=== PATIENT | female | born 1940 | race Caucasian/White ===

== ENCOUNTER 2017-02-28 18:55 | Emergency (ER) | payer MEDICARE, MEDICAID ==
[~2017-02-28] VITALS: Ht 167.6 cm; Wt 71.2 kg
--- NOTE | 2017-02-28 19:23 | NUR ---
PT JAMES LOPEZ FROM [facility], PT PLACED IN ER BED 5. PARAMEDICS STATE PT GTUBE WAS PULLED OUT UNWITNESSED YESTERDAY. 20F GTUBE REPLACED YESTERDAY BY SNF. PT HAS 22G IV TO LFA PLACED BY SNF, NO S/S INFILTRATION/INFECTION. PT ARRIVED ON A VENT WITH PRESCRIBED SETTINGS, RT AT BEDSIDE. VENT SETTINGS ARE AC 14 VT 500 FIO2 40% PEEPE 5. PT NONVERBAL, RESPONDS TO PAINFUL STIMULI. PT PLACED ON VS/SURGICAL TERRITORY MANAGER. VSS/NAD NOTED/RESP EVEN UNLABORED/NO S/S INFECTION NOTED/SKIN WARM AND DRY. DR ALONSO AT BEDSIDE FOR EVAL.
--- NOTE | 2017-02-28 19:45 | NUR ---
XRAY AT BEDSIDE
[2017-02-28] MEDS ORDERED: DIATR MEGLU/DIATRIZOATE SODIUM 30 ML BOTTLE (GASTROGRAPHIN) ONE (19:52)
--- NOTE | 2017-02-28 20:20 | NUR ---
KUB AT BEDSIDE PER MD ORDERS.
--- NOTE | 2017-02-28 20:44 | NUR ---
CALLED [facility] FOR TRANSPORT BACK TO [facility], ETA 30 MIN
--- NOTE | 2017-02-28 21:11 | NUR ---
REPORT GIVEN TO NOÉ AT [facility]. ETA OF EMS APPROX 10 FOR PICKUP.
--- NOTE | 2017-02-28 21:27 | NUR ---
IV not flushing. IV removed. Catheter intact and site benign. Pressure and 4x4 applied to site. No bleeding noted. justino from [facility] made aware.
--- NOTE | 2017-02-28 21:49 | NUR ---
Patient discharged to SNF in stable condition. Written and verbal after care instructions given. DC TO SNF VIA ACLS AMBULACE - DRIED YEAST SUPERVISOR AND RT. VSS, AFEBRILE
[2017-02-28 21:51] VITALS: BP 143/76
== END 2017-02-28 21:52 ==
LOC: ER 18:57
DX: Z43.1 Encounter for attention to gastrostomy (principal); E11.9 Type 2 diabetes mellitus without complications; G40.909 Epilepsy, unspecified, not intractable, without status epilepticus; I50.9 Heart failure, unspecified; Z93.1 Gastrostomy status; J44.9 Chronic obstructive pulmonary disease, unspecified; K21.9 Gastro-esophageal reflux disease without esophagitis; Z86.73 Personal history of transient ischemic attack (TIA), and cerebral infarction without residual deficits
CPT/HCPCS: 74000; 99283; A4606 ×2; Q9963; Z7610

== ENCOUNTER 2017-08-15 00:19 | Inpatient (IN) | payer MEDICARE, MEDICAID ==
[~2017-08-15] VITALS: Ht 152.4 cm; Wt 68.0 kg
[2017-08-15] MEDS ORDERED: DIATR MEGLU/DIATRIZOATE SODIUM 30 ML BOTTLE (GASTROGRAPHIN) ONE (00:25)
--- NOTE | 2017-08-15 00:39 | NUR ---
PT TO ER BED 14. PT HELEN FROM [facility] FOR A G-TUBE REPLACEMENT. PT IS TRACH ON VENT. RT AT BEDSIDE. PT PLACED IN GOWN AND ON MEDICAL SAFETY DIRECTOR. VSS/RESP EVEN UNLABORED/NAD NOTED/SKIN WARM AND DRY/DENIES N-V-D/AFEBRILE/AOX4. AWAITING MD SCALES.
--- NOTE | 2017-08-15 01:01 | NUR ---
PT REC'D TRACHED PORTEX 9 VIA MECH VENT. NO RESP DISTRESS NOTED. [facility] SETT[facility] GIVEN FROM TRANSPORT RT. VENT PLUGGED INTO RED OUTLET. ALARMS ARE SET AND AUDIBLE. AMBU BAG BEDSIDE. Addendum: 08/15/17 at 0102 by JENNI MONTIEL RT Amended: Links added.
[2017-08-15] MEDS ORDERED: ACETAMINOPHEN 650 MG/SUPP.RECT RC ONE ×2 (01:30→02:13)
[2017-08-15] MEDS ORDERED: IV NS 0.9% 1,000 ML BAG IV ONE ×2 (01:30→04:30)
--- NOTE | 2017-08-15 01:30 | NUR ---
20G IV TO R SHOULDER X 2 ATTEMPTS USING ASEPTIC TECH, UNABLE TO GET BLOOD FOR LAB. IV FLUSHES EASILY WITH NS, NO S/S INFILTRATION NOTED.
--- NOTE | 2017-08-15 01:35 | NUR ---
LAB AT BEDSIDE TO DRAW.
--- NOTE | 2017-08-15 01:45 | NUR ---
SHERINEUBE PATENT AND FLUSHES NORMALLY, PER .
--- NOTE | 2017-08-15 02:10 | NUR ---
16 FR F/C INSERTED USING SITE INTERPRETER, URINE SPECIMEN OBTAINED AND SENT TO THE LAB.
[2017-08-15] MEDS ORDERED: ACETAMINOPHEN 120 MG/SUPP.RECT RC ONE (02:14)
[2017-08-15 02:26] LABS: BASOPHILS % (AUTO) 0.1 % (0.0-2.0); HEMATOCRIT 45 % (33-45); HEMOGLOBIN 15.1 g/dL (11.5-14.8); LYMPHOCYTES # (AUTO) 1.2 /CMM (0.8-4.8); MEAN CORPUSCULAR HGB CONC 34 g/dl (31.0-36.0); MEAN CORPUSCULAR VOLUME 93 fL (82-100); MONOCYTES # (AUTO) 1.5 /CMM (0.1-1.30); NEUTROPHILS # (AUTO) 18.2 /CMM (1.8-8.9); NEUTROPHILS % (AUTO) 86.9 % (43.0-81.0); PLATELET COUNT (AUTO) 329 /CMM (150-450); RDW COEFFICIENT OF VARIATION 13.1 (11.5-15.0); RED BLOOD CELL COUNT(AUTO) 4.84 MIL/uL (4.0-5.2); WHITE BLOOD COUNT (AUTO) 20.9 K/uL (4.3-11.0)
[2017-08-15 02:30] LABS: APPEARANCE,URINE CLOUDY (CLEAR); BILIRUBIN,URINE NEGATIVE (NEGATIVE); BLOOD, URINE 1+ Ery/uL (NEGATIVE); KETONES,URINE NEGATIVE (NEGATIVE); LEUKOCYTE ESTERASE ,URINE 1+ (NEGATIVE); NITRITE, URINE NEGATIVE (NEGATIVE); PH,URINE 7.5 (5.0-8.0); PROTEIN,URINE 2+ mg/dl (NEGATIVE); UGLUCOSE NEGATIVE (NEGATIVE); UROBILINOGEN,URINE 0.2 EU/dL (0.2)
[2017-08-15 02:37] LABS: COLOR,URINE DARK YELLOW (YELLOW)
[2017-08-15 02:38] LABS: BACTERIA,URINE Many /HPF (None Seen); SQUAMOUS EPITHELIAL CELL,UR Moderate /HPF (None Seen); WBC,URINE 51-80 /HPF (0-3)
[2017-08-15 02:39] LABS: URINE AMORPHOUS PHOSPHATES Few /HPF (None Seen)
[2017-08-15 02:44] LABS: INR 0.98 (0.87-1.13)
[2017-08-15 02:45] LABS: TROPONIN I < 0.017 ng/mL (0.00-0.056)
--- NOTE | 2017-08-15 02:45 | NUR ---
PT TO CT VIA STRETCHER WITH RN AND RT.
[2017-08-15 02:48] LABS: CALCIUM, SERUM 9.5 mg/dL (8.5-10.1); CARBON DIOXIDE 24 mmol/L (21-32); CHLORIDE 102 mmol/L (98-107); CREATININE 0.7 mg/dL (0.6-1.3); GLUCOSE 149 mg/dL (74-106); POTASSIUM 4.7 mmol/L (3.5-5.1); SODIUM SERUM 136 mmol/L (136-145); UREA NITROGEN, BLOOD 19 mg/dL (7-18)
[2017-08-15 02:54] LABS: ALANINE AMINOTRANSFERASE 52 U/L (12-78); ALBUMIN 3.6 g/dL (3.4-5.0); ALKALINE PHOSPHATASE 241 U/L (46-116); ASPARTATE AMINOTRANSFERASE 34 U/L (15-37); B-TYPE NATRIURETIC PEPTIDE 785 PG/ML (0-125); BILIRUBIN,DIRECT 0.2 mg/dL (0.0-0.2); BILIRUBIN,TOTAL 0.9 mg/dL (0.2-1.0)
--- NOTE | 2017-08-15 03:04 | NUR ---
PT BACK FROM CT.
[2017-08-15 03:09] VITALS: BP 118/68
[2017-08-15] MEDS ORDERED: CEFTRIAXONE 1GM BAG (ER ONLY) 50 ML IV ONE (04:02)
--- NOTE | 2017-08-15 04:10 | NUR ---
REPORT GIVEN TO DARIN BYERS FOR KWESI.
[2017-08-15] MEDS ORDERED: ONDANSETRON HCL/PF 4 MG/2 ML VIAL IVP PRN (04:30)
[2017-08-15] MEDS ORDERED: CEFTRIAXONE 1GM BAG (ER ONLY) 1 GM/50 ML PIGGYBACK IV ONE (04:30)
[2017-08-15 04:35] VITALS: BP 115/65
--- NOTE | 2017-08-15 04:35 | NUR ---
PT TRANSPORTED VIA STRETCHER ON COLD STRIP ROLLER WITH RN AND RT PER ACLS PROTOCOL. PT GOING TO [facility].
--- NOTE | 2017-08-15 04:45 | NUR ---
TELE/RN OPENING NOTES PT RECEVIED FROM ER VIA GURNEY. NONVERBAL. OPENS EYES. ON VENT. IV TO RIGHT SHOULDER PATENT AND INTACT. PLACED ON TELE MONITOR SHOWING SR WITH PAC'S HR 80'S. NO S/S OF SOB OR PAIN AT THIS TIME. CALLAHAN IN PLACE AND DRAINING TO GRAVITY. GT NOTED, PT CURRENTLY NPO, FOR CONSULT WITH DR. CLEMENTE. BED IN LOW/LOCKED POSITION WITH CALL LIGHT IN REACH. SIDE RAILS UXP2. WILL CONTINUE TO MONITOR
[2017-08-15] MEDS ORDERED: PIPERACILLIN /TAZOBACTAM 2.25 G VIAL IV ONE (05:02)
[2017-08-15] MEDS ORDERED: PIPERACILLIN /TAZOBACTAM 4.5 G in IV D5W 100 ML IV SCH (06:00)
[2017-08-15 06:52] LABS: ALANINE AMINOTRANSFERASE 40 U/L (12-78); ALBUMIN 2.6 g/dL (3.4-5.0); ALKALINE PHOSPHATASE 179 U/L (46-116); ASPARTATE AMINOTRANSFERASE 32 U/L (15-37); BILIRUBIN,DIRECT 0.2 mg/dL (0.0-0.2); BILIRUBIN,TOTAL 0.7 mg/dL (0.2-1.0); CALCIUM, SERUM 7.9 mg/dL (8.5-10.1); CARBON DIOXIDE 22 mmol/L (21-32); CHLORIDE 109 mmol/L (98-107); GLUCOSE 158 mg/dL (74-106); POTASSIUM 4.2 mmol/L (3.5-5.1); SODIUM SERUM 138 mmol/L (136-145); TOTAL PROTEIN, SERUM 6.9 g/dL (6.4-8.2); UREA NITROGEN, BLOOD 17 mg/dL (7-18)
[2017-08-15] MEDS ORDERED: NA P133E RC (06:53)
[2017-08-15] MEDS ORDERED: ACET325T53 GT (06:53)
[2017-08-15] MEDS ORDERED: MULT1TAB73 GT (06:53)
[2017-08-15] MEDS ORDERED: PANT40TA4 GT (06:53)
[2017-08-15] MEDS ORDERED: BISA-79 PR (06:53)
[2017-08-15] MEDS ORDERED: CLOP75TA15 GT (06:53)
[2017-08-15] MEDS ORDERED: LACT-96 GT (06:53)
[2017-08-15] MEDS ORDERED: LEVE500V2 GT (06:53)
[2017-08-15] MEDS ORDERED: DEXT15DR6 EACHEYE (06:53)
[2017-08-15] MEDS ORDERED: DOCU-141 GT (06:53)
[2017-08-15] MEDS ORDERED: MAGN400O6 GT (06:53)
[2017-08-15] MEDS ORDERED: ALBU2.5V11 NEB (06:53)
--- NOTE | 2017-08-15 07:29 | NUR ---
TELE/RN OPENING NOTES RECEIVED SBAR REPORT AT THE BEDSIDE. NONVERBAL. OPENS EYES. MECHANICAL VENTILATOR DEPENDANT. SETTINGS ORDERED. VENTILATOR PLUGGED IN THE RED OUTLET. RIGHT SHOULDER IV PATENT AND INTACT. PLACED ON TELE MONITOR SHOWING SR WITH PAC'S HR 90S. NO S/S OF SOB OR PAIN AT THIS TIME. CALLAHAN IN PLACE AND DRAINING TO GRAVITY. GT IN PLACE. NPO, FOR CONSULT WITH DR. CLEMENTE. BED IN LOW/LOCKED POSITION WITH CALL LIGHT IN REACH. SIDE RAILS UXP3. WILL CONTINUE TO ASSESS/MONITOR THROUGHOUT THE SHIFT.
--- NOTE | 2017-08-15 07:44 | NUR ---
TELE/RN CLOSING NOTES PT RESTING IN BED. NONVERBAL. OPENS EYES. ON VENT. IV TO RIGHT SHOULDER RUNNING IVF ORDERED. ON TELE MONITOR SHOWING SR WITH PAC'S HR 75. NO S/S OF SOB OR PAIN AT THIS TIME. CALLAHAN IN PLACE AND DRAINING TO GRAVITY. NO SIGNIFICANT CHANGES OVERNIGHT, WOUND CONSULT ORDERED. BED IN LOW/LOCKED POSITION WITH CALL LIGHT IN REACH. SIDE RAILS UXP2. ENDORSED TO DAY SHIFT RN KWESI.
[2017-08-15 08:00] VITALS: BP 123/62
--- NOTE | 2017-08-15 08:53 | NUR ---
SPUTUM CULTURE COLLECTED BY THE RT. RN CALLED THE LAB TO FILLER SHREDDER THE SPECIMEN.
[2017-08-15] MEDS: PANTOPRAZOLE 40 MG VIAL IV SCH (09:29)
[2017-08-15 12:00] VITALS: BP 94/41
[2017-08-15] MEDS: IV NS 0.9% 1,000 ML IV PRN (12:25)
[2017-08-15] MEDS: PIPERACILLIN /TAZOBACTAM 3.375 G in IV D5W 50 ML IV SCH ×2 (12:25→18:44)
[2017-08-15 16:00] VITALS: BP_SYST 100; BP_DIAS 38; BP_DIAS 58
--- NOTE | 2017-08-15 16:59 | NUR ---
Patient is trach/vent dependent, resides at [facility] [phone]. She is bedfast most of the time,totally dependent with adl's.Current plan is to return to SNF once d/c. Addendum: 08/15/17 at 1659 by BHASKAR REYNOSO RN Amended: Links added.
--- NOTE | 2017-08-15 17:33 | NUR ---
RT NOTE PATIENT RECEIVED TRACHED ON MECHANICAL VENTILATION. VENT PLUGGED INTO RED OUTLET. KENISHAU BAG @ HOB. ALARMS ON AND AUDIBLE. SX DONE, TRACH SECURED AND PATENT AT ALL TIMES. NO SOB NOTED T/O SHIFT. Addendum: 08/15/17 at 1733 by TINO BUTCHER RT Amended: Links added.
[2017-08-15] MEDS: MORPHINE SULFATE INJ 4 MG/ML DISP.SYRIN IV PRN (18:29)
--- NOTE | 2017-08-15 18:29 | NUR ---
PATIENT PRESENTED WITH NON-VERBAL S/S OF PAIN SUCH DIAPHORESIS, PACIAL GRYMACING ANF TACHYCARDIA. HR 145BPM.
--- NOTE | 2017-08-15 18:52 | NUR ---
PATIENT'S HR HAS DECREASED TO 122. PATIENT IS SLEEPING COMFORTABLY. SON SRINATH AT THE BEDSIDE.
[2017-08-15 20:00] VITALS: BP_SYST 131; BP_SYST 96; BP_DIAS 56; BP_DIAS 57
[2017-08-16] VITALS (7 sets, daily range): BP systolic 93–129; BP diastolic 41–69
[2017-08-16] MEDS: PIPERACILLIN /TAZOBACTAM 3.375 G in IV D5W 50 ML IV SCH ×5 (00:55→23:52)
[2017-08-16] MEDS: IV NS 0.9% 1,000 ML IV PRN ×2 (00:56→12:49)
[2017-08-16 07:21] LABS: BASOPHILS % (AUTO) 0.4 % (0.0-2.0); EOSINOPHILS % (AUTO) 2.5 % (0.0-6.0); HEMATOCRIT 33 % (33-45); HEMOGLOBIN 11.4 g/dL (11.5-14.8); LYMPHOCYTES # (AUTO) 1.7 /CMM (0.8-4.8); LYMPHOCYTES % (AUTO) 15.8 % (20.0-44.0); MEAN CORPUSCULAR HGB CONC 35 g/dl (31.0-36.0); MEAN CORPUSCULAR VOLUME 93 fL (82-100); MONOCYTES # (AUTO) 0.9 /CMM (0.1-1.30); MONOCYTES % (AUTO) 8.2 % (2.0-12.0); NEUTROPHILS # (AUTO) 8.1 /CMM (1.8-8.9); NEUTROPHILS % (AUTO) 73.1 % (43.0-81.0); PLATELET COUNT (AUTO) 268 /CMM (150-450); RDW COEFFICIENT OF VARIATION 12.4 (11.5-15.0); RED BLOOD CELL COUNT(AUTO) 3.49 MIL/uL (4.0-5.2)
[2017-08-16 07:44] LABS: ALANINE AMINOTRANSFERASE 36 U/L (12-78); ALBUMIN 2.5 g/dL (3.4-5.0); ALKALINE PHOSPHATASE 149 U/L (46-116); ASPARTATE AMINOTRANSFERASE 21 U/L (15-37); CALCIUM, SERUM 8.8 mg/dL (8.5-10.1); CARBON DIOXIDE 20 mmol/L (21-32); CHLORIDE 110 mmol/L (98-107); GLUCOSE 108 mg/dL (74-106); POTASSIUM 3.6 mmol/L (3.5-5.1); SODIUM SERUM 141 mmol/L (136-145); TOTAL PROTEIN, SERUM 6.8 g/dL (6.4-8.2); UREA NITROGEN, BLOOD 17 mg/dL (7-18)
--- NOTE | 2017-08-16 08:00 | NUR ---
TELE1/RN AM SHIFT INITIAL NOTES RECEIVED PT ASLEEP IN BED, PT IS OBTUNDED, NO GRIMACING, RESTLESSNESS OR ACUTE CHANGE OF CONDITION NOTED. VENTILATOR DEPENDENT, RATES SET PRESCRIBED, SATURATING @ 100%, LUNG SOUNDS CLEAR, RESPIRATIONS EVEN & UNLABORED. SUCTIONED FOR AIRWAY CLEARANCE. NOTED GENERALIZED SKIN RASH. IV SITE WITH ON GOING INFUSION OF NS @ 100CC/HR, PATENT WITH NO S/S OF INFECTION. PT ON NPO STATUS, SCHEDULED TO HAVE EGD AND PEG PLACEMENT TODAY. CALLAHAN CATHETER INTACT WITH YELLOW URINE OUTPUT. PT IS COMFORTABLE, SCHEDULED AM MEDS TO BE GIVEN. CL WITHIN REACHED, SAFETY MAINTAINED AND ISOLATION OBSERVED FOR POSSIBLE SCABIES.
[2017-08-16 08:03] LABS: TROPONIN I < 0.017 ng/mL (0.00-0.056)
[2017-08-16] MEDS: PANTOPRAZOLE 40 MG VIAL IV SCH (08:45)
[2017-08-16] MEDS ORDERED: SUCCINYLCHOLINE CHLORIDE 20 MG/ML VIAL ONE (13:27)
--- NOTE | 2017-08-16 13:30 | NUR ---
TELE1/RN NO SCABIES FOLLOWED -UP WITH DR. MCCORD REGARDING SKIN SCRAPPING TO VERIFY FOR SCABIES. PER MD HE EXAMINED THE PT'S SKIN YESTERDAY AND DETERMINED NOT TO BE SCABIES. CHARGE NURSE AND PRIMARY MADE AWARE.
--- NOTE | 2017-08-16 15:15 | NUR ---
TELE1/RN NEW PEG TUBE EGD AND NEW PLACEMENT OF PEG TUBE PERFORMED AT BEDSIDE BY DR. CLEMENTE. PT TOLERATED PROCEDURE. WITH VERBAL ORDERS FROM MD TO START FEEDING TOMORROW. NOTED.
--- NOTE | 2017-08-16 16:18 | NUR ---
RT NOTE PATIENT RECEIVED TRACHED ON MECHANICAL VENTILATION. AMBU BAG @ HOB. VENT PLUGGED INTO RED OUTLET. SX DONE, SMALL THICK WHITE YELLOW SECRETIONS NOTED. ALARMS ON AND AUDIBLE. PATIENT STABLE ON CURRENT SETTINGS. Addendum: 08/16/17 at 1618 by TINO BUTCHER RT Amended: Links added.
--- NOTE | 2017-08-16 17:30 | NUR ---
TELE1/RN AFTERNOON ROUNDS PM CARE PROVIDED. NO ACUTE CHANGE OF CONDITION. NOTED NEW PEG TUBE IS SMALLER THAN THE GT STOMA. ADHESIVE APPLIED ORDERED. MONITORING CONTINUED.
--- NOTE | 2017-08-16 19:30 | NUR ---
GLOBAL TRANSPORTATION MANAGER INITIAL NOTE PT RECEIVED IN BED OBTUNDED. ON MECH VENT WITH SETTINGS WELL TOLERATED AND SATURATING WELL. TELE- SR 60. HOB ELEVATED AND ON ASPIRATION PRECAUTIONS. PT REMAINS NPO. GTUBE CLAMPED AND NOTED WITH LEAKING AROUND GT SITE. STOMADHESIVE PLACED ON GT SITE. IV L MIDDLE FINGER CLEAN AND DRY WITH FLUIDS INFUSING. CALLAHAN CATHETER IN PLACE AND DRAINING BY GRAVITY. WILL CONTINUE TO MONITOR.
--- NOTE | 2017-08-16 19:39 | NUR ---
TELE1/RN AM SHIFT END NOTES ALL NEEDS MET. NO ACUTE CHANGE OF CONDITION NOTED DURING THE SHIFT. IV SITE INTACT WITH ON GOING INFUSION OF NS @ 100CC/HR, CALLAHAN CATHETER INTACT. PT ENDORSED TO PM NURSE TO CONTINUE CARE, ALSO ENDORSED TO FOLLOW-UP WITH DR. CLEMENTE TO CHANGE BIGGER SIZE PEG TUBE AND TO START FEEDING TOMORROW. CL WITHIN REACHED AND SAFETY MAINTAINED.
[2017-08-17] VITALS: BP 135/69
--- NOTE | 2017-08-17 03:51 | NUR ---
PT MARYANNE'D ON MECHANICAL VENT. SX DONE T/O SHIFT. PT MARYANNE PATENT AND SECURE. AMBUBAG AT BEDSIDE. VENT PLUGGED INTO RED OUTLET. ALARMS ARE ON AND AUDIBLE. Addendum: 08/17/17 at 0353 by KELLY HOOK RT Amended: Links added.
[2017-08-17 04:00] VITALS: BP 155/77
[2017-08-17] MEDS: PIPERACILLIN /TAZOBACTAM 3.375 G in IV D5W 50 ML IV SCH ×3 (05:36→17:12)
[2017-08-17] MEDS: IV NS 0.9% 1,000 ML IV PRN ×2 (05:55→19:00)
--- NOTE | 2017-08-17 07:00 | NUR ---
TD/RN SHIFT OPENING NOTE PATIENT RECEIVED IN BED ,OBTUNDED,ON VENT AND TRACH DEPENDANT ON AC 14,TV 500,FIO2 40%,PEEP 5.ON TELEMONITOR WITH SINUS RHYTHM OF 64.HAS CALLAHAN DRAINING CLEAR URINE .IV SITE IS ON CABRERA #22,PATENT WITH NO SIGNS OF INFILTRATION.CALL LIGHT IN REACH ,SAFETY MAINTAINED,BED LOCKED & BED IS IN LOWEST POSITION.SR UP X3.CONTINUE TO MONITOR.
--- NOTE | 2017-08-17 07:16 | NUR ---
RT PATIENT REC'D TRACHED ON [facility] VENT WITH NOTED SETTINGS MARÍA ELENA WELL. VENT ALARMS CHECKED + AUDIBLE. CUFF PRESSURE CHECKED MACHINED PARTS METAL SPRAYER. SX'D WITH MOD AMT OF PALE SEMITHICK SECRETIONS. AMBU BAG AT [facility]. Addendum: 08/17/17 at 0840 by MAURA ESQUEDA RT Amended: Links added.
--- NOTE | 2017-08-17 07:23 | NUR ---
MBA INTERNSHIP CLOSING NOTE PT REMAINED STABLE DURING SHIFT. NO ACUTE DISTRESS NOTED. VENT SETTINGS WELL TOLERATED. ALL NEEDS ATTENDED TO PROMPTLY. KEPT CLEAN AND DRY. SUCTIONED NEEDED. REPOSITIONED Q2H. WILL ENDORSE TO NEXT SHIFT FOR CONTINUITY OF CARE. Addendum: 08/17/17 at 0730 by HORACE GONZALEZ RN INFORMED GIOVANNA TRAFFIC MONITOR SPECIALIST THAT PT GT SITE STILL LEAKING WITH ORDERS TO START GT FEEDING IN THE MORNING AND TO MONITOR LEAKING. TRAFFIC MONITOR SPECIALIST WILL SEE PT TODAY.
[2017-08-17 08:00] VITALS: BP 143/70
[2017-08-17 08:15] LABS: CALCIUM, SERUM 9.2 mg/dL (8.5-10.1); CARBON DIOXIDE 19 mmol/L (21-32); CHLORIDE 112 mmol/L (98-107); CREATININE 0.9 mg/dL (0.6-1.3); GLUCOSE 98 mg/dL (74-106); POTASSIUM 3.8 mmol/L (3.5-5.1); SODIUM SERUM 144 mmol/L (136-145); UREA NITROGEN, BLOOD 14 mg/dL (7-18)
[2017-08-17 08:25] LABS: BASOPHILS # (AUTO) 0.1 /CMM (0.0-0.2); BASOPHILS % (AUTO) 0.8 % (0.0-2.0); EOSINOPHILS % (AUTO) 5.4 % (0.0-6.0); HEMATOCRIT 33 % (33-45); HEMOGLOBIN 11.4 g/dL (11.5-14.8); LYMPHOCYTES # (AUTO) 1.5 /CMM (0.8-4.8); LYMPHOCYTES % (AUTO) 21.3 % (20.0-44.0); MEAN CORPUSCULAR HGB CONC 35 g/dl (31.0-36.0); MEAN CORPUSCULAR VOLUME 94 fL (82-100); MONOCYTES # (AUTO) 0.5 /CMM (0.1-1.30); MONOCYTES % (AUTO) 7.3 % (2.0-12.0); NEUTROPHILS # (AUTO) 4.5 /CMM (1.8-8.9); NEUTROPHILS % (AUTO) 65.2 % (43.0-81.0); PLATELET COUNT (AUTO) 240 /CMM (150-450); RDW COEFFICIENT OF VARIATION 12.4 (11.5-15.0); RED BLOOD CELL COUNT(AUTO) 3.49 MIL/uL (4.0-5.2)
[2017-08-17] MEDS: PANTOPRAZOLE 40 MG VIAL IV SCH (08:42)
--- NOTE | 2017-08-17 09:49 | NUR ---
WOUND CARE CONSULT: PT PRESENTS WITH SKIN CONDITION/ DRY LESIONS TO CHEST AREA AND BACK, PRESENT ON ADMISSION. SACRAL SCARRING NOTED. PT HAS CONTRACTED LOWER EXTREMITIES. ALL SKIN PROTECTION MEASURES IN PLACE AND DISCUSSED WITH NURSING STAFF. FIRST STEP MATTRESS ON ORDER. CURRENT FIGUEROA SCORE IS 8. WILL SEE PRN. Shonda Lovett IN AGREEMENT WITH PLAN OF CARE. Addendum: 08/17/17 at 0955 by MONA CISNEROS WNDNU Amended: Links added.
[2017-08-17] MEDS: Z GUARD REMEDY 2 OZ OINT TP SCH (10:00)
[2017-08-17] MEDS: Z GUARD REMEDY 2 OZ OINT TP PRN (11:47)
[2017-08-17 12:00] VITALS: BP 141/62
[2017-08-17] MEDS ORDERED: FIBERSOURCE HN 1,000 ML BOTTLE GT SCH (12:30)
[2017-08-17 16:00] VITALS: BP 156/76
--- NOTE | 2017-08-17 18:45 | NUR ---
RN SHIFT END REPORT PATIENT IS OBTUNDED,IN BED ,ON TRACH AND VENT AC 14,TV500,FIO2 40%PEEP 5,SATURATING WITH 100%.IV ON CABRERA #22 ,PATENT AND NO SIGNS OF INFLAMMATION OR INFILTRATION NOTICED.ONGOING IVF OF NS 100CC/HR.CALLAHAN CATHETER IS PATENT, DRAINING CLEAR YELLOW URINE .VITAL SIGNS STABLE.CALL LIGHT IN REACH,SAFETY MAINTAINED,BED IS LOCKED AND IN LOW POSITION,WILL ENDORSE TO PM NURSE FOR KWESI .
[2017-08-17 20:00] VITALS: BP 127/67
[2017-08-18] VITALS: BP 124/60
[2017-08-18] MEDS: PIPERACILLIN /TAZOBACTAM 3.375 G in IV D5W 50 ML IV SCH ×4 (00:04→17:03)
[2017-08-18 04:00] VITALS: BP 121/45
--- NOTE | 2017-08-18 04:30 | NUR ---
RN NOTE WAS NOTIFIED BY INSEAM TRIMMING MACHINE OPERATOR THAT WHEN PATIENT STARTED COUGHING, G-TUBE WAS SLIGHTLY OUT, IMIDIATELLY ASSESSED PATIENT, G-TUBE IS SLIGHTLY DISLODGED TO THE SIDE, PATIENT HAS NO DISTRESS, NOTIFIED DR PAYTON, PER DR PAYTON, KEEP PATIENT NPO, AND LET THE GI DOCTOR KNOW ONCE HE COMES IN THE MORNING, WILL ENDORSE TO AM SHIFT, NOTIFIED CHARGE NURSE WELL, WILL CONTINUE TO MONITOR PT
--- NOTE | 2017-08-18 07:00 | NUR ---
RN OPENING NOTES PATIENT RECEIVED IN BED,OBTUNDED. TRACH , VENT DEPENDENT AC 14,TV 500 FIO2 40%,PEEP 5 SATURATING 100%.NO SOB NO DISTRESS NOTICED; ON TELEMONITOR WITH SINUS RHYTHM OF 65. ON NPO .IV IS ON CABRERA #22 WITH NS 100CC/HR.CALLAHAN CATHETER IS DRAINING CLEAR YELLOW URINE.BED IS LOCKED AND IN LOW POSITION.SAFETY MAINTAINED.CALL LIGHT IN REACH.SR UPX3 .CONTINUE TO MONITOR.
[2017-08-18] MEDS: IV NS 0.9% 1,000 ML IV PRN ×2 (07:30→21:31)
[2017-08-18 07:33] LABS: BASOPHILS % (AUTO) 0.4 % (0.0-2.0); EOSINOPHILS % (AUTO) 5.9 % (0.0-6.0); HEMATOCRIT 33 % (33-45); HEMOGLOBIN 11.1 g/dL (11.5-14.8); LYMPHOCYTES # (AUTO) 1.2 /CMM (0.8-4.8); LYMPHOCYTES % (AUTO) 20.4 % (20.0-44.0); MEAN CORPUSCULAR HGB CONC 34 g/dl (31.0-36.0); MEAN CORPUSCULAR VOLUME 93 fL (82-100); MONOCYTES # (AUTO) 0.4 /CMM (0.1-1.30); MONOCYTES % (AUTO) 6.8 % (2.0-12.0); NEUTROPHILS # (AUTO) 3.8 /CMM (1.8-8.9); NEUTROPHILS % (AUTO) 66.5 % (43.0-81.0); PLATELET COUNT (AUTO) 242 /CMM (150-450); RDW COEFFICIENT OF VARIATION 12.8 (11.5-15.0); RED BLOOD CELL COUNT(AUTO) 3.53 MIL/uL (4.0-5.2); WHITE BLOOD COUNT (AUTO) 5.7 K/uL (4.3-11.0)
[2017-08-18 07:44] LABS: CALCIUM, SERUM 8.9 mg/dL (8.5-10.1); CARBON DIOXIDE 18 mmol/L (21-32); CHLORIDE 112 mmol/L (98-107); CREATININE 0.8 mg/dL (0.6-1.3); GLUCOSE 91 mg/dL (74-106); POTASSIUM 3.5 mmol/L (3.5-5.1); SODIUM SERUM 143 mmol/L (136-145); UREA NITROGEN, BLOOD 10 mg/dL (7-18)
[2017-08-18 08:00] VITALS: BP 131/84
[2017-08-18] MEDS: PANTOPRAZOLE 40 MG VIAL IV SCH (08:30)
[2017-08-18] MEDS: Z GUARD REMEDY 2 OZ OINT TP SCH (08:30)
[2017-08-18 12:00] VITALS: BP 131/75
[2017-08-18 16:00] VITALS: BP 95/44
[2017-08-18] MEDS ORDERED: ENOXAPARIN SODIUM 40 MG/0.4 ML DISP.SYRIN SQ SCH (16:00)
[2017-08-18] MEDS ORDERED: DIATR MEGLU/DIATRIZOATE SODIUM 30 ML BOTTLE (GASTROGRAPHIN) ONE (16:13)
--- NOTE | 2017-08-18 16:25 | NUR ---
PT MARYANNE'D ON MECHANICAL VENT. SX DONE T/O SHIFT. PT MARYANNE PATENT AND SECURE. AMBUBAG AT BEDSIDE. VENT PLUGGED INTO RED OUTLET. ALARMS ARE ON AND AUDIBLE. Addendum: 08/18/17 at 1627 by KELLY HOOK RT Amended: Links added.
--- NOTE | 2017-08-18 17:00 | NUR ---
RN NOTES PT STILL NPO , AWAITING FOR KUB RESULTS FOR PEG PLACEMENT.
[2017-08-18] MEDS: ENOXAPARIN SODIUM 40 MG/0.4 ML DISP.SYRIN SQ SCH (17:03)
[2017-08-18 17:39] LABS: ABG BASE EXCESS -5.9 mmol/L; ABG OXYGEN SATURATION 98.6 % (92.0-98.5); ABG PCO2 30.9 mmHg (35.0-45.0); ABG PH 7.384 (7.350-7.450); ABG PO2 155.8 mmHg (75.0-100.0); AaDO2 93.9 mmHg; COHb 0.7 % (0.5-1.5); MetHb 0.7 % (0.0-1.5); O2Hb 97.2 % (94.0-97.0); PEEP,BG 5 cm H2O; SITE, ABG Left Radial; VT, ABG 500 mL
--- NOTE | 2017-08-18 18:00 | NUR ---
RN NOTES PT STABLE , NO DISTRESS NOTED, SR UP x3, CALL LIGHT WITHIN EASY REACH, WILL ENDORSE TO AD OPERATIONS ASSOCIATE NURSE FOR KWESI
--- NOTE | 2017-08-18 19:40 | NUR ---
RN NOTE NOTIFIED GIOVANNA OLIVIA NP REGARDING ABD X-RAY RESULT, IMPRESSION G-TUBE IN PLACE, GIOVANNA BAKER ORDERED TO RESTART TUBE FEEDING, ALSO NOTIFIED GIOVANNA BAKER THAT G-TUBE SITE HAS SMALL AMOUNT OF DRAINAGE, GIOVANNA BAKER SAID TO CONTINUE TO MONITOR NO NEW ORDERS GIVEN
--- NOTE | 2017-08-18 19:54 | NUR ---
PT ON VENT A/C MODE PT MARÍA ELENA VENT SETTINGS WELL WITH NO RESPIRATORY DISTRESS NOTED ATT. PT HAS A TRACH PORTEX 9 TRACH WHICH IS IN PLACE AND SECURE. HHN TX MD ORDERED. BREATH SOUNDS COURSE SX PT PRN RETURNING SMALL TO MOD PALE YELLOW SECRETIONS. VENT ALARMS CHECKED FOUND TO BE FUNCTIONAL, AUDIBLE AND WITHIN RANGE. VENT PLUGGED INOT RED OUTLET. BVM AT BEDSIDE.
[2017-08-18 20:00] VITALS: BP 124/85
[2017-08-18] MEDS: JEVITY 1.2 CAL 1,000 ML BOTTLE GT PRN (21:31)
[2017-08-19] VITALS: BP 152/93
[2017-08-19] MEDS: PIPERACILLIN /TAZOBACTAM 3.375 G in IV D5W 50 ML IV SCH ×4 (00:05→17:39)
[2017-08-19] MEDS: MORPHINE SULFATE INJ 4 MG/ML DISP.SYRIN IV PRN (00:27)
[2017-08-19 04:00] VITALS: BP 105/77
[2017-08-19 06:55] LABS: BASOPHILS % (AUTO) 0.4 % (0.0-2.0); HEMATOCRIT 37 % (33-45); HEMOGLOBIN 12.7 g/dL (11.5-14.8); LYMPHOCYTES # (AUTO) 1.7 /CMM (0.8-4.8); LYMPHOCYTES % (AUTO) 33.9 % (20.0-44.0); MEAN CORPUSCULAR HGB CONC 34 g/dl (31.0-36.0); MEAN CORPUSCULAR VOLUME 93 fL (82-100); MONOCYTES # (AUTO) 0.4 /CMM (0.1-1.30); MONOCYTES % (AUTO) 8.5 % (2.0-12.0); NEUTROPHILS # (AUTO) 2.6 /CMM (1.8-8.9); NEUTROPHILS % (AUTO) 50.2 % (43.0-81.0); PLATELET COUNT (AUTO) 260 /CMM (150-450); RDW COEFFICIENT OF VARIATION 12.8 (11.5-15.0); RED BLOOD CELL COUNT(AUTO) 4.02 MIL/uL (4.0-5.2); WHITE BLOOD COUNT (AUTO) 5.1 K/uL (4.3-11.0)
--- NOTE | 2017-08-19 07:10 | NUR ---
RN NOTE NO ACUTE CHANGES DURING MY SHIFT, PATIENT RESTED WELL AT NIGHT, NO RESPIRATORY DISTRESS NOTED, ALL SAFETY MEASURES TAKEN, WILL ENDORSE TO AM SHIFT FOR KWESI
[2017-08-19 07:14] LABS: CALCIUM, SERUM 8.2 mg/dL (8.5-10.1); CARBON DIOXIDE 19 mmol/L (21-32); CHLORIDE 111 mmol/L (98-107); CREATININE 0.9 mg/dL (0.6-1.3); GLUCOSE 107 mg/dL (74-106); MAGNESIUM 1.8 mg/dL (1.8-2.4); PHOSPHORUS 2.8 mg/dL (2.5-4.9); POTASSIUM 3.7 mmol/L (3.5-5.1); SODIUM SERUM 143 mmol/L (136-145); UREA NITROGEN, BLOOD 6 mg/dL (7-18)
--- NOTE | 2017-08-19 07:15 | NUR ---
RN NOTES RECEIVED PATIENT IN BED, OBTUNDED, TRACH, ON VENT. NO ACUTE DISTRESS NOTED. BREATHING UNLABORED. NO SOB NOTED. IV ACCESS PATENT AND INTACT. GT IN PLACE, PATENT. CALLAHAN CATHETER INTACT, DRAINING WELL. SAFETY MEASURES IN PLACE. CALL LIGHT WITHIN REACH. WILL CONTINUE TO MONITOR ACCORDINGLY.
[2017-08-19 08:00] VITALS: BP 138/54
[2017-08-19] MEDS: Z GUARD REMEDY 2 OZ OINT TP SCH (08:17)
[2017-08-19] MEDS: PANTOPRAZOLE 40 MG VIAL IV SCH (08:17)
[2017-08-19] MEDS: IV NS 0.9% 1,000 ML IV PRN (10:57)
[2017-08-19 12:00] VITALS: BP 137/55
[2017-08-19 16:00] VITALS: BP 114/81
--- NOTE | 2017-08-19 18:30 | NUR ---
RN CLOSING NOTES PATIENT IN BED OBTUNDED WITH TRACH ON VENT. GTUBE IN PLACE AND PATENT. CALLAHAN CATHETER INTACT, DRAINING WELL. NO ACUTE DISTRESS NOTED. BREATHING UNLABORED. IV ACCESS PATENT AND INTACT, NO REDNESS OR SWELLING NOTED. DUE MEDICATIONS GIVEN, NO ASE NOTED. NEEDS ATTENDED AND ANTICIPATED. SAFETY MEASURES IN PLACE. CALL LIGHT WITHIN REACH. WILL CONTINUE TO MONITOR ACCORDINGLY. WILL ENDORSE TO NIGHT NURSE FOR CONTINUITY OF CARE.
--- NOTE | 2017-08-19 19:23 | NUR ---
Patient is discharged. Addendum: 08/19/17 at 1924 by CHAPIS FLOREZ RT Amended: Links added.
[2017-08-19 20:00] VITALS: BP 158/80
[2017-08-19] MEDS: ENOXAPARIN SODIUM 40 MG/0.4 ML DISP.SYRIN SQ SCH (21:25)
[2017-08-20] VITALS (7 sets, daily range): BP systolic 128–164; BP diastolic 54–87
[2017-08-20] MEDS: IV NS 0.9% 1,000 ML IV PRN ×2 (00:07→11:45)
[2017-08-20] MEDS: PIPERACILLIN /TAZOBACTAM 3.375 G in IV D5W 50 ML IV SCH ×4 (00:27→17:34)
[2017-08-20 07:19] LABS: BASOPHILS % (AUTO) 0.2 % (0.0-2.0); EOSINOPHILS % (AUTO) 6.7 % (0.0-6.0); HEMATOCRIT 35 % (33-45); LYMPHOCYTES # (AUTO) 1.1 /CMM (0.8-4.8); LYMPHOCYTES % (AUTO) 23.4 % (20.0-44.0); MEAN CORPUSCULAR HGB CONC 35 g/dl (31.0-36.0); MEAN CORPUSCULAR VOLUME 92 fL (82-100); MONOCYTES # (AUTO) 0.3 /CMM (0.1-1.30); MONOCYTES % (AUTO) 7.5 % (2.0-12.0); NEUTROPHILS # (AUTO) 2.9 /CMM (1.8-8.9); NEUTROPHILS % (AUTO) 62.2 % (43.0-81.0); PLATELET COUNT (AUTO) 255 /CMM (150-450); RDW COEFFICIENT OF VARIATION 11.8 (11.5-15.0); RED BLOOD CELL COUNT(AUTO) 3.74 MIL/uL (4.0-5.2); WHITE BLOOD COUNT (AUTO) 4.6 K/uL (4.3-11.0)
[2017-08-20 07:42] LABS: CALCIUM, SERUM 8.3 mg/dL (8.5-10.1); CARBON DIOXIDE 20 mmol/L (21-32); CHLORIDE 111 mmol/L (98-107); CREATININE 0.8 mg/dL (0.6-1.3); GLUCOSE 109 mg/dL (74-106); MAGNESIUM 1.6 mg/dL (1.8-2.4); PHOSPHORUS 2.7 mg/dL (2.5-4.9); SODIUM SERUM 144 mmol/L (136-145); UREA NITROGEN, BLOOD 3 mg/dL (7-18)
--- NOTE | 2017-08-20 08:00 | NUR ---
CORPORATE DRIVER AM NOTES RECEIVED PATIENT IN BED, OBTUNDED, TRACH, ON VENT. NO ACUTE DISTRESS NOTED. BREATHING UNLABORED. NO SOB NOTED. IV ACCESS TO RT UPPER ARM IS INFILTRATED AND CHANGED IV SITE TO RT POINTER FINGER WITH IV NS AT 100 ML/HR INFUSING WELL.GT IN PLACE, PATENT. GT FEEDING JEVITY 1.2 RUNNING AT 20 ML/HR TOLERATING WELL.WITHB HOB ELEVATED.CALLAHAN CATHETER INTACT, DRAINING YELLOW URINE OUTPUT.SAFETY MEASURES IN PLACE. CALL LIGHT WITHIN REACH. WILL CONTINUE TO MONITOR ACCORDINGLY.
[2017-08-20] MEDS: PANTOPRAZOLE 40 MG VIAL IV SCH (08:08)
[2017-08-20] MEDS: Z GUARD REMEDY 2 OZ OINT TP SCH (08:08)
--- NOTE | 2017-08-20 08:30 | NUR ---
GT SITE LEAKS MODERATE TO LARGE AMOUNT OF CLEAR SECRETIONS.DRESSING CHANGED FREQUENTLY ON THE SITE AND PLACED TOWELS ON THE SURROUNDING AREA.KEPT AREA CLEAN AND DRY OFTEN.SAMUEL RAMIREZ MADE AWARE.
[2017-08-20] MEDS: POTASSIUM CHLORIDE 20 MEQ TAB.PRT.SR PO SCH ×3 (10:46→12:35)
--- NOTE | 2017-08-20 12:07 | NUR ---
TOOK KDUR 20 MEQ TAB OUT OF THE OMNICELL 12 PM DOSE BEFORE IT GETS OFF THE SCREEN IN OMNICELL BUT WILL ADMINISTER KDUR 20 MEQ WHEN ITS DUE ORDERED.
--- NOTE | 2017-08-20 12:10 | NUR ---
2ND DOSE OF KDUR 20 MEQ WAS GIVEN AT 1138PM 33 MINS AGO AND WILL ADMINISTER 3RD DOSE OF 20 MEQ KDUR WHEN ITS DUE.
[2017-08-20] MEDS: Magnesium 1GM/D5W 100ML PREMIX 100 ML IV SCH ×2 (12:40→14:07)
--- NOTE | 2017-08-20 19:32 | NUR ---
PT RESTING IN BED WITH SON AT BEDSIDE.UPDATED ON PT'S PLAN OF CARE.GIOVANNAGI CRIMINAL JUSTICE SOCIAL WORKER ARRIVED AND IS AWARE OF PT'S LEAKING GT LEAKING WITH WHITE SLIMY SECRETIONS LARGE AMOUNT.
--- NOTE | 2017-08-20 19:41 | NUR ---
RCVD TRACHED PT ON VENT WITH NOTED SETTINGS. VENT PLUGGED INTO RED OUTLET, VENT ALARM WORKING AND AUDIBLE. AMBU BAG AT BEDSIDE. SUCTIONED MODERATE AMOUNT OF PALE YELLOW THICK SECRETIONS. NO RESPIRATORY DISTRESS NOTED AT THIS TIME. WILL CONTINUE TO MONITOR THE PT.
--- NOTE | 2017-08-20 19:57 | NUR ---
TELE-1/SUPERVISOR WATERWORKS SPOKE WITH GENERAL SURGEON DR. ROCHA REGARDING LEAKING GTUBE STOMA. HE SAID HE WILL SEE PT TOMORROW. PLAN DISCUSSED WITH PTS SON. WILL CONTINUE TO MONITOR.
[2017-08-20] MEDS: ENOXAPARIN SODIUM 40 MG/0.4 ML DISP.SYRIN SQ SCH (21:52)
[2017-08-21] VITALS: BP 135/84
[2017-08-21] MEDS: PIPERACILLIN /TAZOBACTAM 3.375 G in IV D5W 50 ML IV SCH ×5 (00:34→23:50)
[2017-08-21 04:00] VITALS: BP 124/85
[2017-08-21] MEDS: IV NS 0.9% 1,000 ML IV PRN ×2 (05:32→19:44)
--- NOTE | 2017-08-21 07:35 | NUR ---
DESIGN ASSEMBLER NOTE: RECEIVED PATIENT IN BED, NONVERBAL AND ABLE TO OPEN EYES. RESPIRATION IS EVEN AND UNLABORED. VENT-TRACH DEPENDENT SATURATING 100%. ON RESPIRATORY TECHNICIAN, SR HR= 68. NO FACIAL GRIMACING NOTED. (R) POINTER FINGER IV PERIPHERAL LINE NOTED PATENT AND INTACT INFUSING NS@100ML/HR. GT FEEDING OF JEVITY 1.2 RUNNING AT 20ML/HR TOLERATING WELL AND NO RESIDUAL NOTED. AWAITING FOR DR. ROCHA FOR THE LEAKING OF THE GT SITE. HOB ELEVATED. BED ALARMED AND LOCKED AT ALL TIMES. CALL LIGHT WITHIN REACH.
[2017-08-21 07:40] LABS: CALCIUM, SERUM 8.8 mg/dL (8.5-10.1); CARBON DIOXIDE 24 mmol/L (21-32); CHLORIDE 108 mmol/L (98-107); CREATININE 0.8 mg/dL (0.6-1.3); GLUCOSE 131 mg/dL (74-106); PHOSPHORUS 2.4 mg/dL (2.5-4.9); POTASSIUM 3.8 mmol/L (3.5-5.1); SODIUM SERUM 143 mmol/L (136-145); UREA NITROGEN, BLOOD 2 mg/dL (7-18)
[2017-08-21] MEDS: JEVITY 1.2 CAL 1,000 ML BOTTLE GT PRN (07:40)
[2017-08-21 07:51] LABS: BASOPHILS # (AUTO) 0.1 /CMM (0.0-0.2); EOSINOPHILS % (AUTO) 5.1 % (0.0-6.0); HEMATOCRIT 38 % (33-45); HEMOGLOBIN 13.2 g/dL (11.5-14.8); LYMPHOCYTES # (AUTO) 1.2 /CMM (0.8-4.8); LYMPHOCYTES % (AUTO) 18.7 % (20.0-44.0); MEAN CORPUSCULAR HGB CONC 35 g/dl (31.0-36.0); MEAN CORPUSCULAR VOLUME 92 fL (82-100); MONOCYTES # (AUTO) 0.5 /CMM (0.1-1.30); MONOCYTES % (AUTO) 7.2 % (2.0-12.0); NEUTROPHILS # (AUTO) 4.4 /CMM (1.8-8.9); PLATELET COUNT (AUTO) 299 /CMM (150-450); RDW COEFFICIENT OF VARIATION 11.8 (11.5-15.0); RED BLOOD CELL COUNT(AUTO) 4.07 MIL/uL (4.0-5.2); WHITE BLOOD COUNT (AUTO) 6.5 K/uL (4.3-11.0)
[2017-08-21 08:00] VITALS: BP 137/72
[2017-08-21] MEDS: PANTOPRAZOLE 40 MG VIAL IV SCH (08:16)
[2017-08-21] MEDS: Z GUARD REMEDY 2 OZ OINT TP SCH (08:17)
[2017-08-21 09:49] LABS: ABG BASE EXCESS -1.5 mmol/L; ABG OXYGEN SATURATION 98.8 % (92.0-98.5); ABG PCO2 27.9 mmHg (35.0-45.0); ABG PH 7.487 (7.350-7.450); ABG PO2 200.3 mmHg (75.0-100.0); AaDO2 52.8 mmHg; MetHb 0.4 % (0.0-1.5); O2Hb 98.4 % (94.0-97.0); PEEP,BG 5 cm H2O; SITE, ABG Left Radial; VT, ABG 500 mL
--- NOTE | 2017-08-21 09:57 | NUR ---
AUTOMATIC PAD MAKING MACHINE OPERATOR NOTE: DR. COSME WAS INFORMED OF THE ABG RESULT. AWAITING FOR MD'S CALLBACK.
--- NOTE | 2017-08-21 10:30 | NUR ---
ICE CREAM DISPENSER NOTE: SPOKE W/ DR. COSME AND INFORMED HIM ABOUT THE ABG RESULT. PER MD, HE WILL TAKE A LOOK AT THE RESULT AGAIN AND WILL WRITE THE ORDER.
[2017-08-21 12:00] VITALS: BP 106/54
[2017-08-21] MEDS ORDERED: NEUTRA PHOS 1 POWD.PACKET NG ONE (13:00)
[2017-08-21 16:00] VITALS: BP 111/79
--- NOTE | 2017-08-21 17:04 | NUR ---
DECREASED VT TO 450 DECREASED FIO2 TO 30%
--- NOTE | 2017-08-21 19:00 | NUR ---
VOICE NETWORK ENGINEER NOTE: PATIENT IN BED, NONVERBAL AND ABLE TO OPEN EYES. RESPIRATION IS EVEN AND UNLABORED. VENT-TRACH DEPENDENT SATURATING 100%. ON RESERVATION CLERK, SR HR= 65. NO FACIAL GRIMACING NOTED. (R) POINTER FINGER IV PERIPHERAL LINE NOTED PATENT AND INTACT INFUSING NS@100ML/HR. GT FEEDING OF JEVITY 1.2 RUNNING AT 20ML/HR TOLERATING WELL AND NO RESIDUAL NOTED. SEEN BY DR. ROCHA AND DISCUSSED W/ THE SON REGARDING THE PLAN FOR EX. LAP AND REMOVAL OF THE G-TUBE AND REPLACEMENT OF JEJUNOSTOMY TUBE. ERLIN, SON SIGNED THE INFORMED CONSENT AND CONSENTED FOR THE PROCEDURE. HOB ELEVATED. BED ALARMED AND LOCKED AT ALL TIMES. CALL LIGHT WITHIN REACH. REPORT GIVEN TO PM SHIFT NURSE FOR CONTINUITY OF CARE.
--- NOTE | 2017-08-21 19:30 | NUR ---
TEST CENTER MANAGER NOTE: RECEIVED PATIENT IN BED, NONVERBAL AND ABLE TO OPEN EYES. RESPIRATION IS EVEN AND UNLABORED. VENT-TRACH DEPENDENT SATURATING 100%. ON KNOWLEDGE MANAGER, SR HR= 72. NO FACIAL GRIMACING NOTED. (R) POINTER FINGER IV PERIPHERAL LINE NOTED PATENT AND INTACT INFUSING NS@100ML/HR. GT FEEDING OF JEVITY 1.2 RUNNING AT 20ML/HR TOLERATING WELL AND NO RESIDUAL NOTED. AWAITING FOR DR. ROCHA FOR THE LEAKING OF THE GT SITE. HOB ELEVATED. BED ALARMED AND LOCKED AT ALL TIMES. CALL LIGHT WITHIN REACH.
[2017-08-21 20:00] VITALS: BP 139/73
[2017-08-21] MEDS: ENOXAPARIN SODIUM 40 MG/0.4 ML DISP.SYRIN SQ SCH (20:48)
[2017-08-22] VITALS (8 sets, daily range): BP systolic 147–178; BP diastolic 55–90
[2017-08-22] MEDS: PIPERACILLIN /TAZOBACTAM 3.375 G in IV D5W 50 ML IV SCH ×4 (05:55→23:51)
[2017-08-22] MEDS: IV NS 0.9% 1,000 ML IV PRN ×2 (06:17→20:42)
[2017-08-22 07:16] LABS: BASOPHILS % (AUTO) 0.2 % (0.0-2.0); EOSINOPHILS % (AUTO) 4.8 % (0.0-6.0); HEMATOCRIT 39 % (33-45); HEMOGLOBIN 13.5 g/dL (11.5-14.8); LYMPHOCYTES # (AUTO) 1.6 /CMM (0.8-4.8); LYMPHOCYTES % (AUTO) 23.8 % (20.0-44.0); MEAN CORPUSCULAR HGB CONC 34 g/dl (31.0-36.0); MEAN CORPUSCULAR VOLUME 92 fL (82-100); MONOCYTES # (AUTO) 0.5 /CMM (0.1-1.30); NEUTROPHILS # (AUTO) 4.4 /CMM (1.8-8.9); NEUTROPHILS % (AUTO) 64.2 % (43.0-81.0); PLATELET COUNT (AUTO) 284 /CMM (150-450); RDW COEFFICIENT OF VARIATION 12.8 (11.5-15.0); RED BLOOD CELL COUNT(AUTO) 4.27 MIL/uL (4.0-5.2); WHITE BLOOD COUNT (AUTO) 6.8 K/uL (4.3-11.0)
[2017-08-22 07:30] LABS: INR 1.04 (0.87-1.13)
--- NOTE | 2017-08-22 07:30 | NUR ---
RECEIVED PATIENT IN BED, NONVERBAL AND ABLE TO OPEN EYES. RESPIRATION IS EVEN AND UNLABORED. VENT-TRACH DEPENDENT SATURATING 100%. ON STUFFER, SR HR= 72. NO FACIAL GRIMACING NOTED. (R) POINTER FINGER IV PERIPHERAL LINE NOTED PATENT AND INTACT INFUSING NS@100ML/HR. GT FEEDING OF JEVITY 1.2 RUNNING AT 20ML/HR TOLERATING WELL AND NO RESIDUAL NOTED. AWAITING FOR DR. ROCHA FOR THE LEAKING OF THE GT SITE. HOB ELEVATED. BED ALARMED AND LOCKED AT ALL TIMES. CALL LIGHT WITHIN REACH.
[2017-08-22 07:39] LABS: CALCIUM, SERUM 8.6 mg/dL (8.5-10.1); CARBON DIOXIDE 22 mmol/L (21-32); CHLORIDE 108 mmol/L (98-107); CREATININE 0.8 mg/dL (0.6-1.3); GLUCOSE 125 mg/dL (74-106); MAGNESIUM 1.8 mg/dL (1.8-2.4); PHOSPHORUS 2.7 mg/dL (2.5-4.9); POTASSIUM 3.3 mmol/L (3.5-5.1); SODIUM SERUM 142 mmol/L (136-145); UREA NITROGEN, BLOOD 4 mg/dL (7-18)
[2017-08-22] MEDS: PANTOPRAZOLE 40 MG VIAL IV SCH (08:58)
[2017-08-22] MEDS: Z GUARD REMEDY 2 OZ OINT TP SCH (09:45)
[2017-08-22] MEDS ORDERED: POTASSIUM CHLORIDE 20 MEQ POWDER PACKET GT ONE (12:00)
--- NOTE | 2017-08-22 20:00 | NUR ---
SAM NURSE RN NOTES RECEIVED BEDSIDE REPORT.PATIENT IN BED, NONVERBAL BUT ABLE TO OPEN EYES. RESPIRATION IS EVEN AND UNLABORED. VENT-TRACH DEPENDENT SATURATING 100%. ON PIPE ORGAN INSTALLER, SR HR= 70'S. NO FACIAL GRIMACING NOTED. (R) POINTER FINGER IV PERIPHERAL LINE NOTED PATENT AND INTACT INFUSING NS@100ML/HR. GT FEEDING OF JEVITY 1.2 RUNNING AT 20ML/HR TOLERATING WELL AND NO RESIDUAL NOTED. LEAKING OF THE GT SITE IS NOTED. HOB ELEVATED.CALLAHAN CATH 16F IS IN PLACE. BED ALARMED AND LOCKED AT ALL TIMES, SIDE RAILS ARE UP X2, CALL LIGHT WITHIN REACH.WILL CONTINUE TO MONITOR.
[2017-08-22] MEDS: ACETAMINOPHEN 325 MG TABLET PO PRN (20:52)
[2017-08-22] MEDS: ENOXAPARIN SODIUM 40 MG/0.4 ML DISP.SYRIN SQ SCH (20:54)
[2017-08-23] VITALS (7 sets, daily range): BP systolic 95–143; BP diastolic 46–79
[2017-08-23] MEDS: PIPERACILLIN /TAZOBACTAM 3.375 G in IV D5W 50 ML IV SCH ×3 (06:32→17:18)
--- NOTE | 2017-08-23 07:00 | NUR ---
SAM RN NOTES PT REMAINS THE SAME , R INDEX FINGER IV IS INTACT, PATIENT AND 100ML/HR NS IS RUNNING.V/S WNL. NO LABORED BREATHING NOTED. SAFETY MEASURES IMPLEMENTED,BED IN LOWEST, LOCKED POSITION,SR UPx2, CALL LIGHT WITHIN EASY REACH, NO SIGNIFICANT CHANGES NOTED ON THIS SHIFT .
--- NOTE | 2017-08-23 07:54 | NUR ---
CATTLE TRADER NOTES RECEIVED PT IN BED. WITH TRACH TO VENT SETTING ORDERED. AMBU BAG AT BED SIDE. ON TELE MONITOR SR HR77. PT HAS CALLAHAN WITH GRAVITY WITH YELLOW COLOR GT FEEDING AT 20 ML PER HOUR WITH LITE LEAKAGE NOTED AROUND GTUBE SITE. RUNNING JEVITY AT ML/HR. PT HAS R INDEX FINGER HEPLOCK. HAND IS SWOLLEN KEEP ELEVATED. WILL INSERT NEW IV HL. BED LOCKED AND LOWEST POSITION. CALL LIGHT WITHIN REACH. WILL CONTINUE TO MONITOR CLOSELY
--- NOTE | 2017-08-23 08:51 | NUR ---
JAVA DEVELOPER WITH SECURITY CLEARANCE NOTE NEW HL ON LT HAND VENU 24 INSERTED WITH GOOD BLOOD RETURN
[2017-08-23] MEDS: PANTOPRAZOLE 40 MG VIAL IV SCH (08:52)
[2017-08-23] MEDS: Z GUARD REMEDY 2 OZ OINT TP SCH (08:53)
[2017-08-23] MEDS: IV NS 0.9% 1,000 ML IV PRN (11:11)
[2017-08-23 13:29] LABS: BASOPHILS % (AUTO) 0.5 % (0.0-2.0); EOSINOPHILS % (AUTO) 6.6 % (0.0-6.0); HEMATOCRIT 38 % (33-45); HEMOGLOBIN 12.9 g/dL (11.5-14.8); LYMPHOCYTES # (AUTO) 1.7 /CMM (0.8-4.8); LYMPHOCYTES % (AUTO) 28.2 % (20.0-44.0); MEAN CORPUSCULAR HGB CONC 34 g/dl (31.0-36.0); MEAN CORPUSCULAR VOLUME 92 fL (82-100); MONOCYTES # (AUTO) 0.5 /CMM (0.1-1.30); MONOCYTES % (AUTO) 8.6 % (2.0-12.0); NEUTROPHILS # (AUTO) 3.3 /CMM (1.8-8.9); NEUTROPHILS % (AUTO) 56.1 % (43.0-81.0); PLATELET COUNT (AUTO) 297 /CMM (150-450); RED BLOOD CELL COUNT(AUTO) 4.15 MIL/uL (4.0-5.2); WHITE BLOOD COUNT (AUTO) 5.9 K/uL (4.3-11.0)
[2017-08-23 13:31] LABS: CALCIUM, SERUM 8.3 mg/dL (8.5-10.1); CARBON DIOXIDE 22 mmol/L (21-32); CHLORIDE 108 mmol/L (98-107); CREATININE 0.8 mg/dL (0.6-1.3); GLUCOSE 109 mg/dL (74-106); SODIUM SERUM 142 mmol/L (136-145); UREA NITROGEN, BLOOD 4 mg/dL (7-18)
--- NOTE | 2017-08-23 13:32 | NUR ---
VENTILATING ENGINEER NOTES CONTINUED CARE. NO DISTRESS. WILL CONTINUE TO MONITOR
--- NOTE | 2017-08-23 15:12 | NUR ---
POSTAL SERVICE WINDOW CLERK NOTE SEEN BY JAMES JETT AEATR THAT G TUBE SITE STILL LEAKING WITH LARGE AMT ,STATED OK TO CONT G TUBE FEEDING, NEXT WEEK SURGERY WITH DR ROCHA WILL BE DONE , WILL F\U CONT FEEDING AT 20 ML PER HOUR
--- NOTE | 2017-08-23 15:21 | NUR ---
DARIN HAGEN TO ORDER TO INSERT IV IN L FOOT. Addendum: 08/23/17 at 1522 by RAMILA ESPINOSA RN L FOOT SALINE LOCK 22G WITH GOOD BLOOD RETURN.
--- NOTE | 2017-08-23 15:48 | NUR ---
RN NOTES PER RN CUSTOMER EXPERIENCE SPECIALIST BRO LOVENOX NO DVT PUMPS
[2017-08-23] MEDS: POTASSIUM CHLORIDE 20 MEQ TAB.PRT.SR PO SCH ×3 (16:31→18:43)
--- NOTE | 2017-08-23 16:41 | NUR ---
RN NOTES REASSESSED L FOOT SALINE LOCK 22G WITH GOOD BLOOD RETURN.
--- NOTE | 2017-08-23 18:59 | NUR ---
RECEPTIONIST NURSE NOTE CONT ON VENT SETTING ORDERED ,CONT ON IVF ORDERED. RN RN CORRECTIONAL BRO AWARE OF DRAINAGE FROM GTUBE STOMA, REINFORCED DRESSING IN PLACE, WILL CONTINUE TO MONITOR.
--- NOTE | 2017-08-23 19:30 | NUR ---
FIELD CASHIER NOTES, RECEIVED PATIENT IN BED, WITH EYES OPEN, UNABLE OT LET NEEDS KNOW, ON MECHANICAL VENTILATOR, SATURATION LEVEL >97%, NO SOB/ACUTE DISTRESS NOTED AT THIS TIME, NOTED GT SITE LEAKING AT THIS TIME, REINFORCED DRESSING, NOTED DRY AND CLEAN, LEFT FOOT IV ACCESS, IVF RUNNING WELL AND PATIENT TOLERATED WELL, NO S/S OF INFILTRATION NOTED AT THIS TIME, BED LOCKED AND LOWEST POSITION, WELL REPOSITIONED, OFFLOAD EXTREMITIES, WILL CONTINUE TO MONITOR CLOSELY.
[2017-08-23] MEDS: MORPHINE SULFATE INJ 4 MG/ML DISP.SYRIN IV PRN (20:27)
[2017-08-23] MEDS: ENOXAPARIN SODIUM 40 MG/0.4 ML DISP.SYRIN SQ SCH (20:28)
--- NOTE | 2017-08-23 21:00 | NUR ---
PRINTING TABLE HAND NOTES, JOSEFINA VERDUGO MD ON THE FLOOR AT THIS TIME,A ND INFORMED THAT HE WILL REPLECE GT IN THE MORNING, AND KEEP PATIENT NPO, AND HAVE EKG, CBC AND BMP IN FILE, NOTED AND CARRIED OUT.
[2017-08-24] VITALS: BP 158/92
[2017-08-24] MEDS: PIPERACILLIN /TAZOBACTAM 3.375 G in IV D5W 50 ML IV SCH ×5 (00:02→23:31)
[2017-08-24 04:00] VITALS: BP 168/88
[2017-08-24] MEDS: IV NS 0.9% 1,000 ML IV PRN ×2 (04:46→23:24)
[2017-08-24] MEDS: MORPHINE SULFATE INJ 4 MG/ML DISP.SYRIN IV PRN (04:57)
--- NOTE | 2017-08-24 06:52 | NUR ---
GRANULATING MACHINE OPERATOR NOTES, PATIENT IN BED, SLEEPING AT THIS TIME, ON MECHANICAL VENTILATOR, SATURATION LEVEL >97%, NO SOB/ACUTE DISTRESS NOTED AT THIS TIME, NOTED GT SITE LEAKING AT THIS TIME, DRESSED AND REINFORCED, LEFT FOOT IV ACCESS INTACT AND PATENT, NO S/S OF INFILTRATION NOTED, IVF RUNNING WELL AND PATIENT TOLERATED WELL, NO S/S OF INFILTRATION NOTED AT THIS TIME, NO SIGNIFICANT CHANGE OF CONDITION THROUGHOUT THIS SHIFT, NPO SINCE LAST NIGHT FOR GT REPLACEMENT LATER PER DR ROCHA, BED LOCKED AND LOWEST POSITION, WELL REPOSITIONED, OFFLOAD EXTREMITIES, WILL ENDORSE TO ONCOMING
--- NOTE | 2017-08-24 07:05 | NUR ---
RN NOTES, RECEIVED PATIENT ON BED, NONVERBAL , OBTUNDED , VENT/ TRACH DEPENDENT , TOLERATING CURRENT VENT SETTING WELL, ON TELE SR HR IN 60'S , PT IS NPO FOR GT PLACEMENT , NS AT 100CC/HR RUNNING VIA L FOOT IV SITE , NO S/S OF INFILTRATION NOTED AT THIS TIME, SR UP x3, CALL LIGHT WITHIN EASY REACH, BED LOCKED AND LOWEST POSITION, HOB , OFFLOAD EXTREMITIES, WILL CONTINUE TO MONITOR CLOSELY.
[2017-08-24 08:00] VITALS: BP 167/73
[2017-08-24 08:22] LABS: BASOPHILS % (AUTO) 0.3 % (0.0-2.0); EOSINOPHILS % (AUTO) 6.9 % (0.0-6.0); HEMATOCRIT 40 % (33-45); HEMOGLOBIN 13.6 g/dL (11.5-14.8); LYMPHOCYTES # (AUTO) 1.6 /CMM (0.8-4.8); LYMPHOCYTES % (AUTO) 29.7 % (20.0-44.0); MEAN CORPUSCULAR HGB CONC 34 g/dl (31.0-36.0); MEAN CORPUSCULAR VOLUME 92 fL (82-100); MONOCYTES # (AUTO) 0.5 /CMM (0.1-1.30); MONOCYTES % (AUTO) 8.5 % (2.0-12.0); NEUTROPHILS % (AUTO) 54.6 % (43.0-81.0); PLATELET COUNT (AUTO) 275 /CMM (150-450); RDW COEFFICIENT OF VARIATION 12.6 (11.5-15.0); RED BLOOD CELL COUNT(AUTO) 4.33 MIL/uL (4.0-5.2); WHITE BLOOD COUNT (AUTO) 5.4 K/uL (4.3-11.0)
[2017-08-24] MEDS: Z GUARD REMEDY 2 OZ OINT TP SCH (08:30)
[2017-08-24] MEDS: Z GUARD REMEDY 2 OZ OINT TP PRN (08:30)
[2017-08-24] MEDS: PANTOPRAZOLE 40 MG VIAL IV SCH (08:30)
[2017-08-24 08:41] LABS: CALCIUM, SERUM 8.5 mg/dL (8.5-10.1); CARBON DIOXIDE 22 mmol/L (21-32); CHLORIDE 108 mmol/L (98-107); CREATININE 0.8 mg/dL (0.6-1.3); GLUCOSE 98 mg/dL (74-106); MAGNESIUM 1.7 mg/dL (1.8-2.4); PHOSPHORUS 2.8 mg/dL (2.5-4.9); POTASSIUM 3.3 mmol/L (3.5-5.1); SODIUM SERUM 143 mmol/L (136-145); UREA NITROGEN, BLOOD 4 mg/dL (7-18)
[2017-08-24] MEDS ORDERED: POTASSIUM CL. PREMIX PERIPHER. 50 ML IV SCH (10:30)
[2017-08-24 12:00] VITALS: BP 160/83
[2017-08-24] MEDS ORDERED: POTASSIUM CHLORIDE 10 MEQ TABLET.SA PO ONE (12:00)
[2017-08-24] MEDS ORDERED: Magnesium 1GM/D5W 100ML PREMIX 100 ML IV SCH (12:00)
[2017-08-24] MEDS: Magnesium 1GM/D5W 100ML PREMIX 100 ML IV SCH ×2 (12:13→13:56)
[2017-08-24] MEDS ORDERED: POTASSIUM CHLORIDE 20 MEQ POWDER PACKET GT SCH (12:30)
[2017-08-24] MEDS ORDERED: ANESTHESIA TRAY IN PYXIS 1 EA TRAY MC ONE (12:56)
[2017-08-24] MEDS ORDERED: ENALAPRILAT INJ (1.25 MG/ML) 1.25 MG/ML VIAL IV PRN (15:30)
[2017-08-24 16:00] VITALS: BP 170/77
--- NOTE | 2017-08-24 16:15 | NUR ---
RN NOTES PT 170/77, VASOTEC 1.25 MG IV GIVEN , CONTINUE TO MONITOR .
--- NOTE | 2017-08-24 16:45 | NUR ---
RN NOTES BP 155/68 AT THIS TIME
--- NOTE | 2017-08-24 18:30 | NUR ---
RN NOTES PT STABLE , STILL NPO PER MD ORDER , SR UP x3, CALL LIGHT WITHIN EASY REACH, WILL ENDOSE TO RHINESTONE SETTER NURSE FOR KWESI
[2017-08-24 20:00] VITALS: BP 177/92
[2017-08-24] MEDS: LEVETIRACETAM SOL (5 ML) 100 MG/ML UDC PO SCH (21:31)
[2017-08-24] MEDS: ENOXAPARIN SODIUM 40 MG/0.4 ML DISP.SYRIN SQ SCH (21:32)
[2017-08-25] VITALS (8 sets, daily range): BP systolic 112–174; BP diastolic 67–89
[2017-08-25] MEDS: PIPERACILLIN /TAZOBACTAM 3.375 G in IV D5W 50 ML IV SCH ×2 (05:00→11:38)
[2017-08-25 06:37] LABS: BASOPHILS % (AUTO) 0.3 % (0.0-2.0); EOSINOPHILS % (AUTO) 6.4 % (0.0-6.0); HEMATOCRIT 38 % (33-45); HEMOGLOBIN 12.9 g/dL (11.5-14.8); LYMPHOCYTES # (AUTO) 1.4 /CMM (0.8-4.8); LYMPHOCYTES % (AUTO) 22.7 % (20.0-44.0); MEAN CORPUSCULAR HGB CONC 34 g/dl (31.0-36.0); MEAN CORPUSCULAR VOLUME 92 fL (82-100); MONOCYTES # (AUTO) 0.4 /CMM (0.1-1.30); MONOCYTES % (AUTO) 7.2 % (2.0-12.0); NEUTROPHILS # (AUTO) 3.9 /CMM (1.8-8.9); NEUTROPHILS % (AUTO) 63.4 % (43.0-81.0); PLATELET COUNT (AUTO) 263 /CMM (150-450); RDW COEFFICIENT OF VARIATION 12.9 (11.5-15.0); WHITE BLOOD COUNT (AUTO) 6.2 K/uL (4.3-11.0)
[2017-08-25 06:44] LABS: CALCIUM, SERUM 8.7 mg/dL (8.5-10.1); CARBON DIOXIDE 23 mmol/L (21-32); CHLORIDE 109 mmol/L (98-107); CREATININE 0.8 mg/dL (0.6-1.3); GLUCOSE 105 mg/dL (74-106); MAGNESIUM 2.7 mg/dL (1.8-2.4); PHOSPHORUS 2.7 mg/dL (2.5-4.9); SODIUM SERUM 143 mmol/L (136-145); UREA NITROGEN, BLOOD 5 mg/dL (7-18)
--- NOTE | 2017-08-25 07:15 | NUR ---
RN NOTES, RECEIVED PATIENT ON BED, NONVERBAL , OBTUNDED , VENT/ TRACH DEPENDENT , TOLERATING CURRENT VENT SETTING WELL, ON TELE SB HR IN 60'S , GT CLAMPED , NS AT 100CC/HR RUNNING VIA L FOOT IV SITE , R FINGER IV SITE G 24 CDI, NO S/S OF INFILTRATION NOTED AT THIS TIME, SR UP x3, CALL LIGHT WITHIN EASY REACH, BED LOCKED AND LOWEST POSITION, OFFLOAD EXTREMITIES, HOB ELEVATED, WILL CONTINUE TO MONITOR CLOSELY.
[2017-08-25] MEDS: CLOPIDOGREL BISULFATE 75 MG TABLET GT SCH (08:49)
[2017-08-25] MEDS: PANTOPRAZOLE 40 MG VIAL IV SCH (08:50)
[2017-08-25] MEDS: LEVETIRACETAM SOL (5 ML) 100 MG/ML UDC PO SCH ×2 (08:50→21:00)
[2017-08-25] MEDS: Z GUARD REMEDY 2 OZ OINT TP SCH (08:51)
[2017-08-25] MEDS: POTASSIUM CL. PREMIX PERIPHER. 50 ML IV SCH ×6 (11:38→23:02)
[2017-08-25] MEDS: IV NS 0.9% 1,000 ML IV PRN (12:32)
--- NOTE | 2017-08-25 13:47 | NUR ---
RN NOTES PT TO OR AT THIS TIME
[2017-08-25] MEDS ORDERED: FENTANYL PF 100MCG/2ML AMPUL ONE (13:55)
[2017-08-25] MEDS ORDERED: MIDAZOLAM HCL 2 MG/2ML VIAL ONE (13:55)
[2017-08-25] MEDS ORDERED: LIDOCAINE 0.5% HCL 50 ML VIAL ONE (14:56)
[2017-08-25] MEDS ORDERED: BACITRACIN ZINC OINT (15 GM) 15 GM TUBE TP ONE (17:23)
--- NOTE | 2017-08-25 18:00 | NUR ---
RN NOTE PT IS IN RECOVERY AT THIS TIME .
--- NOTE | 2017-08-25 18:10 | NUR ---
RN NOTES PT RECEIVED FROM RECOVERY , DRESSING TO ABDOMEN CDI, CONTINUE TO MONITOR . ON TELE HR IN 70'S SR , VSS STABLE , CONTINUE TO MONITOR
[2017-08-25] MEDS ORDERED: FENTANYL PF 100MCG/2ML AMPUL IV PRN (18:30)
--- NOTE | 2017-08-25 20:42 | NUR ---
RN NOTE TRIED TO CALL SON SRINATH PAIGE @ AND RECEIVED NOTICE THAT PHONE HAS BEEN DISCONNECTED. NO OTHER NUMBER IS AVAILABLE TO CALL. CALLED [facility] WHERE THE PT RESIDES AND THEY HAVE THE SAME NUMBER. WILL ENDORSE TO AM SHIFT AND GET CONSENT IF FAMILY COMES IN.
[2017-08-25] MEDS: ENOXAPARIN SODIUM 40 MG/0.4 ML DISP.SYRIN SQ SCH (21:00)
[2017-08-26] VITALS: BP 146/90
[2017-08-26 04:00] VITALS: BP 164/64
--- NOTE | 2017-08-26 06:23 | NUR ---
RN NOTE PT REMAINS IN NO ACUTE DISTRESS IN BED. PT DID NOT HAVE ANY SIGNIFICANT CHANGE IN CONDITION DURING SHIFT. ALL NEEDS MET, ALL ORDERS CARRIED OUT. PT TOLERATED VENT SETTING WELL. WILL ENDORSE CARE TO AM RN FOR CONTINUITY OF CARE.
[2017-08-26 06:50] LABS: BASOPHILS % (AUTO) 0.2 % (0.0-2.0); EOSINOPHILS % (AUTO) 2.7 % (0.0-6.0); HEMATOCRIT 39 % (33-45); HEMOGLOBIN 13.3 g/dL (11.5-14.8); LYMPHOCYTES # (AUTO) 1.1 /CMM (0.8-4.8); LYMPHOCYTES % (AUTO) 13.3 % (20.0-44.0); MEAN CORPUSCULAR HGB CONC 34 g/dl (31.0-36.0); MEAN CORPUSCULAR VOLUME 91 fL (82-100); MONOCYTES # (AUTO) 0.5 /CMM (0.1-1.30); NEUTROPHILS # (AUTO) 6.6 /CMM (1.8-8.9); NEUTROPHILS % (AUTO) 77.8 % (43.0-81.0); PLATELET COUNT (AUTO) 251 /CMM (150-450); RDW COEFFICIENT OF VARIATION 12.9 (11.5-15.0); RED BLOOD CELL COUNT(AUTO) 4.24 MIL/uL (4.0-5.2); WHITE BLOOD COUNT (AUTO) 8.4 K/uL (4.3-11.0)
[2017-08-26 07:36] LABS: CALCIUM, SERUM 8.4 mg/dL (8.5-10.1); CARBON DIOXIDE 21 mmol/L (21-32); CHLORIDE 107 mmol/L (98-107); CREATININE 0.7 mg/dL (0.6-1.3); GLUCOSE 105 mg/dL (74-106); POTASSIUM 3.4 mmol/L (3.5-5.1); SODIUM SERUM 142 mmol/L (136-145); UREA NITROGEN, BLOOD 4 mg/dL (7-18)
--- NOTE | 2017-08-26 07:50 | NUR ---
ADJUSTER ARBITRATOR OPENING NOTES PATIENT RECEIVED IN BED ,OBTUNDED,TRACH AND VENT AC 14,TV 450,O2 30%,PEEP 5.ON TELE MONITOR SINUS TACHY 102.HAS CALLAHAN CATH DRAINING YELLOW URINE .ON NPO WAITING FOR PROCEDURE FISTULOGRAM.IV HEPLOCK ON R FOOT#22 WITH NS AT 100CC/HR.BED LOCKED AND AT LOW POSITION.CALL LIGHT IN REACH.SAFETY MAINTAINED.BRX3.CONTINUE TO MONITOR.
[2017-08-26 08:00] VITALS: BP 155/79
[2017-08-26] MEDS: LEVETIRACETAM SOL (5 ML) 100 MG/ML UDC PO SCH ×2 (09:00→21:00)
[2017-08-26] MEDS: CLOPIDOGREL BISULFATE 75 MG TABLET GT SCH (09:00)
[2017-08-26] MEDS: PANTOPRAZOLE 40 MG VIAL IV SCH (09:07)
[2017-08-26] MEDS: Z GUARD REMEDY 2 OZ OINT TP SCH (09:09)
[2017-08-26] MEDS ORDERED: DIATR MEGLU/DIATRIZOATE SODIUM 30 ML BOTTLE (GASTROGRAPHIN) ONE (11:55)
[2017-08-26 12:00] VITALS: BP 162/92
--- NOTE | 2017-08-26 12:00 | NUR ---
NUCLEAR RADIATION ENGINEER NOTES NOTED WITH BP OF 162/92.SAMUEL RAMIREZ NOTIFIED GOT ORDER FOR HYDRALAZINE IVP.CARRIED OUT ORDER.
[2017-08-26] MEDS ORDERED: hydrALAZINE HCL IV 20 MG VIAL IV ONE (13:00)
[2017-08-26] MEDS ORDERED: POTASSIUM CHLORIDE 20 MEQ POWDER PACKET GT SCH (13:30)
--- NOTE | 2017-08-26 14:00 | NUR ---
PATIENT NOTED WITH TACHYCARDIC EPISODE OF 150-HIGH 160S.AND BACK TO SINUS TACHY OF 100 TO 106 AFTER.BRIM STRETCHING MACHINE OPERATOR SHIRA NOTIFIED GOT ORDERS .CARRIED OUT ORDERS. PATIENT NOT ON DISTRESS.EKG TAKEN .NOTIFIED BRIM STRETCHING MACHINE OPERATOR THAT PATIENT HAS SVT.GOT CARDIOLOGY CONSULT ORDER AND CARDIZEM IVP ORDER.STARTED ON GT MEDS.OK TO GIVE MEDS THROUGH [facility].CONTINUE TO MONITOR.
[2017-08-26] MEDS ORDERED: DILTIAZEM HCL 25 MG IV IV ONE (14:30)
--- NOTE | 2017-08-26 15:30 | NUR ---
SEEN BYB DR. REED,[facility] CARDIOLOGY GOT NEW ORDERS FOR ECHOCARDIOGRAM AND CARDIZEM ROUTINE
[2017-08-26 16:00] VITALS: BP 129/72
--- NOTE | 2017-08-26 16:30 | NUR ---
COTTON WRINGER NOTES SON WAS AT BED SIDE .UPDATED THE CONDITION OF THE PATIENT.STILL WANT TO KEEP DNR/DNI CODE STATUS.CONTINUE TO MONITOR.
[2017-08-26] MEDS ORDERED: Magnesium 1GM/D5W 100ML PREMIX 100 ML IV SCH (17:17)
[2017-08-26] MEDS: DILTIAZEM HCL 30 MG TABLET GT SCH (17:25)
[2017-08-26] MEDS ORDERED: Magnesium 1 GM/2 ML VIAL IV ONE (17:30)
[2017-08-26] MEDS ORDERED: FEE PK DOSING 1 MIN EA MC ONE (18:34)
[2017-08-26] MEDS: IV NS 0.9% 1,000 ML IV PRN (18:52)
--- NOTE | 2017-08-26 19:00 | NUR ---
IVANNA RN SHIFT END NOTES PATIENT IN BED ,OBTUNDED,TRACH AND VENT AC 14,TV 450,O2 30%,PEEP 5.ON TELE MONITOR SINUS TACHY 106.HAS CALLAHAN CATH DRAINING YELLOW URINE .ON NPO .IV HEPLOCK ON R FOOT#22 WITH NS AT 100CC/HR.BED LOCKED AND AT LOW POSITION.CALL LIGHT IN REACH.SAFETY MAINTAINED.BRX3.ENDORSED TO PM NURSE FOR KWESI.
[2017-08-26 20:00] VITALS: BP 147/73
[2017-08-26] MEDS: PIPERACILLIN /TAZOBACTAM 3.375 G in IV NS 0.9% 50 ML IV SCH (20:34)
[2017-08-26] MEDS: VANCOMYCIN 0.75 GM in IV D5W 250 ML IV SCH (21:10)
[2017-08-26] MEDS: ENOXAPARIN SODIUM 40 MG/0.4 ML DISP.SYRIN SQ SCH (21:29)
[2017-08-26 23:12] LABS: APPEARANCE,URINE CLOUDY (CLEAR); BILIRUBIN,URINE NEGATIVE (NEGATIVE); BLOOD, URINE 1+ Ery/uL (NEGATIVE); COLOR,URINE YELLOW (YELLOW); KETONES,URINE TRACE (NEGATIVE); LEUKOCYTE ESTERASE ,URINE TRACE (NEGATIVE); NITRITE, URINE NEGATIVE (NEGATIVE); PROTEIN,URINE 1+ mg/dl (NEGATIVE); UGLUCOSE NEGATIVE (NEGATIVE); UROBILINOGEN,URINE 0.2 EU/dL (0.2)
[2017-08-26 23:19] LABS: BACTERIA,URINE Moderate /HPF (None Seen); SQUAMOUS EPITHELIAL CELL,UR Few /HPF (None Seen); WBC,URINE 21-50 /HPF (0-3); YEAST,URINE Many /HPF (None Seen)
[2017-08-27] VITALS: BP 135/63
[2017-08-27] MEDS: PIPERACILLIN /TAZOBACTAM 3.375 G in IV NS 0.9% 50 ML IV SCH ×5 (00:29→23:38)
[2017-08-27 04:00] VITALS: BP 141/75
[2017-08-27] MEDS: DILTIAZEM HCL 30 MG TABLET GT SCH ×4 (05:06→18:14)
[2017-08-27 06:40] LABS: BASOPHILS % (AUTO) 0.3 % (0.0-2.0); EOSINOPHILS % (AUTO) 3.6 % (0.0-6.0); HEMATOCRIT 36 % (33-45); HEMOGLOBIN 12.4 g/dL (11.5-14.8); LYMPHOCYTES # (AUTO) 1.2 /CMM (0.8-4.8); LYMPHOCYTES % (AUTO) 12.7 % (20.0-44.0); MEAN CORPUSCULAR HGB CONC 34 g/dl (31.0-36.0); MEAN CORPUSCULAR VOLUME 92 fL (82-100); MONOCYTES # (AUTO) 0.6 /CMM (0.1-1.30); MONOCYTES % (AUTO) 5.7 % (2.0-12.0); NEUTROPHILS # (AUTO) 7.6 /CMM (1.8-8.9); NEUTROPHILS % (AUTO) 77.7 % (43.0-81.0); PLATELET COUNT (AUTO) 242 /CMM (150-450); RDW COEFFICIENT OF VARIATION 13.2 (11.5-15.0); RED BLOOD CELL COUNT(AUTO) 3.96 MIL/uL (4.0-5.2); WHITE BLOOD COUNT (AUTO) 9.7 K/uL (4.3-11.0)
[2017-08-27 07:01] LABS: CALCIUM, SERUM 8.2 mg/dL (8.5-10.1); CARBON DIOXIDE 19 mmol/L (21-32); CHLORIDE 109 mmol/L (98-107); CREATININE 0.8 mg/dL (0.6-1.3); GLUCOSE 135 mg/dL (74-106); MAGNESIUM 1.8 mg/dL (1.8-2.4); PHOSPHORUS 1.9 mg/dL (2.5-4.9); POTASSIUM 3.2 mmol/L (3.5-5.1); SODIUM SERUM 143 mmol/L (136-145); UREA NITROGEN, BLOOD 5 mg/dL (7-18)
--- NOTE | 2017-08-27 07:45 | NUR ---
MARKETING REPS SPORTS AND ENTERTAINMENT NOTES GOT CALL FROM LAB NOTIFIED CO2 IS 46.RT MADE AWARE TO DO ABG SCHEDULED.
--- NOTE | 2017-08-27 07:51 | NUR ---
GLOST KILN PLACER OPENING NOTES PATIENT RECEIVED IN BED ,OBTUNDED,TRACH AND VENT AC 14,TV 450,O2 30%,PEEP 5.ON TELE MONITOR SINUS RHYTHM 82.HAS CALLAHAN CATH DRAINING YELLOW URINE .ON NPO EXCEPT MEDS.IV HEPLOCK ON R FOOT#22 WITH NS AT 100CC/HR.BED LOCKED AND AT LOW POSITION.CALL LIGHT IN REACH.SAFETY MAINTAINED.BRX3.CONTINUE TO MONITOR.
[2017-08-27 08:00] VITALS: BP 171/94
[2017-08-27] MEDS: LEVETIRACETAM SOL (5 ML) 100 MG/ML UDC PO SCH ×2 (08:53→20:49)
[2017-08-27] MEDS: PANTOPRAZOLE 40 MG VIAL IV SCH (08:53)
[2017-08-27] MEDS: CLOPIDOGREL BISULFATE 75 MG TABLET GT SCH (08:53)
[2017-08-27] MEDS: Z GUARD REMEDY 2 OZ OINT TP SCH (09:02)
[2017-08-27 12:00] VITALS: BP 166/86
[2017-08-27] MEDS ORDERED: POTASSIUM CL. PREMIX PERIPHER. 50 ML IV SCH (12:30)
[2017-08-27] MEDS: VANCOMYCIN 0.75 GM in IV D5W 250 ML IV SCH (14:35)
--- NOTE | 2017-08-27 15:24 | NUR ---
RECEIVED PT ON VENT WITH NOTED SETTINGS. VENT PLUGGED INTO RED OUTLET, VENT ALARM WORKING AND AUDIBLE. AMBU BAG AT BEDSIDE. SX'D THROUGH OUT SHIFT. NO RESPIRATORY DISTRESS NOTED AT THIS TIME. WILL CONT TO MONITOR THE PT.
[2017-08-27] MEDS: POTASSIUM PHOSPHATE MM 5 MMOL in IV D5W 100 ML IV SCH ×2 (15:52→18:51)
[2017-08-27 16:00] VITALS: BP 143/68
--- NOTE | 2017-08-27 19:30 | NUR ---
RETAIL PROJECT MERCHANDISER OPENING NOTES RECEIVED REPORT FROM AM RN. PATIENT OBTUNDED BUT RESPONDS TO TACTILE STIMULI. OPENS & CLOSES EYES SPONTANEOUSLY. BREATHING EVEN & UNLABORED W/ TRACH INTACT & VENT SETTINGS AC14, TV 450, FIO2 30%, PEEP 5. SATING WELL @ 97-98%. ON TELE W/ SINUS RHYTHM, HR 80S-90S. LEFT FOOT IV #22 INTACT & PATENT W/ DRESSING CDI & IVF NS @ 100 ML/HR. J-TUBE FLUSHING WELL W/ NO COMPLICATIONS NOTED. CALLAHAN CATH DRAINING YELLOW URINE. NO S/S OF PAIN OR DISCOMFORT @ THIS TIME. SAFETY MEASURES IN PLACE W/ SIDE RAILS UP, BED LOCKED & IN LOWEST POSITION & HOB ELEVATED FOR ASPIRATION PRECAUTIONS. WILL CONTINUE TO MONITOR.
[2017-08-27 20:00] VITALS: BP 135/68
[2017-08-27] MEDS: ENOXAPARIN SODIUM 40 MG/0.4 ML DISP.SYRIN SQ SCH (20:51)
[2017-08-28] VITALS: BP 136/54
[2017-08-28] MEDS: DILTIAZEM HCL 30 MG TABLET GT SCH ×4 (01:57→18:24)
[2017-08-28 04:00] VITALS: BP 133/68
[2017-08-28] MEDS: IV NS 0.9% 1,000 ML IV PRN (04:12)
[2017-08-28] MEDS: PIPERACILLIN /TAZOBACTAM 3.375 G in IV NS 0.9% 50 ML IV SCH ×3 (05:28→18:21)
[2017-08-28 06:25] LABS: BASOPHILS % (AUTO) 0.5 % (0.0-2.0); HEMATOCRIT 34 % (33-45); HEMOGLOBIN 11.7 g/dL (11.5-14.8); LYMPHOCYTES # (AUTO) 1.5 /CMM (0.8-4.8); LYMPHOCYTES % (AUTO) 24.8 % (20.0-44.0); MEAN CORPUSCULAR HGB CONC 35 g/dl (31.0-36.0); MEAN CORPUSCULAR VOLUME 91 fL (82-100); MONOCYTES # (AUTO) 0.6 /CMM (0.1-1.30); MONOCYTES % (AUTO) 9.6 % (2.0-12.0); NEUTROPHILS # (AUTO) 3.3 /CMM (1.8-8.9); NEUTROPHILS % (AUTO) 56.1 % (43.0-81.0); PLATELET COUNT (AUTO) 223 /CMM (150-450); RED BLOOD CELL COUNT(AUTO) 3.69 MIL/uL (4.0-5.2); WHITE BLOOD COUNT (AUTO) 5.9 K/uL (4.3-11.0)
[2017-08-28 06:45] LABS: CALCIUM, SERUM 8.3 mg/dL (8.5-10.1); CARBON DIOXIDE 23 mmol/L (21-32); CHLORIDE 109 mmol/L (98-107); CREATININE 0.7 mg/dL (0.6-1.3); GLUCOSE 92 mg/dL (74-106); MAGNESIUM 1.6 mg/dL (1.8-2.4); PHOSPHORUS 2.5 mg/dL (2.5-4.9); SODIUM SERUM 143 mmol/L (136-145); UREA NITROGEN, BLOOD 3 mg/dL (7-18); VANCOMYCIN,TROUGH 11 ug/ml (12-20)
--- NOTE | 2017-08-28 07:20 | NUR ---
DRYING OVEN TENDER OPENING NOTES PT RECEIVED OBTUNDED AND EYES OPEN TO TOUCH. PT VENT AND TRACH DEPENDENT. VENT: A/C, RATE:14, TV:450, FIO2:30%, PEEP:5 SAO2 98%, VENT PLUGGED TO RED OUTLET. PT WITH TELE: SR 81.PT WITH IVC AT L L FOOT G#22, INTACT AND OPERATIONAL. NAD AT G TUBE SITE AND SURG INCISIONS. PT WITH CALLAHAN INTACT AND OPERATIONAL DRAINING LITE YELLOW URINE. PT WITHOUT S/S OF DISTRESS OR DISCOMFORT. PT BED IN LOWEST LOCKED POSITION WITH HNADRAILSX4 AND HOB ELEVATED. PT REPOSITIONED. WILL CONT TO MONITOR.
[2017-08-28 08:00] VITALS: BP 147/76
[2017-08-28] MEDS: VANCOMYCIN 0.75 GM in IV D5W 250 ML IV SCH (08:08)
[2017-08-28] MEDS: PANTOPRAZOLE 40 MG VIAL IV SCH (08:13)
[2017-08-28] MEDS: FLUCONAZOLE (100 MG) 100 MG TABLET PO SCH (08:13)
[2017-08-28] MEDS: CLOPIDOGREL BISULFATE 75 MG TABLET GT SCH (08:13)
[2017-08-28] MEDS: LEVETIRACETAM SOL (5 ML) 100 MG/ML UDC PO SCH ×2 (08:13→21:17)
[2017-08-28] MEDS: Z GUARD REMEDY 2 OZ OINT TP SCH (08:14)
--- NOTE | 2017-08-28 10:00 | NUR ---
NURSE PRACTITIONER MANAGER NOTES. PT ENDORSED NPO AND NO G-TUBE FEEDING. UNCLEAR TO WHY PT WITHOUT G-TUBE FEEDING. PUBLIC HEALTH ADMINISTRATOR AND GI CONTACTED. AWAITING ORDERS.
--- NOTE | 2017-08-28 10:30 | NUR ---
SUCTION OPERATOR NOTES. ELECTRIC CRANE OPERATOR STATES THEY WILL DETERMINE DIET STATUS ON ARRIVAL TO FLOOR. NO ACTION AT THIS TIME.
[2017-08-28 12:00] VITALS: BP 116/54
[2017-08-28] MEDS: POTASSIUM CL. PREMIX PERIPHER. 50 ML IV SCH ×6 (13:01→23:36)
[2017-08-28] MEDS: Magnesium 1GM/D5W 100ML PREMIX 100 ML IV SCH ×2 (15:00→16:08)
[2017-08-28 16:00] VITALS: BP 138/75
--- NOTE | 2017-08-28 17:56 | NUR ---
REAL ESTATE SERVICES ADMINISTRATOR NOTES. RECONFIRMED WITH SENIOR BEHAVIORAL SCIENTIST THAT THEY WILL DETERMINE DIET STATUS ON ARRIVAL TO FLOOR. NO ACTION AT THIS TIME.
--- NOTE | 2017-08-28 18:06 | NUR ---
INSTRUMENTS SALES REPRESENTATIVE CLOSING NOTES PT REMAINS OBTUNDED. PT VENT AND TRACH DEPENDENT. VENT: A/C, RATE:14, TV:450, FIO2:30%, PEEP:5 SAO2 93-98%, VENT PLUGGED TO RED OUTLET. PT WITH TELE: SR 80.PT WITH IVC AT L L FOOT G#22, INTACT AND OPERATIONAL. NAD AT G TUBE SITE AND SURG INCISIONS. PT WITH CALLAHAN INTACT AND OPERATIONAL DRAINING LITE YELLOW URINE- WILL CONFIRM D/C WITH SILK PRESSER ON ARRIVAL. PT WITHOUT S/S OF DISTRESS OR DISCOMFORT. PT BED IN LOWEST LOCKED POSITION WITH HANDRAILSX4 AND HOB ELEVATED. PT REPOSITIONED Q2HR. WOUND CARE PRE RX. WILL ENDORSE TO NIGHT NURSE AT BEDSIDE FOR KWESI.
[2017-08-28] MEDS: ACETAMINOPHEN 325 MG TABLET PO PRN (18:23)
--- NOTE | 2017-08-28 19:23 | NUR ---
INCUBATOR TENDER NOTES. SUCTION PLATE CARRIER CLEANER LW REQUESTING DIET STARTED AT 10ML/HR, ADVANCE BY 10ML/HR TOA GOAL OF 60ML/HR. RESIDUALS Q4HR. ORDERS PLACED. SUCTION PLATE CARRIER CLEANER TO ORDER DIET AND CANCEL NPO STATUS. ANGIE ENDORSE TO NIGHT NURSE. Addendum: 08/28/17 at 1927 by KARINA EDOUARD RN TYPO - SUCTION PLATE CARRIER CLEANER LW REQUESTING DIET STARTED AT 10ML/HR, ADVANCE BY 10ML Q3HR TO A GOAL OF 60ML/HR.
--- NOTE | 2017-08-28 19:46 | NUR ---
RN OPENING NOTES RECEIVED REPORT FROM JIMMY COLLINS. FOUND Pt IN BED WITH NO S/S OF ACUTE DISTRESS OR SOB NOTED. Pt IS OBTUNDED, NONVERBAL, IS ABLE TO OPEN AND CLOSE EYES. SON VISITING AT BEDSIDE. Pt ON TELE MONITOR. CALLAHAN CATHETER IN PLACE, DRAINING WELL. IV ACCESS ON LFOOT #22G; IVF NS @100ML/HR. S/P GTUBE PLACEMENT ON 08/25. STARTING ON GTFEEDING TONIGHT, JEVITY @10ML/HR. STARTING POINT IS 10ML/HR, TO INCREASE FEEDING 10ML Q3HR IF TOLERATING FEEDING, UNTIL MAX GOAL REACHED OF 60ML/HR. SAFETY MEASURES IN PLACE. BED LOW, LOCKED, HOB ELEVATED, SIDE RAILS UP. WILL CONTINUE TO MONITOR Pt THROUGHOUT THE NIGHT FOR SAFETY.
[2017-08-28 20:00] VITALS: BP 135/70
[2017-08-28] MEDS: JEVITY 1.2 CAL 1,000 ML BOTTLE GT PRN (20:48)
--- NOTE | 2017-08-28 21:00 | NUR ---
STARTED GTFEEDING. JEVITY @10ML/HR. INFORMED TO INCREASE FEEDING 10ML Q3HRS, TOLERATED. TO REACH MAX GOAL OF 60ML/HR.
[2017-08-28] MEDS ORDERED: POTASSIUM CL. PREMIX PERIPHER. 0 ML ONE (21:19)
[2017-08-28] MEDS: ENOXAPARIN SODIUM 40 MG/0.4 ML DISP.SYRIN SQ SCH (21:21)
[2017-08-29] VITALS: BP 133/68
--- NOTE | 2017-08-29 | NUR ---
Pt TOLERATING GTF. INCREASED [id number] MORE, NOW AT 20ML/HR. WILL CONTINUE TO MONITOR. WILL CHECK AGAIN AT 0300.
[2017-08-29] MEDS: PIPERACILLIN /TAZOBACTAM 3.375 G in IV NS 0.9% 50 ML IV SCH ×4 (00:01→17:10)
[2017-08-29] MEDS: DILTIAZEM HCL 30 MG TABLET GT SCH ×4 (00:15→17:15)
--- NOTE | 2017-08-29 03:00 | NUR ---
Pt TOLERATING GTF WELL. NO RESIDUAL NOTED. INCREASED GTF TO 30ML/HR. WILL CHECK AGAIN AT 0600.
[2017-08-29 04:00] VITALS: BP_SYST 123; BP_SYST 155; BP_DIAS 64; BP_DIAS 68
[2017-08-29] MEDS: IV NS 0.9% 1,000 ML IV PRN ×2 (04:46→20:57)
--- NOTE | 2017-08-29 06:00 | NUR ---
RN NOTES RESIDUAL OF 30ML NOTED. INFORMED BILINGUAL SALES CONSULTANT, SAID IT IS OK TO INCREASE THE RATE 10ML MORE. GTF RATE NOW AT 40ML/HR.
--- NOTE | 2017-08-29 06:32 | NUR ---
RN CLOSING NOTES NO SIGNIFICANT CHANGES IN Pt's CONDITION. Pt REMAINS STABLE AT THIS TIME. NO S/S OF ACUTE DISTRESS OR SOB NOTED. ALL NEEDS MET AND ATTENDED TO. SAFETY MEASURES IN PLACE. HAS BEEN TOLERATING GTF WELL. RATE AT 40ML/HR. WILL ENDORSE TO DAYSHIFT RN FOR Pt's KWESI. Addendum: 08/29/17 at 0643 by CHANO CEDEÑO RN TELE READING SR 70-80
[2017-08-29 07:27] LABS: CALCIUM, SERUM 8.3 mg/dL (8.5-10.1); CARBON DIOXIDE 20 mmol/L (21-32); CHLORIDE 110 mmol/L (98-107); CREATININE 0.7 mg/dL (0.6-1.3); GLUCOSE 133 mg/dL (74-106); MAGNESIUM 2.1 mg/dL (1.8-2.4); PHOSPHORUS 2.5 mg/dL (2.5-4.9); POTASSIUM 3.9 mmol/L (3.5-5.1); SODIUM SERUM 139 mmol/L (136-145); UREA NITROGEN, BLOOD 3 mg/dL (7-18)
[2017-08-29 08:00] VITALS: BP 125/80
[2017-08-29] MEDS: PANTOPRAZOLE 40 MG VIAL IV SCH (09:13)
[2017-08-29 09:18] LABS: BASOPHILS % (AUTO) 0.6 % (0.0-2.0); EOSINOPHILS % (AUTO) 8.8 % (0.0-6.0); HEMATOCRIT 40 % (33-45); HEMOGLOBIN 13.5 g/dL (11.5-14.8); LYMPHOCYTES # (AUTO) 1.8 /CMM (0.8-4.8); LYMPHOCYTES % (AUTO) 23.1 % (20.0-44.0); MEAN CORPUSCULAR HGB CONC 34 g/dl (31.0-36.0); MEAN CORPUSCULAR VOLUME 92 fL (82-100); MONOCYTES # (AUTO) 0.7 /CMM (0.1-1.30); MONOCYTES % (AUTO) 8.7 % (2.0-12.0); NEUTROPHILS # (AUTO) 4.6 /CMM (1.8-8.9); NEUTROPHILS % (AUTO) 58.8 % (43.0-81.0); PLATELET COUNT (AUTO) 240 /CMM (150-450); RDW COEFFICIENT OF VARIATION 13.3 (11.5-15.0); RED BLOOD CELL COUNT(AUTO) 4.36 MIL/uL (4.0-5.2); WHITE BLOOD COUNT (AUTO) 7.9 K/uL (4.3-11.0)
[2017-08-29] MEDS: FLUCONAZOLE (100 MG) 100 MG TABLET PO SCH (09:18)
[2017-08-29] MEDS: LEVETIRACETAM SOL (5 ML) 100 MG/ML UDC PO SCH ×2 (09:20→20:57)
[2017-08-29] MEDS: Z GUARD REMEDY 2 OZ OINT TP SCH (09:22)
--- NOTE | 2017-08-29 09:23 | NUR ---
NO RESIDUAL NOTED. INCREASED FEEDING RATE TO 50 ML/HOUR
--- NOTE | 2017-08-29 10:34 | NUR ---
RN NOTES: PLAVIX WASTED, ANOTHER OBTAINED TO ADMINISTER PER ORDERS. SANCHEZ FROM PHARMACY NOTIFIED
[2017-08-29] MEDS: CLOPIDOGREL BISULFATE 75 MG TABLET GT SCH (10:36)
--- NOTE | 2017-08-29 11:42 | NUR ---
DNR/DNI- SPOKE TO PATIENT'S SON SRINATH PAIGE WHO CONFIRMED HIS WISHES FOR PATIENT TO BE DNR/DNI. HE STATED TO DISREGARD THE POLST PLACED IN CHART THAT IS INDICATING FULL CODE CONFIRMED IT AGAIN WITH HIM THAT PATIENT IS DNR/DNI. MR PAIGE AGREED.
[2017-08-29 12:00] VITALS: BP 151/73
--- NOTE | 2017-08-29 12:25 | NUR ---
RESIDUAL NOTED TO BE 35 ML/HOUR- WILL CONTINUE TO MONITOR. FEEDING AT 50 ML/HOUR
[2017-08-29 16:00] VITALS: BP 140/87
--- NOTE | 2017-08-29 17:17 | NUR ---
DR JOSEFINA SANATCRUZ CONSULTED ON SUTURES ON ABDOMEN. PER HIS ORDERS, THEY WILL BE REMOVED IN 1 WEEK PER HIS ORDERS, REMOVE SUTURED IDOFORM AND REPLACE DAILY WITH WET TO DRY DRESSING
--- NOTE | 2017-08-29 17:18 | NUR ---
DR JOSEFINA SANTACRUZ CONSULTED ON SAMANTHA ON ABDOMEN (PREVIOUS MESSAGE ERROR). PER HIS ORDERS, THEY WILL BE REMOVED IN 1 WEEK PER HIS ORDERS, REMOVE SUTURED IDOFORM AND REPLACE DAILY WITH WET TO DRY DRESSIN
--- NOTE | 2017-08-29 17:49 | NUR ---
DR ROCHA ORDERED TO PULL OUT THE IDOFORM DRESSING ON WOUND SITE BELOW GTUBE. DRESSING WAS ATTACHED TO WOUND SITE WITH A THREAD. THREAD REMOVED AND IS INTACT. NO BLEEDING NOTED. DR ROCHA INFORMED OF RESULTS
--- NOTE | 2017-08-29 19:22 | NUR ---
PER ISMAIL LASER TECHNICIAN-DISCONTINUE CALLAHAN CATHETER IN AM
--- NOTE | 2017-08-29 19:30 | NUR ---
RN CLOSING NOTES: PATIENT RESTING IN BED. NONLABORED BREATHING NOTED ON ORDERED MECHANICAL VENT SETTINGS, NO FACIAL GRIMACING NOTED. IV SITE ON LEFT FOOT 22 PATENT AND INTACT. PATIENT NOTED TO BE SINUS RHYTM THROUGHOUT SHIFT. CALLAHAN CATHETER DRAINING CLEAR YELLOW URINE. NO SEIZURES NOTED DURING SHIFT. PATIENT TOLERATING FEEDING AT CURRENT RATE OF 60ML/HOUR. NO RESIDUAL NOTED. PATIENT TURNED AND REPOSITIONED EVERY 2 HOURS. KEPT CLEAN AND DRY. ENDORSED TO NEXT SHIFT
[2017-08-29 20:00] VITALS: BP 134/53
[2017-08-29] MEDS ORDERED: LEVOFLOXACIN (500MG) 500 MG TABLET PO SCH (20:00)
[2017-08-29] MEDS: JEVITY 1.2 CAL 1,000 ML BOTTLE GT PRN (20:57)
[2017-08-29] MEDS: ENOXAPARIN SODIUM 40 MG/0.4 ML DISP.SYRIN SQ SCH (20:58)
[2017-08-30] VITALS: BP 148/77
[2017-08-30] MEDS: DILTIAZEM HCL 30 MG TABLET GT SCH ×5 (00:30→23:51)
[2017-08-30 04:00] VITALS: BP 146/83
[2017-08-30] MEDS: IV NS 0.9% 1,000 ML IV PRN (05:59)
--- NOTE | 2017-08-30 06:10 | NUR ---
RN CLOSING NOTES PATIENT WITH NO ACUTE DISTRESS AND CHANGE IN CONDITION OBSERVED OVERNIGHT. PATIENT TOLERATING VENT SETTINGS WELL, AIRWAY SUCTIONED NEEDED. GTF TO GOAL, MINIMAL GASTRIC RESIDUAL NOTED, TOTAL OF 40CC RESIDUAL NOTED FOR THE SHIFT. HOB REMAINS ELEVATED. IVF ORDERED DON L FOOT, NO SIGNS OF ANY INFILTRATION. SR ON TELE WITH HR IN THE 80s. WOUND CARE DONE ORDERED. SAMANTHA REMAIN INTACT IN THE ABDOMEN, S/P EXLAP. PATIENT TURNED AND REPOSITIONED. SAFETY AND COMFORT ENSURED. NEEDS ANTICIPATED AND MET. WILL ENDORSE ACCORDINGLY.
[2017-08-30 07:29] LABS: BASOPHILS % (AUTO) 0.4 % (0.0-2.0); EOSINOPHILS % (AUTO) 7.4 % (0.0-6.0); HEMATOCRIT 39 % (33-45); HEMOGLOBIN 13.2 g/dL (11.5-14.8); LYMPHOCYTES # (AUTO) 1.1 /CMM (0.8-4.8); LYMPHOCYTES % (AUTO) 19.9 % (20.0-44.0); MEAN CORPUSCULAR HGB CONC 34 g/dl (31.0-36.0); MEAN CORPUSCULAR VOLUME 92 fL (82-100); MONOCYTES # (AUTO) 0.6 /CMM (0.1-1.30); MONOCYTES % (AUTO) 10.6 % (2.0-12.0); NEUTROPHILS # (AUTO) 3.6 /CMM (1.8-8.9); NEUTROPHILS % (AUTO) 61.7 % (43.0-81.0); PLATELET COUNT (AUTO) 256 /CMM (150-450); RDW COEFFICIENT OF VARIATION 13.2 (11.5-15.0); RED BLOOD CELL COUNT(AUTO) 4.26 MIL/uL (4.0-5.2); WHITE BLOOD COUNT (AUTO) 5.8 K/uL (4.3-11.0)
[2017-08-30 07:43] LABS: CALCIUM, SERUM 8.7 mg/dL (8.5-10.1); CARBON DIOXIDE 20 mmol/L (21-32); CHLORIDE 108 mmol/L (98-107); CREATININE 0.7 mg/dL (0.6-1.3); GLUCOSE 100 mg/dL (74-106); MAGNESIUM 1.7 mg/dL (1.8-2.4); PHOSPHORUS 2.6 mg/dL (2.5-4.9); POTASSIUM 4.1 mmol/L (3.5-5.1); SODIUM SERUM 141 mmol/L (136-145); UREA NITROGEN, BLOOD 6 mg/dL (7-18)
[2017-08-30 08:00] VITALS: BP 140/70
--- NOTE | 2017-08-30 09:00 | NUR ---
RN NOTE CALLAHAN CATHETER REMOVED, WILL MONITOR PT FOR URINE RETENTION.
[2017-08-30] MEDS: Magnesium 1GM/D5W 100ML PREMIX 100 ML IV SCH ×2 (09:46→11:58)
[2017-08-30] MEDS: CLOPIDOGREL BISULFATE 75 MG TABLET GT SCH (09:46)
[2017-08-30] MEDS: PANTOPRAZOLE 40 MG VIAL IV SCH (09:47)
[2017-08-30] MEDS: LEVETIRACETAM SOL (5 ML) 100 MG/ML UDC PO SCH ×2 (09:47→20:46)
[2017-08-30] MEDS: FLUCONAZOLE (100 MG) 100 MG TABLET PO SCH (09:47)
[2017-08-30] MEDS: Z GUARD REMEDY 2 OZ OINT TP SCH (09:48)
[2017-08-30 12:00] VITALS: BP 136/56
[2017-08-30 16:00] VITALS: BP 121/84
[2017-08-30] MEDS ORDERED: CLOP75TA15 GT (16:31)
[2017-08-30] MEDS ORDERED: ENOX40DI SQ (16:31)
[2017-08-30] MEDS ORDERED: DILT30TA14 GT (16:31)
[2017-08-30] MEDS ORDERED: FLUC100T8 PO (16:31)
[2017-08-30] MEDS ORDERED: LACT-209 GT (16:31)
[2017-08-30 20:00] VITALS: BP 116/78
--- NOTE | 2017-08-30 20:07 | NUR ---
RN NOTE PT IS BEING DISCHARGE TO [facility], REPORT GIVEN TO DARIN GENTILE, DISCHARGE INSTRUCTIONS PRINTED AND SIGNED, PT UNABLE TO COMPREHEND, EXIT CARE DONE, NO BELONGINGS, PICTURES TAKEN, ENDORSED TO LEGAL CASHIER, OYSTER GROWER TIME 2100 BY AMBULANCE.
[2017-08-30] MEDS: ENOXAPARIN SODIUM 40 MG/0.4 ML DISP.SYRIN SQ SCH (20:46)
[2017-08-31] VITALS: BP 140/62
--- NOTE | 2017-08-31 00:30 | NUR ---
BENCH CARPENTER NOTES REMOVED PERIPHERAL IV LINE ON LEFT FOOT. PATIENT WITH GTUBE INTACT. TRACH INTACT. VITAL SIGNS WNL. PICKED UP BY AMBULANCE STAFF.
== END 2017-08-31 00:57 | DRG 356 ==
LOC: ER 00:22 → TELE1 03:47
PROVIDERS: ADMIT Internal Medicine; ATTEND Internal Medicine
PROC: 5A1955Z Respiratory Ventilation, Greater than 96 Consecutive Hours (ICD-10-PCS; principal; 2017-08-15)
PROC: 0DH63UZ Insertion of Feeding Device into Stomach, Percutaneous Approach (ICD-10-PCS; 2017-08-16)
PROC: 3E0G76Z Introduction of Nutritional Substance into Upper GI, Via Natural or Artificial Opening (ICD-10-PCS; 2017-08-16)
PROC: 0D20XUZ Change Feeding Device in Upper Intestinal Tract, External Approach (ICD-10-PCS; 2017-08-25)
PROC: 0WBF4ZZ Excision of Abdominal Wall, Percutaneous Endoscopic Approach (ICD-10-PCS; 2017-08-25)
DX: K94.23 Gastrostomy malfunction (principal); A41.9 Sepsis, unspecified organism; N17.0 Acute kidney failure with tubular necrosis; G93.1 Anoxic brain damage, not elsewhere classified; Z99.11 Dependence on respirator [ventilator] status; J96.11 Chronic respiratory failure with hypoxia; E87.2 Acidosis; K31.6 Fistula of stomach and duodenum; I69.351 Hemiplegia and hemiparesis following cerebral infarction affecting right dominant side; N39.0 Urinary tract infection, site not specified; E44.1 Mild protein-calorie malnutrition; R13.10 Dysphagia, unspecified; G40.909 Epilepsy, unspecified, not intractable, without status epilepticus; E11.9 Type 2 diabetes mellitus without complications; Z88.0 Allergy status to penicillin; Z88.8 Allergy status to other drugs, medicaments and biological substances; Z79.899 Other long term (current) drug therapy; Y83.3 Surgical operation with formation of external stoma as the cause of abnormal reaction of the patient, or of later complication, without mention of misadventure at the time of the procedure; Y82.9 Unspecified medical devices associated with adverse incidents; Y92.129 Unspecified place in nursing home as the place of occurrence of the external cause; K80.20 Calculus of gallbladder without cholecystitis without obstruction; F09 Unspecified mental disorder due to known physiological condition; B95.4 Other streptococcus as the cause of diseases classified elsewhere; Z87.01 Personal history of pneumonia (recurrent); B37.9 Candidiasis, unspecified; E87.6 Hypokalemia; F03.90 Unspecified dementia, unspecified severity, without behavioral disturbance, psychotic disturbance, mood disturbance, and anxiety; I10 Essential (primary) hypertension; Z66 Do not resuscitate; L89.90 Pressure ulcer of unspecified site, unspecified stage
CPT/HCPCS: 31720; 36415; 36600; 43246; 71045-TC; 74018; 80048-TC; 80053-TC; 80076-TC; 80202-TC; 81000-TC; 82803-TC; 83605-TC; 83735-TC; 83880; 84100-TC; 84484-TC; 85025-TC; 85610-TC; 85730-TC; 86850-TC; 87040-TC; 87070-TC; 87081-TC; 87086-TC; 87186-TC; 93307-TC; 94002-TC; 94003-TC; 94760-TC; 99082-TC; A4216; A4217; A4606; A6253; A6402; A6403; A6407; C9113; J0330; J0360; J0696; J1650; J1953; J2250; J2270; J2543; J3010; J3370; J3475; J3480; J3490; J7030; J7050; J7060; Q9963; Z7610

== ENCOUNTER 2018-01-02 09:52 | Inpatient (IN) | payer MEDICARE, MEDICAID ==
[~2018-01-02] VITALS: Ht 160 cm; Wt 75.3 kg
[~2018-01-02 09:52] MED LIST: ACET325T53 GT; ALBU2.5V11 NEB; BISA-79 PR; CLOP75TA15 GT; DEXT15DR6 EACHEYE; DILT30TA14 GT; DOCU-141 GT; ENOX40DI SQ; FLUC100T8 PO; LACT-209 GT; LEVE500V2 GT; MAGN400O6 GT; MULT1TAB73 GT; NA P133E RC; PANT40TA4 GT
--- NOTE | 2018-01-02 09:59 | NUR ---
PATIENT TO ED DT GT MALFUNCTIO, PER REPORT, GT IS LEAKING. PATIENT HAS F22 IN PLACED AT THIS TIME. GT SITE NOTED WITH GREENISH SECRETION, NOTED LEAKING. PATIENT IS OBTUNDED, VENT AND TRACHE DEPENDENT. PATIENT IS AFEBRILE. VSS. RT AT BEDSIDE. AWAITING FOR MD SCALES
--- NOTE | 2018-01-02 10:05 | NUR ---
GI TUBE SITE WARM RED NOTED AWAITING EVALUATION BY ER PROVIDER.
--- NOTE | 2018-01-02 10:24 | NUR ---
RT NOTE RECEIVED PT ON AC MODE, ALARMS ON AND AUDIBLE, TRACH PATENT AND SECURED, TXS GIVEN ORDERED NO ADVERSE REACTION NOTED PT STABLE, WILL CONTINUE TO MONITOR
[2018-01-02] MEDS ORDERED: ENOX40DI SQ (10:37)
[2018-01-02] MEDS ORDERED: CLOP75TA15 GT (10:37)
[2018-01-02] MEDS ORDERED: POLY15DR40 EACHEYE (10:37)
[2018-01-02] MEDS ORDERED: GEMF600T4 GT (10:37)
[2018-01-02] MEDS ORDERED: DOCU50LI GT (10:37)
[2018-01-02] MEDS ORDERED: ASCO500T9 GT (10:37)
[2018-01-02] MEDS ORDERED: ACET-2605 GT (10:37)
[2018-01-02] MEDS ORDERED: LACT-96 GT (10:37)
[2018-01-02] MEDS ORDERED: NA P133E RC (10:37)
[2018-01-02] MEDS ORDERED: MULT-447 GT (10:37)
[2018-01-02] MEDS ORDERED: ACET650S26 GT (10:37)
[2018-01-02] MEDS ORDERED: AMIN30LI4 GT (10:37)
[2018-01-02] MEDS ORDERED: DILT30TA14 GT (10:37)
[2018-01-02] MEDS ORDERED: FERR300L GT (10:37)
[2018-01-02] MEDS ORDERED: OMEG-167 GT (10:37)
[2018-01-02] MEDS ORDERED: IPRA3AMP23 IH ×2 (10:37)
[2018-01-02] MEDS ORDERED: PANT40SU2 GT (10:37)
[2018-01-02 10:38] LABS: BASOPHILS # (AUTO) 0.1 /CMM (0.0-0.2); BASOPHILS % (AUTO) 1.3 % (0.0-2.0); EOSINOPHILS % (AUTO) 5.7 % (0.0-6.0); HEMATOCRIT 42 % (33-45); HEMOGLOBIN 13.3 g/dL (11.5-14.8); LYMPHOCYTES # (AUTO) 1.3 /CMM (0.8-4.8); LYMPHOCYTES % (AUTO) 14.8 % (20.0-44.0); MEAN CORPUSCULAR HEMOGLOBIN 30 PG (26.0-33.0); MEAN CORPUSCULAR HGB CONC 32 g/dl (31.0-36.0); MEAN CORPUSCULAR VOLUME 93 fL (82-100); MONOCYTES # (AUTO) 0.7 /CMM (0.1-1.30); NEUTROPHILS # (AUTO) 6.3 /CMM (1.8-8.9); NEUTROPHILS % (AUTO) 70.2 % (43.0-81.0); PLATELET COUNT (AUTO) 409 /CMM (150-450); RDW COEFFICIENT OF VARIATION 12.8 (11.5-15.0); RED BLOOD CELL COUNT(AUTO) 4.51 MIL/uL (4.0-5.2); WHITE BLOOD COUNT (AUTO) 8.9 K/uL (4.3-11.0)
[2018-01-02 10:50] LABS: INR 0.95 (0.85-1.15)
[2018-01-02 10:58] LABS: CALCIUM, SERUM 9.3 mg/dL (8.5-10.1); CARBON DIOXIDE 24 mmol/L (21-32); CHLORIDE 105 mmol/L (98-107); CREATININE 0.7 mg/dL (0.6-1.3); GLUCOSE 134 mg/dL (74-106); POTASSIUM 4.6 mmol/L (3.5-5.1); SODIUM SERUM 138 mmol/L (136-145); UREA NITROGEN, BLOOD 29 mg/dL (7-18)
[2018-01-02] MEDS ORDERED: MEROPENEM 1,000 MG in IV NS 0.9% 100 ML IV ONE (11:00)
[2018-01-02] MEDS ORDERED: IV NS 0.9% 1,000 ML IV ONE (11:00)
[2018-01-02] MEDS ORDERED: VANCOMYCIN 1 GM in IV D5W 250 ML IV ONE (11:00)
[2018-01-02 11:02] LABS: ALANINE AMINOTRANSFERASE 24 U/L (12-78); ALBUMIN 3.4 g/dL (3.4-5.0); ALKALINE PHOSPHATASE 180 U/L (46-116); ASPARTATE AMINOTRANSFERASE 16 U/L (15-37); BILIRUBIN,DIRECT 0.1 mg/dL (0.0-0.2); BILIRUBIN,TOTAL 0.4 mg/dL (0.2-1.0); TOTAL PROTEIN, SERUM 8.5 g/dL (6.4-8.2)
[2018-01-02 11:04] LABS: TROPONIN I < 0.017 ng/mL (0.00-0.056)
[2018-01-02 11:08] LABS: APPEARANCE,URINE Turbid (CLEAR); BILIRUBIN,URINE Negative (NEGATIVE); BLOOD, URINE Moderate Ery/uL (NEGATIVE); COLOR,URINE Yellow (YELLOW); KETONES,URINE Negative (NEGATIVE); LEUKOCYTE ESTERASE ,URINE Large (NEGATIVE); NITRITE, URINE Negative (NEGATIVE); PH,URINE 8.5 (5.0-8.0); PROTEIN,URINE 100 mg/dl (NEGATIVE); UGLUCOSE Negative (NEGATIVE); UROBILINOGEN,URINE 0.2 EU/dL (0.2)
--- NOTE | 2018-01-02 11:24 | NUR ---
PT CLEANED STOOL SENT FOR CDIFF UA SENT CALLAHAN CTH 16 FR INPLACE URINE CLOUDY IV ANBX GIVEN AND BOLUS NS GIVEN PER MD ORDER
[2018-01-02 11:25] LABS: BACTERIA,URINE Many /HPF (None Seen); RBC,URINE 0-2 /HPF (0-2); SQUAMOUS EPITHELIAL CELL,UR Few /HPF (None Seen); WBC,URINE 81-100 /HPF (0-3)
--- NOTE | 2018-01-02 12:05 | NUR ---
PT NOTED TACHYCARDIC 130'S-140'S, RESTLESS, FLUSHED. ABX STOPPED. AWARE. NEW ORDERS CARRIED OUT. WILL MONITOR.
--- NOTE | 2018-01-02 12:12 | NUR ---
CALLED NURSING ASSURANCE SOURCING MANAGER AND REQUESTED A TELE BED FOR THIS PT.
--- NOTE | 2018-01-02 12:12 | NUR ---
CALLED [facility] FOR PANEL CALL AND DR PAYTON WAS PAGED.
[2018-01-02] MEDS ORDERED: diphenhydrAMINE HCL 50 MG/ML VIAL ONE ×2 (12:13→12:27)
[2018-01-02] MEDS ORDERED: FAMOTIDINE/PF INJ 20 MG/2 ML VIAL IV ONE ×2 (12:26→12:30)
[2018-01-02] MEDS ORDERED: diphenhydrAMINE HCL 50 MG/ML VIAL IV ONE ×2 (12:30)
--- NOTE | 2018-01-02 12:35 | NUR ---
PT HAS REACTION TO VANO RED FACE D/C VANCO AND BENADRYL GIVEN PER MD ORDER PEPCID GIVEN IVP
--- NOTE | 2018-01-02 12:49 | NUR ---
CALLED NURSING SUP TO UPDATE THAT DR PAYTON WANTS A SAM BED INSTEAD
--- NOTE | 2018-01-02 13:11 | NUR ---
PT IS ASSIGNED TO [facility] RM#: [id number], DX: CELLULITIS OF THE ABD/UTI, AND ACCEPTING MD: DR PAYTON
[2018-01-02 14:15] VITALS: BP 120/45
--- NOTE | 2018-01-02 14:30 | NUR ---
RN NOTE RECEIVED PT ON BED, OBTUNDED, MECH VENT, VS STABLE, TEMP 99.1 AXILLARY, REDNESS AND SWELLING NOTED AROUND G TUBE SITE,GT IS LEAKING. PATIENT HAS F22 IN PLACE AT THIS TIME. AWAITING FOR MD ADMITTING.
[2018-01-02 16:00] VITALS: BP 145/79
[2018-01-02] MEDS ORDERED: ONDANSETRON HCL/PF 4 MG/2 ML VIAL IVP PRN (16:30)
[2018-01-02] MEDS ORDERED: ZOLPIDEM TARTRATE 5 MG TABLET PO PRN (16:30)
[2018-01-02] MEDS ORDERED: ACETAMINOPHEN 325 MG TABLET PO PRN (16:30)
[2018-01-02] MEDS ORDERED: Z GUARD REMEDY 2 OZ OINT TP PRN (16:30)
[2018-01-02] MEDS: NYSTATIN CREAM 15 GM TUBE TP SCH (18:00)
[2018-01-02] MEDS ORDERED: DIATR MEGLU/DIATRIZOATE SODIUM 30 ML BOTTLE (GASTROGRAPHIN) ONE (18:20)
--- NOTE | 2018-01-02 19:18 | NUR ---
TD RN NOTES RECEIVED PT ON BED. OBT[facility]DED. [facility] SATURATING WELL. ON TELE MONITOR SR 80. PT ON NPO. IV ACCESS ON RIGHT HAND G20 PATENT AND INTACT. ON F/C DRAINING WELL. HEAD OF BED ELEVATED.SIDE RAILS UP. CALL LIGHT WITHIN REACH. BED ALARM ON. WILL CONTINUE TO MONITOR PT CLOSELY.
--- NOTE | 2018-01-02 19:32 | NUR ---
TD RN NOTES PER PHARMACIST OKAY TO GIVE MERREM.
--- NOTE | 2018-01-02 19:54 | NUR ---
pt received on vent via trach with charted settings. airway patent. trach secure via trach tie. pt responsive to pain. ambu bag at bedside. alarms set and audible, disconnect alarms checked plugged into red outlet suctioned a moderate amount of thick white secretions. pt receiving no breathing tx at this time. pt hob at 30 degrees. suctioned oral secretion from pts mouth Addendum: 01/02/18 at 5 by LAUREEN HAMMER RT Amended: Links added.
[2018-01-02 20:00] VITALS: BP 116/61
[2018-01-02] MEDS: METRONIDAZOLE 500MG/ NS 100ML 500 MG in PREMIX 1 EA IV SCH (20:00)
[2018-01-02] MEDS ORDERED: LINEZOLID RTU BAG 300 ML IV ONE (21:14)
[2018-01-02] MEDS: LINEZOLID RTU BAG 600 MG in PREMIX 1 EA IV SCH (21:20)
[2018-01-02] MEDS: ENOXAPARIN SODIUM 40 MG/0.4 ML DISP.SYRIN SQ SCH (21:20)
[2018-01-02] MEDS: MEROPENEM 500 MG in IV NS 0.9% 50 ML IV SCH (22:43)
[2018-01-03] VITALS: BP 127/72
--- NOTE | 2018-01-03 00:17 | NUR ---
TD RN NOTES CALLED JEMIMA FOR HR OF 130S. ORDERED NS @75CC/HR AND MAGNESIUM FOR AM LABS. WILL CONTINUE TO MONITOR PT CLOSELY.
--- NOTE | 2018-01-03 00:20 | NUR ---
TD RN NOTES PER JEMIMA NO NEED ACCUHECK Q6H AND NPO SLIDING SCALE. WILL CONTINUE TO MONITOR
[2018-01-03] MEDS ORDERED: IV NS 0.9% 1,000 ML BAG IV PRN ×2 (00:30)
[2018-01-03] MEDS: IV NS 0.9% 1,000 ML IV PRN ×2 (00:31→18:54)
[2018-01-03 04:00] VITALS: BP 116/70
[2018-01-03] MEDS: METRONIDAZOLE 500MG/ NS 100ML 500 MG in PREMIX 1 EA IV SCH (04:01)
--- NOTE | 2018-01-03 06:31 | NUR ---
TD RN NOTES NO ACUTE CHANGES NOTED DURING THE SHIFT. PROVIDED COMFORT AND SAFETY. PT KEPT NPO. NO RESPIRATORY DISTRESS NOTED. WILL ENDORSE TO THE AM NURSE FOR CONTINUITY OF CARE.
[2018-01-03 06:39] LABS: BASOPHILS % (AUTO) 0.3 % (0.0-2.0); EOSINOPHILS % (AUTO) 7.7 % (0.0-6.0); HEMATOCRIT 36 % (33-45); HEMOGLOBIN 11.5 g/dL (11.5-14.8); LYMPHOCYTES # (AUTO) 1.3 /CMM (0.8-4.8); LYMPHOCYTES % (AUTO) 18.5 % (20.0-44.0); MEAN CORPUSCULAR HEMOGLOBIN 30 PG (26.0-33.0); MEAN CORPUSCULAR HGB CONC 32 g/dl (31.0-36.0); MEAN CORPUSCULAR VOLUME 94 fL (82-100); MONOCYTES # (AUTO) 0.6 /CMM (0.1-1.30); MONOCYTES % (AUTO) 8.8 % (2.0-12.0); NEUTROPHILS # (AUTO) 4.6 /CMM (1.8-8.9); NEUTROPHILS % (AUTO) 64.7 % (43.0-81.0); PLATELET COUNT (AUTO) 393 /CMM (150-450); RDW COEFFICIENT OF VARIATION 13.7 (11.5-15.0); RED BLOOD CELL COUNT(AUTO) 3.79 MIL/uL (4.0-5.2); WHITE BLOOD COUNT (AUTO) 7.1 K/uL (4.3-11.0)
[2018-01-03 06:47] LABS: ALANINE AMINOTRANSFERASE 21 U/L (12-78); ALBUMIN 2.9 g/dL (3.4-5.0); ALKALINE PHOSPHATASE 148 U/L (46-116); ASPARTATE AMINOTRANSFERASE 15 U/L (15-37); BILIRUBIN,TOTAL 0.5 mg/dL (0.2-1.0); CALCIUM, SERUM 8.7 mg/dL (8.5-10.1); CARBON DIOXIDE 24 mmol/L (21-32); CHLORIDE 107 mmol/L (98-107); CREATININE 0.7 mg/dL (0.6-1.3); GLUCOSE 101 mg/dL (74-106); MAGNESIUM 2.4 mg/dL (1.8-2.4); PHOSPHORUS 2.4 mg/dL (2.5-4.9); POTASSIUM 4.1 mmol/L (3.5-5.1); SODIUM SERUM 141 mmol/L (136-145); TOTAL PROTEIN, SERUM 7.5 g/dL (6.4-8.2); UREA NITROGEN, BLOOD 20 mg/dL (7-18)
[2018-01-03 06:50] LABS: CHOLESTEROL 154 mg/dL (<200); HDL CHOLESTEROL 35 mg/dL (40-60); LDL 98 mg/dL (0-99); TRIGLYCERIDES 151 mg/dL (30-150)
--- NOTE | 2018-01-03 07:30 | NUR ---
T/D RN NOTES RECEIVED REPORT FROM PM NURSE. PATIENT IN BED, ON MECHANICAL VENTILATION, SETTINGS PER MD ORDER. O2 SAT 97%. NOT IN ACUTE RESP. DISTRESS. CLEAR BUT DIMINISHED LUNG SOUNDS. ON TELE: SR 76. PATIENT HAS IV FLUIDS NS AT 75ML/HR VIA IV ON R HAND #20. PATIENT'S GTUBE CLAMPED; FLUSHED AND PATENT. PATIENT IS CONTRACTED BLE AND BUE. PATIENT ON ISOLATION PENDING CDIFF. F/C DRAINING CLEAR YELLOW URINE. PATIENT IS OBTUNDED; OPENS EYES TO TOUCH AND SOUND.PATIENT IS ON ISOFLEX BED. SAFETY PRECAUTIONS IN PLACE. BED IN LOCKED/LOWEST POSITION. CALL LIGHT WITHIN REACH. WILL CONT TO MONITOR.
--- NOTE | 2018-01-03 07:44 | NUR ---
RT NOTE RECEIVED PT MECHANICALLY VENTILATED VIA PORTEX 9 CUFFED TRACHEOSTOMY TUBE. CUFF INFLATED VIA HEALTH SCIENCES DEPARTMENT CHAIR. TRACH TUBE MIDLINE AND SECURE. VENTILATOR SETTINGS PRESCRIBED. ALARMS SET PER PROTOCOL AND AUDIBLE. VENT PLUGGED IN TO RED OUTLET. AMBU BAG AT BED SIDE. NO DISTRESS NOTED. Addendum: 01/03/18 at 0745 by MAKAYLA KAUR RT Amended: Links added.
[2018-01-03 08:00] VITALS: BP 119/42
[2018-01-03] MEDS: LINEZOLID RTU BAG 600 MG in PREMIX 1 EA IV SCH ×2 (09:54→21:38)
[2018-01-03] MEDS: NYSTATIN CREAM 15 GM TUBE TP SCH ×3 (09:55→18:56)
--- NOTE | 2018-01-03 10:27 | NUR ---
TD/RN CONSENT - UNABLE TO OBTAIN CONSENT FOR EGD WITH PEG UNABLE TO OBTAIN D/T FAMILY CONTACT NUMBER LISTED ON FACE SHEET IS A DISCONNECTED NUMBER. CALLED SNF, HAS THE SAME CONTACT INFORMATION. WILL NOTIFY FAMILY.
--- NOTE | 2018-01-03 10:55 | NUR ---
TD/RN SARAH BETH - Olaf ANTHONY NP UPDATED PT'S CONDITION. PT SEEN & EXAMINED BY SAMUEL ANTHONY, NO NEW ORDERS RECEIVED AT THIS TIME. MONITORING CONTINUED.
[2018-01-03 12:00] VITALS: BP 119/42
[2018-01-03] MEDS ORDERED: NA PHOS,M-B/NA PHOS,DI-BA 1 EA ENEMA RC PRN (12:00)
[2018-01-03] MEDS ORDERED: Medication Not On Formulary EA (Ipratropium/Albuterol Sulfate (Duoneb 2.5-0.5 Mg/3 Ml So IH PRN (12:00)
[2018-01-03] MEDS ORDERED: BISACODYL (5 MG) 5 MG TABLET.DR GT PRN (12:00)
[2018-01-03] MEDS: MEROPENEM 500 MG in IV NS 0.9% 50 ML IV SCH ×2 (13:13→23:12)
[2018-01-03] MEDS ORDERED: Medication Not On Formulary EA (Ipratropium/Albuterol Sulfate (Duoneb 2.5-0.5 Mg/3 Ml So IH SCH (13:30)
[2018-01-03] MEDS ORDERED: ALBUTEROL FS 2.5 MG/0.5 ML VIAL.NEB NEB PRN (14:00)
[2018-01-03] MEDS ORDERED: IPRATROPIUM NEB FS 0.5 MG/2.5 ML AMPUL.NEB NEB PRN (14:00)
[2018-01-03] MEDS ORDERED: PROSTAT (PYXIS) 30 ML UDC PO SCH (14:00)
[2018-01-03] MEDS: DILTIAZEM HCL 30 MG TABLET GT SCH ×3 (14:25→23:42)
[2018-01-03] MEDS: LEVETIRACETAM (500MG) 500 MG in IV NS 0.9% 100 ML IV SCH (15:27)
[2018-01-03 16:00] VITALS: BP 110/48
[2018-01-03] MEDS ORDERED: LEVETIRACETAM (500MG) 500 MG/5 ML VIAL IV SCH (17:00)
[2018-01-03] MEDS ORDERED: Sodium Phosphate 7.5 MMOL in IV D5W 100 ML IV ONE (17:00)
[2018-01-03] MEDS: POLYVINYL ALCOHOL 15 ML BOTTLE EACHEYE SCH (17:25)
[2018-01-03] MEDS: GEMFIBROZIL 600 MG TABLET GT SCH (18:48)
--- NOTE | 2018-01-03 19:30 | NUR ---
NECK BAND OPERATOR NOTES PATIENT ENDORSED TO PM CARE. PATIENT IS NPO EXCEPT MEDS. ALL SAFETY MEASURES MAINTAINED. PATIENT IS NOT IN ACUTE DISTRESS. PM NURSE WILL CONTINUE MEDS AND MONITOR GTUBE SITE. PM NURSE AWARE OF PROCEDURE TMRW.
[2018-01-03] MEDS: ALBUTEROL FS 2.5 MG/0.5 ML VIAL.NEB NEB SCH (19:39)
[2018-01-03] MEDS: IPRATROPIUM NEB FS 0.5 MG/2.5 ML AMPUL.NEB NEB SCH (19:39)
--- NOTE | 2018-01-03 19:46 | NUR ---
pt received on vent via trach with charted settings. airway patent, secure via trach tie. pt responsive to pain. ambu bag at bedside. alarms set and audible, disconnect alarms checked, plugged into red outlet suctioned a small amount of thin white secretions. pt receiving breathing tx q6 at this time. pt hob at 30 degrees. suctioned oral secretion from pts mouth Addendum: 01/03/18 at 1947 by LAUREEN HAMMER RT Amended: Links added.
[2018-01-03 20:00] VITALS: BP 128/67
--- NOTE | 2018-01-03 20:00 | NUR ---
BRAND MGR NOTE PT IN BED OBTUNDED. EYES CLOSED. ON VENT/TRACH TOLERATING THE SETTINGS WELL. KEPT HOB ELEVATED. ON TELE SR HR 81. NO DISTRESS OR DISCOMFORT NOTED. NO S/S OF PAIN NOTED. SODIUM PHOSPATE INFUSING AT THIS TIME RFA #22 G, NO S/S OF INFILTRATION NOTED. GT PATENT BUT LEAKING. PT IS REMAIN NPO. KEPT THE SITE CLEAN AND DRY. SIDE RAILS UP X 3 AND CALL LIGHT WITHIN REACH. VSS. REPOSITION HER FOR SKIN MANAGEMENT. CONTINUE TO MONITOR HER.
[2018-01-03] MEDS: ENOXAPARIN SODIUM 40 MG/0.4 ML DISP.SYRIN SQ SCH ×2 (21:00→23:17)
--- NOTE | 2018-01-03 21:38 | NUR ---
SUPERVISOR NUT PROCESSING NOTE MILLY CHARGE NURSE VERIFIED WITH JEMIMA HORTICULTURAL FARMWORKER REGARDING GIVING LOVENOX. PER JEMIMA HORTICULTURAL FARMWORKER HOLD THE LOVENOX FOR TONIGHT. ORDER NOTED AND CARRIED OUT.
[2018-01-03] MEDS ORDERED: ENOXAPARIN SODIUM 40 MG/0.4 ML DISP.SYRIN SQ SCH (22:00)
--- NOTE | 2018-01-03 23:17 | NUR ---
RICE DRIER NOTE MILLY CHARGE NURSE INFORMED ME THAT EGD PROCEDURE IN AM IS POSTPONED TILL THURSDAY. JEMIMA AIRLINE CAPTAIN INFORMED AND OK TO GIVE LOVENOX FOR TONIGHT.
[2018-01-04] VITALS: BP 118/73
[2018-01-04] MEDS: ALBUTEROL FS 2.5 MG/0.5 ML VIAL.NEB NEB SCH ×4 (01:09→20:42)
[2018-01-04] MEDS: IPRATROPIUM NEB FS 0.5 MG/2.5 ML AMPUL.NEB NEB SCH ×4 (01:09→20:42)
[2018-01-04] MEDS: LEVETIRACETAM (500MG) 500 MG in IV NS 0.9% 100 ML IV SCH ×2 (03:50→15:22)
[2018-01-04 04:00] VITALS: BP 127/66
[2018-01-04] MEDS: DILTIAZEM HCL 30 MG TABLET GT SCH ×4 (05:11→23:22)
--- NOTE | 2018-01-04 06:38 | NUR ---
AEROSPACE ASSEMBLER NOTE PT IN BED OBTUNDED. NO DISTRESS OR DISCOMFORT NOTED DURING THE NIGHT. NO CHANGE IN CONDITION. GT SITE IS LEAKING PT IS NPO. IVF NS INFUSING AT 75 ML/HR, NO S/S OF INFILTRATION NOTED. ON TELE MONITOR SR WITH PAC HR 80'S. REPOSITION HER Q2H, KEPT HER DRY AND CLEAN. ALL NEEDS ATTENDED. WILL ENDORSE TO DAY SHIFT NURSE FOR CONTINUE TO CARE.
[2018-01-04 06:40] LABS: CALCIUM, SERUM 8.3 mg/dL (8.5-10.1); CARBON DIOXIDE 22 mmol/L (21-32); CHLORIDE 108 mmol/L (98-107); CREATININE 0.7 mg/dL (0.6-1.3); GLUCOSE 95 mg/dL (74-106); SODIUM SERUM 141 mmol/L (136-145); UREA NITROGEN, BLOOD 11 mg/dL (7-18)
[2018-01-04 06:43] LABS: BASOPHILS % (AUTO) 0.3 % (0.0-2.0); EOSINOPHILS % (AUTO) 8.2 % (0.0-6.0); HEMATOCRIT 36 % (33-45); HEMOGLOBIN 11.8 g/dL (11.5-14.8); LYMPHOCYTES # (AUTO) 1.6 /CMM (0.8-4.8); MEAN CORPUSCULAR HEMOGLOBIN 31 PG (26.0-33.0); MEAN CORPUSCULAR HGB CONC 33 g/dl (31.0-36.0); MEAN CORPUSCULAR VOLUME 94 fL (82-100); MONOCYTES # (AUTO) 0.6 /CMM (0.1-1.30); MONOCYTES % (AUTO) 7.8 % (2.0-12.0); NEUTROPHILS # (AUTO) 4.5 /CMM (1.8-8.9); NEUTROPHILS % (AUTO) 61.7 % (43.0-81.0); PLATELET COUNT (AUTO) 369 /CMM (150-450); RDW COEFFICIENT OF VARIATION 13.2 (11.5-15.0); RED BLOOD CELL COUNT(AUTO) 3.86 MIL/uL (4.0-5.2); WHITE BLOOD COUNT (AUTO) 7.3 K/uL (4.3-11.0)
[2018-01-04 08:00] VITALS: BP 129/41
--- NOTE | 2018-01-04 08:00 | NUR ---
TELE1/RN AM SHIFT INITIAL NOTES RECEIVED PT AWAKE IN BED, NO ACUTE DISTRESS OR GRIMACING NOTED. PT OBTUNDED, OPEN EYES SPONTANEOUSLY. VENT DEPENDENT WITH RATES SET PRESCRIBED, SATURATING @ 100%, LUNG SOUND CLEAR, SUCTIONED FOR AIRWAY CLEARANCE, RESPIRATIONS EVEN & UNLABORED. ON TELE MONITORING WITH SINUS RHYTHM, HR 73. WITH ON GOING IV INFUSION OF NS @ 75CC/HR, IV SITE PATENT WITH NO S/S OF INFECTION. PT ON NPO EXCEPT MEDS, GT FLUSHED, PATENT, NO GASTRIC RESIDUAL, GT SITE NOTED WITH REDNESS AND DRAINAGE. CALLAHAN CATHETER INTACT WITH CLEAR YELLOW URINE OUTPUT. PT IS COMFORTABLE, SCHEDULED AM MEDS TO BE GIVEN. ON GOING MONITORING.
--- NOTE | 2018-01-04 08:10 | NUR ---
pt received on vent via trach with charted settings. airway patent. trach secure via trach tie. pt responsive to pain. ambu bag at bedside. alarms set and audible, disconnect alarms checked plugged into red outletsuctioned a moderate amount of thick white secretions. Addendum: 01/04/18 at 0812 by LALA GREEN RT Amended: Links added.
[2018-01-04] MEDS ORDERED: Medication Not On Formulary EA (Omega-3 Fatty Acids/Fish Oil (Fish Oil 1,000 Mg Softgel) GT SCH (09:00)
[2018-01-04] MEDS ORDERED: FERROUS SULFATE UDC 300 MG/5 ML UDC GT SCH (09:00)
--- NOTE | 2018-01-04 09:00 | NUR ---
TELE1/RN CONSENT - LAPAROSCOPIC J-TUBE PLACEMENT CONSENT FOR LAPAROSCOPIC J-TUBE PLACEMENT OBTAINED FROM PT'S SON. CONSENT FORM FILED IN PT'S CHART.
[2018-01-04] MEDS: POLYVINYL ALCOHOL 15 ML BOTTLE EACHEYE SCH ×2 (09:04→16:52)
[2018-01-04] MEDS: GEMFIBROZIL 600 MG TABLET GT SCH ×2 (09:05→16:52)
[2018-01-04] MEDS: NYSTATIN CREAM 15 GM TUBE TP SCH ×3 (09:05→16:52)
[2018-01-04] MEDS: PROSTAT (PYXIS) 30 ML UDC GT SCH (09:06)
[2018-01-04] MEDS: ASCORBIC ACID 500 MG TABLET GT SCH (09:06)
[2018-01-04] MEDS: MULTIVIT, IRON, MIN NO. 8, FA 1 TAB GT SCH (09:06)
[2018-01-04] MEDS: CLOPIDOGREL BISULFATE 75 MG TABLET GT SCH (09:06)
[2018-01-04] MEDS: LINEZOLID RTU BAG 600 MG in PREMIX 1 EA IV SCH (09:07)
[2018-01-04 12:00] VITALS: BP 109/83
[2018-01-04] MEDS: MEROPENEM 500 MG in IV NS 0.9% 50 ML IV SCH ×2 (12:02→23:21)
[2018-01-04] MEDS: IV NS 0.9% 1,000 ML IV PRN (12:03)
[2018-01-04 16:00] VITALS: BP 135/74
--- NOTE | 2018-01-04 16:00 | NUR ---
TELE1/RN AFTERNOON ROUNDS PM CARE PROVIDED, NO ACUTE CHANGE OF CONDITION. MONITORING CONTINUED
--- NOTE | 2018-01-04 19:13 | NUR ---
TELE1/RN AM SHIFT END NOTES ALL NEEDS MET. NO ACUTE CHANGE OF CONDITION NOTED DURING THE SHIFT. PT ENDORSED TO PM NURSE TO CONTINUE CARE. ALSO ENDORSED TO COMPLETE PRE-OP CHECK LIST AND HOLD SCHEDULED LOVENOX FOR POSSIBLE LAPAROSCOPIC J-TUBE PLACEMENT TOMORROW. CL WITHIN REACHED AND SAFETY MAINTAINED.
[2018-01-04 20:00] VITALS: BP 135/50
[2018-01-04] MEDS: ENOXAPARIN SODIUM 40 MG/0.4 ML DISP.SYRIN SQ SCH (20:03)
--- NOTE | 2018-01-04 20:43 | NUR ---
PT REC'D TRACHED ON [facility] VENT SETTINGS CHARTED. TRACH TUBE PATENT AND SECURED. NO RESP DISTRESS OR SOB NOTED. SX'D FOR THICK MOD AMT OF YELLOW SECRETIONS. ALARMS ARE SET AND AUDIBLE. VENT PLUGGED INTO RED OUTLET. AMBU BAG BEDSIDE. WILL CONTINUE TO MONITOR. Addendum: 01/05/18 at 0235 by JENNI MONTIEL RT Amended: Links added.
[2018-01-04] MEDS ORDERED: LINEZOLID 600 MG TABLET GT SCH (21:00)
[2018-01-05] VITALS (8 sets, daily range): BP systolic 123–139; BP diastolic 42–74
[2018-01-05] MEDS: ALBUTEROL FS 2.5 MG/0.5 ML VIAL.NEB NEB SCH ×4 (01:34→20:20)
[2018-01-05] MEDS: IPRATROPIUM NEB FS 0.5 MG/2.5 ML AMPUL.NEB NEB SCH ×4 (01:34→20:20)
[2018-01-05] MEDS: LEVETIRACETAM (500MG) 500 MG in IV NS 0.9% 100 ML IV SCH (04:00)
[2018-01-05] MEDS: DILTIAZEM HCL 30 MG TABLET GT SCH ×3 (05:09→17:15)
--- NOTE | 2018-01-05 06:30 | NUR ---
RN NOTE PATIENT REMAINED STABLE, NO ACUTE CHANGES, NO RESPIRATORY DISTRESS NOTED, REMAINED NPO AFTER MIDNIGHT, ALL SAFETY MEASURES TAKEN, WOUND CARE PROVIDED ORDERED, TURNED AND REPOSITION Q 2 HOURS, WILL ENDORSE TO AM SHIFT TO CONTINUE CARE
[2018-01-05 07:01] LABS: BASOPHILS % (AUTO) 0.4 % (0.0-2.0); EOSINOPHILS % (AUTO) 8.4 % (0.0-6.0); HEMATOCRIT 33 % (33-45); HEMOGLOBIN 10.6 g/dL (11.5-14.8); LYMPHOCYTES % (AUTO) 22.1 % (20.0-44.0); MEAN CORPUSCULAR HEMOGLOBIN 31 PG (26.0-33.0); MEAN CORPUSCULAR HGB CONC 33 g/dl (31.0-36.0); MEAN CORPUSCULAR VOLUME 93 fL (82-100); MONOCYTES # (AUTO) 0.5 /CMM (0.1-1.30); NEUTROPHILS # (AUTO) 2.8 /CMM (1.8-8.9); NEUTROPHILS % (AUTO) 59.1 % (43.0-81.0); RDW COEFFICIENT OF VARIATION 13.2 (11.5-15.0); WHITE BLOOD COUNT (AUTO) 4.7 K/uL (4.3-11.0)
[2018-01-05 07:14] LABS: PLATELET COUNT (AUTO) 296 /CMM (150-450)
[2018-01-05 07:27] LABS: CALCIUM, SERUM 8.4 mg/dL (8.5-10.1); CARBON DIOXIDE 21 mmol/L (21-32); CHLORIDE 111 mmol/L (98-107); CREATININE 0.6 mg/dL (0.6-1.3); GLUCOSE 83 mg/dL (74-106); POTASSIUM 3.5 mmol/L (3.5-5.1); SODIUM SERUM 142 mmol/L (136-145); UREA NITROGEN, BLOOD 8 mg/dL (7-18)
--- NOTE | 2018-01-05 07:47 | NUR ---
TELE/RN NOTE RECEIVED PT IN BED, NO ACUTE DISTRESS OR GRIMACING NOTED. PT OBTUNDED, OPEN EYES SPONTANEOUSLY. VENT DEPENDENT WITH RATES SET PRESCRIBED, SATURATING @ 95%, SUCTIONED FOR AIRWAY CLEARANCE, RESPIRATIONS EVEN & UNLABORED. ON TELE MONITORING WITH SINUS RHYTHM, HR 72 WITH ON GOING IV INFUSION OF NS @ 75CC/HR, IV SITE PATENT WITH NO S/S OF INFECTION. PT ON NPO EXCEPT MEDS, WILL CONT TO MONITOR CLOSELY WITH POSSIBLE LAPAROSCOPY J TUBE PLACEMENT
--- NOTE | 2018-01-05 08:30 | NUR ---
REPLANTING MACHINE OPERATOR NOTE REPORT GIVEN TO JENNY WEBSTER
--- NOTE | 2018-01-05 08:30 | NUR ---
RN NOTES PT RECEIVED ON BED , CONTINUE TO MONITOR .
[2018-01-05] MEDS: NYSTATIN CREAM 15 GM TUBE TP SCH ×3 (08:58→16:31)
[2018-01-05] MEDS: POLYVINYL ALCOHOL 15 ML BOTTLE EACHEYE SCH ×2 (08:58→16:31)
[2018-01-05] MEDS: GEMFIBROZIL 600 MG TABLET GT SCH ×2 (08:59→16:30)
[2018-01-05] MEDS: PROSTAT (PYXIS) 30 ML UDC GT SCH (09:00)
[2018-01-05] MEDS: IV NS 0.9% 1,000 ML IV PRN (09:25)
--- NOTE | 2018-01-05 11:05 | NUR ---
WOUND CARE CONSULT: PT PRESENTS WITH SACRAL SCAR, BREASTFOLD REDNESS AND RASH TO CHEST, PRESENT ON ADMISSION. EXTREMITIES NOTED TO BE CONTRACTED. DEFER TO MD FOR RASH ON CHEST. DEFER TO MD FOR FEEDING TUBE REDNESS. FEEDING TUBE CLAMPED. PT ON LESLIE ISOFLEX LOW AIRLOSS BED. ALL SKIN PROTECTION AND SKIN CARE RECOMMENDATIONS DISCUSSED WITH NURSING STAFF. WILL SEE PRN. MD IN AGREEMENT WITH PLAN OF CARE. CURRENT FIGUEROA SCORE IS 10. Addendum: 01/05/18 at 1109 by MONA CISNEROS WNDNU Amended: Links added.
[2018-01-05] MEDS: MEROPENEM 500 MG in IV NS 0.9% 50 ML IV SCH ×2 (12:12→22:02)
[2018-01-05] MEDS: MULTIVIT, IRON, MIN NO. 8, FA 1 TAB GT SCH (14:40)
[2018-01-05] MEDS: CLOPIDOGREL BISULFATE 75 MG TABLET GT SCH (14:40)
[2018-01-05] MEDS: FERROUS SULFATE UDC 300 MG/5 ML UDC GT SCH (14:40)
[2018-01-05] MEDS: ASCORBIC ACID 500 MG TABLET GT SCH (14:41)
[2018-01-05] MEDS: LEVETIRACETAM SOL (5 ML) 100 MG/ML UDC GT SCH (14:44)
--- NOTE | 2018-01-05 15:43 | NUR ---
PT RECEIVED TRACHED ON MECHANICAL VENT W/ SETTINGS PER MD. VENT IN RED OUTLET, VENT ALARMS CHECKED AND AUDIBLE. TRACH TUBE IN PLACE, PATENT, CLEAN AND DRY. NURSES AIDE DONE, BREATH SOUNDS EQUAL DIMINISHED. PT SX'ED AND LAVAGED PRN. MEDS GIVEN INLINE PER ORDER. NO RESP DISTRESS NOTED. PLAN IS TO CONTINUE CURRENT CARE UNDER MD ORDERS AND MONITOR FOR CHANGES. Addendum: 01/05/18 at 1545 by MICAH CARNEY RT Amended: Links added.
--- NOTE | 2018-01-05 18:37 | NUR ---
RN NOTES SUPPORTIVE SON AT THE BEDSIDE, TRACH SUCTIONING DONE, NS AT 75CC/HR RUNNING VIA L UPPER ARM IV SITE , WILL ENDORSE TO STORE DIRECTOR NURSE FOR CONTINUITY OF CARE .
--- NOTE | 2018-01-05 19:54 | NUR ---
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 PATIENT OBTUNDED, OPENS/CLOSES EYES SPONTANEOUSLY. RESPONDS TO TOUCH. BREATHING EVEN & UNLABORED W/ TRACH INTACT & VENT SETTINGS AC 12, TV 450, FIO2 40%, PEEP 5. NO RESPIRATORY DISTRESS NOTED. ON TELE W/ SINUS RHYTHM, HR 60. LEFT UPPER ARM IV #22 INTACT & PATENT W/ DRESSING CDI & IVF NS INFUSING WELL @ 75 ML/HR. G-TUBE INTACT BUT NOTED W/ LEAKING, CLAMPED @ THIS TIME. [place] CATH DRAINING YELLOW URINE. NO S/S OF PAIN OR DISCOMFORT @ THIS TIME. SAFETY MEASURES IN PLACE W/ SIDE RAILS UP & BED LOCKED & IN LOWEST POSITION. WILL CONTINUE TO MONITOR.
--- NOTE | 2018-01-05 20:43 | NUR ---
pt received on vent via trach with charted settings. airway patent. secure via trach tie. ambu bag at bedside. alarms set and audible, disconnect alarms checked plugged into red outlet suctioned a small amount of thick white secretions. pt hob at 30 degrees. pt receiving breathing tx q6 at this time. suctioned oral secretion from pts mouth Addendum: 01/05/18 at 2042 by LAUREEN HAMMER RT Amended: Links added.
[2018-01-05] MEDS ORDERED: MUPIROCIN OINT 2% 22 GM TUBE SCH (21:00)
[2018-01-05] MEDS: ENOXAPARIN SODIUM 40 MG/0.4 ML DISP.SYRIN SQ SCH (22:21)
--- NOTE | 2018-01-05 23:00 | NUR ---
FINANCIAL SERVICES INTERN NOTES PATIENT SEEN & EXAMINED BY DR ROCHA. G-TUBE REPLACED & BEDSIDE BUT PER DR ROCHA, KEEP CLAMPED UNTIL PLACEMENT CONFIRMED W/ GASTROGRAFFIN IN AM. WILL ENDORSE TO AM NURSE.
[2018-01-06] VITALS: BP_SYST 126; BP_SYST 178; BP_DIAS 74; BP_DIAS 79
[2018-01-06] MEDS: IPRATROPIUM NEB FS 0.5 MG/2.5 ML AMPUL.NEB NEB SCH ×4 (01:49→19:05)
[2018-01-06] MEDS: ALBUTEROL FS 2.5 MG/0.5 ML VIAL.NEB NEB SCH ×4 (01:49→19:05)
[2018-01-06] MEDS: LEVETIRACETAM SOL (5 ML) 100 MG/ML UDC GT SCH ×2 (03:00→14:30)
[2018-01-06 04:00] VITALS: BP 155/78
[2018-01-06] MEDS: DILTIAZEM HCL 30 MG TABLET GT SCH ×5 (05:39→23:45)
[2018-01-06 06:34] LABS: CALCIUM, SERUM 8.4 mg/dL (8.5-10.1); CARBON DIOXIDE 21 mmol/L (21-32); CHLORIDE 111 mmol/L (98-107); CREATININE 0.6 mg/dL (0.6-1.3); GLUCOSE 79 mg/dL (74-106); POTASSIUM 3.8 mmol/L (3.5-5.1); SODIUM SERUM 142 mmol/L (136-145); UREA NITROGEN, BLOOD 7 mg/dL (7-18)
--- NOTE | 2018-01-06 07:15 | NUR ---
PARK INTERPRETIVE RANGER INITIAL NOTES RECEIVED REPORT AND PATIENT FROM PM NURSE. PATIENT RESTING IN BED, PATIENT RESTING IN BED WITH NO ACUTE DISTRESS NOTED, ON VENT TRACH MANAGEMENT MD ORDERED SAT ABOVE 97%, NO SOB NOTED, OBTUNDED, BEDBOUND, CALLAHAN CATH DRAINING URINE VIA GRAVITY, NPO AT THIS TIME GTUBE INTACT CLAMPED, LEFT UPPER ARM IV 22G INTACT AND PATENT NO INFILTRATION NOTED. ALL SAFETY MEASURES INITIATED, KCI MATTRESS ON, WILL CONTINUE TO MONITOR. Addendum: 01/06/18 at 1224 by RYAN REED RN ON TELE MONITOR SB SR [id number]
[2018-01-06 07:37] LABS: BASOPHILS % (AUTO) 0.6 % (0.0-2.0); EOSINOPHILS % (AUTO) 8.1 % (0.0-6.0); HEMATOCRIT 32 % (33-45); HEMOGLOBIN 10.6 g/dL (11.5-14.8); LYMPHOCYTES % (AUTO) 23.9 % (20.0-44.0); MEAN CORPUSCULAR HEMOGLOBIN 31 PG (26.0-33.0); MEAN CORPUSCULAR HGB CONC 34 g/dl (31.0-36.0); MEAN CORPUSCULAR VOLUME 93 fL (82-100); MONOCYTES # (AUTO) 0.5 /CMM (0.1-1.30); MONOCYTES % (AUTO) 12.2 % (2.0-12.0); NEUTROPHILS # (AUTO) 2.3 /CMM (1.8-8.9); NEUTROPHILS % (AUTO) 55.2 % (43.0-81.0); PLATELET COUNT (AUTO) 251 /CMM (150-450); RDW COEFFICIENT OF VARIATION 13.3 (11.5-15.0); RED BLOOD CELL COUNT(AUTO) 3.41 MIL/uL (4.0-5.2); WHITE BLOOD COUNT (AUTO) 4.2 K/uL (4.3-11.0)
[2018-01-06] MEDS ORDERED: DIATR MEGLU/DIATRIZOATE SODIUM 30 ML BOTTLE (GASTROGRAPHIN) ONE (07:47)
[2018-01-06 08:00] VITALS: BP 146/50
[2018-01-06] MEDS: ASCORBIC ACID 500 MG TABLET GT SCH (08:20)
[2018-01-06] MEDS: PROSTAT (PYXIS) 30 ML UDC GT SCH (08:20)
[2018-01-06] MEDS: CLOPIDOGREL BISULFATE 75 MG TABLET GT SCH (08:20)
[2018-01-06] MEDS: MULTIVIT, IRON, MIN NO. 8, FA 1 TAB GT SCH (08:20)
[2018-01-06] MEDS: FERROUS SULFATE UDC 300 MG/5 ML UDC GT SCH (08:20)
[2018-01-06] MEDS: GEMFIBROZIL 600 MG TABLET GT SCH ×2 (08:20→17:10)
[2018-01-06] MEDS: IV NS 0.9% 1,000 ML IV PRN (09:18)
[2018-01-06] MEDS: NYSTATIN CREAM 15 GM TUBE TP SCH ×3 (09:22→17:10)
[2018-01-06] MEDS: POLYVINYL ALCOHOL 15 ML BOTTLE EACHEYE SCH ×2 (09:22→17:10)
[2018-01-06] MEDS: MEROPENEM 500 MG in IV NS 0.9% 50 ML IV SCH ×2 (11:36→23:42)
[2018-01-06 12:00] VITALS: BP 135/50
--- NOTE | 2018-01-06 15:25 | NUR ---
GLASSWARE FINISHER NOTES PER MD ORDER TO RESTART GTUBE FEEDINGS, JEVITY 1.2 @ 30 ML/HR AND INCREASE TO 55 TOLERATED.
[2018-01-06 16:00] VITALS: BP 133/61
[2018-01-06] MEDS: JEVITY 1.2 CAL 1,000 ML BOTTLE GT PRN (17:47)
--- NOTE | 2018-01-06 18:09 | NUR ---
CERTIFIED INDOOR ENVIRONMENTALIST NOTES MIDLINE NURSE INSERTED LEFT UPPER ARM MIDLINE 18 G IV INTACT AND PATENT.
--- NOTE | 2018-01-06 18:29 | NUR ---
PHYSICAL THERAPY AIDES TEACHER ENDING NOTES PATIENT RESTING NOT IN ANY DISTRESS, STARTED GTUBE FEEDING AT 30 CC/HR NO RESIDUAL NOTED AT THIS TIME, LEFT UPPER MIDLINE INTACT, RIGHT ARM 24 G INTACT, CALLAHAN CATH DRAINING URINE VIA GRAVITY, ON TELE MON SINUS RYTHME HR 65, WILL CONTINUE TO MONITOR AND ENDORSE TO PM NURSE.
--- NOTE | 2018-01-06 19:37 | NUR ---
CARD DECORATOR OPENING NOTES RECEIVED REPORT FROM DESMOND WEBSTER. PATIENT OBTUNDED, OPENS/CLOSES EYES SPONTANEOUSLY. RESPONDS TO TOUCH. BREATHING EVEN & UNLABORED W/ TRACH INTACT & VENT SETTINGS AC 12, TV 450, FIO2 40%, PEEP 5. NO RESPIRATORY DISTRESS NOTED. ON TELE W/ SINUS RHYTHM, HR 60. LEFT UPPER ARM MIDLINE INTACT & PATENT W/ DRESSING CDI & IVF NS INFUSING WELL @ 75 ML/HR. G-TUBE INTACT & FLUSHING WELL, NO LEAKING NOTED. GTF JEVITY 1.5 RUNNING @ 30 ML/HR, NO RESIDUAL NOTED @ THIS TIME. CALLAHAN CATH DRAINING YELLOW URINE. NO S/S OF PAIN OR DISCOMFORT @ THIS TIME. SAFETY MEASURES IN PLACE W/ SIDE RAILS UP & BED LOCKED & IN LOWEST POSITION. SON @ BEDSIDE. WILL CONTINUE TO MONITOR.
[2018-01-06 20:00] VITALS: BP 137/98
--- NOTE | 2018-01-06 21:06 | NUR ---
PT RECEIVED ON [facility] VENT. VENT ALARMS ARE ON AND AUDIBLE. AMBU BAG IS AT BEDSIDE. VENT IS PLUGGED INTO RED OUTLET. SUCTIONED SMALL THIN CLEAR SECRETIONS. BREATHING TREATMENT GIVEN, NO ADVERSE REACTIONS NOTED AT THIS TIME. WILL CONT TO MONITOR PT. Addendum: 01/06/18 at 2108 by PETER WILD RT Amended: Links added.
[2018-01-06] MEDS: ENOXAPARIN SODIUM 40 MG/0.4 ML DISP.SYRIN SQ SCH (21:09)
--- NOTE | 2018-01-06 22:20 | NUR ---
SAM RN NOTES RECEIVED REPORT FROM DAVE WEBSTER A TRANSFER OF PATIENT CARE. PATIENT OBTUNDED, OPENS/CLOSES EYES SPONTANEOUSLY. RESPONDS TO TOUCH. BREATHING EVEN & UNLABORED W/ TRACH INTACT & VENT SETTINGS AC 12, TV 450, FIO2 40%, PEEP 5. NO RESPIRATORY DISTRESS NOTED. ON TELE W/ SINUS RHYTHM, HR 62. LEFT UPPER ARM MIDLINE INTACT & PATENT W/ DRESSING CDI & IVF NS INFUSING WELL @ 75 ML/HR. G-TUBE INTACT & FLUSHING WELL, NO LEAKING NOTED. GTF JEVITY 1.5 RUNNING @ 30 ML/HR, NO RESIDUAL NOTED @ THIS TIME. CALLAHAN CATH DRAINING YELLOW URINE. NO S/S OF PAIN OR DISCOMFORT @ THIS TIME. SAFETY MEASURES IN PLACE W/ SIDE RAILS UP & BED LOCKED & IN LOWEST POSITION. WILL CONTINUE TO MONITOR.
[2018-01-07] VITALS: BP 178/79
[2018-01-07] MEDS: ALBUTEROL FS 2.5 MG/0.5 ML VIAL.NEB NEB SCH ×4 (00:35→19:41)
[2018-01-07] MEDS: IPRATROPIUM NEB FS 0.5 MG/2.5 ML AMPUL.NEB NEB SCH ×4 (00:35→19:40)
[2018-01-07] MEDS: LEVETIRACETAM SOL (5 ML) 100 MG/ML UDC GT SCH ×2 (03:38→16:53)
[2018-01-07 04:00] VITALS: BP_SYST 142; BP_SYST 178; BP_DIAS 66; BP_DIAS 79
[2018-01-07] MEDS ORDERED: DEXTROSE 50%-WATER 50 ML DISP.SYRIN IV PRN (04:30)
[2018-01-07] MEDS: IV NS 0.9% 1,000 ML IV PRN ×2 (05:25→22:07)
[2018-01-07 06:39] LABS: BASOPHILS % (AUTO) 0.3 % (0.0-2.0); EOSINOPHILS % (AUTO) 10.4 % (0.0-6.0); HEMATOCRIT 33 % (33-45); HEMOGLOBIN 10.8 g/dL (11.5-14.8); LYMPHOCYTES % (AUTO) 25.5 % (20.0-44.0); MEAN CORPUSCULAR HEMOGLOBIN 31 PG (26.0-33.0); MEAN CORPUSCULAR HGB CONC 33 g/dl (31.0-36.0); MEAN CORPUSCULAR VOLUME 93 fL (82-100); MONOCYTES # (AUTO) 0.5 /CMM (0.1-1.30); MONOCYTES % (AUTO) 13.1 % (2.0-12.0); NEUTROPHILS # (AUTO) 1.9 /CMM (1.8-8.9); NEUTROPHILS % (AUTO) 50.7 % (43.0-81.0); PLATELET COUNT (AUTO) 292 /CMM (150-450); RDW COEFFICIENT OF VARIATION 13.3 (11.5-15.0); RED BLOOD CELL COUNT(AUTO) 3.52 MIL/uL (4.0-5.2); WHITE BLOOD COUNT (AUTO) 3.8 K/uL (4.3-11.0)
[2018-01-07] MEDS: BLOOD SUGAR DIAGNOSTIC 1 EACH STRIP IN SCH ×3 (06:40→18:25)
[2018-01-07] MEDS: DILTIAZEM HCL 30 MG TABLET GT SCH ×3 (06:42→18:25)
[2018-01-07 07:07] LABS: CALCIUM, SERUM 8.5 mg/dL (8.5-10.1); CARBON DIOXIDE 21 mmol/L (21-32); CHLORIDE 110 mmol/L (98-107); CREATININE 0.5 mg/dL (0.6-1.3); GLUCOSE 103 mg/dL (74-106); POTASSIUM 3.4 mmol/L (3.5-5.1); SODIUM SERUM 144 mmol/L (136-145); UREA NITROGEN, BLOOD 6 mg/dL (7-18)
[2018-01-07 08:00] VITALS: BP 114/87
--- NOTE | 2018-01-07 08:00 | NUR ---
SAM RN NOTES PATIENT OBTUNDED, OPENS/CLOSES EYES SPONTANEOUSLY. RESPONDS TO TOUCH. NON VERBAL. BREATHING EVEN & UNLABORED W/ TRACH IN PLACE ON VENT WITH PRESCRIBED SETTING. NO RESPIRATORY DISTRESS NOTED. ON TELE W/ SINUS RHYTHM, HR 99. AFEBRILE AT 98.3 SKIN WARM TO TOUCH, LEFT UPPER ARM MIDLINE AND R ARM IV SITE INTACT AND PATENT ON FLUSHING. WITH IVF NS INFUSING WELL @ 75 ML/HR. G-TUBE INTACT & FLUSHING WELL. GTF JEVITY 1.5 RUNNING @ 35 ML/HR, NO RESIDUAL NOTED @ THIS TIME. CALLAHAN CATH DRAINING YELLOW URINE. NO S/S OF PAIN OR DISCOMFORT @ THIS TIME. SAFETY MEASURES MAINTAINED. CALL LIGHT WITHIN REACH
[2018-01-07] MEDS: NYSTATIN CREAM 15 GM TUBE TP SCH ×4 (09:00→22:08)
[2018-01-07] MEDS: POLYVINYL ALCOHOL 15 ML BOTTLE EACHEYE SCH ×2 (10:07→16:55)
[2018-01-07] MEDS: FERROUS SULFATE UDC 300 MG/5 ML UDC GT SCH (10:07)
[2018-01-07] MEDS: ASCORBIC ACID 500 MG TABLET GT SCH (10:08)
[2018-01-07] MEDS: GEMFIBROZIL 600 MG TABLET GT SCH ×2 (10:08→16:53)
[2018-01-07] MEDS: CLOPIDOGREL BISULFATE 75 MG TABLET GT SCH (10:08)
[2018-01-07] MEDS: MULTIVIT, IRON, MIN NO. 8, FA 1 TAB GT SCH (10:08)
[2018-01-07] MEDS: MEROPENEM 500 MG in IV NS 0.9% 50 ML IV SCH ×2 (10:09→23:25)
[2018-01-07] MEDS: PROSTAT (PYXIS) 30 ML UDC GT SCH (10:09)
[2018-01-07] MEDS ORDERED: POTASSIUM CHLORIDE 20 MEQ TAB.PRT.SR PO ONE (10:30)
[2018-01-07 12:00] VITALS: BP 126/68
[2018-01-07 16:00] VITALS: BP 119/77
--- NOTE | 2018-01-07 19:30 | NUR ---
RN NOTES ENDORSED PATIENT FOR CONTINUITY OF CARE, NO ACUTE CHANGES FOR THE ENTIRE SHIFT, STILL ON VENT OF PRESCRIBED SETTING, NO SHORTNESS OF BREATH, TOLERATING WELL, STILL ON IVF AT 75CC/HR INFUSING WELL, AFEBRILE, SAFETY MAINTAINED, CALL LIGHT WITHIN REACH
[2018-01-07 20:00] VITALS: BP 142/93
--- NOTE | 2018-01-07 20:00 | NUR ---
SAM RN NOTES RECEIVED REPORT FROM AM NURSE. PATIENT OBTUNDED, OPENS/CLOSES EYES SPONTANEOUSLY. RESPONDS TO TOUCH. BREATHING EVEN & UNLABORED W/ TRACH INTACT & VENT SETTINGS AC 12, TV 450, FIO2 40%, PEEP 5. NO RESPIRATORY DISTRESS NOTED. ON TELE W/ SINUS RHYTHM, HR 81. LEFT UPPER ARM MIDLINE INTACT & PATENT W/ DRESSING CDI & IVF NS INFUSING WELL @ 75 ML/HR. G-TUBE INTACT & FLUSHING WELL, NO LEAKING NOTED. GTF JEVITY 1.5 RUNNING @ 45 ML/HR, NO RESIDUAL NOTED @ THIS TIME. CALLAHAN CATH DRAINING YELLOW URINE. NO S/S OF PAIN OR DISCOMFORT @ THIS TIME. SAFETY MEASURES IN PLACE W/ SIDE RAILS UP & BED LOCKED & IN LOWEST POSITION. WILL CONTINUE TO MONITOR.
--- NOTE | 2018-01-07 20:37 | NUR ---
PATIENT RECEIVED TRACHED ON MECHANICAL VENTILATION. AMBU BAG @ BEDSIDE. VENT PLUGGED INTO RED OUTLET. ALARMS ON AND AUDIBLE. CUFF CHECKED VIA WOOD CUTTER. TX GIVEN, NO ADVERSE REACTIONS NOTED. SX DONE, MODERATE THICK WHITE SECRETIONS NOTED. NO DISTRESS NOTED. WILL MONITOR T/O SHIFT. Addendum: 01/07/18 at 2038 by TINO BUTCHER RT Amended: Links added.
[2018-01-07] MEDS: ENOXAPARIN SODIUM 40 MG/0.4 ML DISP.SYRIN SQ SCH (22:03)
[2018-01-08] VITALS: BP 143/72
[2018-01-08] MEDS: BLOOD SUGAR DIAGNOSTIC 1 EACH STRIP IN SCH ×4 (00:16→17:34)
[2018-01-08] MEDS: DILTIAZEM HCL 30 MG TABLET GT SCH ×4 (00:16→17:34)
[2018-01-08] MEDS: IPRATROPIUM NEB FS 0.5 MG/2.5 ML AMPUL.NEB NEB SCH ×4 (01:04→19:21)
[2018-01-08] MEDS: ALBUTEROL FS 2.5 MG/0.5 ML VIAL.NEB NEB SCH ×4 (01:04→19:21)
[2018-01-08] MEDS: LEVETIRACETAM SOL (5 ML) 100 MG/ML UDC GT SCH ×2 (03:01→15:15)
[2018-01-08 04:00] VITALS: BP 141/70
[2018-01-08 06:22] LABS: BASOPHILS % (AUTO) 0.4 % (0.0-2.0); EOSINOPHILS % (AUTO) 7.2 % (0.0-6.0); HEMATOCRIT 33 % (33-45); HEMOGLOBIN 10.7 g/dL (11.5-14.8); LYMPHOCYTES # (AUTO) 0.9 /CMM (0.8-4.8); LYMPHOCYTES % (AUTO) 24.6 % (20.0-44.0); MEAN CORPUSCULAR HEMOGLOBIN 30 PG (26.0-33.0); MEAN CORPUSCULAR HGB CONC 33 g/dl (31.0-36.0); MEAN CORPUSCULAR VOLUME 93 fL (82-100); MONOCYTES # (AUTO) 0.5 /CMM (0.1-1.30); MONOCYTES % (AUTO) 14.8 % (2.0-12.0); NEUTROPHILS # (AUTO) 1.9 /CMM (1.8-8.9); PLATELET COUNT (AUTO) 285 /CMM (150-450); RDW COEFFICIENT OF VARIATION 13.4 (11.5-15.0); RED BLOOD CELL COUNT(AUTO) 3.52 MIL/uL (4.0-5.2); WHITE BLOOD COUNT (AUTO) 3.6 K/uL (4.3-11.0)
[2018-01-08 06:32] LABS: CALCIUM, SERUM 8.4 mg/dL (8.5-10.1); CARBON DIOXIDE 24 mmol/L (21-32); CHLORIDE 110 mmol/L (98-107); CREATININE 0.6 mg/dL (0.6-1.3); GLUCOSE 126 mg/dL (74-106); POTASSIUM 3.6 mmol/L (3.5-5.1); SODIUM SERUM 142 mmol/L (136-145); UREA NITROGEN, BLOOD 10 mg/dL (7-18)
--- NOTE | 2018-01-08 07:12 | NUR ---
RN CLOSING NOTES ENDORSED PATIENT CARE TO AM NURSE FOR CONTINUITY OF CARE, NO ACUTE CHANGES DURING MY SHIFT, STILL ON VENT OF PRESCRIBED SETTING, NO SHORTNESS OF BREATH, TOLERATING WELL, STILL ON IVF AT 75CC/HR INFUSING WELL, AFEBRILE, SAFETY MAINTAINED, CALL LIGHT WITHIN REACH.
[2018-01-08 08:00] VITALS: BP 109/65
--- NOTE | 2018-01-08 08:31 | NUR ---
WOUND CARE CONSULT: PT SEEN FOR LEFT ARM REDNESS AND EDEMA. DEFER TO MD FOR MIDLINE SITE. RN CONTACTED PMD. ARM ELEVATED ON PILLOW. LEFT KNEE ABRASION NOTED. RECOMMENDATIONS MADE FOR WOUND CARE AND SKIN PROTECTION. DISCUSSED WITH NURSING STAFF. WILL SEE PRN. ALL SKIN PROTECTION MEASURES IN PLACE. MD IN AGREEMENT WITH PLAN OF CARE. Addendum: 01/08/18 at 0833 by MONA CISNEROS WNDNU Amended: Links added.
--- NOTE | 2018-01-08 09:00 | NUR ---
RN NOTE PT NOTED TO HAVE SWOLLEN UPPER ARM LEFT WHERE THE MIDLINE IS, DR GABRIELLE BYNUM, HE SAID TO TAKE OUT MIDLINE AND PUT WARM COMPRESS. WILL CARRY OUT ORDERS. WILL MONITOR PT.
[2018-01-08] MEDS: MULTIVIT, IRON, MIN NO. 8, FA 1 TAB GT SCH (09:28)
[2018-01-08] MEDS: ASCORBIC ACID 500 MG TABLET GT SCH (09:29)
[2018-01-08] MEDS: FERROUS SULFATE UDC 300 MG/5 ML UDC GT SCH (09:29)
[2018-01-08] MEDS: GEMFIBROZIL 600 MG TABLET GT SCH ×2 (09:29→17:30)
[2018-01-08] MEDS: CLOPIDOGREL BISULFATE 75 MG TABLET GT SCH (09:29)
[2018-01-08] MEDS: JEVITY 1.2 CAL 1,000 ML BOTTLE GT PRN (09:30)
[2018-01-08] MEDS: PROSOURCE / PROSTAT (PYXIS) 30 ML UDC GT SCH (10:01)
[2018-01-08] MEDS: MEROPENEM 500 MG in IV NS 0.9% 50 ML IV SCH ×2 (10:01→23:24)
[2018-01-08] MEDS: POLYVINYL ALCOHOL 15 ML BOTTLE EACHEYE SCH ×2 (10:01→17:30)
--- NOTE | 2018-01-08 10:03 | NUR ---
RT NOTE: PATIENT RECEIVED TRACHED ON MECHANICAL VENT. ALARMS VERIFIED AND AUDIBLE. SUCTIONED AND LAVAGED SMALL-MODERATE AMOUNT OF THICK RUSSO SECRETIONS. VENT ALARMS VERIFIED AND AUDIBLE. VENT PLUGGED INTO RED OUTLET. AMBU BAG AT [facility].
[2018-01-08 12:00] VITALS: BP 139/79
[2018-01-08] MEDS: NYSTATIN CREAM 15 GM TUBE TP SCH ×2 (12:31→17:30)
[2018-01-08] MEDS: INSULIN REGULAR, HUMAN 100 UNIT/ML 3 ML VIAL SQ PRN ×2 (12:45→17:49)
[2018-01-08] MEDS: IV NS 0.9% 1,000 ML IV PRN (14:04)
[2018-01-08 16:00] VITALS: BP 125/67
--- NOTE | 2018-01-08 19:20 | NUR ---
SUPPORT TEACHER OPENING NOTES PATIENT OBTUNDED, RESPONDS TO TOUCH. BREATHING EVEN & UNLABORED W/ TRACH INTACT & VENT SETTINGS AC 12, TV 450, FIO2 40%, PEEP 5. NO RESPIRATORY DISTRESS NOTED. SINUS RHYTHM, HR 80. G-TUBE INTACT & FLUSHING WELL, NO LEAKING NOTED. GTF JEVITY 1.5 RUNNING @ 50 ML/HR, NO RESIDUAL NOTED. NO S/S OF PAIN OR DISCOMFORT AT THIS TIME. SAFETY MEASURES IN PLACE W/ SIDE RAILS UP & BED LOCKED & IN LOWEST POSITION.WILL
[2018-01-08 20:00] VITALS: BP 131/74
[2018-01-08] MEDS: ENOXAPARIN SODIUM 40 MG/0.4 ML DISP.SYRIN SQ SCH (20:41)
[2018-01-09] VITALS (7 sets, daily range): BP systolic 134–160; BP diastolic 47–90
[2018-01-09] MEDS: DILTIAZEM HCL 30 MG TABLET GT SCH ×5 (00:09→23:46)
[2018-01-09] MEDS: BLOOD SUGAR DIAGNOSTIC 1 EACH STRIP IN SCH ×5 (00:26→23:46)
[2018-01-09] MEDS: IPRATROPIUM NEB FS 0.5 MG/2.5 ML AMPUL.NEB NEB SCH ×4 (01:05→19:10)
[2018-01-09] MEDS: ALBUTEROL FS 2.5 MG/0.5 ML VIAL.NEB NEB SCH ×4 (01:05→19:10)
[2018-01-09] MEDS: LEVETIRACETAM SOL (5 ML) 100 MG/ML UDC GT SCH ×2 (03:08→15:55)
--- NOTE | 2018-01-09 03:58 | NUR ---
RT NOTES PT RECEIVED TRACHED ON [facility] VENT WITH NOTED SETTING. . VENT TO RED OUTLET. ALARM SET AND AUDIBLE. CASHIER SUPERVISOR DONE. PT TOLERATING VENT SETTING WELL. Q6 TX GIVEN WITH NO ADVERSE EFFECTS NOTED. NO SOB OR RESP DISTRESS NOTED. Addendum: 01/09/18 at 0358 by DAVID BOSTON RT Amended: Links added.
--- NOTE | 2018-01-09 06:30 | NUR ---
UNABLE TO WEIGHT PATIENT DUE TO BED WASN'T CALIBRATED
--- NOTE | 2018-01-09 06:37 | NUR ---
POTATO CHIP SACKING MACHINE OPERATOR CLOSING NOTES PATIENT OBTUNDED, RESPONDS TO TOUCH. BREATHING EVEN & UNLABORED W/ TRACH INTACT & VENT SETTINGS AC 12, TV 450, FIO2 40%, PEEP 5. NO RESPIRATORY DISTRESS NOTED. SINUS RHYTHM, HR 69. G-TUBE INTACT & FLUSHING WELL, NO LEAKING NOTED. GTF JEVITY 1.5 @ 50 ML/HR, RESIDUAL 5 ML . NO S/S OF PAIN OR DISCOMFORT AT THIS TIME. SAFETY MEASURES IN PLACE W/ SIDE RAILS UPX3 , BED LOCKED IN LOWEST POSITION. ALL NEEDS ATTENDED, SCHEDULED MEDS GIVEN.WILL ENDORSE TO NEXT SHIFT FOR KWSEI.
[2018-01-09 06:59] LABS: CALCIUM, SERUM 8.7 mg/dL (8.5-10.1); CARBON DIOXIDE 23 mmol/L (21-32); CHLORIDE 109 mmol/L (98-107); CREATININE 0.5 mg/dL (0.6-1.3); GLUCOSE 108 mg/dL (74-106); POTASSIUM 4.3 mmol/L (3.5-5.1); SODIUM SERUM 142 mmol/L (136-145); UREA NITROGEN, BLOOD 12 mg/dL (7-18)
[2018-01-09 07:47] LABS: BASOPHILS % (AUTO) 0.5 % (0.0-2.0); HEMATOCRIT 35 % (33-45); HEMOGLOBIN 11.6 g/dL (11.5-14.8); MEAN CORPUSCULAR HEMOGLOBIN 31 PG (26.0-33.0); MEAN CORPUSCULAR HGB CONC 33 g/dl (31.0-36.0); MEAN CORPUSCULAR VOLUME 94 fL (82-100); MONOCYTES # (AUTO) 0.5 /CMM (0.1-1.30); MONOCYTES % (AUTO) 14.2 % (2.0-12.0); NEUTROPHILS # (AUTO) 1.7 /CMM (1.8-8.9); NEUTROPHILS % (AUTO) 48.3 % (43.0-81.0); PLATELET COUNT (AUTO) 264 /CMM (150-450); RDW COEFFICIENT OF VARIATION 13.6 (11.5-15.0); RED BLOOD CELL COUNT(AUTO) 3.74 MIL/uL (4.0-5.2); WHITE BLOOD COUNT (AUTO) 3.5 K/uL (4.3-11.0)
--- NOTE | 2018-01-09 07:55 | NUR ---
RT PATIENT REC'D TRACHED ON [facility] VENT WITH ORDERED SETTINGS MARÍA ELENA WELL. VENT ALARMS CHECKED + AUDIBLE. CUFF PRESSURE CHECKED COOK MESS. TRACH SECURE IN PROPER POSITION. PATIENT AIRWAY SUCTIONED AND PATENT. SECRETIONS ARE MOD AMT RUSSO SEMITHICK. PATIENT AWAKE, OBTUNDED, NO SOB NOTED. AMBU BAG AT HOB Addendum: 01/10/18 at 0829 by MAURA ESQUEDA RT Amended: Links added.
[2018-01-09] MEDS: ASCORBIC ACID 500 MG TABLET GT SCH (10:53)
[2018-01-09] MEDS: PROSOURCE / PROSTAT (PYXIS) 30 ML UDC GT SCH (10:53)
[2018-01-09] MEDS: IV NS 0.9% 1,000 ML IV PRN (10:53)
[2018-01-09] MEDS: CLOPIDOGREL BISULFATE 75 MG TABLET GT SCH (10:53)
[2018-01-09] MEDS: FERROUS SULFATE UDC 300 MG/5 ML UDC GT SCH (10:53)
[2018-01-09] MEDS: POLYVINYL ALCOHOL 15 ML BOTTLE EACHEYE SCH ×2 (10:54→18:03)
[2018-01-09] MEDS: MULTIVIT, IRON, MIN NO. 8, FA 1 TAB GT SCH (10:54)
[2018-01-09] MEDS: GEMFIBROZIL 600 MG TABLET GT SCH ×2 (10:54→17:58)
[2018-01-09] MEDS: NYSTATIN CREAM 15 GM TUBE TP SCH ×3 (10:54→18:03)
[2018-01-09] MEDS: JEVITY 1.2 CAL 1,000 ML BOTTLE GT PRN (15:51)
--- NOTE | 2018-01-09 19:10 | NUR ---
RT NOTE: RECEIVED TRACH PT ON MECHANICAL VENTILATION. AMBU BAG @ BEDSIDE. VENT PLUGGED INTO RED OUTLET. ALARMS ON AND AUDIBLE. CUFF CHECKED VIA RADIOGRAPHY TECHNICIAN. HHN BREATHING TX GIVEN ORDERED PER MD. NO ADVERSE REACTIONS NOTED. SX MODERATE AMOUNT OF THICK RUSSO SECRETIONS. NO RESP BDISTRESS NOTED. WILL CONT TO MONITOR PT. Addendum: 01/09/18 at 2150 by MARIELLE VELASCO RT Amended: Links added.
[2018-01-09] MEDS: ENOXAPARIN SODIUM 40 MG/0.4 ML DISP.SYRIN SQ SCH (22:59)
[2018-01-10] VITALS (7 sets, daily range): BP systolic 113–169; BP diastolic 60–89
[2018-01-10] MEDS: ALBUTEROL FS 2.5 MG/0.5 ML VIAL.NEB NEB SCH ×4 (00:51→19:39)
[2018-01-10] MEDS: IPRATROPIUM NEB FS 0.5 MG/2.5 ML AMPUL.NEB NEB SCH ×4 (00:51→19:39)
--- NOTE | 2018-01-10 01:44 | NUR ---
RN/TELE NOTES: RECEIVED PT. IN BED W/ HOB ELEVATED. ON TELE MONITOR W/ ST W/ PAC. ON MECHANICAL VENTILATOR TOLERATING SETTING WELL. NO FACIAL GRIMACES OR MOANING NOTED. W/ GTF INPLACE PATENT AND INTACT W/ NO RESIDUAL NOTED. BEDS LOCKED AND IN LOW POSITION. ON CONTACT ISOLATION. WILL CONTINUE TO MONITOR.
[2018-01-10] MEDS: LEVETIRACETAM SOL (5 ML) 100 MG/ML UDC GT SCH ×2 (03:22→14:53)
[2018-01-10] MEDS ORDERED: CLONIDINE HCL 0.1 MG TABLET PO PRN (05:30)
[2018-01-10] MEDS: BLOOD SUGAR DIAGNOSTIC 1 EACH STRIP IN SCH ×5 (05:45→17:37)
[2018-01-10] MEDS: DILTIAZEM HCL 30 MG TABLET GT SCH ×3 (05:49→17:59)
[2018-01-10] MEDS: INSULIN REGULAR, HUMAN 100 UNIT/ML 3 ML VIAL SQ PRN ×2 (05:49→17:38)
[2018-01-10] MEDS: HYDROCODONE/APAP 5/325MG 1 EACH TABLET PO PRN ×2 (05:50→16:16)
[2018-01-10 06:45] LABS: CALCIUM, SERUM 8.9 mg/dL (8.5-10.1); CARBON DIOXIDE 26 mmol/L (21-32); CHLORIDE 105 mmol/L (98-107); CREATININE 0.7 mg/dL (0.6-1.3); GLUCOSE 199 mg/dL (74-106); POTASSIUM 3.9 mmol/L (3.5-5.1); SODIUM SERUM 140 mmol/L (136-145); UREA NITROGEN, BLOOD 14 mg/dL (7-18)
[2018-01-10 07:30] LABS: BASOPHILS % (AUTO) 0.2 % (0.0-2.0); EOSINOPHILS % (AUTO) 0.5 % (0.0-6.0); HEMATOCRIT 40 % (33-45); LYMPHOCYTES # (AUTO) 0.7 /CMM (0.8-4.8); MEAN CORPUSCULAR HEMOGLOBIN 31 PG (26.0-33.0); MEAN CORPUSCULAR HGB CONC 32 g/dl (31.0-36.0); MEAN CORPUSCULAR VOLUME 95 fL (82-100); MONOCYTES # (AUTO) 0.5 /CMM (0.1-1.30); MONOCYTES % (AUTO) 5.5 % (2.0-12.0); NEUTROPHILS # (AUTO) 8.3 /CMM (1.8-8.9); NEUTROPHILS % (AUTO) 86.8 % (43.0-81.0); PLATELET COUNT (AUTO) 307 /CMM (150-450); RDW COEFFICIENT OF VARIATION 13.9 (11.5-15.0); RED BLOOD CELL COUNT(AUTO) 4.23 MIL/uL (4.0-5.2); WHITE BLOOD COUNT (AUTO) 9.5 K/uL (4.3-11.0)
--- NOTE | 2018-01-10 07:39 | NUR ---
TELE/RN NOTES: REPORT GIVEN TO NEXT SHIFT NURSE FOR KWESI.
--- NOTE | 2018-01-10 07:57 | NUR ---
telephone coin box collector note patient in bed ,obtunded ,not response to any command , with trach to vent setting as ordered , Ambu bag at hob, on tele monitor sr , with g tube feeding as ordered no residual noted at this time g tube site with redness and scant amt of drainage noted , keep hob elevated at all time , rt shoulder hl intact no redness noted ,on ivf as ordered ,bed in lowest and locked position, will cont to monitor closely
[2018-01-10] MEDS: CLOPIDOGREL BISULFATE 75 MG TABLET GT SCH (08:14)
[2018-01-10] MEDS: MULTIVIT, IRON, MIN NO. 8, FA 1 TAB GT SCH (08:14)
[2018-01-10] MEDS: FERROUS SULFATE UDC 300 MG/5 ML UDC GT SCH (08:14)
[2018-01-10] MEDS: ASCORBIC ACID 500 MG TABLET GT SCH (08:14)
[2018-01-10] MEDS: PROSOURCE / PROSTAT (PYXIS) 30 ML UDC GT SCH (08:15)
[2018-01-10] MEDS: POLYVINYL ALCOHOL 15 ML BOTTLE EACHEYE SCH ×2 (08:16→18:31)
[2018-01-10] MEDS: NYSTATIN CREAM 15 GM TUBE TP SCH ×3 (08:16→16:32)
[2018-01-10] MEDS: GEMFIBROZIL 600 MG TABLET GT SCH ×2 (08:19→16:15)
--- NOTE | 2018-01-10 10:10 | NUR ---
FORENSIC PSYCHOLOGIST NOTES ROSA RN SUGAR PLANTATION MANAGER ORDERED D/C IVFLUIDS. NO MIDLINE AT THIS TIME.
--- NOTE | 2018-01-10 12:54 | NUR ---
television equipment operator note noted that patient has 1 episode of vomiting with undigested formula , hold g tube feeding ,keep up called to dmitiy rn manpower development advisor with order ok to give Zofran and Reglan [id number] prn, will f\u
[2018-01-10] MEDS ORDERED: METOCLOPRAMIDE HCL 10 MG/2 ML VIAL IV PRN (13:00)
--- NOTE | 2018-01-10 16:06 | NUR ---
SENIOR PROCUREMENT MANAGER NOTE SPOKE WITH ROSA WEBSTER EQUIPMENT ENGINEERING TECHNICIAN ,NOTIFIED THAT BP 160/89 STATED OK TO GIVE CATAPRES 0.1 MG IF SBP>160 PRN ,ORDER CARRIED OUT
--- NOTE | 2018-01-10 18:21 | NUR ---
SPECIALTY MOLDER ENDING NOTES PATIENT ASLEEP IN BED. RELAXED AND CALM. TRACH TO VENT WITH NO S/SX OF RESP DISTRESS. HOB ELEVATED TO SEMI-FOWLERS POSITION. SAFETY MEASURES MAINTAINED. CALL LIGHT IN REACH.
--- NOTE | 2018-01-10 20:00 | NUR ---
TELE 1 RN NOTE RECEIVED PT IN BED EYES OPEN, OBTUNDED. ON VENT/TRACH TOLERATING THE SETTINGS WELL. ON TELE SR HR 75. NO DISTRESS OR DISCOMFORT NOTED. NO S/S OF PAIN NOTED. ON GTF JEVITY AT 30 ML/HR, 0 ML RESIDUAL AT THIS TIME. KEPT HOB ELEVATED. NO VOMITING NOTED AT THIS TIME. TOLERATING FEEDING WELL AT 30 ML/HR. RT SHOULDER WITH 24 G SL INTACT AND PATENT. NO S/S OF HYPO OR HYPERGLYCEMIA NOTED. SON AT BED SIDE. PT REMAIN IN ISOLATION FOR ESBL URINE. KEPT HER DRY AND CLEAN. REPOSITION HER FOR SKIN MANAGEMENT. SIDE RAILS UP X 3 AND CALL LIGHT WITHIN REACH. CONTINUE TO MONITOR HER.
[2018-01-10] MEDS: ENOXAPARIN SODIUM 40 MG/0.4 ML DISP.SYRIN SQ SCH (21:23)
[2018-01-10] MEDS: JEVITY 1.2 CAL 1,000 ML BOTTLE GT PRN (21:23)
[2018-01-11] VITALS (7 sets, daily range): BP systolic 111–150; BP diastolic 50–78
[2018-01-11] MEDS: DILTIAZEM HCL 30 MG TABLET GT SCH ×5 (00:26→23:06)
[2018-01-11] MEDS: IPRATROPIUM NEB FS 0.5 MG/2.5 ML AMPUL.NEB NEB SCH ×4 (02:21→20:05)
[2018-01-11] MEDS: ALBUTEROL FS 2.5 MG/0.5 ML VIAL.NEB NEB SCH ×4 (02:21→20:05)
[2018-01-11] MEDS: LEVETIRACETAM SOL (5 ML) 100 MG/ML UDC GT SCH ×2 (03:42→16:16)
[2018-01-11 06:27] LABS: BASOPHILS # (AUTO) 0.1 /CMM (0.0-0.2); BASOPHILS % (AUTO) 1.3 % (0.0-2.0); EOSINOPHILS % (AUTO) 3.6 % (0.0-6.0); HEMATOCRIT 39 % (33-45); HEMOGLOBIN 12.9 g/dL (11.5-14.8); LYMPHOCYTES # (AUTO) 1.3 /CMM (0.8-4.8); LYMPHOCYTES % (AUTO) 12.4 % (20.0-44.0); MEAN CORPUSCULAR HEMOGLOBIN 31 PG (26.0-33.0); MEAN CORPUSCULAR HGB CONC 33 g/dl (31.0-36.0); MEAN CORPUSCULAR VOLUME 93 fL (82-100); MONOCYTES # (AUTO) 1.1 /CMM (0.1-1.30); NEUTROPHILS # (AUTO) 7.9 /CMM (1.8-8.9); NEUTROPHILS % (AUTO) 72.7 % (43.0-81.0); PLATELET COUNT (AUTO) 293 /CMM (150-450); RDW COEFFICIENT OF VARIATION 13.1 (11.5-15.0); RED BLOOD CELL COUNT(AUTO) 4.21 MIL/uL (4.0-5.2); WHITE BLOOD COUNT (AUTO) 10.8 K/uL (4.3-11.0)
[2018-01-11 06:52] LABS: CALCIUM, SERUM 8.8 mg/dL (8.5-10.1); CARBON DIOXIDE 26 mmol/L (21-32); CHLORIDE 103 mmol/L (98-107); CREATININE 0.6 mg/dL (0.6-1.3); GLUCOSE 132 mg/dL (74-106); SODIUM SERUM 139 mmol/L (136-145); UREA NITROGEN, BLOOD 13 mg/dL (7-18)
--- NOTE | 2018-01-11 07:11 | NUR ---
TELE 1 RN NOTE SUCTIONED PT FREQUENTLY. THICK WHITE SECRETIONS NOTED. KEPT HER DRY AND CLEAN. ALL NEEDS ATTENDED. WILL ENODRSE TO DAY SHIFT NURSE FOR CONTINUE TO CARE.
--- NOTE | 2018-01-11 07:26 | NUR ---
STROKE BELT SANDER OPERATOR INITIAL NOTES Report received. Patient received in bed, non-verbal, on trach//ventilator machine. No SOB noted. HOB elevated. On gtube feeding Jevity @30ml/hr. On contact isolation for urine ESBL. Safety measures in place. Will continue to monitor and assess patient
[2018-01-11] MEDS: CLOPIDOGREL BISULFATE 75 MG TABLET GT SCH (08:59)
[2018-01-11] MEDS: MULTIVIT, IRON, MIN NO. 8, FA 1 TAB GT SCH (08:59)
[2018-01-11] MEDS: ASCORBIC ACID 500 MG TABLET GT SCH (08:59)
[2018-01-11] MEDS: FERROUS SULFATE UDC 300 MG/5 ML UDC GT SCH (08:59)
[2018-01-11] MEDS: POLYVINYL ALCOHOL 15 ML BOTTLE EACHEYE SCH ×2 (09:00→16:17)
[2018-01-11] MEDS: NYSTATIN CREAM 15 GM TUBE TP SCH ×3 (09:00→16:17)
[2018-01-11] MEDS: PROSOURCE / PROSTAT (PYXIS) 30 ML UDC GT SCH (09:02)
[2018-01-11] MEDS: GEMFIBROZIL 600 MG TABLET GT SCH ×2 (09:05→17:13)
--- NOTE | 2018-01-11 11:30 | NUR ---
CONTENT WRITER - NEW ORDERS Per Silvestre DNP, hold feeding if patient is vomiting. Start feeding and monitor if patient can tolerate feeding. No gtube residual aspirated
[2018-01-11] MEDS: INSULIN REGULAR, HUMAN 100 UNIT/ML 3 ML VIAL SQ PRN ×2 (12:01→23:17)
[2018-01-11] MEDS: BLOOD SUGAR DIAGNOSTIC 1 EACH STRIP IN SCH ×4 (12:02→23:11)
--- NOTE | 2018-01-11 17:20 | NUR ---
PT. 77 Y OLD FEMALE REC. @ 0700 AM TRACHED PORTEX # 9 ON [facility]. VENT WITH NOTED SETTINGS, ALARMS ARE SET AND FUNCTIONAL, B/S RHONCHI. LARA'X FOR LARGE AMT. OF YELLOW SECRETIONS. TRACH CARE DONE. HME CHANGED EQUAL CHEST RISE NOTED. INLINE TX'S GIVEN NO ADVERSE REACTION NOTED. MARÍA ELENA. WELL AND REMAIN ON SAME SETTINGS, VENT PLUGGED INTO RED OUT LET. NO CHANGES T/O DAY CONTINUE FOR CARE AND MONITOR. AMBU BAG REMAIN AT THE BEDSIDE,. REPORT WILL PASS TO PM SHIFT. Addendum: 01/11/18 at 1722 by KARINA VILLAGOMEZ RT Amended: Links added.
--- NOTE | 2018-01-11 19:42 | NUR ---
PLYWOOD LAYUP LINE CORE FEEDER CLOSING NOTES Report given. Patient remained in bed, non-verbal. No facial grimacing or moaning noted. Not in any type of distress. No SOB/labored breathing noted. Dressing changed. Treatment rendered. Turned and repositioned every two hours. Feeding held per [place]. On and Off feeding to monitor for tolerance. No vomit noted or reported. All needs anticipated and met. Bed in locked and lowest position with call light within reach. HOB elevated with lower extremities off-loaded. Endorsed to oncoming shift nurse. Tele: Sinus tach; HR 90s
--- NOTE | 2018-01-11 20:00 | NUR ---
TELE 1 RN NOTE PT IN BED WITH EYES CLOSED. OBTUNDED. ON VENT/TRACH TOLERATING THE SETTINGS WELL. NO DISTRESS OR DISCOMFORT NOTED. NO S/S OF PAIN NOTED. ON TELE MONITOR SR HR 88. RESUMED GT FEEDING AT 30 ML/HR, 0 ML RESIDUAL NOTED. KEPT HOB ELEVATED. NO S/S OF NAUSEA OR VOMITING NOTED AT THIS TIME. ALL NEEDS ATTENDED. KEPT HER DRY AND CLEAN. SIDE RAILS UP X 3 AND CALL LIGHT WITHIN REACH. VSS. CONTINUE TO MONITOR HER.
--- NOTE | 2018-01-11 20:05 | NUR ---
PT RECEIVED WITH A PORTEX 9 TRACH ON THE VENT WITH NOTED SETTINGS. PT IS AWAKE AND RESPONDS TO STIMULI WHEN SUCTION. VENT ALARMS ARE SET AND AUDIBLE WITH AMBU BAG@ BEDSIDE. PEANUT VENDOR CUFF PRESSURE NOTED. TRACH PATENT AND SECURE. VENT IS PLUGGED INTO RED OUTLET.Q6 BREATHING TX GIVEN ORDERED. NO ADVERSE REACTIONS NOTED . SUCTIONED MODERATE AMOUNT OF WHITE THICK SECRETIONS. NO RESPIRATORY DISTRESS NOTED AT THIS TIME, WILL CONTINUE TO MONITOR.
[2018-01-11] MEDS: ENOXAPARIN SODIUM 40 MG/0.4 ML DISP.SYRIN SQ SCH (21:52)
[2018-01-12] VITALS: BP 107/67
[2018-01-12] MEDS: IPRATROPIUM NEB FS 0.5 MG/2.5 ML AMPUL.NEB NEB SCH ×4 (01:47→20:03)
[2018-01-12] MEDS: ALBUTEROL FS 2.5 MG/0.5 ML VIAL.NEB NEB SCH ×4 (01:47→20:03)
[2018-01-12] MEDS: LEVETIRACETAM SOL (5 ML) 100 MG/ML UDC GT SCH ×2 (03:33→15:31)
[2018-01-12 04:00] VITALS: BP 116/71
[2018-01-12] MEDS: DILTIAZEM HCL 30 MG TABLET GT SCH ×3 (05:22→17:34)
[2018-01-12] MEDS: BLOOD SUGAR DIAGNOSTIC 1 EACH STRIP IN SCH ×4 (05:40→23:51)
--- NOTE | 2018-01-12 06:00 | NUR ---
TELE 1 RN NOTE PT IN BED OBTUNDED. NO DISTRESS OR DISCOMFORT NOTED DURING THE NIGHT. FREQUENTLY SUCTIONED THE PT DURING THE NIGHT. ALL NEEDS ATTENDED. WILL ENDORSE TO DAY SHIFT NURSE FOR CONTINUE TO CARE.
[2018-01-12] MEDS: JEVITY 1.2 CAL 1,000 ML BOTTLE GT PRN (06:04)
[2018-01-12 06:52] LABS: CALCIUM, SERUM 9.2 mg/dL (8.5-10.1); CARBON DIOXIDE 28 mmol/L (21-32); CHLORIDE 105 mmol/L (98-107); CREATININE 0.6 mg/dL (0.6-1.3); GLUCOSE 111 mg/dL (74-106); POTASSIUM 4.5 mmol/L (3.5-5.1); SODIUM SERUM 142 mmol/L (136-145); UREA NITROGEN, BLOOD 18 mg/dL (7-18)
[2018-01-12 07:34] LABS: HEMATOCRIT 38 % (33-45); MEAN CORPUSCULAR HEMOGLOBIN 31 PG (26.0-33.0); MEAN CORPUSCULAR HGB CONC 34 g/dl (31.0-36.0); MEAN CORPUSCULAR VOLUME 92 fL (82-100); PLATELET COUNT (AUTO) 367 /CMM (150-450); RDW COEFFICIENT OF VARIATION 13.7 (11.5-15.0); RED BLOOD CELL COUNT(AUTO) 4.17 MIL/uL (4.0-5.2); WHITE BLOOD COUNT (AUTO) 8.2 K/uL (4.3-11.0)
[2018-01-12 07:35] LABS: BASOPHILS % (AUTO) 0.6 % (0.0-2.0); LYMPHOCYTES % (AUTO) 26.4 % (20.0-44.0); MONOCYTES % (AUTO) 10.5 % (2.0-12.0); NEUTROPHILS % (AUTO) 56.5 % (43.0-81.0)
[2018-01-12 08:00] VITALS: BP 138/66
--- NOTE | 2018-01-12 08:15 | NUR ---
POULTRY BREEDER OPENING NOTES RECEIVED IN BED. OBTUNDED, OPENS/CLOSES EYES SPONTANEOUSLY. RESPONDS TO TOUCH. TRACH DEPENDENT. TRACH INTACT AND ON PRESCRIBED SETTINGS AC 12, TV 450, FIO2 40%, PEEP 5. BREATHING EVEN AND UNLABORED. NO RESPIRATORY DISTRESS NOTED AT THIS TIME. AIRWAY SUCTION FOR PATENCY. ON TELE W/ SINUS RHYTHM, HR 88. LEFT UPPER ARM IV #22 INTACT & PATENT ON FLUSHING. WITH NS INFUSING WELL @ 75 ML/HR. G-TUBE INTACT AND PATENT ON FLUSHING BUT NOTED W/ LEAKING, GTF OF JEVITY RUNNING AT 40CC/HR. NO S/S OF PAIN OR DISCOMFORT @ THIS TIME. SAFETY MEASURES IN PLACE W/ SIDE RAILS UP & BED LOCKED & IN LOWEST POSITION. HOB ELEVATED. WILL CONTINUE TO MONITOR Addendum: 01/13/18 at 0800 by LIV MADRID RN IV AT THE RIGHT SHOULDER GAUGE #24 WITH NS INFUSING WELL @75CC/HR
--- NOTE | 2018-01-12 09:00 | NUR ---
RN NOTES SEEN AND EXAMINED BY DR COSME. NO NEW ORDER AT THIS TIME.
[2018-01-12] MEDS: MULTIVIT, IRON, MIN NO. 8, FA 1 TAB GT SCH (09:22)
[2018-01-12] MEDS: ASCORBIC ACID 500 MG TABLET GT SCH (09:22)
[2018-01-12] MEDS: FERROUS SULFATE UDC 300 MG/5 ML UDC GT SCH (09:22)
[2018-01-12] MEDS: GEMFIBROZIL 600 MG TABLET GT SCH ×2 (09:22→16:51)
[2018-01-12] MEDS: CLOPIDOGREL BISULFATE 75 MG TABLET GT SCH (09:22)
[2018-01-12] MEDS: PROSOURCE / PROSTAT (PYXIS) 30 ML UDC GT SCH (09:23)
[2018-01-12] MEDS: POLYVINYL ALCOHOL 15 ML BOTTLE EACHEYE SCH ×2 (09:24→16:52)
[2018-01-12] MEDS: NYSTATIN CREAM 15 GM TUBE TP SCH ×3 (09:24→16:52)
--- NOTE | 2018-01-12 11:30 | NUR ---
RN NOTES SEEN AND EXAMINED BY AUBRIE CRABTREE NP. UPDATED ON THE PATIENT'S STATUS.NO NEW ORDER AT THIS TIME
[2018-01-12 12:00] VITALS: BP 124/59
[2018-01-12] MEDS: INSULIN REGULAR, HUMAN 100 UNIT/ML 3 ML VIAL SQ PRN ×3 (12:29→23:52)
[2018-01-12 16:00] VITALS: BP 115/57
--- NOTE | 2018-01-12 19:27 | NUR ---
RN NOTES ENDORSED PATIENT FOR CONTINUITY OF CARE. NO ACUTE CHANGES WITHIN THE SHIFT. STILL ON VENT WITH PRESCRIBED SETTING. TOLERATING WELL. GTF RUNNING AT 55CC/HR PATIENT ABLE TO TOLERATE, NO GASTRIC RESIDUAL, NO VOMITING FOR THE ENTIRE SHIFT. ALL NEEDS ATTENDED. SAFETY MAINTAINED. SRX2, BED LOW AND LOCKED.
--- NOTE | 2018-01-12 19:30 | NUR ---
STEEL HEATER NOTES: RECEIVED PT ON BED, NO ACUTE DISTRESS NOTED. NO FACIAL GRIMACING OR ANY SIGNS OF PAIN NOTED. ON [facility] VENT, SETTINGS ORDERED. NO SOB NOTED. ON TELE MONITOR SINUS RHYTHM HR 100BPM. GT INTACT AND PATENT, NO RESIDUAL NOTED AT THIS TIME. PT ABLE TO TOLERATE FEEDING WELL. NO SIGNS/SYMPTOMS OF ASPIRATION NOTED. KEPT CLEAN, DRY AND COMFORTABLE. SAFETY AND FALL PRECAUTIONS OBSERVED AND MAINTAINED. WILL CONTINUE TO MONITOR PT.
[2018-01-12 20:00] VITALS: BP 114/67
--- NOTE | 2018-01-12 20:03 | NUR ---
PT ON VENT MARÍA ELENA WELL WITH NO RESPIRATORY DISTRESS NOTED ATT. PT HAS A TRACH WHICH IS INTACT SECURE AND PATENT. BREATH SOUNDS COURSE SX PRN RETURNING SMALL TO MODERATE PALE YELLOW SECRETIONS. VENT ALARMS CHECKED FOUND TO BE FUNCTIONAL, AUDIBLE, AND WITHIN LIMITS. VENT PLUGGED INTO RED OUTLET. RAND BUTTING MACHINE OPERATOR DONE, BREATHING TX MD ORDERED MARÍA ELENA WELL WITH NO RESPIRATORY DISTRESS NOTED. BVM AT BEDSIDE.
[2018-01-12] MEDS: ENOXAPARIN SODIUM 40 MG/0.4 ML DISP.SYRIN SQ SCH (21:41)
[2018-01-13] VITALS (7 sets, daily range): BP systolic 109–142; BP diastolic 51–72
[2018-01-13] MEDS: DILTIAZEM HCL 30 MG TABLET GT SCH ×3 (00:33→12:36)
[2018-01-13] MEDS: LEVETIRACETAM SOL (5 ML) 100 MG/ML UDC GT SCH ×2 (02:13→15:51)
[2018-01-13] MEDS: ALBUTEROL FS 2.5 MG/0.5 ML VIAL.NEB NEB SCH ×3 (02:26→13:58)
[2018-01-13] MEDS: IPRATROPIUM NEB FS 0.5 MG/2.5 ML AMPUL.NEB NEB SCH ×3 (02:29→13:58)
[2018-01-13] MEDS: BLOOD SUGAR DIAGNOSTIC 1 EACH STRIP IN SCH ×2 (05:29→12:36)
--- NOTE | 2018-01-13 06:21 | NUR ---
BRANCH OFFICER NOTES: NO ACUTE CHANGES NOTED THROUGHOUT THE SHIFT. NO SIGNS/SYMPTOMS OF PAIN NOTED AT THIS TIME. NO SOB, SATURATING WELL. GT INTACT, NO RESIDUAL NOTED. HEAD OF BED KEPT ELEVATED. SINUS RHYTHM ON TELE MONITOR HR 77BPM. ALL DUE MEDS GIVEN ORDER AND WELL TOLERATED. KEPT CLEAN, DRY AND COMFORTABLE. TURNED AND REPOSITIONED Q2HRS AND NEEDED. WILL ENDORSE TO DAY SHIFT NURSE FOR CONTINUITY OF CARE.
[2018-01-13 06:54] LABS: CALCIUM, SERUM 9.1 mg/dL (8.5-10.1); CARBON DIOXIDE 24 mmol/L (21-32); CHLORIDE 105 mmol/L (98-107); CREATININE 0.6 mg/dL (0.6-1.3); GLUCOSE 121 mg/dL (74-106); MAGNESIUM 2.1 mg/dL (1.8-2.4); PHOSPHORUS 3.6 mg/dL (2.5-4.9); POTASSIUM 4.5 mmol/L (3.5-5.1); SODIUM SERUM 140 mmol/L (136-145); UREA NITROGEN, BLOOD 20 mg/dL (7-18)
[2018-01-13 07:26] LABS: BASOPHILS % (AUTO) 0.7 % (0.0-2.0); EOSINOPHILS % (AUTO) 8.1 % (0.0-6.0); HEMATOCRIT 34 % (33-45); HEMOGLOBIN 11.5 g/dL (11.5-14.8); LYMPHOCYTES # (AUTO) 1.3 /CMM (0.8-4.8); LYMPHOCYTES % (AUTO) 21.6 % (20.0-44.0); MEAN CORPUSCULAR HEMOGLOBIN 31 PG (26.0-33.0); MEAN CORPUSCULAR HGB CONC 34 g/dl (31.0-36.0); MEAN CORPUSCULAR VOLUME 91 fL (82-100); MONOCYTES # (AUTO) 0.5 /CMM (0.1-1.30); MONOCYTES % (AUTO) 8.6 % (2.0-12.0); NEUTROPHILS # (AUTO) 3.6 /CMM (1.8-8.9); PLATELET COUNT (AUTO) 372 /CMM (150-450); RDW COEFFICIENT OF VARIATION 12.8 (11.5-15.0); RED BLOOD CELL COUNT(AUTO) 3.74 MIL/uL (4.0-5.2); WHITE BLOOD COUNT (AUTO) 5.9 K/uL (4.3-11.0)
--- NOTE | 2018-01-13 07:52 | NUR ---
PIG MACHINE SUPERVISOR NOTES RECEIVED IN BED. OBTUNDED, OPENS/CLOSES EYES SPONTANEOUSLY. RESPONDS TO TOUCH. TRACH DEPENDENT. TRACH INTACT AND ON PRESCRIBED SETTINGS AC 12, TV 450, FIO2 40%, PEEP 5. BREATHING EVEN AND UNLABORED. NO RESPIRATORY DISTRESS NOTED AT THIS TIME. AIRWAY SUCTION FOR PATENCY MINIMAL SECRETION NOTED. ON TELE W/ SINUS RHYTHM, HR 88. LEFT UPPER ARM IV #24 INTACT & PATENT ON FLUSHING. G-TUBE INTACT AND PATENT ON FLUSHING, GTF OF JEVITY RUNNING AT 55CC/HR. PATIENT TOLERATING FEEDING WELL. NO GASTRIC RESIDUAL NOTES AT THIS TIME. NO S/S OF PAIN OR DISCOMFORT @ THIS TIME. SAFETY MEASURES AND ASPIRATION PRECAUTION IN PLACE W/ SIDE RAILS UP & BED LOCKED. WILL CONTINUE TO MONITOR
--- NOTE | 2018-01-13 08:30 | NUR ---
RT PT RECEIVED WITH A PORTEX 9 TRACH ON THE VENT WITH NOTED SETTINGS. PT IS AWAKE BUT DOES NOT FOLLOW COMMANDS. VENT ALARMS ARE SET AND AUDIBLE WITH BVM BY BEDSIDE. HIGHWAY ENGINEER CUFF PRESSURE NOTED. VENT IS PLUGGED INTO RED OUTLET. PT SX'D SMALL THICK PALE YELLOW SECRETIONS. HHN TX GIVEN INLINE WITH NO ADVERSE REACTIONS. NO RESPIRATORY DISTRESS NOTED AT THIS TIME, WILL CONTINUE TO MONITOR. Addendum: 01/13/18 at 1014 by JOHN MORROW RT Amended: Links added.
[2018-01-13] MEDS: FERROUS SULFATE UDC 300 MG/5 ML UDC GT SCH (09:04)
[2018-01-13] MEDS: GEMFIBROZIL 600 MG TABLET GT SCH (09:04)
[2018-01-13] MEDS: ASCORBIC ACID 500 MG TABLET GT SCH (09:04)
[2018-01-13] MEDS: CLOPIDOGREL BISULFATE 75 MG TABLET GT SCH (09:04)
[2018-01-13] MEDS: PROSOURCE / PROSTAT (PYXIS) 30 ML UDC GT SCH (09:04)
[2018-01-13] MEDS: MULTIVIT, IRON, MIN NO. 8, FA 1 TAB GT SCH (09:04)
[2018-01-13] MEDS: NYSTATIN CREAM 15 GM TUBE TP SCH ×2 (09:06→15:51)
[2018-01-13] MEDS: POLYVINYL ALCOHOL 15 ML BOTTLE EACHEYE SCH (09:06)
--- NOTE | 2018-01-13 11:00 | NUR ---
RN NOTES SEEN AND EXAMINED BY AUBRIE CRABTREE NP. WITH ORDERS FOR DISCHARGE. ORDER NOTED AND CARRIED OUT.
--- NOTE | 2018-01-13 13:30 | NUR ---
RN NOTES ENDORSE PATIENT TO SNF RN ([facility]) FOR CONTINUITY OF CARE. ALL DISCHARGE AND MEDICATION INSTRUCTION GIVEN INITIALLY THROUGH PHONE CALL. ALL PERTINENT INFORMATION ON THE PATIENT WILL BE SENT WITH THE PATIENT ON TRANSFER
--- NOTE | 2018-01-13 16:30 | NUR ---
RN NOTES PATIENT DISCHARGE. EXIT CARE DONE. PHOTOS TAKEN AND FILED. ALL DISCHARGE INSTRUCTIONS WERE GIVEN TO [facility]ERM[facility] LOPEZ RN (SNF RN ADJUSTMENT EXAMINER) IN A EARLIER ENDORSEMENT. PATIENT TRANSFERRED OUT TO SNF [facility] ACCOMPANIED BT 2 EMT AND A RT.
== END 2018-01-13 16:30 | DRG 393 ==
LOC: ER 09:54 → TELE1 13:17 → TELE-TD 15:02 → TELE1 01-03 11:50
PROVIDERS: ADMIT Internal Medicine; ATTEND Internal Medicine
PROC: 5A1955Z Respiratory Ventilation, Greater than 96 Consecutive Hours (ICD-10-PCS; principal; 2018-01-02)
PROC: 05H633Z Insertion of Infusion Device into Left Subclavian Vein, Percutaneous Approach (ICD-10-PCS; 2018-01-06)
PROC: B547ZZA Ultrasonography of Left Subclavian Vein, Guidance (ICD-10-PCS; 2018-01-06)
DX: K94.12 Enterostomy infection (principal); R53.2 Functional quadriplegia; G93.1 Anoxic brain damage, not elsewhere classified; J96.11 Chronic respiratory failure with hypoxia; E44.0 Moderate protein-calorie malnutrition; L03.311 Cellulitis of abdominal wall; N39.0 Urinary tract infection, site not specified; Z99.11 Dependence on respirator [ventilator] status; I69.351 Hemiplegia and hemiparesis following cerebral infarction affecting right dominant side; E87.2 Acidosis; K94.13 Enterostomy malfunction; G40.909 Epilepsy, unspecified, not intractable, without status epilepticus; R13.10 Dysphagia, unspecified; Z88.0 Allergy status to penicillin; Z88.8 Allergy status to other drugs, medicaments and biological substances; L89.90 Pressure ulcer of unspecified site, unspecified stage; Y83.3 Surgical operation with formation of external stoma as the cause of abnormal reaction of the patient, or of later complication, without mention of misadventure at the time of the procedure; Y82.9 Unspecified medical devices associated with adverse incidents; Y92.129 Unspecified place in nursing home as the place of occurrence of the external cause; F03.90 Unspecified dementia, unspecified severity, without behavioral disturbance, psychotic disturbance, mood disturbance, and anxiety; E86.0 Dehydration; E66.9 Obesity, unspecified; Z68.29 Body mass index [BMI] 29.0-29.9, adult; B96.1 Klebsiella pneumoniae [K. pneumoniae] as the cause of diseases classified elsewhere; D64.9 Anemia, unspecified; E11.43 Type 2 diabetes mellitus with diabetic autonomic (poly)neuropathy; K31.84 Gastroparesis; Y84.9 Medical procedure, unspecified as the cause of abnormal reaction of the patient, or of later complication, without mention of misadventure at the time of the procedure
CPT/HCPCS: 31720; 36415; 36569; 71045-TC; 74018; 80048-TC; 80053-TC; 80061-TC; 80076-TC; 81000-TC; 82962-TC; 83605-TC; 83735-TC; 84100-TC; 84484-TC; 85025-TC; 85730-TC; 86850-TC; 87040-TC; 87081-TC; 87086-TC; 87186-TC; 94002-TC; 94003-TC; 94760-TC; 94762-TC; A4216; A4606; A6402; A6403; A7526; A9563; J1200; J1650; J1815; J1953; J2020; J2185; J2405; J3370; J3490; J7030; J7050; J7060; Q9963; Z7610

== ENCOUNTER 2018-06-04 14:32 | Inpatient (IN) | payer MEDICARE, MEDICAID ==
[~2018-06-04] VITALS: Ht 162.6 cm; Wt 70.3 kg
[~2018-06-04 14:32] MED LIST changes: +ACET-2605 GT; +ACET650S26 GT; -ALBU2.5V11 NEB; +AMIN30LI4 GT; +ASCO500T9 GT; -DEXT15DR6 EACHEYE; -DOCU-141 GT; +DOCU50LI GT; +FERR300L GT; -FLUC100T8 PO; +GEMF600T5 GT; +IPRA3AMP23 IH; -LACT-209 GT; +LACT-96 GT; +MULT-447 GT; -MULT1TAB73 GT; +OMEG-167 GT; +PANT40SU2 GT; -PANT40TA4 GT; +POLY15DR40 EACHEYE
[2018-06-04 14:57] VITALS: BP 144/72
[2018-06-04] MEDS ORDERED: NUT.237L28 GT (14:58)
[2018-06-04] MEDS ORDERED: IV NS 0.9% 500 ML BAG IV ONE (15:00)
[2018-06-04] MEDS ORDERED: METOCLOPRAMIDE HCL 10 MG/2 ML VIAL IV ONE (15:00)
[2018-06-04] MEDS ORDERED: METOCLOPRAMIDE HCL 10 MG/2 ML VIAL ONE (15:00)
[2018-06-04] MEDS ORDERED: PANTOPRAZOLE 40 MG VIAL IV ONE (15:00)
[2018-06-04] MEDS ORDERED: PANTOPRAZOLE 40 MG VIAL ONE (15:01)
[2018-06-04 15:07] LABS: BASOPHILS # (AUTO) 0.1 /CMM (0.0-0.2); BASOPHILS % (AUTO) 0.6 % (0.0-2.0); EOSINOPHILS % (AUTO) 6.6 % (0.0-6.0); HEMATOCRIT 42 % (33-45); HEMOGLOBIN 14.2 g/dL (11.5-14.8); LYMPHOCYTES # (AUTO) 2.2 /CMM (0.8-4.8); LYMPHOCYTES % (AUTO) 18.4 % (20.0-44.0); MEAN CORPUSCULAR HGB CONC 34 g/dl (31.0-36.0); MEAN CORPUSCULAR VOLUME 95 fL (82-100); MONOCYTES # (AUTO) 1.2 /CMM (0.1-1.30); MONOCYTES % (AUTO) 9.6 % (2.0-12.0); NEUTROPHILS # (AUTO) 7.8 /CMM (1.8-8.9); NEUTROPHILS % (AUTO) 64.8 % (43.0-81.0); PLATELET COUNT (AUTO) 510 /CMM (150-450); RED BLOOD CELL COUNT(AUTO) 4.42 MIL/uL (4.0-5.2)
[2018-06-04 15:12] LABS: CALCIUM, SERUM 9.7 mg/dL (8.5-10.1); CARBON DIOXIDE 29 mmol/L (21-32); CHLORIDE 104 mmol/L (98-107); CREATININE 0.9 mg/dL (0.6-1.3); GLUCOSE 144 mg/dL (74-106); SODIUM SERUM 139 mmol/L (136-145); UREA NITROGEN, BLOOD 36 mg/dL (7-18)
[2018-06-04 15:19] LABS: ALANINE AMINOTRANSFERASE 30 U/L (12-78); ALBUMIN 3.6 g/dL (3.4-5.0); ALKALINE PHOSPHATASE 213 U/L (46-116); ASPARTATE AMINOTRANSFERASE 29 U/L (15-37); BILIRUBIN,DIRECT 0.3 mg/dL (0.0-0.2); BILIRUBIN,TOTAL 0.5 mg/dL (0.2-1.0); LIPASE 16073 U/L (73-393)
[2018-06-04 15:52] LABS: APPEARANCE,URINE Cloudy (CLEAR); BILIRUBIN,URINE Negative (NEGATIVE); BLOOD, URINE Trace-intact Ery/uL (NEGATIVE); COLOR,URINE Yellow (YELLOW); KETONES,URINE Trace (NEGATIVE); LEUKOCYTE ESTERASE ,URINE Large (NEGATIVE); NITRITE, URINE Negative (NEGATIVE); PROTEIN,URINE 30 mg/dl (NEGATIVE); UGLUCOSE Negative (NEGATIVE)
[2018-06-04 15:59] LABS: BACTERIA,URINE Many /HPF (None Seen); SQUAMOUS EPITHELIAL CELL,UR Few /HPF (None Seen); WBC,URINE 50-80 /HPF (0-3)
[2018-06-04] MEDS ORDERED: IV NS 0.9% 1,000 ML BAG IV ONE ×2 (16:00)
[2018-06-04] MEDS ORDERED: LEVOFLOXACIN 750 MG /D5W 150ML PIGGYBACK IV ONE (16:00)
[2018-06-04] MEDS ORDERED: ONDANSETRON HCL/PF 4 MG/2 ML VIAL IVP PRN (17:30)
[2018-06-04] MEDS ORDERED: IPRATROPIUM NEB FS 0.5 MG/2.5 ML AMPUL.NEB NEB PRN (18:00)
[2018-06-04] MEDS ORDERED: ALBUTEROL FS 2.5 MG/3 ML VIAL.NEB NEB PRN (18:00)
[2018-06-04 18:14] VITALS: BP 146/70
[2018-06-04] MEDS ORDERED: PERMETHRIN 5% CRM 60 GM TUBE TP ONE (18:30)
[2018-06-04] MEDS ORDERED: PANTOPRAZOLE 40 MG VIAL IV SCH (19:00)
[2018-06-04 20:00] VITALS: BP 100/60
[2018-06-04] MEDS ORDERED: MEROPENEM 500 MG in IV NS 0.9% 50 ML IV ONE (20:00)
[2018-06-04] MEDS: SILVER SULFADIAZINE CREAM 400 GM JAR TP SCH (20:12)
[2018-06-04] MEDS ORDERED: CEFTRIAXONE 1 G in IV D5W 50 ML IV SCH (21:00)
[2018-06-04] MEDS: LEVETIRACETAM (500MG) 500 MG in IV NS 0.9% 100 ML IV SCH (21:09)
[2018-06-04] MEDS: ENOXAPARIN SODIUM 40 MG/0.4 ML DISP.SYRIN SQ SCH (21:12)
[2018-06-04] MEDS ORDERED: CEFTRIAXONE 1 G VIAL ONE (21:36)
[2018-06-04] MEDS: IV NS 0.9% 1,000 ML IV PRN (21:46)
[2018-06-04] MEDS: LINEZOLID RTU BAG 600 MG in PREMIX 1 EA IV SCH (22:24)
[2018-06-05] VITALS: BP 124/73
[2018-06-05 04:00] VITALS: BP 128/70
[2018-06-05 05:56] LABS: BASOPHILS % (AUTO) 0.4 % (0.0-2.0); EOSINOPHILS % (AUTO) 10.6 % (0.0-6.0); HEMATOCRIT 37 % (33-45); LYMPHOCYTES # (AUTO) 1.1 /CMM (0.8-4.8); LYMPHOCYTES % (AUTO) 18.3 % (20.0-44.0); MEAN CORPUSCULAR HGB CONC 33 g/dl (31.0-36.0); MEAN CORPUSCULAR VOLUME 96 fL (82-100); MONOCYTES # (AUTO) 0.5 /CMM (0.1-1.30); MONOCYTES % (AUTO) 8.8 % (2.0-12.0); NEUTROPHILS # (AUTO) 3.6 /CMM (1.8-8.9); NEUTROPHILS % (AUTO) 61.9 % (43.0-81.0); PLATELET COUNT (AUTO) 352 /CMM (150-450); RED BLOOD CELL COUNT(AUTO) 3.81 MIL/uL (4.0-5.2); WHITE BLOOD COUNT (AUTO) 5.8 K/uL (4.3-11.0)
[2018-06-05 06:12] LABS: CALCIUM, SERUM 8.5 mg/dL (8.5-10.1); CARBON DIOXIDE 25 mmol/L (21-32); CHLORIDE 108 mmol/L (98-107); CREATININE 0.7 mg/dL (0.6-1.3); GLUCOSE 105 mg/dL (74-106); LIPASE 1238 U/L (73-393); MAGNESIUM 2.1 mg/dL (1.8-2.4); PHOSPHORUS 2.2 mg/dL (2.5-4.9); POTASSIUM 3.3 mmol/L (3.5-5.1); SODIUM SERUM 144 mmol/L (136-145); UREA NITROGEN, BLOOD 23 mg/dL (7-18)
[2018-06-05 06:15] LABS: CHOLESTEROL 120 mg/dL (<200); HDL CHOLESTEROL 30 mg/dL (40-60); LDL 75 mg/dL (0-99); TRIGLYCERIDES 143 mg/dL (30-150)
[2018-06-05 08:00] VITALS: BP 130/54
[2018-06-05] MEDS ORDERED: MEROPENEM 500 MG in IV NS 0.9% 50 ML IV SCH ×4 (08:00)
[2018-06-05] MEDS: PANTOPRAZOLE 40 MG VIAL IV SCH (08:25)
[2018-06-05] MEDS: LEVETIRACETAM (500MG) 500 MG in IV NS 0.9% 100 ML IV SCH ×2 (08:25→20:00)
[2018-06-05] MEDS: SILVER SULFADIAZINE CREAM 400 GM JAR TP SCH ×3 (08:26→16:11)
[2018-06-05] MEDS: IV NS 0.9% 1,000 ML IV PRN (08:40)
[2018-06-05] MEDS: MEROPENEM 500 MG in IV NS 0.9% 100 ML IV SCH ×2 (08:54→20:31)
[2018-06-05] MEDS: POTASSIUM CL. PREMIX PERIPHER. 50 ML IV SCH ×2 (09:48→10:42)
[2018-06-05] MEDS: LINEZOLID RTU BAG 600 MG in PREMIX 1 EA IV SCH ×2 (10:40→22:50)
[2018-06-05 12:00] VITALS: BP 125/62
[2018-06-05 16:00] VITALS: BP 132/51
[2018-06-05 20:00] VITALS: BP 152/71
[2018-06-05] MEDS ORDERED: HYDROMORPHONE INJ 0.5 MG/0.5 ML SYRINGE ONE (20:15)
[2018-06-05] MEDS ORDERED: PROPOFOL 0 ML IV ONE (20:35)
[2018-06-05] MEDS: ENOXAPARIN SODIUM 40 MG/0.4 ML DISP.SYRIN SQ SCH (21:39)
[2018-06-06 00:08] VITALS: BP 117/57
[2018-06-06] MEDS: IV NS 0.9% 1,000 ML IV PRN (02:40)
[2018-06-06 04:00] VITALS: BP 126/52
[2018-06-06 08:00] VITALS: BP 123/73
[2018-06-06 08:12] LABS: BASOPHILS % (AUTO) 0.5 % (0.0-2.0); EOSINOPHILS % (AUTO) 14.6 % (0.0-6.0); HEMATOCRIT 33 % (33-45); HEMOGLOBIN 11.1 g/dL (11.5-14.8); LYMPHOCYTES % (AUTO) 17.9 % (20.0-44.0); MEAN CORPUSCULAR HGB CONC 34 g/dl (31.0-36.0); MEAN CORPUSCULAR VOLUME 96 fL (82-100); MONOCYTES # (AUTO) 0.5 /CMM (0.1-1.30); MONOCYTES % (AUTO) 9.4 % (2.0-12.0); NEUTROPHILS # (AUTO) 3.2 /CMM (1.8-8.9); NEUTROPHILS % (AUTO) 57.6 % (43.0-81.0); PLATELET COUNT (AUTO) 312 /CMM (150-450); WHITE BLOOD COUNT (AUTO) 5.6 K/uL (4.3-11.0)
[2018-06-06 08:27] LABS: CALCIUM, SERUM 8.5 mg/dL (8.5-10.1); CARBON DIOXIDE 23 mmol/L (21-32); CHLORIDE 114 mmol/L (98-107); CREATININE 0.7 mg/dL (0.6-1.3); GLUCOSE 106 mg/dL (74-106); POTASSIUM 3.4 mmol/L (3.5-5.1); SODIUM SERUM 146 mmol/L (136-145); UREA NITROGEN, BLOOD 15 mg/dL (7-18)
[2018-06-06] MEDS: LEVETIRACETAM (500MG) 500 MG in IV NS 0.9% 100 ML IV SCH ×2 (08:30→21:31)
[2018-06-06] MEDS: MEROPENEM 500 MG in IV NS 0.9% 100 ML IV SCH ×2 (08:30→20:16)
[2018-06-06] MEDS: PANTOPRAZOLE 40 MG VIAL IV SCH (08:30)
[2018-06-06] MEDS: SILVER SULFADIAZINE CREAM 400 GM JAR TP SCH ×3 (08:48→16:24)
[2018-06-06] MEDS: LINEZOLID RTU BAG 600 MG in PREMIX 1 EA IV SCH ×2 (09:41→22:16)
[2018-06-06 12:00] VITALS: BP 131/68
[2018-06-06] MEDS: IV 1/2NS 1000 ML 1,000 ML IV PRN (13:28)
[2018-06-06] MEDS: POTASSIUM CL. PREMIX PERIPHER. 50 ML IV SCH ×2 (13:47→14:49)
[2018-06-06 16:00] VITALS: BP 144/70
[2018-06-06 20:00] VITALS: BP 132/54
[2018-06-06] MEDS: ENOXAPARIN SODIUM 40 MG/0.4 ML DISP.SYRIN SQ SCH ×2 (21:00→21:34)
[2018-06-07] VITALS (9 sets, daily range): BP systolic 107–144; BP diastolic 50–101
[2018-06-07] MEDS: IV 1/2NS 1000 ML 1,000 ML IV PRN ×2 (01:15→15:37)
[2018-06-07 07:08] LABS: CALCIUM, SERUM 8.5 mg/dL (8.5-10.1); CARBON DIOXIDE 22 mmol/L (21-32); CHLORIDE 111 mmol/L (98-107); CREATININE 0.6 mg/dL (0.6-1.3); GLUCOSE 107 mg/dL (74-106); POTASSIUM 3.8 mmol/L (3.5-5.1); SODIUM SERUM 144 mmol/L (136-145); UREA NITROGEN, BLOOD 8 mg/dL (7-18)
[2018-06-07] MEDS: MEROPENEM 500 MG in IV NS 0.9% 100 ML IV SCH ×2 (08:04→20:00)
[2018-06-07] MEDS: PANTOPRAZOLE 40 MG VIAL IV SCH (08:20)
[2018-06-07] MEDS: SILVER SULFADIAZINE CREAM 400 GM JAR TP SCH ×3 (08:23→16:41)
[2018-06-07] MEDS: LEVETIRACETAM (500MG) 500 MG in IV NS 0.9% 100 ML IV SCH ×2 (08:30→20:00)
[2018-06-07] MEDS: LINEZOLID RTU BAG 600 MG in PREMIX 1 EA IV SCH ×2 (09:37→21:03)
[2018-06-07] MEDS: ENOXAPARIN SODIUM 40 MG/0.4 ML DISP.SYRIN SQ SCH (21:02)
[2018-06-08] VITALS: BP_SYST 112; BP_SYST 129; BP_DIAS 50; BP_DIAS 58
[2018-06-08 04:00] VITALS: BP 112/58
[2018-06-08] MEDS: ACETAMINOPHEN 650 MG/SUPP.RECT RC PRN (04:10)
[2018-06-08] MEDS ORDERED: HYDROMORPHONE 1 MG/1 ML DISP.SYRIN IV ONE (04:30)
[2018-06-08] MEDS: IV 1/2NS 1000 ML 1,000 ML IV PRN ×2 (05:49→18:45)
[2018-06-08 08:00] VITALS: BP 137/78
[2018-06-08] MEDS: MEROPENEM 500 MG in IV NS 0.9% 100 ML IV SCH ×2 (08:09→19:34)
[2018-06-08] MEDS: PANTOPRAZOLE 40 MG VIAL IV SCH (08:09)
[2018-06-08] MEDS: SILVER SULFADIAZINE CREAM 400 GM JAR TP SCH ×3 (08:11→17:19)
[2018-06-08] MEDS: LEVETIRACETAM (500MG) 500 MG in IV NS 0.9% 100 ML IV SCH (09:44)
[2018-06-08] MEDS: LINEZOLID RTU BAG 600 MG in PREMIX 1 EA IV SCH ×2 (10:28→21:55)
[2018-06-08 12:00] VITALS: BP 142/72
[2018-06-08] MEDS ORDERED: LEVETIRACETAM (500MG) 750 MG in IV NS 0.9% 100 ML IV ONE (13:00)
[2018-06-08 16:00] VITALS: BP 116/71
[2018-06-08 20:00] VITALS: BP_SYST 108; BP_SYST 98; BP_DIAS 58; BP_DIAS 62
[2018-06-08] MEDS: LEVETIRACETAM (500MG) 750 MG in IV NS 0.9% 100 ML IV SCH (20:25)
[2018-06-08] MEDS: ENOXAPARIN SODIUM 40 MG/0.4 ML DISP.SYRIN SQ SCH (21:55)
[2018-06-09] VITALS: BP 111/66
[2018-06-09 04:00] VITALS: BP 122/91
[2018-06-09] MEDS: IV 1/2NS 1000 ML 1,000 ML IV PRN (06:16)
[2018-06-09 07:29] LABS: BASOPHILS % (AUTO) 0.3 % (0.0-2.0); EOSINOPHILS % (AUTO) 8.7 % (0.0-6.0); HEMATOCRIT 39 % (33-45); HEMOGLOBIN 13.1 g/dL (11.5-14.8); LYMPHOCYTES # (AUTO) 1.6 /CMM (0.8-4.8); LYMPHOCYTES % (AUTO) 25.5 % (20.0-44.0); MEAN CORPUSCULAR HGB CONC 33 g/dl (31.0-36.0); MEAN CORPUSCULAR VOLUME 94 fL (82-100); MONOCYTES % (AUTO) 15.7 % (2.0-12.0); NEUTROPHILS # (AUTO) 3.1 /CMM (1.8-8.9); NEUTROPHILS % (AUTO) 49.8 % (43.0-81.0); PLATELET COUNT (AUTO) 307 /CMM (150-450); RED BLOOD CELL COUNT(AUTO) 4.19 MIL/uL (4.0-5.2); WHITE BLOOD COUNT (AUTO) 6.2 K/uL (4.3-11.0)
[2018-06-09 07:31] LABS: CALCIUM, SERUM 8.3 mg/dL (8.5-10.1); CARBON DIOXIDE 21 mmol/L (21-32); CHLORIDE 106 mmol/L (98-107); CREATININE 0.6 mg/dL (0.6-1.3); GLUCOSE 106 mg/dL (74-106); POTASSIUM 3.1 mmol/L (3.5-5.1); SODIUM SERUM 137 mmol/L (136-145); UREA NITROGEN, BLOOD 5 mg/dL (7-18)
[2018-06-09 08:00] VITALS: BP 133/84
[2018-06-09] MEDS: PANTOPRAZOLE 40 MG VIAL IV SCH (08:24)
[2018-06-09] MEDS: MEROPENEM 500 MG in IV NS 0.9% 100 ML IV SCH ×2 (08:24→20:57)
[2018-06-09] MEDS: SILVER SULFADIAZINE CREAM 400 GM JAR TP SCH ×3 (08:41→17:02)
[2018-06-09] MEDS: LEVETIRACETAM (500MG) 750 MG in IV NS 0.9% 100 ML IV SCH ×2 (10:08→20:27)
[2018-06-09] MEDS: LINEZOLID RTU BAG 600 MG in PREMIX 1 EA IV SCH (11:05)
[2018-06-09 12:00] VITALS: BP 166/84
[2018-06-09] MEDS: POTASSIUM CL. PREMIX PERIPHER. 50 ML IV SCH ×4 (15:15→18:18)
[2018-06-09 16:00] VITALS: BP 158/75
[2018-06-09] MEDS ORDERED: PERMETHRIN 5% CRM 60 GM TUBE TP ONE (16:30)
[2018-06-09] MEDS ORDERED: IVERMECTIN 3 MG TABLET PO ONE (17:00)
[2018-06-09] MEDS: LORATADINE 10 MG TABLET PO SCH (17:02)
[2018-06-09] MEDS: GLUCERNA 1.2 1,000 ML BOTTLE PEG SCH (17:03)
[2018-06-09] MEDS: TRIAMCINOLONE ACETONIDE 0.5% 15 GM TUBE TP SCH (18:42)
[2018-06-09 20:00] VITALS: BP 152/88
[2018-06-09] MEDS: ENOXAPARIN SODIUM 40 MG/0.4 ML DISP.SYRIN SQ SCH (20:31)
[2018-06-09] MEDS: DOXYCYCLINE HYCLATE (100 MG) 100 MG TABLET PO SCH (20:33)
[2018-06-09] MEDS ORDERED: IV NS 0.9% 250 ML IV PRN (22:30)
[2018-06-09] MEDS: IV D5/0.45 NACL 1,000 ML IV PRN (23:28)
[2018-06-09] MEDS: BLOOD SUGAR DIAGNOSTIC 1 EACH STRIP IN SCH (23:36)
[2018-06-10] VITALS (7 sets, daily range): BP systolic 104–135; BP diastolic 46–84
[2018-06-10] MEDS ORDERED: DEXTROSE 50%-WATER 50 ML DISP.SYRIN IV PRN
[2018-06-10] MEDS: BLOOD SUGAR DIAGNOSTIC 1 EACH STRIP IN SCH ×3 (06:31→17:26)
[2018-06-10] MEDS: INSULIN REGULAR, HUMAN 100 UNIT/ML 3 ML VIAL SQ PRN (06:36)
[2018-06-10 07:39] LABS: BASOPHILS % (AUTO) 0.4 % (0.0-2.0); EOSINOPHILS % (AUTO) 2.7 % (0.0-6.0); HEMATOCRIT 32 % (33-45); HEMOGLOBIN 11.1 g/dL (11.5-14.8); LYMPHOCYTES # (AUTO) 1.5 /CMM (0.8-4.8); LYMPHOCYTES % (AUTO) 14.1 % (20.0-44.0); MEAN CORPUSCULAR HGB CONC 35 g/dl (31.0-36.0); MEAN CORPUSCULAR VOLUME 93 fL (82-100); MONOCYTES # (AUTO) 0.9 /CMM (0.1-1.30); MONOCYTES % (AUTO) 8.8 % (2.0-12.0); NEUTROPHILS # (AUTO) 7.8 /CMM (1.8-8.9); PLATELET COUNT (AUTO) 227 /CMM (150-450); RED BLOOD CELL COUNT(AUTO) 3.46 MIL/uL (4.0-5.2); WHITE BLOOD COUNT (AUTO) 10.5 K/uL (4.3-11.0)
[2018-06-10 07:41] LABS: CALCIUM, SERUM 7.8 mg/dL (8.5-10.1); CARBON DIOXIDE 22 mmol/L (21-32); CHLORIDE 110 mmol/L (98-107); CREATININE 0.6 mg/dL (0.6-1.3); GLUCOSE 136 mg/dL (74-106); POTASSIUM 3.5 mmol/L (3.5-5.1); SODIUM SERUM 143 mmol/L (136-145); UREA NITROGEN, BLOOD 5 mg/dL (7-18)
[2018-06-10] MEDS: DOXYCYCLINE HYCLATE (100 MG) 100 MG TABLET PO SCH ×2 (08:19→20:11)
[2018-06-10] MEDS: LORATADINE 10 MG TABLET PO SCH (08:19)
[2018-06-10] MEDS: MEROPENEM 500 MG in IV NS 0.9% 100 ML IV SCH ×2 (08:19→20:10)
[2018-06-10] MEDS: SILVER SULFADIAZINE CREAM 400 GM JAR TP SCH ×3 (08:20→17:26)
[2018-06-10] MEDS: TRIAMCINOLONE ACETONIDE 0.5% 15 GM TUBE TP SCH ×3 (08:20→17:26)
[2018-06-10] MEDS: PANTOPRAZOLE 40 MG VIAL IV SCH (08:42)
[2018-06-10] MEDS: LEVETIRACETAM (500MG) 750 MG in IV NS 0.9% 100 ML IV SCH (09:30)
[2018-06-10] MEDS: LACTOBACILLUS RHAMNOSUS GG 1 EACH CAP.SPRINK GT SCH (17:25)
[2018-06-10] MEDS: IV D5/0.45 NACL 1,000 ML IV PRN (17:25)
[2018-06-10] MEDS: LEVETIRACETAM SOL (5 ML) 100 MG/ML UDC GT SCH (20:11)
[2018-06-10] MEDS: ENOXAPARIN SODIUM 40 MG/0.4 ML DISP.SYRIN SQ SCH (20:15)
[2018-06-11] VITALS (7 sets, daily range): BP systolic 92–154; BP diastolic 70–88
[2018-06-11] MEDS: BLOOD SUGAR DIAGNOSTIC 1 EACH STRIP IN SCH ×4 (00:12→17:48)
[2018-06-11] MEDS: INSULIN REGULAR, HUMAN 100 UNIT/ML 3 ML VIAL SQ PRN ×2 (00:13→05:37)
[2018-06-11] MEDS: IV D5/0.45 NACL 1,000 ML IV PRN ×2 (06:09→20:57)
[2018-06-11 07:40] LABS: BASOPHILS % (AUTO) 0.6 % (0.0-2.0); EOSINOPHILS % (AUTO) 12.5 % (0.0-6.0); HEMATOCRIT 34 % (33-45); HEMOGLOBIN 11.7 g/dL (11.5-14.8); LYMPHOCYTES # (AUTO) 1.2 /CMM (0.8-4.8); LYMPHOCYTES % (AUTO) 21.2 % (20.0-44.0); MEAN CORPUSCULAR HGB CONC 34 g/dl (31.0-36.0); MEAN CORPUSCULAR VOLUME 92 fL (82-100); MONOCYTES # (AUTO) 0.6 /CMM (0.1-1.30); MONOCYTES % (AUTO) 11.1 % (2.0-12.0); NEUTROPHILS % (AUTO) 54.6 % (43.0-81.0); PLATELET COUNT (AUTO) 250 /CMM (150-450); RED BLOOD CELL COUNT(AUTO) 3.71 MIL/uL (4.0-5.2); WHITE BLOOD COUNT (AUTO) 5.5 K/uL (4.3-11.0)
[2018-06-11 07:44] LABS: CALCIUM, SERUM 8.1 mg/dL (8.5-10.1); CARBON DIOXIDE 23 mmol/L (21-32); CHLORIDE 110 mmol/L (98-107); CREATININE 0.6 mg/dL (0.6-1.3); GLUCOSE 124 mg/dL (74-106); SODIUM SERUM 146 mmol/L (136-145); UREA NITROGEN, BLOOD 4 mg/dL (7-18)
[2018-06-11] MEDS: MEROPENEM 500 MG in IV NS 0.9% 100 ML IV SCH ×2 (08:23→20:12)
[2018-06-11] MEDS: TRIAMCINOLONE ACETONIDE 0.5% 15 GM TUBE TP SCH ×3 (08:26→16:56)
[2018-06-11] MEDS: LORATADINE 10 MG TABLET PO SCH (08:26)
[2018-06-11] MEDS: PANTOPRAZOLE 40 MG VIAL IV SCH (08:26)
[2018-06-11] MEDS: LACTOBACILLUS RHAMNOSUS GG 1 EACH CAP.SPRINK GT SCH ×2 (08:26→17:22)
[2018-06-11] MEDS: DOXYCYCLINE HYCLATE (100 MG) 100 MG TABLET PO SCH ×2 (08:27→20:55)
[2018-06-11] MEDS: LEVETIRACETAM SOL (5 ML) 100 MG/ML UDC GT SCH ×2 (08:28→20:55)
[2018-06-11] MEDS: SILVER SULFADIAZINE CREAM 400 GM JAR TP SCH ×3 (08:35→16:56)
[2018-06-11] MEDS: ENOXAPARIN SODIUM 40 MG/0.4 ML DISP.SYRIN SQ SCH (20:55)
[2018-06-12] VITALS (7 sets, daily range): BP systolic 120–164; BP diastolic 74–100
[2018-06-12] MEDS: BLOOD SUGAR DIAGNOSTIC 1 EACH STRIP IN SCH ×4 (00:29→17:51)
[2018-06-12 07:23] LABS: BASOPHILS % (AUTO) 0.5 % (0.0-2.0); EOSINOPHILS % (AUTO) 13.2 % (0.0-6.0); HEMATOCRIT 39 % (33-45); HEMOGLOBIN 13.4 g/dL (11.5-14.8); LYMPHOCYTES # (AUTO) 1.2 /CMM (0.8-4.8); LYMPHOCYTES % (AUTO) 22.2 % (20.0-44.0); MEAN CORPUSCULAR HGB CONC 34 g/dl (31.0-36.0); MEAN CORPUSCULAR VOLUME 92 fL (82-100); MONOCYTES # (AUTO) 0.6 /CMM (0.1-1.30); NEUTROPHILS # (AUTO) 2.7 /CMM (1.8-8.9); NEUTROPHILS % (AUTO) 52.1 % (43.0-81.0); PLATELET COUNT (AUTO) 267 /CMM (150-450); RED BLOOD CELL COUNT(AUTO) 4.28 MIL/uL (4.0-5.2); WHITE BLOOD COUNT (AUTO) 5.2 K/uL (4.3-11.0)
[2018-06-12 07:48] LABS: CALCIUM, SERUM 8.5 mg/dL (8.5-10.1); CARBON DIOXIDE 26 mmol/L (21-32); CHLORIDE 109 mmol/L (98-107); CREATININE 0.7 mg/dL (0.6-1.3); GLUCOSE 116 mg/dL (74-106); POTASSIUM 3.1 mmol/L (3.5-5.1); SODIUM SERUM 147 mmol/L (136-145); UREA NITROGEN, BLOOD 3 mg/dL (7-18)
[2018-06-12] MEDS: SILVER SULFADIAZINE CREAM 400 GM JAR TP SCH ×3 (09:00→17:50)
[2018-06-12] MEDS: LACTOBACILLUS RHAMNOSUS GG 1 EACH CAP.SPRINK GT SCH ×2 (09:00→17:00)
[2018-06-12] MEDS: LORATADINE 10 MG TABLET PO SCH (09:00)
[2018-06-12] MEDS: TRIAMCINOLONE ACETONIDE 0.5% 15 GM TUBE TP SCH ×3 (09:00→17:50)
[2018-06-12] MEDS: LEVETIRACETAM SOL (5 ML) 100 MG/ML UDC GT SCH ×2 (09:00→20:39)
[2018-06-12] MEDS: DOXYCYCLINE HYCLATE (100 MG) 100 MG TABLET PO SCH ×2 (09:00→20:50)
[2018-06-12] MEDS ORDERED: POTASSIUM CHLORIDE 20 MEQ TAB.PRT.SR PO SCH (10:30)
[2018-06-12] MEDS: POTASSIUM CHLORIDE 20 MEQ POWDER PACKET PO SCH ×2 (10:30→11:30)
[2018-06-12] MEDS ORDERED: DIATR MEGLU/DIATRIZOATE SODIUM 30 ML BOTTLE (GASTROGRAPHIN) ONE (10:54)
[2018-06-12] MEDS: PANTOPRAZOLE 40 MG VIAL IV SCH (14:22)
[2018-06-12] MEDS: POTASSIUM CL. PREMIX PERIPHER. 50 ML IV SCH ×4 (17:51→21:58)
[2018-06-12] MEDS: ENOXAPARIN SODIUM 40 MG/0.4 ML DISP.SYRIN SQ SCH (20:52)
[2018-06-13] VITALS (7 sets, daily range): BP systolic 120–135; BP diastolic 66–95
[2018-06-13] MEDS: BLOOD SUGAR DIAGNOSTIC 1 EACH STRIP IN SCH ×4 (00:24→18:30)
[2018-06-13] MEDS: INSULIN REGULAR, HUMAN 100 UNIT/ML 3 ML VIAL SQ PRN ×2 (00:25→05:19)
[2018-06-13] MEDS: IV D5/0.45 NACL 1,000 ML IV PRN (02:25)
[2018-06-13] MEDS: LACTOBACILLUS RHAMNOSUS GG 1 EACH CAP.SPRINK GT SCH ×2 (08:16→16:26)
[2018-06-13] MEDS: LORATADINE 10 MG TABLET PO SCH (08:16)
[2018-06-13] MEDS: LEVETIRACETAM SOL (5 ML) 100 MG/ML UDC GT SCH ×2 (08:16→21:00)
[2018-06-13] MEDS: DOXYCYCLINE HYCLATE (100 MG) 100 MG TABLET PO SCH ×2 (08:17→21:00)
[2018-06-13] MEDS: PANTOPRAZOLE 40 MG VIAL IV SCH (08:51)
[2018-06-13] MEDS: SILVER SULFADIAZINE CREAM 400 GM JAR TP SCH ×3 (09:00→16:27)
[2018-06-13] MEDS: TRIAMCINOLONE ACETONIDE 0.5% 15 GM TUBE TP SCH ×3 (09:00→16:26)
[2018-06-13 10:48] LABS: BASOPHILS % (AUTO) 0.7 % (0.0-2.0); EOSINOPHILS % (AUTO) 11.4 % (0.0-6.0); HEMATOCRIT 32 % (33-45); HEMOGLOBIN 11.2 g/dL (11.5-14.8); LYMPHOCYTES # (AUTO) 1.1 /CMM (0.8-4.8); LYMPHOCYTES % (AUTO) 23.1 % (20.0-44.0); MEAN CORPUSCULAR HGB CONC 35 g/dl (31.0-36.0); MEAN CORPUSCULAR VOLUME 91 fL (82-100); MONOCYTES # (AUTO) 0.7 /CMM (0.1-1.30); MONOCYTES % (AUTO) 14.1 % (2.0-12.0); NEUTROPHILS # (AUTO) 2.3 /CMM (1.8-8.9); NEUTROPHILS % (AUTO) 50.7 % (43.0-81.0); PLATELET COUNT (AUTO) 237 /CMM (150-450); RED BLOOD CELL COUNT(AUTO) 3.53 MIL/uL (4.0-5.2); WHITE BLOOD COUNT (AUTO) 4.6 K/uL (4.3-11.0)
[2018-06-13 11:02] LABS: CALCIUM, SERUM 7.9 mg/dL (8.5-10.1); CARBON DIOXIDE 26 mmol/L (21-32); CHLORIDE 110 mmol/L (98-107); CREATININE 0.6 mg/dL (0.6-1.3); GLUCOSE 143 mg/dL (74-106); SODIUM SERUM 146 mmol/L (136-145); UREA NITROGEN, BLOOD 2 mg/dL (7-18)
[2018-06-13] MEDS ORDERED: POTASSIUM CHLORIDE 10 MEQ/50 ML PREMIXED IVPB FOR PERIPHERAL LINE IV ONE (16:30)
[2018-06-13] MEDS: ENOXAPARIN SODIUM 40 MG/0.4 ML DISP.SYRIN SQ SCH (22:25)
[2018-06-13] MEDS ORDERED: LEVETIRACETAM (500MG) 500 MG/5 ML VIAL IV ONE ×2 (23:56→23:58)
[2018-06-14] VITALS: BP 128/96
[2018-06-14] MEDS: LEVETIRACETAM (500MG) 750 MG in IV NS 0.9% 100 ML IV SCH ×3 (00:20→20:33)
[2018-06-14] MEDS: BLOOD SUGAR DIAGNOSTIC 1 EACH STRIP IN SCH ×4 (01:39→17:09)
[2018-06-14 04:00] VITALS: BP 137/83
[2018-06-14] MEDS: IV D5/0.45 NACL 1,000 ML IV PRN ×2 (04:46→17:43)
[2018-06-14 07:07] LABS: BASOPHILS % (AUTO) 0.7 % (0.0-2.0); HEMATOCRIT 37 % (33-45); HEMOGLOBIN 12.7 g/dL (11.5-14.8); LYMPHOCYTES # (AUTO) 1.2 /CMM (0.8-4.8); LYMPHOCYTES % (AUTO) 28.7 % (20.0-44.0); MEAN CORPUSCULAR HGB CONC 34 g/dl (31.0-36.0); MEAN CORPUSCULAR VOLUME 93 fL (82-100); MONOCYTES # (AUTO) 0.5 /CMM (0.1-1.30); MONOCYTES % (AUTO) 12.5 % (2.0-12.0); NEUTROPHILS # (AUTO) 1.8 /CMM (1.8-8.9); NEUTROPHILS % (AUTO) 44.1 % (43.0-81.0); PLATELET COUNT (AUTO) 231 /CMM (150-450); RED BLOOD CELL COUNT(AUTO) 4.04 MIL/uL (4.0-5.2); WHITE BLOOD COUNT (AUTO) 4.1 K/uL (4.3-11.0)
[2018-06-14 07:24] LABS: CALCIUM, SERUM 8.4 mg/dL (8.5-10.1); CARBON DIOXIDE 23 mmol/L (21-32); CHLORIDE 110 mmol/L (98-107); CREATININE 0.6 mg/dL (0.6-1.3); GLUCOSE 136 mg/dL (74-106); POTASSIUM 3.4 mmol/L (3.5-5.1); SODIUM SERUM 146 mmol/L (136-145); UREA NITROGEN, BLOOD 2 mg/dL (7-18)
[2018-06-14 08:00] VITALS: BP 147/75
[2018-06-14] MEDS: LACTOBACILLUS RHAMNOSUS GG 1 EACH CAP.SPRINK GT SCH ×2 (08:23→17:08)
[2018-06-14] MEDS ORDERED: ANESTHESIA TRAY IN PYXIS 1 EA TRAY MC ONE (08:23)
[2018-06-14] MEDS: LORATADINE 10 MG TABLET PO SCH (08:24)
[2018-06-14] MEDS: PANTOPRAZOLE 40 MG VIAL IV SCH (08:24)
[2018-06-14] MEDS: DOXYCYCLINE HYCLATE (100 MG) 100 MG TABLET PO SCH ×2 (08:24→20:33)
[2018-06-14] MEDS: SILVER SULFADIAZINE CREAM 400 GM JAR TP SCH ×3 (08:28→17:09)
[2018-06-14] MEDS: TRIAMCINOLONE ACETONIDE 0.5% 15 GM TUBE TP SCH ×3 (08:28→17:09)
[2018-06-14] MEDS ORDERED: CLINDAMYCIN 900 MG/6 ML VIAL ONE (08:46)
[2018-06-14] MEDS: POTASSIUM CL. PREMIX PERIPHER. 50 ML IV SCH ×2 (10:30→12:29)
[2018-06-14 12:00] VITALS: BP 118/69
[2018-06-14 16:00] VITALS: BP 151/90
[2018-06-14 20:00] VITALS: BP 111/87
[2018-06-14] MEDS: ENOXAPARIN SODIUM 40 MG/0.4 ML DISP.SYRIN SQ SCH (20:34)
[2018-06-15] VITALS: BP 118/83
[2018-06-15] MEDS: BLOOD SUGAR DIAGNOSTIC 1 EACH STRIP IN SCH ×4 (00:43→17:28)
[2018-06-15] MEDS: INSULIN REGULAR, HUMAN 100 UNIT/ML 3 ML VIAL SQ PRN (00:44)
[2018-06-15 04:00] VITALS: BP 144/79
[2018-06-15] MEDS: IV D5/0.45 NACL 1,000 ML IV PRN (05:54)
[2018-06-15 07:01] LABS: BASOPHILS % (AUTO) 0.7 % (0.0-2.0); EOSINOPHILS % (AUTO) 12.1 % (0.0-6.0); HEMATOCRIT 38 % (33-45); HEMOGLOBIN 12.7 g/dL (11.5-14.8); LYMPHOCYTES # (AUTO) 1.9 /CMM (0.8-4.8); LYMPHOCYTES % (AUTO) 27.4 % (20.0-44.0); MEAN CORPUSCULAR HGB CONC 34 g/dl (31.0-36.0); MEAN CORPUSCULAR VOLUME 94 fL (82-100); MONOCYTES % (AUTO) 14.2 % (2.0-12.0); NEUTROPHILS # (AUTO) 3.1 /CMM (1.8-8.9); NEUTROPHILS % (AUTO) 45.6 % (43.0-81.0); PLATELET COUNT (AUTO) 254 /CMM (150-450); RED BLOOD CELL COUNT(AUTO) 4.03 MIL/uL (4.0-5.2); WHITE BLOOD COUNT (AUTO) 6.9 K/uL (4.3-11.0)
[2018-06-15 07:26] LABS: CALCIUM, SERUM 8.3 mg/dL (8.5-10.1); CARBON DIOXIDE 25 mmol/L (21-32); CHLORIDE 110 mmol/L (98-107); CREATININE 0.6 mg/dL (0.6-1.3); GLUCOSE 113 mg/dL (74-106); MAGNESIUM 1.4 mg/dL (1.8-2.4); PHOSPHORUS 3.1 mg/dL (2.5-4.9); POTASSIUM 3.5 mmol/L (3.5-5.1); SODIUM SERUM 147 mmol/L (136-145); UREA NITROGEN, BLOOD 3 mg/dL (7-18)
[2018-06-15 08:00] VITALS: BP_SYST 135; BP_DIAS 104; BP_DIAS 90
[2018-06-15] MEDS: DOXYCYCLINE HYCLATE (100 MG) 100 MG TABLET PO SCH ×2 (08:17→20:57)
[2018-06-15] MEDS: PANTOPRAZOLE 40 MG VIAL IV SCH (08:17)
[2018-06-15] MEDS: LORATADINE 10 MG TABLET PO SCH (08:17)
[2018-06-15] MEDS: LACTOBACILLUS RHAMNOSUS GG 1 EACH CAP.SPRINK GT SCH ×2 (08:17→17:28)
[2018-06-15] MEDS: TRIAMCINOLONE ACETONIDE 0.5% 15 GM TUBE TP SCH ×3 (08:18→17:38)
[2018-06-15] MEDS: SILVER SULFADIAZINE CREAM 400 GM JAR TP SCH ×3 (08:18→17:39)
[2018-06-15 12:00] VITALS: BP_SYST 103; BP_SYST 141; BP_DIAS 77; BP_DIAS 88
[2018-06-15] MEDS: LEVETIRACETAM SOL (5 ML) 100 MG/ML UDC GT SCH ×2 (13:31→20:57)
[2018-06-15] MEDS: Magnesium 1GM/D5W 100ML PREMIX 100 ML IV SCH ×4 (14:17→19:25)
[2018-06-15 16:00] VITALS: BP_SYST 145; BP_SYST 174; BP_DIAS 80; BP_DIAS 84
[2018-06-15 20:00] VITALS: BP 127/99
[2018-06-15] MEDS: ENOXAPARIN SODIUM 40 MG/0.4 ML DISP.SYRIN SQ SCH (20:59)
[2018-06-15] MEDS: Z GUARD REMEDY 2 OZ OINT TP SCH (21:07)
[2018-06-16] VITALS: BP 132/58
[2018-06-16] MEDS: BLOOD SUGAR DIAGNOSTIC 1 EACH STRIP IN SCH ×4 (00:27→18:46)
[2018-06-16] MEDS: INSULIN REGULAR, HUMAN 100 UNIT/ML 3 ML VIAL SQ PRN (00:28)
[2018-06-16] MEDS: IV D5/0.45 NACL 1,000 ML IV PRN ×2 (03:48→15:41)
[2018-06-16 04:00] VITALS: BP 147/97
[2018-06-16 07:48] LABS: CALCIUM, SERUM 8.4 mg/dL (8.5-10.1); CARBON DIOXIDE 25 mmol/L (21-32); CHLORIDE 110 mmol/L (98-107); CREATININE 0.6 mg/dL (0.6-1.3); GLUCOSE 127 mg/dL (74-106); MAGNESIUM 2.4 mg/dL (1.8-2.4); POTASSIUM 3.7 mmol/L (3.5-5.1); SODIUM SERUM 146 mmol/L (136-145); UREA NITROGEN, BLOOD 3 mg/dL (7-18)
[2018-06-16 08:00] VITALS: BP 131/69
[2018-06-16 08:39] LABS: APPEARANCE,URINE CLOUDY (CLEAR); BILIRUBIN,URINE NEGATIVE (NEGATIVE); BLOOD, URINE 1+ Ery/uL (NEGATIVE); COLOR,URINE YELLOW (YELLOW); KETONES,URINE NEGATIVE (NEGATIVE); LEUKOCYTE ESTERASE ,URINE 3+ (NEGATIVE); NITRITE, URINE NEGATIVE (NEGATIVE); PROTEIN,URINE NEGATIVE (NEGATIVE); UGLUCOSE NEGATIVE (NEGATIVE); UROBILINOGEN,URINE 0.2 EU/dL (0.2)
[2018-06-16] MEDS: PANTOPRAZOLE 40 MG VIAL IV SCH (09:03)
[2018-06-16] MEDS: LEVETIRACETAM SOL (5 ML) 100 MG/ML UDC GT SCH ×2 (09:03→21:28)
[2018-06-16] MEDS: DOXYCYCLINE HYCLATE (100 MG) 100 MG TABLET PO SCH ×2 (09:03→21:28)
[2018-06-16] MEDS: LACTOBACILLUS RHAMNOSUS GG 1 EACH CAP.SPRINK GT SCH ×2 (09:03→16:48)
[2018-06-16] MEDS: LORATADINE 10 MG TABLET PO SCH (09:03)
[2018-06-16 09:21] LABS: BACTERIA,URINE Moderate /HPF (None Seen); SQUAMOUS EPITHELIAL CELL,UR Few /HPF (None Seen)
[2018-06-16 09:22] LABS: WBC,URINE 21-50 /HPF (0-3)
[2018-06-16] MEDS: SILVER SULFADIAZINE CREAM 400 GM JAR TP SCH ×3 (09:22→16:48)
[2018-06-16] MEDS: TRIAMCINOLONE ACETONIDE 0.5% 15 GM TUBE TP SCH ×3 (09:22→16:48)
[2018-06-16] MEDS: Z GUARD REMEDY 2 OZ OINT TP SCH ×2 (09:23→21:31)
[2018-06-16 12:00] VITALS: BP 162/79
[2018-06-16] MEDS: ACETAMINOPHEN 650 MG/SUPP.RECT RC PRN (13:00)
[2018-06-16] MEDS ORDERED: DOXY100T2 PO (13:21)
[2018-06-16] MEDS ORDERED: IVER3TAB GT (13:21)
[2018-06-16] MEDS ORDERED: TRIA15CR2 TP (13:21)
[2018-06-16 16:00] VITALS: BP 165/83
[2018-06-16] MEDS: hydrALAZINE HCL IV 20 MG VIAL IV PRN (16:45)
[2018-06-16 20:00] VITALS: BP 128/71
[2018-06-16] MEDS: ENOXAPARIN SODIUM 40 MG/0.4 ML DISP.SYRIN SQ SCH (21:29)
[2018-06-17] VITALS: BP 123/65
[2018-06-17] MEDS: BLOOD SUGAR DIAGNOSTIC 1 EACH STRIP IN SCH ×4 (00:48→17:01)
[2018-06-17] MEDS: IV D5/0.45 NACL 1,000 ML IV PRN ×2 (01:59→17:11)
[2018-06-17 04:00] VITALS: BP 134/70
[2018-06-17 07:35] LABS: BASOPHILS % (AUTO) 0.7 % (0.0-2.0); EOSINOPHILS % (AUTO) 13.4 % (0.0-6.0); HEMATOCRIT 35 % (33-45); LYMPHOCYTES # (AUTO) 1.4 /CMM (0.8-4.8); LYMPHOCYTES % (AUTO) 26.6 % (20.0-44.0); MEAN CORPUSCULAR HGB CONC 34 g/dl (31.0-36.0); MEAN CORPUSCULAR VOLUME 92 fL (82-100); MONOCYTES # (AUTO) 0.6 /CMM (0.1-1.30); MONOCYTES % (AUTO) 11.8 % (2.0-12.0); NEUTROPHILS # (AUTO) 2.5 /CMM (1.8-8.9); NEUTROPHILS % (AUTO) 47.5 % (43.0-81.0); PLATELET COUNT (AUTO) 286 /CMM (150-450); RED BLOOD CELL COUNT(AUTO) 3.83 MIL/uL (4.0-5.2); WHITE BLOOD COUNT (AUTO) 5.2 K/uL (4.3-11.0)
[2018-06-17 07:37] LABS: CALCIUM, SERUM 8.3 mg/dL (8.5-10.1); CARBON DIOXIDE 26 mmol/L (21-32); CHLORIDE 109 mmol/L (98-107); CREATININE 0.6 mg/dL (0.6-1.3); GLUCOSE 144 mg/dL (74-106); MAGNESIUM 1.8 mg/dL (1.8-2.4); POTASSIUM 2.9 mmol/L (3.5-5.1); SODIUM SERUM 145 mmol/L (136-145); UREA NITROGEN, BLOOD 4 mg/dL (7-18)
[2018-06-17 08:00] VITALS: BP 153/82
[2018-06-17] MEDS: SILVER SULFADIAZINE CREAM 400 GM JAR TP SCH ×3 (09:00→16:32)
[2018-06-17] MEDS: DOXYCYCLINE HYCLATE (100 MG) 100 MG TABLET PO SCH (10:12)
[2018-06-17] MEDS: LEVETIRACETAM SOL (5 ML) 100 MG/ML UDC GT SCH (10:12)
[2018-06-17] MEDS: LORATADINE 10 MG TABLET PO SCH (10:12)
[2018-06-17] MEDS: LACTOBACILLUS RHAMNOSUS GG 1 EACH CAP.SPRINK GT SCH ×2 (10:12→16:32)
[2018-06-17] MEDS: PANTOPRAZOLE 40 MG VIAL IV SCH (10:12)
[2018-06-17] MEDS: TRIAMCINOLONE ACETONIDE 0.5% 15 GM TUBE TP SCH ×3 (10:22→16:32)
[2018-06-17] MEDS: Z GUARD REMEDY 2 OZ OINT TP SCH ×2 (10:24→21:06)
[2018-06-17] MEDS: POTASSIUM CL. PREMIX PERIPHER. 50 ML IV SCH ×6 (11:05→17:01)
[2018-06-17 12:00] VITALS: BP 180/82
[2018-06-17] MEDS: hydrALAZINE HCL IV 20 MG VIAL IV PRN (12:27)
[2018-06-17 16:00] VITALS: BP 133/75
[2018-06-17 20:00] VITALS: BP 147/69
[2018-06-17] MEDS: ENOXAPARIN SODIUM 40 MG/0.4 ML DISP.SYRIN SQ SCH (21:02)
[2018-06-17] MEDS: DOXYCYCLINE 100 MG in IV D5W 100 ML IV SCH (21:03)
[2018-06-17] MEDS: LEVETIRACETAM (500MG) 750 MG in IV NS 0.9% 100 ML IV SCH (21:03)
[2018-06-18] VITALS: BP 135/59
[2018-06-18] MEDS: BLOOD SUGAR DIAGNOSTIC 1 EACH STRIP IN SCH ×5 (00:49→23:20)
[2018-06-18 04:00] VITALS: BP 123/51
[2018-06-18 07:55] LABS: CALCIUM, SERUM 8.5 mg/dL (8.5-10.1); CARBON DIOXIDE 23 mmol/L (21-32); CHLORIDE 111 mmol/L (98-107); CREATININE 0.6 mg/dL (0.6-1.3); GLUCOSE 121 mg/dL (74-106); MAGNESIUM 1.7 mg/dL (1.8-2.4); PHOSPHORUS 2.8 mg/dL (2.5-4.9); POTASSIUM 3.8 mmol/L (3.5-5.1); SODIUM SERUM 144 mmol/L (136-145); UREA NITROGEN, BLOOD 5 mg/dL (7-18)
[2018-06-18 08:00] VITALS: BP 170/67
[2018-06-18 08:08] LABS: EOSINOPHILS % (AUTO) 13.6 % (0.0-6.0); HEMATOCRIT 35 % (33-45); HEMOGLOBIN 12.2 g/dL (11.5-14.8); LYMPHOCYTES # (AUTO) 1.6 /CMM (0.8-4.8); LYMPHOCYTES % (AUTO) 31.3 % (20.0-44.0); MEAN CORPUSCULAR HGB CONC 34 g/dl (31.0-36.0); MEAN CORPUSCULAR VOLUME 93 fL (82-100); MONOCYTES # (AUTO) 0.6 /CMM (0.1-1.30); MONOCYTES % (AUTO) 12.2 % (2.0-12.0); NEUTROPHILS # (AUTO) 2.1 /CMM (1.8-8.9); NEUTROPHILS % (AUTO) 41.9 % (43.0-81.0); PLATELET COUNT (AUTO) 283 /CMM (150-450); RED BLOOD CELL COUNT(AUTO) 3.82 MIL/uL (4.0-5.2)
[2018-06-18] MEDS: LACTOBACILLUS RHAMNOSUS GG 1 EACH CAP.SPRINK GT SCH ×2 (08:52→16:40)
[2018-06-18] MEDS: LEVETIRACETAM (500MG) 750 MG in IV NS 0.9% 100 ML IV SCH ×2 (08:52→21:10)
[2018-06-18] MEDS: PANTOPRAZOLE 40 MG VIAL IV SCH (08:53)
[2018-06-18] MEDS: LORATADINE 10 MG TABLET PO SCH (08:53)
[2018-06-18] MEDS: SILVER SULFADIAZINE CREAM 400 GM JAR TP SCH ×3 (08:53→16:40)
[2018-06-18] MEDS: TRIAMCINOLONE ACETONIDE 0.5% 15 GM TUBE TP SCH ×3 (09:01→16:40)
[2018-06-18] MEDS: Z GUARD REMEDY 2 OZ OINT TP SCH ×2 (09:01→21:12)
[2018-06-18] MEDS: DOXYCYCLINE 100 MG in IV D5W 100 ML IV SCH ×2 (09:51→21:10)
[2018-06-18] MEDS: Magnesium 1GM/D5W 100ML PREMIX 100 ML IV SCH ×2 (11:40→12:41)
[2018-06-18 12:00] VITALS: BP 132/77
[2018-06-18 16:00] VITALS: BP 122/80
[2018-06-18 20:00] VITALS: BP 155/89
[2018-06-18] MEDS: IV D5/0.45 NACL 1,000 ML IV PRN (21:10)
[2018-06-18] MEDS: ENOXAPARIN SODIUM 40 MG/0.4 ML DISP.SYRIN SQ SCH (21:11)
[2018-06-19] VITALS: BP 157/87
[2018-06-19 04:00] VITALS: BP 148/74
[2018-06-19] MEDS: BLOOD SUGAR DIAGNOSTIC 1 EACH STRIP IN SCH ×3 (06:00→18:07)
[2018-06-19 07:37] LABS: BASOPHILS # (AUTO) 0.1 /CMM (0.0-0.2); EOSINOPHILS % (AUTO) 18.3 % (0.0-6.0); HEMATOCRIT 39 % (33-45); HEMOGLOBIN 13.1 g/dL (11.5-14.8); LYMPHOCYTES # (AUTO) 1.5 /CMM (0.8-4.8); LYMPHOCYTES % (AUTO) 29.2 % (20.0-44.0); MEAN CORPUSCULAR HGB CONC 34 g/dl (31.0-36.0); MEAN CORPUSCULAR VOLUME 93 fL (82-100); MONOCYTES # (AUTO) 0.6 /CMM (0.1-1.30); MONOCYTES % (AUTO) 10.9 % (2.0-12.0); NEUTROPHILS # (AUTO) 2.1 /CMM (1.8-8.9); NEUTROPHILS % (AUTO) 40.6 % (43.0-81.0); PLATELET COUNT (AUTO) 292 /CMM (150-450); RED BLOOD CELL COUNT(AUTO) 4.24 MIL/uL (4.0-5.2); WHITE BLOOD COUNT (AUTO) 5.2 K/uL (4.3-11.0)
[2018-06-19 08:00] VITALS: BP 158/72
[2018-06-19 08:01] LABS: CALCIUM, SERUM 8.7 mg/dL (8.5-10.1); CARBON DIOXIDE 23 mmol/L (21-32); CHLORIDE 109 mmol/L (98-107); CREATININE 0.6 mg/dL (0.6-1.3); GLUCOSE 113 mg/dL (74-106); MAGNESIUM 1.9 mg/dL (1.8-2.4); PHOSPHORUS 3.1 mg/dL (2.5-4.9); POTASSIUM 3.7 mmol/L (3.5-5.1); SODIUM SERUM 144 mmol/L (136-145); UREA NITROGEN, BLOOD 4 mg/dL (7-18)
[2018-06-19] MEDS: LACTOBACILLUS RHAMNOSUS GG 1 EACH CAP.SPRINK GT SCH ×2 (09:00→17:00)
[2018-06-19] MEDS: LORATADINE 10 MG TABLET PO SCH (09:00)
[2018-06-19] MEDS: LEVETIRACETAM (500MG) 750 MG in IV NS 0.9% 100 ML IV SCH ×2 (09:21→22:49)
[2018-06-19] MEDS: PANTOPRAZOLE 40 MG VIAL IV SCH (09:21)
[2018-06-19] MEDS: IV D5/0.45 NACL 1,000 ML IV PRN ×2 (09:21→22:49)
[2018-06-19] MEDS: Z GUARD REMEDY 2 OZ OINT TP SCH ×2 (09:26→22:52)
[2018-06-19] MEDS: SILVER SULFADIAZINE CREAM 400 GM JAR TP SCH ×3 (09:27→17:04)
[2018-06-19] MEDS: TRIAMCINOLONE ACETONIDE 0.5% 15 GM TUBE TP SCH ×3 (09:27→17:04)
[2018-06-19] MEDS: DOXYCYCLINE 100 MG in IV D5W 100 ML IV SCH ×2 (10:56→22:49)
[2018-06-19 12:00] VITALS: BP 156/83
[2018-06-19 16:00] VITALS: BP 157/80
[2018-06-19 20:00] VITALS: BP 159/79
[2018-06-19] MEDS: ENOXAPARIN SODIUM 40 MG/0.4 ML DISP.SYRIN SQ SCH (22:51)
[2018-06-20] VITALS: BP 176/93
[2018-06-20] MEDS: hydrALAZINE HCL IV 20 MG VIAL IV PRN (00:09)
[2018-06-20] MEDS: BLOOD SUGAR DIAGNOSTIC 1 EACH STRIP IN SCH ×5 (00:09→23:24)
[2018-06-20 04:00] VITALS: BP 141/84
[2018-06-20 07:46] LABS: BASOPHILS % (AUTO) 0.9 % (0.0-2.0); EOSINOPHILS % (AUTO) 13.6 % (0.0-6.0); HEMATOCRIT 37 % (33-45); HEMOGLOBIN 12.6 g/dL (11.5-14.8); LYMPHOCYTES # (AUTO) 1.3 /CMM (0.8-4.8); LYMPHOCYTES % (AUTO) 24.3 % (20.0-44.0); MEAN CORPUSCULAR HGB CONC 34 g/dl (31.0-36.0); MEAN CORPUSCULAR VOLUME 92 fL (82-100); MONOCYTES # (AUTO) 0.6 /CMM (0.1-1.30); MONOCYTES % (AUTO) 10.6 % (2.0-12.0); NEUTROPHILS # (AUTO) 2.7 /CMM (1.8-8.9); NEUTROPHILS % (AUTO) 50.6 % (43.0-81.0); PLATELET COUNT (AUTO) 296 /CMM (150-450); RED BLOOD CELL COUNT(AUTO) 4.08 MIL/uL (4.0-5.2); WHITE BLOOD COUNT (AUTO) 5.4 K/uL (4.3-11.0)
[2018-06-20 08:00] VITALS: BP 156/91
[2018-06-20 08:16] LABS: CALCIUM, SERUM 8.7 mg/dL (8.5-10.1); CARBON DIOXIDE 25 mmol/L (21-32); CHLORIDE 108 mmol/L (98-107); CREATININE 0.6 mg/dL (0.6-1.3); GLUCOSE 146 mg/dL (74-106); MAGNESIUM 1.7 mg/dL (1.8-2.4); PHOSPHORUS 3.1 mg/dL (2.5-4.9); POTASSIUM 3.3 mmol/L (3.5-5.1); SODIUM SERUM 144 mmol/L (136-145); UREA NITROGEN, BLOOD 4 mg/dL (7-18)
[2018-06-20] MEDS: PANTOPRAZOLE 40 MG VIAL IV SCH (08:41)
[2018-06-20] MEDS: SILVER SULFADIAZINE CREAM 400 GM JAR TP SCH ×3 (08:42→16:34)
[2018-06-20] MEDS: TRIAMCINOLONE ACETONIDE 0.5% 15 GM TUBE TP SCH ×3 (08:42→16:33)
[2018-06-20] MEDS: Z GUARD REMEDY 2 OZ OINT TP SCH ×2 (08:43→22:18)
[2018-06-20] MEDS: DOXYCYCLINE 100 MG in IV D5W 100 ML IV SCH (08:45)
[2018-06-20] MEDS: LORATADINE 10 MG TABLET PO SCH (08:50)
[2018-06-20] MEDS: LACTOBACILLUS RHAMNOSUS GG 1 EACH CAP.SPRINK GT SCH ×2 (08:50→16:34)
[2018-06-20] MEDS: LEVETIRACETAM (500MG) 750 MG in IV NS 0.9% 100 ML IV SCH ×2 (09:56→22:14)
[2018-06-20] MEDS: IV D5/0.45 NACL 1,000 ML IV PRN (10:32)
[2018-06-20] MEDS: POTASSIUM CL. PREMIX PERIPHER. 50 ML IV SCH ×2 (11:37→12:34)
[2018-06-20 12:00] VITALS: BP 151/95
[2018-06-20] MEDS ORDERED: IVERMECTIN 3 MG TABLET PO ONE (12:30)
[2018-06-20] MEDS: Magnesium 1GM/D5W 100ML PREMIX 100 ML IV SCH ×2 (14:22→15:29)
[2018-06-20 16:00] VITALS: BP 120/78
[2018-06-20 20:00] VITALS: BP 133/71
[2018-06-20] MEDS: ENOXAPARIN SODIUM 40 MG/0.4 ML DISP.SYRIN SQ SCH (22:12)
[2018-06-21] VITALS: BP 144/75
[2018-06-21 04:00] VITALS: BP 124/71
[2018-06-21] MEDS: IV D5/0.45 NACL 1,000 ML IV PRN ×3 (05:12→22:05)
[2018-06-21] MEDS: BLOOD SUGAR DIAGNOSTIC 1 EACH STRIP IN SCH ×3 (05:12→17:55)
[2018-06-21 07:54] LABS: CALCIUM, SERUM 8.7 mg/dL (8.5-10.1); CARBON DIOXIDE 25 mmol/L (21-32); CHLORIDE 110 mmol/L (98-107); CREATININE 0.6 mg/dL (0.6-1.3); GLUCOSE 118 mg/dL (74-106); MAGNESIUM 2.1 mg/dL (1.8-2.4); POTASSIUM 3.8 mmol/L (3.5-5.1); SODIUM SERUM 144 mmol/L (136-145); UREA NITROGEN, BLOOD 3 mg/dL (7-18)
[2018-06-21 08:00] VITALS: BP 132/74
[2018-06-21] MEDS: PANTOPRAZOLE 40 MG VIAL IV SCH (08:40)
[2018-06-21] MEDS: LACTOBACILLUS RHAMNOSUS GG 1 EACH CAP.SPRINK GT SCH ×2 (09:00→16:49)
[2018-06-21] MEDS: LORATADINE 10 MG TABLET PO SCH (09:00)
[2018-06-21] MEDS: SILVER SULFADIAZINE CREAM 400 GM JAR TP SCH ×3 (10:49→16:50)
[2018-06-21] MEDS: Z GUARD REMEDY 2 OZ OINT TP SCH ×2 (10:49→22:07)
[2018-06-21] MEDS: TRIAMCINOLONE ACETONIDE 0.5% 15 GM TUBE TP SCH ×3 (10:49→16:49)
[2018-06-21] MEDS: LEVETIRACETAM (500MG) 750 MG in IV NS 0.9% 100 ML IV SCH ×2 (11:06→22:05)
[2018-06-21 12:00] VITALS: BP 136/71
[2018-06-21 16:00] VITALS: BP 134/107
[2018-06-21] MEDS: GLUCERNA 1.2 1,000 ML BOTTLE PEG SCH (19:24)
[2018-06-21 20:00] VITALS: BP 149/96
[2018-06-21] MEDS: ENOXAPARIN SODIUM 40 MG/0.4 ML DISP.SYRIN SQ SCH (22:06)
[2018-06-22] VITALS: BP 142/142
[2018-06-22 00:18] VITALS: BP 142/84
[2018-06-22] MEDS: BLOOD SUGAR DIAGNOSTIC 1 EACH STRIP IN SCH ×3 (00:25→12:30)
[2018-06-22 04:21] VITALS: BP 158/83
[2018-06-22 07:39] LABS: BASOPHILS # (AUTO) 0.1 /CMM (0.0-0.2); BASOPHILS % (AUTO) 0.9 % (0.0-2.0); EOSINOPHILS % (AUTO) 12.4 % (0.0-6.0); HEMATOCRIT 36 % (33-45); HEMOGLOBIN 12.2 g/dL (11.5-14.8); LYMPHOCYTES # (AUTO) 1.5 /CMM (0.8-4.8); MEAN CORPUSCULAR HGB CONC 34 g/dl (31.0-36.0); MEAN CORPUSCULAR VOLUME 92 fL (82-100); MONOCYTES # (AUTO) 0.7 /CMM (0.1-1.30); MONOCYTES % (AUTO) 11.3 % (2.0-12.0); NEUTROPHILS # (AUTO) 2.9 /CMM (1.8-8.9); NEUTROPHILS % (AUTO) 49.4 % (43.0-81.0); PLATELET COUNT (AUTO) 278 /CMM (150-450); RED BLOOD CELL COUNT(AUTO) 3.93 MIL/uL (4.0-5.2)
[2018-06-22 07:54] LABS: CALCIUM, SERUM 8.5 mg/dL (8.5-10.1); CARBON DIOXIDE 24 mmol/L (21-32); CHLORIDE 108 mmol/L (98-107); CREATININE 0.6 mg/dL (0.6-1.3); GLUCOSE 113 mg/dL (74-106); PHOSPHORUS 3.1 mg/dL (2.5-4.9); POTASSIUM 3.3 mmol/L (3.5-5.1); SODIUM SERUM 144 mmol/L (136-145); UREA NITROGEN, BLOOD 5 mg/dL (7-18)
[2018-06-22 08:00] VITALS: BP 160/70
[2018-06-22 08:02] LABS: MAGNESIUM 1.7 mg/dL (1.8-2.4)
[2018-06-22] MEDS: PANTOPRAZOLE 40 MG VIAL IV SCH (08:20)
[2018-06-22] MEDS: LACTOBACILLUS RHAMNOSUS GG 1 EACH CAP.SPRINK GT SCH ×2 (08:20→16:25)
[2018-06-22] MEDS: LORATADINE 10 MG TABLET PO SCH (08:20)
[2018-06-22] MEDS: IV D5/0.45 NACL 1,000 ML IV PRN (09:19)
[2018-06-22] MEDS: TRIAMCINOLONE ACETONIDE 0.5% 15 GM TUBE TP SCH ×3 (09:20→18:46)
[2018-06-22] MEDS: Z GUARD REMEDY 2 OZ OINT TP SCH (09:21)
[2018-06-22] MEDS: SILVER SULFADIAZINE CREAM 400 GM JAR TP SCH ×3 (09:21→18:47)
[2018-06-22] MEDS: LEVETIRACETAM (500MG) 750 MG in IV NS 0.9% 100 ML IV SCH (09:23)
[2018-06-22] MEDS: POTASSIUM CHLORIDE 20 MEQ POWDER PACKET GT SCH ×2 (10:37→12:23)
[2018-06-22] MEDS: Magnesium 1GM/D5W 100ML PREMIX 100 ML IV SCH ×2 (10:37→12:21)
[2018-06-22 12:00] VITALS: BP 152/66
[2018-06-22] MEDS ORDERED: hydrALAZINE HCL 10 MG TABLET PO PRN (13:00)
[2018-06-22 16:00] VITALS: BP 150/72
[2018-06-22] MEDS ORDERED: LEVETIRACETAM (500MG) 750 MG in IV NS 0.9% 100 ML IV SCH (21:00)
[2018-06-22] MEDS ORDERED: LEVETIRACETAM (250 MG) 250 MG TABLET PO SCH (21:00)
== END 2018-06-22 19:50 | DRG 393 ==
LOC: ER 14:34 → TELE 16:07 → TELE-TD 18:12 → TELE1 06-05 10:14
PROVIDERS: ADMIT Nurse Practitioner Acute Care
PROC: 5A1955Z Respiratory Ventilation, Greater than 96 Consecutive Hours (ICD-10-PCS; principal; 2018-06-04)
PROC: 0D20XUZ Change Feeding Device in Upper Intestinal Tract, External Approach (ICD-10-PCS; 2018-06-07)
PROC: 0DJ08ZZ Inspection of Upper Intestinal Tract, Via Natural or Artificial Opening Endoscopic (ICD-10-PCS; 2018-06-14)
PROC: 05H633Z Insertion of Infusion Device into Left Subclavian Vein, Percutaneous Approach (ICD-10-PCS; 2018-06-15)
PROC: B547ZZA Ultrasonography of Left Subclavian Vein, Guidance (ICD-10-PCS; 2018-06-15)
DX: K94.22 Gastrostomy infection (principal); A41.9 Sepsis, unspecified organism; E43 Unspecified severe protein-calorie malnutrition; N17.0 Acute kidney failure with tubular necrosis; R53.2 Functional quadriplegia; G92 Toxic encephalopathy; K85.90 Acute pancreatitis without necrosis or infection, unspecified; I69.351 Hemiplegia and hemiparesis following cerebral infarction affecting right dominant side; G93.1 Anoxic brain damage, not elsewhere classified; N39.0 Urinary tract infection, site not specified; L03.311 Cellulitis of abdominal wall; E87.0 Hyperosmolality and hypernatremia; J96.11 Chronic respiratory failure with hypoxia; Z99.11 Dependence on respirator [ventilator] status; J98.11 Atelectasis; E87.2 Acidosis; K94.23 Gastrostomy malfunction; Y84.8 Other medical procedures as the cause of abnormal reaction of the patient, or of later complication, without mention of misadventure at the time of the procedure; Y73.8 Miscellaneous gastroenterology and urology devices associated with adverse incidents, not elsewhere classified; Y92.129 Unspecified place in nursing home as the place of occurrence of the external cause; B96.20 Unspecified Escherichia coli [E. coli] as the cause of diseases classified elsewhere; E11.9 Type 2 diabetes mellitus without complications; I50.9 Heart failure, unspecified; E87.6 Hypokalemia; F03.90 Unspecified dementia, unspecified severity, without behavioral disturbance, psychotic disturbance, mood disturbance, and anxiety; Z79.01 Long term (current) use of anticoagulants; Z79.899 Other long term (current) drug therapy; Z79.51 Long term (current) use of inhaled steroids; Z79.84 Long term (current) use of oral hypoglycemic drugs; F09 Unspecified mental disorder due to known physiological condition; Z74.09 Other reduced mobility; G40.909 Epilepsy, unspecified, not intractable, without status epilepticus; J44.9 Chronic obstructive pulmonary disease, unspecified; K80.20 Calculus of gallbladder without cholecystitis without obstruction; K59.00 Constipation, unspecified; Z87.440 Personal history of urinary (tract) infections; R13.10 Dysphagia, unspecified; I11.0 Hypertensive heart disease with heart failure; D64.9 Anemia, unspecified; B86 Scabies; L89.90 Pressure ulcer of unspecified site, unspecified stage
CPT/HCPCS: 31720; 36415; 36569; 43761; 71045-TC; 74018; 76705-TC; 80048-TC; 80061-TC; 80076-TC; 81000-TC; 82962-TC; 83605-TC; 83690-TC; 83735-TC; 84100-TC; 84484-TC; 85025-TC; 85730-TC; 86850-TC; 87040-TC; 87081-TC; 87086-TC; 87186-TC; 94002-TC; 94003-TC; 94760-TC; 94762-TC; 94799-TC; 99082-TC; A4216; A4217; A4623; A6253; A6402; A6403; A7526; C9113; G0378; J0360; J0696; J1170; J1650; J1815; J1953; J1956; J2020; J2185; J2704; J2765; J3475; J3480; J3490; J7030; J7040; J7042; J7050; J7060; Q9963

== ENCOUNTER 2018-12-03 11:37 | Inpatient (IN) | payer MEDICARE, MEDICAID ==
[~2018-12-03] VITALS: Ht 162.6 cm; Wt 72.6 kg
[~2018-12-03 11:37] MED LIST changes: -DILT30TA14 GT; +DOXY100T2 PO; +IVER3TAB GT; -LACT-96 GT; +NUT.237L28 GT; -OMEG-167 GT; +TRIA15CR2 TP
--- NOTE | 2018-12-03 12:00 | NUR ---
Patient BIB [facility] from SNF, for redness and leaking to g-tube stoma site. Patient obtunded, trache/vent dependent. Breathinge kit and unlabored, G-tube site noted with moderate amount of discharge. Kept comfortable, will monitor.
--- NOTE | 2018-12-03 12:00 | NUR ---
RT Pt received w Portex 9 trach and placed on vent w settings given by transport RT. Pt came in for G tube. Tolerating vent settings well. Vent is plugged into red outlet w [facility]. Alarms are set and audible. Trach is secure and patent.
[2018-12-03 12:02] LABS: BASOPHILS % (AUTO) 0.8 % (0.0-2.0); EOSINOPHILS % (AUTO) 4.1 % (0.0-6.0); HEMATOCRIT 38 % (33-45); HEMOGLOBIN 12.6 g/dL (11.5-14.8); LYMPHOCYTES # (AUTO) 1.3 /CMM (0.8-4.8); LYMPHOCYTES % (AUTO) 22.1 % (20.0-44.0); MEAN CORPUSCULAR HGB CONC 34 g/dl (31.0-36.0); MEAN CORPUSCULAR VOLUME 93 fL (82-100); MONOCYTES # (AUTO) 0.7 /CMM (0.1-1.30); MONOCYTES % (AUTO) 12.3 % (2.0-12.0); NEUTROPHILS # (AUTO) 3.5 /CMM (1.8-8.9); NEUTROPHILS % (AUTO) 60.7 % (43.0-81.0); PLATELET COUNT (AUTO) 344 /CMM (150-450); RED BLOOD CELL COUNT(AUTO) 4.06 MIL/uL (4.0-5.2); WHITE BLOOD COUNT (AUTO) 5.8 K/uL (4.3-11.0)
[2018-12-03 12:11] LABS: CALCIUM, SERUM 9.3 mg/dL (8.5-10.1); CARBON DIOXIDE 28 mmol/L (21-32); CHLORIDE 104 mmol/L (98-107); CREATININE 1.1 mg/dL (0.6-1.3); GLUCOSE 159 mg/dL (74-106); POTASSIUM 3.7 mmol/L (3.5-5.1); SODIUM SERUM 143 mmol/L (136-145); UREA NITROGEN, BLOOD 42 mg/dL (7-18)
[2018-12-03 12:17] LABS: ALANINE AMINOTRANSFERASE 29 U/L (12-78); ALBUMIN 3.6 g/dL (3.4-5.0); ALKALINE PHOSPHATASE 165 U/L (46-116); ASPARTATE AMINOTRANSFERASE 18 U/L (15-37); BILIRUBIN,DIRECT 0.1 mg/dL (0.0-0.2); BILIRUBIN,TOTAL 0.4 mg/dL (0.2-1.0); TOTAL PROTEIN, SERUM 8.2 g/dL (6.4-8.2)
[2018-12-03] MEDS ORDERED: CHLO473M3 MM (12:18)
[2018-12-03] MEDS ORDERED: CRAN3875 PO (12:18)
--- NOTE | 2018-12-03 12:26 | NUR ---
CALLED FOR MED-SURGE BED, TURNED IN MOVE SHEET
[2018-12-03] MEDS ORDERED: hydrALAZINE HCL IV 20 MG VIAL ONE (12:38)
--- NOTE | 2018-12-03 12:40 | NUR ---
INFORMED DR. KAUR, PATIENT'S BP IS 245/165 RECHECKED AND BP SHOWS 248/165.
--- NOTE | 2018-12-03 12:43 | NUR ---
RECHECKED BP PRIOR TO GIVING HYDRALAZINE 10MG, BP SHOWS 126/66 78. BLOOD PRESSURE IMPROVED, INFORMED , INSTRUCTED TO HOLD HYDRALAZINE AT THIS TIME.
[2018-12-03] MEDS ORDERED: hydrALAZINE HCL IV 20 MG VIAL IV ONE (13:30)
[2018-12-03] MEDS ORDERED: IV NS 0.9% 1,000 ML BAG IV ONE (13:30)
--- NOTE | 2018-12-03 16:13 | NUR ---
BED 319
[2018-12-03] MEDS ORDERED: Z GUARD REMEDY 2 OZ OINT TP PRN (16:30)
[2018-12-03] MEDS ORDERED: ONDANSETRON HCL/PF 4 MG/2 ML VIAL IVP PRN (16:30)
--- NOTE | 2018-12-03 16:31 | NUR ---
REPORT GIVEN TO BRIGIDO WEBSTER
[2018-12-03 17:15] VITALS: BP 125/90
--- NOTE | 2018-12-03 17:15 | NUR ---
HOME SERVICE TECHNICIAN OPENING NOTE PATIENT IS RECEIVED ON [facility]. TRANSFERRED PATIENT ONTO BED. PATIENT OBTUNDED. A/O X0. RESPONSIVE TO TACTILE STIMULI BY SLIGHTLY OPENING THE EYES. PATIENT IS ON A VENT AND TRACH. TOLERATING VENT SETTINGS WITH NO DISTRESS. RESPIRATION REGULAR AND UNLABORED. IN NO APPARENT DISTRESS. RIGHT FA GAUGE 20 PATENT ANS EULALIO LOCKED. G -TUBE PRESENT. G-TUBE SITE RED WITH IRRITATED SKIN AND LARGE AMOUNT OF WHITE FROTHY MUCOUS LIKE DISCHARGE NOTED. ABDOMEN SOFT, SLIGHTLY DISTENDED WITH HYPOACTIVE BOWEL SOUNDS. SKIN ASSESSMENT DONE. BED LOW AND LOCKED. CALL LIGHT WITHIN REACH. WILL CONTINUE TO MONITOR.
[2018-12-03] MEDS ORDERED: MEROPENEM 1 G in IV NS 0.9% 100 ML IV ONE (18:00)
--- NOTE | 2018-12-03 18:19 | NUR ---
RT Pt transported to [facility]. Vent is plugged into red outlet w [facility]. Alarms are set and audible. Pt is stable. No sob noted t/o shift. Will continue to monitor. Addendum: 12/03/18 at 1821 by LORI BROWNING RT Amended: Links added.
--- NOTE | 2018-12-03 18:38 | NUR ---
WOOD PREPARATION SUPERVISOR CLOSING NOTE PATIENT IS RESTING IN BED. A/O X0. RESPIRATIONS ARE EVEN AND UNLABORED. NO MANIFESTATION OF PAIN AT THIS TIME. G-TUBE PRESENT AND HAS MUCOUS LIKE DRAINAGE NOTED. IN NO APPARENT DISTRESS AT THIS TIME. BED IS LOW AND LOCKED. CALL LIGHT WITHIN REACH. WILL ENDORSE TO [facility] SHIFT FOR KWESI.
[2018-12-03] MEDS: IV 1/2NS 1000 ML 1,000 ML IV PRN (18:46)
--- NOTE | 2018-12-03 19:00 | NUR ---
CREDIT ADMINISTRATION SPECIALIST NOTE PATIENT SEEN AND EXAMINED BY DR. MILAN. WITH NEW ORDER OF NEXIUM 40MG IV BID. NOT TO USE G-TUBE. ORDERS NOTED AND CARRIED OUT.
--- NOTE | 2018-12-03 19:35 | NUR ---
RN OPENING NOTES RECEIVED PATIENT FROM DARIN DAWSON. PATIENT RESTING IN BED. OBTUNDED. NO SIGNS OF RESPIRATORY DISTRESS. NO SIGNS OF SHORTNESS OF BREATH. NO SIGNS OF FACIAL GRIMACING INDICATING PAIN OR DISCOMFORT AT THIS TIME. G-TUBE PRESENT WITH MUCOUS LIKE DRAINAGE. SAFETY PRECAUTIONS IMPLEMENTED; CALL LIGHT WITHIN REACH, BED LOWEST POSITION, BED LOCKED, SIDE RAILS UP X2. WILL CONTINUE TO MONITOR PATIENT.
[2018-12-03 20:00] VITALS: BP 120/75
[2018-12-03] MEDS: NEXIUM 40 MG VIAL IV SCH (20:58)
[2018-12-03] MEDS ORDERED: DOXYCYCLINE 100 MG in IV D5W 100 ML IV SCH (21:00)
--- NOTE | 2018-12-03 21:24 | NUR ---
RN NOTES CALLED PHARMACY. NEW MEDICATIONS FOR 2100 JUST VERIFIED BY PHARMACY. AWAITING NEW MEDICATION TO BE STOCKED.
[2018-12-03] MEDS: NYSTATIN CREAM 15 GM TUBE TP SCH (21:49)
[2018-12-03] MEDS: MUPIROCIN OINT 2% 22 GM TUBE TP SCH (21:49)
[2018-12-03] MEDS: MEROPENEM 1 G in IV NS 0.9% 100 ML IV SCH (23:31)
[2018-12-04] VITALS (7 sets, daily range): BP systolic 120–140; BP diastolic 70–93
[2018-12-04 06:26] LABS: ALANINE AMINOTRANSFERASE 23 U/L (12-78); ALBUMIN 3.3 g/dL (3.4-5.0); ALKALINE PHOSPHATASE 148 U/L (46-116); ASPARTATE AMINOTRANSFERASE 16 U/L (15-37); BILIRUBIN,TOTAL 0.4 mg/dL (0.2-1.0); CALCIUM, SERUM 8.8 mg/dL (8.5-10.1); CARBON DIOXIDE 24 mmol/L (21-32); CHLORIDE 109 mmol/L (98-107); CREATININE 0.9 mg/dL (0.6-1.3); GLUCOSE 121 mg/dL (74-106); MAGNESIUM 2.4 mg/dL (1.8-2.4); POTASSIUM 4.1 mmol/L (3.5-5.1); SODIUM SERUM 143 mmol/L (136-145); TOTAL PROTEIN, SERUM 7.6 g/dL (6.4-8.2); UREA NITROGEN, BLOOD 28 mg/dL (7-18)
--- NOTE | 2018-12-04 06:40 | NUR ---
RN CLOSING NOTES PATIENT IS CURRENTLY RESTING IN BED. A/O X 0. OBTUNDED. RESPIRATIONS EVEN AND UNLABORED. NO SIGNS OF FACIAL GRIMACING INDICATING PAIN OR DISCOMFORT AT THIS TIME. G-TUBE STILL PRESENT WITH MUCOUS LIKE DRAINAGE PRESENT. PATIENT IS AFEBRILE. DRESSING APPLIED TO GTUBE AREA, KEPT CLEAN, DRY, APPLIED CREAM DIRECTED. PATIENT KEPT CLEAN AND DRY THROUGHOUT THE SHIFT. PATIENT TURNED EVERY 2 HOURS, OFFLOADED EXTREMITIES. SAFETY PRECAUTIONS IMPLEMENTED; CALL LIGHT WITHIN REACH, BED LOWEST POSITION, BED LOCKED, SIDE RAILS UP X2. WILL ENDORSE TO DAY NURSE FOR CONTINUITY OF CARE.
[2018-12-04 07:04] LABS: BASOPHILS % (AUTO) 0.9 % (0.0-2.0); EOSINOPHILS % (AUTO) 6.4 % (0.0-6.0); HEMATOCRIT 38 % (33-45); HEMOGLOBIN 12.4 g/dL (11.5-14.8); LYMPHOCYTES # (AUTO) 1.2 /CMM (0.8-4.8); LYMPHOCYTES % (AUTO) 23.7 % (20.0-44.0); MEAN CORPUSCULAR HGB CONC 33 g/dl (31.0-36.0); MEAN CORPUSCULAR VOLUME 94 fL (82-100); MONOCYTES # (AUTO) 0.6 /CMM (0.1-1.30); NEUTROPHILS # (AUTO) 2.9 /CMM (1.8-8.9); PLATELET COUNT (AUTO) 311 /CMM (150-450); RED BLOOD CELL COUNT(AUTO) 4.02 MIL/uL (4.0-5.2)
--- NOTE | 2018-12-04 07:16 | NUR ---
SHEETMETAL WORKER OPENING NOTES RECEIVED PT IN BED, A/O X1. PT OPENS EYES, NON VERBAL. ON TRACH, TOLERATING CURRENT VENT SETTINGS WITH NO ACUTE RESPIRATORY DISTRESS NOTED. ON TELEMONITORING SR , WITH HR OF 97. HOB ELEVATED. IVF 1/2 NS TO 75 ML/HR TO RFA G20, INTACT AND FLUID INFUSING WELL. PT KEPT COMFORTABLE. PT'S BED IN LOWEST, LOCKED POSITION WITH SR X3. CALL LIGHT WITHIN REACH. WILL CONTINUE PLAN OF CARE.
[2018-12-04] MEDS: MEROPENEM 1 G in IV NS 0.9% 100 ML IV SCH ×3 (07:34→23:04)
--- NOTE | 2018-12-04 08:10 | NUR ---
RN NOTES CALLED PHARMACY AND SPOKE TO DANTE REGARDING IV MERREM EXTENDED RELEASE AND IV DOXYCYCLINE SCHEDULED TIMES BECAUSE IT'S CONTRADICTING. DANTE STATED SHE WILL READJUST THE TIME.
[2018-12-04] MEDS: NEXIUM 40 MG VIAL IV SCH ×2 (08:11→20:56)
--- NOTE | 2018-12-04 08:30 | NUR ---
RN NOTES CALLED PHARMACY AGAIN AND SPOKE TO JESUS REGARDING 2 IV ANTIBIOBIOTIS TIME SCHEDULE. JESUS AGAIN STATED THEY WILL ADJUST THE TIME.
[2018-12-04] MEDS: MUPIROCIN OINT 2% 22 GM TUBE TP SCH ×2 (08:37→20:57)
[2018-12-04] MEDS: NYSTATIN CREAM 15 GM TUBE TP SCH ×3 (08:37→17:29)
--- NOTE | 2018-12-04 08:49 | NUR ---
RN NOTES SEEN AND EVALUATED BY MD/ED, NO NEW ORDERS. KEEP PT ON NPO. WILL CONTINUE TO MONITOR.
--- NOTE | 2018-12-04 10:28 | NUR ---
RN NOTES IV DOXYCYCLINE DOSE AT 0900 WAS NOT GIVEN. PHARMACIST/KEVIN DORSEY ADJUSTED THE TIME. DOSE TO ADMINISTER AT 1200.
[2018-12-04] MEDS: DOXYCYCLINE 100 MG in IV D5W 100 ML IV SCH ×2 (11:05→23:34)
--- NOTE | 2018-12-04 14:09 | NUR ---
RN NOTES PT WAS SEEN BY DR MILAN AND TRIED TO REMOVE THE OLD GTUBE. DR MILAN WAS UNSUCCESSFUL MULTIPLE TIMES. RECOMMENDEDD POSSIBLE ENDOSCOPY ON THURSDAY TO REMOVE GTUBE. FLORECITA/FAUSTO MADE AWARE. WILL CONTINUE TO MONITOR.
--- NOTE | 2018-12-04 17:16 | NUR ---
RN NOTES RN NOTIFIED CN/FAUSTO REGARDING DECISION OF DR MILAN FOR POSSIBLE ENDOSCOPY TO REMOVE THE OLD GTUBE ON THURSDAY AND REINSERT A NEW ONE. ALSO, PT ON 04/28 NS HYDRATION WITH BS OF 121 AT THIS TIME. RN CONSULTED CN FOR THE CHANGE OF FLUID WITH DEXTROSE D/T NPO STATUS FOR THE MEANTIME. CN RECOMMENDED TO MONITOR FOR NOW AND STATED IF THERE'S AN EPISODE OF DROPPING SUGAR, NOTIFY MD THEN CHANGE IT IF NEEDED. WILL ENDORSE TO INCOMING NIGHT NURSE WELL.
--- NOTE | 2018-12-04 19:00 | NUR ---
GARDEN WORKER NOTE RECEIVED PT IN STABLE CONDITION, NON-VERBAL, SPONTANEOUSLY OPENS EYES. ON VENT TOLERATING SETTINGS WELL. IV ON R FA IN PLACE WITH IV FLUIDS INFUSING. TELE MONITOR READING IS SR 97. GTUBE SIDE NOTED WITH LEAKAGE, GTUBE NOT TO BE USED. ALL CURRENT NEEDS ATTENDED TO. BED LOW, LOCKED, PT TO BE REPOSITIONED PER PROTOCOL. WILL CONT. TO MONITOR.
--- NOTE | 2018-12-04 19:13 | NUR ---
CRIMINAL INVESTIGATOR CUSTOMS CLOSING NOTES PT IN BED, A/O X1. PT OPENS EYES, NON VERBAL. ON TRACH, TOLERATING CURRENT VENT SETTINGS WITH NO ACUTE RESPIRATORY DISTRESS NOTED. ON TELEMONITORING SR , WITH HR OF 90. HOB ELEVATED. IVF 1/2 NS TO 75 ML/HR TO RFA G20, INTACT AND FLUID INFUSING WELL. PT KEPT COMFORTABLE. ALL NEEDS AND CARE ATTENDED. PT'S BED IN LOWEST, LOCKED POSITION WITH SR X3. CALL LIGHT WITHIN REACH. ENDORSED TO INCOMING NIGHT NURSE FOR KWESI.
[2018-12-04] MEDS: IV 1/2NS 1000 ML 1,000 ML IV PRN (20:00)
[2018-12-05] VITALS: BP 125/66
[2018-12-05 04:22] VITALS: BP 127/65
--- NOTE | 2018-12-05 06:22 | NUR ---
EMBEDDED SOFTWARE MANAGER NOTE PT IN STABLE CONDITION, NON-VERBAL, SPONTANEOUSLY OPENS EYES. ON VENT TOLERATING SETTINGS WELL. IV ON R FA IN PLACE WITH IV FLUIDS INFUSING. TELE MONITOR READING IS SR 84. GTUBE SIDE NOTED WITH LEAKAGE, GTUBE NOT USED. ALL CURRENT NEEDS ATTENDED TO. BED LOW, LOCKED, PT TO REPOSITIONED PER PROTOCOL. WILL CONT. TO MONITOR AND ENDORSE TO NEXT SHIFT FOR KWESI.
--- NOTE | 2018-12-05 07:19 | NUR ---
TRANSMISSION CALIBRATION ENGINEER OPENING NOTES RECEIVED PT IN BED, A/O X1. PT AWAKE, OPENS EYES, NON VERBAL. ON TRACH, TOLERATING CURRENT VENT SETTINGS WITH NO ACUTE RESPIRATORY DISTRESS NOTED. ON TELEMONITORING SR , WITH HR OF 94. HOB ELEVATED. IVF 1/2 NS TO 75 ML/HR TO RFA G20, INTACT AND FLUID INFUSING WELL. PT KEPT COMFORTABLE. PT'S BED IN LOWEST, LOCKED POSITION WITH SR X3. CALL LIGHT WITHIN REACH. WILL CONTINUE PLAN OF CARE.
[2018-12-05 08:00] VITALS: BP 131/73
[2018-12-05] MEDS: MEROPENEM 1 G in IV NS 0.9% 100 ML IV SCH ×3 (08:38→23:07)
[2018-12-05] MEDS: NEXIUM 40 MG VIAL IV SCH ×2 (08:51→21:05)
[2018-12-05] MEDS: NYSTATIN CREAM 15 GM TUBE TP SCH ×3 (09:17→16:16)
[2018-12-05] MEDS: MUPIROCIN OINT 2% 22 GM TUBE TP SCH ×2 (09:17→21:06)
--- NOTE | 2018-12-05 10:07 | NUR ---
RT SPARE TRACH AND AMBU BAG PLACED AT BEDSIDE. AIRWAY SECURED AND PATENT. NO SIGNS OF DISTRESS NOTED AT THIS TIME. WILL CONTINUE TO MONITOR THE PATIENT CLOSELY FOR ANY CHANGES. Addendum: 12/05/18 at 1621 by FRAN SEN RT Amended: Links added.
[2018-12-05] MEDS: IV D5/0.45 NACL 1,000 ML IV PRN (10:47)
[2018-12-05] MEDS: DOXYCYCLINE 100 MG in IV D5W 100 ML IV SCH ×2 (11:00→23:37)
--- NOTE | 2018-12-05 15:15 | NUR ---
RN NOTES MIDLINE PLACED TO HALIMA G18, FLUSHED WITH NS, INTACT AND OPERATIONAL. WILL CONTINUE TO MONITOR.
[2018-12-05 16:00] VITALS: BP 137/87
--- NOTE | 2018-12-05 17:00 | NUR ---
RN NOTES OBTAINED VERBAL CONSENT FROM SON/SRINATH FOR EGD WITH PEG, ANESTHESIA AND BT FOR TOMORROW. WILL ENDORSE.
--- NOTE | 2018-12-05 17:50 | NUR ---
RN NOTES SON/SRINATH CAME AND PRESENT IN THE UNIT. CONSENT SIGNED PHYSICALLY WELL. WILL ENDORSE TO INCOMING NURSE.
--- NOTE | 2018-12-05 18:23 | NUR ---
FINANCE ACCOUNTING INTERNSHIP CLOSING NOTES PT REMAINS IN BED. PT IS OBTUNDED, OPENS EYES, NON VERBAL. ON TRACH, TOLERATING CURRENT VENT SETTINGS WITH NO ACUTE RESPIRATORY DISTRESS NOTED. PT NOT EXHIBITING ANY PAIN OR DISCOMFORT AT THIS TIME. ON TELEMONITORING SR, WITH HR OF 90. HOB ELEVATED. IVF D5 1/2 NS TO 75 ML/HR TO HALIMA MIDLINE G18, INTACT AND FLUID INFUSING WELL. PT KEPT COMFORTABLE. ALL NEEDS AND CARE PROVIDED. PT'S BED IN LOWEST, LOCKED POSITION WITH SR X3. CALL LIGHT WITHIN REACH. WILL ENDORSE TO INCOMING NIGHT NURSE FOR KWESI.
--- NOTE | 2018-12-05 19:00 | NUR ---
PERFECT BINDER FEEDER OFFBEARER NOTE RECEIVED PT IN STABLE CONDITION, OBTUNDED, SPONTANEOUSLY OPENS EYES. ON VENT TOLERATING SETTINGS WELL. L UA MIDLINE IN PLACE WITH IVF INFUSING. TELE MONITOR: SR 75. ALL CURRENT NEEDS ATTENDED TO. BED LOW, LOCKED , UPPER RAILS UP, PT TO BE REPOSITIONED PER UNIT PROTOCOL. WILL CONT. TO MONITOR.
[2018-12-05 20:00] VITALS: BP 150/84
[2018-12-06] VITALS (13 sets, daily range): BP systolic 133–162; BP diastolic 65–104
[2018-12-06] MEDS: IV D5/0.45 NACL 1,000 ML IV PRN ×2 (04:31→21:31)
--- NOTE | 2018-12-06 06:21 | NUR ---
INFRASTRUCTURE DESIGN ENGINEER NOTE PT IN STABLE CONDITION, OBTUNDED, SPONTANEOUSLY OPENS EYES. ON VENT TOLERATING SETTINGS WELL. L UA MIDLINE IN PLACE WITH IVF INFUSING. TELE MONITOR: SR 76. ALL CURRENT NEEDS ATTENDED TO. BED LOW, LOCKED , UPPER RAILS UP, PT REPOSITIONED PER UNIT PROTOCOL. PT TO HAVE PROCEDURE DONE TODAY, CONSENTS SIGNED. WILL CONT. TO MONITOR AND ENDORSE TO NEXT SHIFT FOR KWESI.
--- NOTE | 2018-12-06 07:11 | NUR ---
LOCKMAKER OPENING NOTES PATIENT RECEIVED AWAKE IN BED IN NO ACUTE SIGNS OF DISTRESS. HOB ELEVATED. PT IS OBTUNDED, OPENS EYES, NON-VERBAL. PT NOT EXHIBITING ANY SIGNS OF PAIN OR DISCOMFORTS AT THIS TIME. [facility] PRESCRIBED SETTINGS, TOLERATING SETTINGS WELL WITH NO SOB NOTED. ON TELEMONITORING WITH CURRENT READING OF SR WITH HR ON THE 70'S. HALIMA MIDLINE G#18 INTACT AND IVF D5 1/2 NS AT 75 ML/HR INFUSING WELL. G-TUBE NOTED WITH DRESSING IN PLACE AND STILL LEAKING. PT FOR EGD AND PEG INSERTION TODAY. ASPIRATION PRECAUTIONS MAINTAINED. BED IN LOWEST, LOCKED POSITION WITH SR X3. CALL LIGHT WITHIN REACH. WILL CONTINUE TO MONITOR PT ACCORDINGLY. .
[2018-12-06] MEDS: MEROPENEM 1 G in IV NS 0.9% 100 ML IV SCH ×3 (08:03→23:22)
[2018-12-06] MEDS: NEXIUM 40 MG VIAL IV SCH ×2 (08:06→21:38)
[2018-12-06] MEDS: NYSTATIN CREAM 15 GM TUBE TP SCH ×3 (09:46→17:02)
[2018-12-06] MEDS: MUPIROCIN OINT 2% 22 GM TUBE TP SCH ×2 (09:46→21:40)
[2018-12-06] MEDS: DOXYCYCLINE 100 MG in IV D5W 100 ML IV SCH (12:02)
--- NOTE | 2018-12-06 12:27 | NUR ---
RN NOTES PATIENT STATUS POST EGD AND INSERTED NEW G-TUBE F#[address] MARSHALL AND WAS DONE AT BEDSIDE. DRESSING ON OLD G-TUBE IN PLACE AND DRY. DR MARSHALL WITH ORDER TO START G-TUBE FEEDING AFTER 24HRS POST NEW G-TUBE INSERTION ( 12/07/2018 @1230). V/S S/P PROCEDURES; BP 162/88, HR 79, R 13, T 97.2 AND SP02 100%. WILL CONTINUE TO MONITOR
--- NOTE | 2018-12-06 12:43 | NUR ---
RN NOTES V/S AFTER 15MINS NOTED : BP 155/81, HR 64, R 12, T 97.5F AND SP02 97.5F. WILL CONTINUE TO MONITOR
--- NOTE | 2018-12-06 18:37 | NUR ---
CERTIFIED ADAPTED PHYSICAL EDUCATOR CLOSING NOTES PATIENT IN BED LYING AT MODERATE HIGH BACKREST POSITION. PT IS OBTUNDED, OPENS EYES AND NON-VERBAL. S/P G-TUBE INSERTION, NO BLEEDING AT SITE NOTED. OLD G-TUBE SITE STILL LEAKING WITH DRESSING CHANGED PRN. ASPIRATION PRECAUTIONS MAINTAINED. ON TRACH CONNECTED TO [facility] VENT AT PRESCRIBED SETTINGS, TOLERATING SETTINGS WELL WITH NO ACUTE RESPIRATORY DISTRESS NOTED. ON TELE-MONITORING WITH CURRENT READING OF SR WITH HR ON THE 70'S. HALIMA MIDLINE G#18 INTACT WITH IVF D5 1/2 NS@ 75 ML/HR INFUSING WELL. PT TURNED AND REPOSITIONED Q 2HRS AND PRN. KEPT CLEAN, DRY AND COMFORTABLE AT ALL TIMES. ALL NEEDS AND CARE PROVIDED WELL. SAFETY MEASURES KEPT IN PLACE. BED IN LOWEST LOCKED POSITION WITH SR UP X3. CALL LIGHT WITHIN REACH. WILL ENDORSE TO OR ASSISTANT NURSE FOR KWESI
--- NOTE | 2018-12-06 19:10 | NUR ---
TELE/RN OPENING NOTES PT RECEIVED FROM DAY RN. PT IS OBTUNDED, OPENS EYES SPONTANEOUSLY, DOES NOT TRACK. ON MECHANICAL VENT TOLERATING SETTINGS. ON TELE MONITOR SHOWING SR WITH SOME PVC'S, HR 75. NPO. S/P GT INSERTION TODAY, DRESSING MINIMALLY SOILED WITH BLOOD. HALIMA MIDLINE PATENT AND INTACT RUNNING IVF ORDERED. HOB ELEVATED. BED IN LOW/LOCKED POSITION WITH CALL LIGHT IN REACH. BILAT. UPPER SIDE RAILS IN PLACE. WILL CONTINUE TO MONITOR
--- NOTE | 2018-12-06 19:52 | NUR ---
RT NOTE pt rec'd on mechanical vent on charted settings. trach tube patent and secure, no sob noted at this time. vent alarms on and audible. bvm bedside, vent plugged in red outlet. will continue to monitor. Addendum: 12/06/18 at 1954 by MALORIE QUEZADA RT Amended: Links added.
--- NOTE | 2018-12-06 21:17 | NUR ---
MS/RN NOTES NOTIFIED DR. MUHAMMAD THAT PT'S HOME MEDS HAVE NOT BEEN RECONCILED AND PT IS ON KEPPRA 500MG GT BID. AWARE THAT WE CANNOT USE NEW GT UNTIL TOMORROW AT 1230. WITH ORDERS FOR ONE TIME DOSE OF KEPPRA 500MG IV TONIGHT.
[2018-12-06] MEDS ORDERED: LEVETIRACETAM (500MG) 500 MG in IV NS 0.9% 100 ML IV ONE (21:30)
[2018-12-06] MEDS ORDERED: LEVETIRACETAM (500MG) 500 MG/5 ML VIAL IV ONE (22:05)
[2018-12-07] VITALS: BP 149/85
[2018-12-07] MEDS: DOXYCYCLINE 100 MG in IV D5W 100 ML IV SCH ×2 (01:06→11:43)
--- NOTE | 2018-12-07 01:30 | NUR ---
TELE/RN NOTES WOUND CX OF PREVIOUS GT STOMA COLLECTED AND PLACED IN THE FRIDGE FOR PICKUP
[2018-12-07 04:00] VITALS: BP 131/94
--- NOTE | 2018-12-07 06:35 | NUR ---
TELE/RN CLOSING NOTES PT RESTING COMFORTABLY IN BED. OPENS EYES SPONTANEOUSLY, DOES NOT TRACK. OBTUNDED. TOLERATING MECH. VENT SETTINGS. SUCTIONED PRN. HOB ELEVATED AT ALL TIMES. ON TELE MONITOR SHOWING SB/SR 58-60 WITH PVC. HALIMA MIDLINE PATENT AND INTACT RUNNING IVF ORDERED. GT REMAINED CLAMPED. DAY RN TO BEGIN GT FEEDING AT 1230. NO SIGNIFICANT CHANGES OVERNIGHT. TURNED/REPOSITIONED Q2H. HEELS OFFLOADED. DRESSING TO NEW PEG SITE C/D/I. BED IN LOW/LOCKED POSITION WITH CALL LIGHT IN REACH. BILAT. UPPER SIDE RAILS IN PLACE. WILL ENDORSE TO DAY SHIFT RN KWESI.
--- NOTE | 2018-12-07 07:42 | NUR ---
MAJOR DONOR COORDINATOR OPENING NOTES RECEIVED PT LAYING IN BED WITH HOB SLIGHTLY ELEVATED. PT IS NONVERBAL, BUT ABLE TO OPEN EYES, AFEBRILE. RESPIRATIONS ARE EVEN AND UNLABORED, NOT IN ANY ACUTE DISTRESS NOTED. CURRENTLY ON VENT SETTINGS, TOLERATING WELL. NO FACIAL GRIMACING OR MOANING NOTED. HALIMA MIDLINE INTACT, NO INFILTRATION NOTED. DRESSING KEPT CLEAN AND DRY. SAFETY MEASURES ARE IN PLACE. CALL LIGHT IS LEFT WITHIN REACH. WILL MONITOR THROUGHOUT SHIFT FOR CONTINUITY OF CARE.
[2018-12-07 08:00] VITALS: BP 151/76
[2018-12-07] MEDS: NEXIUM 40 MG VIAL IV SCH (08:09)
[2018-12-07] MEDS: MEROPENEM 1 G in IV NS 0.9% 100 ML IV SCH ×2 (08:09→15:15)
[2018-12-07] MEDS: NYSTATIN CREAM 15 GM TUBE TP SCH ×3 (08:10→16:51)
[2018-12-07] MEDS: MUPIROCIN OINT 2% 22 GM TUBE TP SCH (08:10)
--- NOTE | 2018-12-07 08:40 | NUR ---
LIFE COACH NOTES-- PT WAS SEEN AND EXAMINED BY DR. JIAN Mccabe/ ORDERS FOR DISCHARGE.
[2018-12-07] MEDS ORDERED: MERO1VIA IV (08:52)
[2018-12-07] MEDS ORDERED: DOXY100C41 IV (08:52)
[2018-12-07] MEDS ORDERED: GLUCERNA 1.2 1,000 ML BOTTLE GT PRN (11:00)
--- NOTE | 2018-12-07 13:34 | NUR ---
ENTRY LEVEL JAVA DEVELOPER NOTES-- PT UNABLE TO MAKE NEEDS KNOWN. REPOSITIONED PT Q2H W/ HOB ELEVATED. GT FEEDING STARTED ON GLUCERNA 1.2 AT 30ML/HR. WOUND CARE DONE X3 TO OLD GT SITE. WILL CONTINUE TO MONITOR.
[2018-12-07 16:00] VITALS: BP 135/91
--- NOTE | 2018-12-07 16:07 | NUR ---
FLORY WEBSTER NOTES-- CALLED [facility], GAVE REPORT TO DARIN COKER. Addendum: 12/07/18 at 1727 by DIANNE ALEMAN RN UPON GIVING REPORT, [facility] WEBSTER MADE AWARE OF WOUND CARE TO OLD GIT SITE. TO CLEANSE AND PAT DRY, APPLY NYSTATIN AND BACTROBAN NEEDED, PER ORDERS.
--- NOTE | 2018-12-07 17:27 | NUR ---
SHAREPOINT MANAGERAGRONOMY SUPERVISOR NOTE PT DISCHARGED TO [facility] IN MEDICALLY STABLE CONDITION. PT IS OBTUNDED, NONVERBAL W/ SPONTANEOUS EYE OPENING. CURRENTLY ON MECHANICAL VENT, TOLERATING VENT SETTINGS WELL. EMT AND RT AT BEDSIDE FOR BEDSIDE ENDORSEMENT. PT IS NOT IN ANY ACUTE DISTRESS. ABDOMEN IS SOFT AND NONDISTENDED, BOWEL SOUNDS ARE PRESENT IN ALL 4 QUADRANTS UPON AUSCULTATION. PT TOLERATED FEEDING WELL W/ RESIDUAL OF 5CC. GT IS PATENT AND IN PLACE UPON AUSCULTATION. PT IS INCONTINENT, KEPT CLEAN AND DRY. MIDLINE TO HALIMA LEFT IN PLACE FOR CONTINUOUS IV ABX. EXPLAINED DISCHARGE PAPERWORK TO [facility] PA[facility] WEBSTER FROM [facility]. ALL BELONGINGS SENT WITH PT. PT LEFT IN STABLE CONDITION VIA FAMRJOVANI ACCOMPANIED BY EMT PERSONNEL AND RT.
== END 2018-12-07 17:00 | DRG 393 ==
LOC: ER 11:40 → MED 16:52 → TELE 17:21
PROVIDERS: ADMIT Internal Medicine; ATTEND Family Medicine
PROC: 5A1955Z Respiratory Ventilation, Greater than 96 Consecutive Hours (ICD-10-PCS; principal; 2018-12-03)
PROC: 05HC33Z Insertion of Infusion Device into Left Basilic Vein, Percutaneous Approach (ICD-10-PCS; 2018-12-05)
PROC: 0DH63UZ Insertion of Feeding Device into Stomach, Percutaneous Approach (ICD-10-PCS; 2018-12-07)
DX: K94.22 Gastrostomy infection (principal); G93.41 Metabolic encephalopathy; R53.2 Functional quadriplegia; N17.0 Acute kidney failure with tubular necrosis; L03.311 Cellulitis of abdominal wall; G93.1 Anoxic brain damage, not elsewhere classified; I69.351 Hemiplegia and hemiparesis following cerebral infarction affecting right dominant side; J96.11 Chronic respiratory failure with hypoxia; Z99.11 Dependence on respirator [ventilator] status; J98.11 Atelectasis; Y83.3 Surgical operation with formation of external stoma as the cause of abnormal reaction of the patient, or of later complication, without mention of misadventure at the time of the procedure; Y82.9 Unspecified medical devices associated with adverse incidents; Y92.129 Unspecified place in nursing home as the place of occurrence of the external cause; E11.9 Type 2 diabetes mellitus without complications; G40.909 Epilepsy, unspecified, not intractable, without status epilepticus; I10 Essential (primary) hypertension; R13.10 Dysphagia, unspecified; L89.90 Pressure ulcer of unspecified site, unspecified stage; Z88.1 Allergy status to other antibiotic agents; Z88.0 Allergy status to penicillin; Z88.8 Allergy status to other drugs, medicaments and biological substances; Z79.899 Other long term (current) drug therapy; Z79.51 Long term (current) use of inhaled steroids; Z79.02 Long term (current) use of antithrombotics/antiplatelets; K94.23 Gastrostomy malfunction; F03.90 Unspecified dementia, unspecified severity, without behavioral disturbance, psychotic disturbance, mood disturbance, and anxiety; D63.8 Anemia in other chronic diseases classified elsewhere
CPT/HCPCS: 31720; 36415; 36569; 43246; 71045-TC; 80048-TC; 80053-TC; 80076-TC; 82962-TC; 83735-TC; 84100-TC; 85025-TC; 85730-TC; 86850-TC; 87070-TC; 87081-TC; 87186-TC; 94002-TC; 94003-TC; 94760-TC; 94762-TC; 94799-TC; 99082-TC; A4623; A6253; A6403; G0378; J0360; J1953; J2185; J2704; J3490; J7030; J7060

== ENCOUNTER 2022-11-25 00:44 | Emergency (ER) | payer MEDICARE, OTHER ==
[~2022-11-25] VITALS: Ht 152.4 cm; Wt 81.6 kg
[~2022-11-25 00:44] MED LIST changes: -ACET650S26 GT; -AMIN30LI4 GT; -ASCO500T9 GT; -BISA-79 PR; +BISA10SU11 RC; +CARV12.52 GT; +CHLO473M5 MM; +CLON0.1T GT; -CLOP75TA15 GT; +DORZ10DR13 EACHEYE; -DOXY100T2 PO; -ENOX40DI SQ; -FERR300L GT; -GEMF600T5 GT; +GEMF600T90 GT; -IPRA3AMP23 IH; +IPRA4AER IH; -IVER3TAB GT; +LOSA50TA39 GT; -MULT-447 GT; +MULT9LIQ6 GT; +NETA2.5D3 EACHEYE; -NUT.237L28 GT; +NUT.250L18 GT; +OMEG1600 GT; -POLY15DR40 EACHEYE; -TRIA15CR2 TP
[2022-11-25] MEDS ORDERED: IV NS 0.9% 1,000 ML BAG IV ONE ×2 (01:00→02:00)
[2022-11-25 01:35] LABS: BASOPHILS # (AUTO) 0.2 K/uL (0.0-0.2); BASOPHILS % (AUTO) 0.5 % (0.0-2.0); HEMATOCRIT 28 % (33-45); HEMOGLOBIN 8.7 g/dL (11.5-14.8); LYMPHOCYTES # (AUTO) 4.8 K/uL (0.8-4.8); LYMPHOCYTES % (AUTO) 14.2 % (20.0-44.0); MEAN CORPUSCULAR HEMOGLOBIN 29 PG (26.0-33.0); MEAN CORPUSCULAR HGB CONC 31 g/dl (31.0-36.0); MEAN CORPUSCULAR VOLUME 93 fL (82-100); MONOCYTES # (AUTO) 2.1 K/uL (0.1-1.30); MONOCYTES % (AUTO) 6.2 % (2.0-12.0); NEUTROPHILS # (AUTO) 26.7 K/uL (1.8-8.9); NEUTROPHILS % (AUTO) 79.1 % (43.0-81.0); PLATELET COUNT (AUTO) 609 K/uL (150-450); RED BLOOD CELL COUNT(AUTO) 2.96 MIL/uL (4.0-5.2); RED CELL DISTRIBUTION WIDTH 15.4 % (11.5-15.0)
[2022-11-25 01:38] LABS: WHITE BLOOD COUNT (AUTO) 33.8 K/uL (4.3-11.0)
[2022-11-25] MEDS ORDERED: PIPERACI/TAZO 3.375GM/D5W 50ML PB IV ONE (01:40)
[2022-11-25 01:44] LABS: CALCIUM, SERUM 9.6 mg/dL (8.5-10.1); CARBON DIOXIDE 24 mmol/L (21-32); CHLORIDE 103 mmol/L (98-107); CREATININE 1.6 mg/dL (0.6-1.3); GLUCOSE 223 mg/dL (74-106); POTASSIUM 5.3 mmol/L (3.5-5.1); SODIUM SERUM 142 mmol/L (136-145); UREA NITROGEN, BLOOD 56 mg/dL (7-18)
[2022-11-25] MEDS ORDERED: METRONIDAZOLE 500MG/ NS 100ML 100 ML IV ONE ×2 (01:54→02:00)
[2022-11-25] MEDS ORDERED: LEVOFLOXACIN 750 MG /D5W 150ML 150 ML IV ONE ×2 (01:55→02:00)
[2022-11-25] MEDS ORDERED: ACETAMINOPHEN 650 MG/SUPP.RECT RC ONE ×2 (01:55→02:00)
[2022-11-25 01:56] LABS: ALANINE AMINOTRANSFERASE 34 U/L (12-78); ALBUMIN 3.6 g/dL (3.4-5.0); ALKALINE PHOSPHATASE 360 U/L (46-116); ASPARTATE AMINOTRANSFERASE 29 U/L (15-37); BILIRUBIN,DIRECT 0.2 mg/dL (0.0-0.2); BILIRUBIN,TOTAL 0.4 mg/dL (0.2-1.0); LIPASE 170 U/L (73-393); TOTAL PROTEIN, SERUM 8.5 g/dL (6.4-8.2)
[2022-11-25 02:21] LABS: LACTIC ACID 4.6 mmol/L (0.4-2.0)
[2022-11-25 03:28] LABS: ANISOCYTOSIS 1+; LYMPHOCYTES % (MANUAL) 10 % (16-48); MONOCYTES % (MANUAL) 10 % (0-11.0); NEUTROPHILS % (MANUAL) 80 (42-76); PLATELET ESTIMATE INCREASED
[2022-11-25 03:29] LABS: STOMATOCYTES 1+
[2022-11-25 04:12] LABS: APPEARANCE,URINE SLIGHTLY CLOUDY (CLEAR); BILIRUBIN,URINE NEGATIVE (NEGATIVE); BLOOD, URINE 1+ Ery/uL (NEGATIVE); COLOR,URINE YELLOW (YELLOW); KETONES,URINE NEGATIVE (NEGATIVE); LEUKOCYTE ESTERASE ,URINE 3+ (NEGATIVE); NITRITE, URINE NEGATIVE (NEGATIVE); PH,URINE 7.5 (5.0-8.0); PROTEIN,URINE 3+ mg/dl (NEGATIVE); UGLUCOSE NEGATIVE (NEGATIVE); UROBILINOGEN,URINE 0.2 EU/dL (0.2)
[2022-11-25 04:31] LABS: ADD URINE CULTURE YES; BACTERIA,URINE 1+ /HPF (None Seen); WBC,URINE TOO NUMEROUS TO COUN /HPF (0-3)
[2022-11-25 04:33] LABS: MUCUS,URINE Moderate /LPF (None Seen)
[2022-11-25] MEDS ORDERED: IOHEXOL-350 100 ML VIAL IV ONE (05:52)
[2022-11-25] MEDS ORDERED: IV NS 0.9% 250 ML IV ONE (05:53)
[2022-11-25] MEDS ORDERED: CT SWABBABLE VALVE TRANS SET 1 EA INFUS.SET MC ONE (05:53)
[2022-11-25 08:23] LABS: EOSINOPHILS % (AUTO) 0.1 % (0.0-6.0)
[2022-11-25 08:38] LABS: PROTHROMBIN TIME 78.8 SECS (9.2-11.1)
[2022-11-25 08:41] LABS: BASOPHILS % (AUTO) 0.2 % (0.0-2.0); HEMATOCRIT 22 % (33-45); LYMPHOCYTES # (AUTO) 2.7 K/uL (0.8-4.8); LYMPHOCYTES % (AUTO) 16.2 % (20.0-44.0); MEAN CORPUSCULAR HEMOGLOBIN 30 PG (26.0-33.0); MEAN CORPUSCULAR HGB CONC 32 g/dl (31.0-36.0); MEAN CORPUSCULAR VOLUME 93 fL (82-100); MONOCYTES # (AUTO) 1.5 K/uL (0.1-1.30); MONOCYTES % (AUTO) 9.2 % (2.0-12.0); NEUTROPHILS # (AUTO) 12.3 K/uL (1.8-8.9); NEUTROPHILS % (AUTO) 74.3 % (43.0-81.0); PLATELET COUNT (AUTO) 404 K/uL (150-450); RED BLOOD CELL COUNT(AUTO) 2.33 MIL/uL (4.0-5.2); RED CELL DISTRIBUTION WIDTH 15.1 % (11.5-15.0); WHITE BLOOD COUNT (AUTO) 16.5 K/uL (4.3-11.0)
[2022-11-25 09:02] LABS: HEMOGLOBIN 6.9 g/dL (11.5-14.8)
[2022-11-25 09:04] LABS: INR 8.47 (0.91-1.10)
[2022-11-25] MEDS ORDERED: PHYTONADIONE INJ 10 MG in IV D5W 50 ML SQ ONE (09:30)
[2022-11-25] MEDS ORDERED: protAMINE SULFATE 10 MG/ML VIAL IV ONE ×2 (09:30→09:42)
[2022-11-25 09:35] LABS: ANISOCYTOSIS 1+; LYMPHOCYTES % (MANUAL) 19 % (16-48); MONOCYTES % (MANUAL) 8 % (0-11.0); NEUTROPHILS % (MANUAL) 73 (42-76); PLATELET ESTIMATE ADEQUATE
[2022-11-25 10:12] LABS: D-DIMER 0.3 mg/L(FEU (0.17-0.50)
[2022-11-25] MEDS ORDERED: IV NS 0.9% 1,000 ML IV ONE (12:30)
[2022-11-25] MEDS ORDERED: NORM210S TP (13:04)
[2022-11-25] MEDS ORDERED: DOCU50LI GT (13:04)
[2022-11-25] MEDS ORDERED: ASCO500T10 GT (13:04)
[2022-11-25] MEDS ORDERED: PETR113O TP (13:04)
[2022-11-25] MEDS ORDERED: ALLA266C2 TP (13:04)
[2022-11-25] MEDS ORDERED: HEPARIN SQ (13:06)
[2022-11-25 14:00] VITALS: TEMP 98.5
[2022-11-25] MEDS ORDERED: LEVOFLOXACIN 500 MG /D5W 100ML 500 MG in PREMIX 1 EA IV SCH (14:30)
[2022-11-25] MEDS ORDERED: LEVOFLOXACIN 500 MG /D5W 100ML 100 ML IV ONE (15:18)
[2022-11-25 17:45] VITALS: BP 105/52; O2SAT 93
[2022-11-25] MEDS ORDERED: METRONIDAZOLE 500MG/ NS 100ML 500 MG in PREMIX 1 EA IV SCH (18:00)
== END 2022-11-25 18:33 | disposition short-term general hospital (02) ==
LOC: ER 00:47 → TELE1 03:27 → UNDOADMIN 03:27 → TELE1 04:13 → ER 18:33
PROC: 5A1935Z Respiratory Ventilation, Less than 24 Consecutive Hours (ICD-10-PCS; principal; 2022-11-25)
DX: A41.9 Sepsis, unspecified organism (principal); R65.20 Severe sepsis without septic shock; S30.1XXA Contusion of abdominal wall, initial encounter; N39.0 Urinary tract infection, site not specified; D64.9 Anemia, unspecified; K21.9 Gastro-esophageal reflux disease without esophagitis; G40.909 Epilepsy, unspecified, not intractable, without status epilepticus; Z79.899 Other long term (current) drug therapy; Z86.73 Personal history of transient ischemic attack (TIA), and cerebral infarction without residual deficits; Z20.822 Contact with and (suspected) exposure to COVID-19; Z98.890 Other specified postprocedural states; Z88.0 Allergy status to penicillin; Z88.1 Allergy status to other antibiotic agents; X58.XXXA Exposure to other specified factors, initial encounter; Y93.89 Activity, other specified; Y92.89 Other specified places as the place of occurrence of the external cause; Y99.8 Other external cause status
CPT/HCPCS: 99291; 96365; 96361; 96366; 96367; 36430; 96375; 93005; 71045; 74174; 74176; 85025 ×2; 80048; 87040 ×2; 87086; 85385; 83605 ×2; 83690; 80076; 85378; 85007 ×2; 81001; 36415; 84484; 85730; 87081; 86850; 31720; 99082; 87426; 86923; J3430; J2720; J2543; J7060; J7030 ×4; J7050 ×2; J1956 ×2; A4223 ×2; Q9967; 94002-TC; P9016

== ENCOUNTER 2022-11-28 17:45 | Inpatient (IN) | payer MEDICARE, OTHER ==
[~2022-11-28] VITALS: Ht 152.4 cm; Wt 77.3 kg
[~2022-11-28 17:45] MED LIST changes: +ALLA266C2 TP; +ASCO500T10 GT; +HEPARIN SQ; +NORM210S TP; +PETR113O TP
[2022-11-29] VITALS (21 sets, daily range): BP systolic 110–145; BP diastolic 40–84; TEMP 97.7–98.1; O2SAT 97–100
[2022-11-29] MEDS ORDERED: METRONIDAZOLE 500MG/ NS 100ML 100 ML IV ONE (05:12)
[2022-11-29] MEDS ORDERED: AZTREONAM 1 G in IV NS 0.9% 100 ML IV SCH (05:15)
[2022-11-29] MEDS ORDERED: METRONIDAZOLE 500MG/ NS 100ML 500 MG in PREMIX 1 EA IV SCH (06:00)
[2022-11-29] MEDS ORDERED: AZITHROMYCIN 500 MG in IV D5W 250 ML IV SCH (08:00)
[2022-11-29] MEDS ORDERED: PANTOPRAZOLE 40 MG VIAL IV SCH (09:00)
[2022-11-29] MEDS ORDERED: AZTREONAM 1 G VIAL IV SCH ×2 (09:00)
[2022-11-29] MEDS: PANTOPRAZOLE 40 MG/PACK PACK GT SCH (09:42)
[2022-11-29] MEDS ORDERED: IV NS 0.9% 250 ML IV PRN (11:00)
[2022-11-29] MEDS ORDERED: MEROPENEM 500 MG in IV NS 0.9% 50 ML IV SCH (11:00)
[2022-11-29 12:23] LABS: BASOPHILS % (AUTO) 0.5 % (0.0-2.0); EOSINOPHILS # (AUTO) 0.3 K/uL (0.0-0.7); EOSINOPHILS % (AUTO) 4.2 % (0.0-6.0); HEMATOCRIT 25 % (33-45); HEMOGLOBIN 8.5 g/dL (11.5-14.8); LYMPHOCYTES # (AUTO) 1.1 K/uL (0.8-4.8); LYMPHOCYTES % (AUTO) 13.7 % (20.0-44.0); MEAN CORPUSCULAR HEMOGLOBIN 31 PG (26.0-33.0); MEAN CORPUSCULAR HGB CONC 34 g/dl (31.0-36.0); MEAN CORPUSCULAR VOLUME 91 fL (82-100); MONOCYTES # (AUTO) 0.7 K/uL (0.1-1.30); MONOCYTES % (AUTO) 8.3 % (2.0-12.0); NEUTROPHILS % (AUTO) 73.3 % (43.0-81.0); PLATELET COUNT (AUTO) 303 K/uL (150-450); RED BLOOD CELL COUNT(AUTO) 2.74 MIL/uL (4.0-5.2); RED CELL DISTRIBUTION WIDTH 15.8 % (11.5-15.0); WHITE BLOOD COUNT (AUTO) 8.2 K/uL (4.3-11.0)
[2022-11-29 12:38] LABS: CALCIUM, SERUM 8.3 mg/dL (8.5-10.1); CARBON DIOXIDE 19 mmol/L (21-32); CHLORIDE 108 mmol/L (98-107); CREATININE 0.5 mg/dL (0.6-1.3); GLUCOSE 130 mg/dL (74-106); MAGNESIUM 1.9 mg/dL (1.8-2.4); PHOSPHORUS 2.7 mg/dL (2.5-4.9); POTASSIUM 4.3 mmol/L (3.5-5.1); SODIUM SERUM 136 mmol/L (136-145); UREA NITROGEN, BLOOD 11 mg/dL (7-18)
[2022-11-29 12:58] LABS: INR 1.12 (0.91-1.10); PARTIAL THROMBOPLASTIN TIME 33.7 SEC (24.3-34.3); PROTHROMBIN TIME 11.7 SECS (9.2-11.1)
[2022-11-29] MEDS ORDERED: AZIT500T IV (13:36)
[2022-11-29] MEDS ORDERED: METR500P4 IV (13:36)
[2022-11-29] MEDS ORDERED: MIDO10TA GT (13:36)
[2022-11-29] MEDS ORDERED: LINE600I2 IV (13:36)
[2022-11-29] MEDS ORDERED: AZTR1VIA4 IV (13:36)
[2022-11-29] MEDS ORDERED: ONDA4TAB5 GT (13:36)
[2022-11-29] MEDS ORDERED: ACETAMINOPHEN 325 MG TABLET PO PRN (14:30)
[2022-11-29] MEDS ORDERED: GLUCERNA 1.2 1,000 ML BOTTLE NG PRN (14:30)
[2022-11-29] MEDS ORDERED: CLONIDINE HCL 0.1 MG TABLET GT PRN (14:30)
[2022-11-29] MEDS: LEVETIRACETAM SOL (5 ML) 100 MG/ML UDC PO SCH ×2 (14:48→21:47)
[2022-11-29] MEDS ORDERED: INSULIN REGULAR, HUMAN 100 UNIT/ML 3 ML VIAL SQ PRN (15:00)
[2022-11-29] MEDS ORDERED: DEXTROSE 50%-WATER 50 ML DISP.SYRIN IV PRN (15:00)
[2022-11-29] MEDS: DOCUSATE SODIUM LIQ 100 MG/10 ML UDC GT SCH ×2 (17:00→17:36)
[2022-11-29] MEDS ORDERED: PANTOPRAZOLE 40 MG/PACK PACK GT SCH (17:30)
[2022-11-29] MEDS: GEMFIBROZIL 600 MG TABLET GT SCH (17:30)
[2022-11-29] MEDS: MIDODRINE HCL (5MG) 5 MG TABLET PO SCH (17:31)
[2022-11-29] MEDS: BLOOD SUGAR DIAGNOSTIC 1 EACH STRIP IN SCH ×2 (17:32→21:47)
[2022-11-29] MEDS: CHLORHEXIDINE GLUCONATE 15 ML UDC MM SCH (17:36)
[2022-11-29] MEDS ORDERED: GLUCERNA 1.2 1,000 ML BOTTLE GT SCH (18:00)
[2022-11-29] MEDS: TIMOLOL MAL/DORZOLAM HCL OPHTH 10 ML BOTTLE EACHEYE SCH (18:07)
[2022-11-29] MEDS: ALBUTEROL FS 2.5 MG/3 ML VIAL.NEB NEB SCH (20:29)
[2022-11-29] MEDS: IPRATROPIUM NEB FS 0.5 MG/2.5 ML AMPUL.NEB NEB SCH (20:29)
[2022-11-29] MEDS: MEROPENEM 500 MG in IV NS 0.9% 50 ML IV SCH (21:48)
[2022-11-29] MEDS ORDERED: Medication Not On Formulary EA (Netarsudil Mesylat/Latanoprost (Rocklatan 0.02%-0.005% E EACHEYE SCH (22:00)
[2022-11-30] VITALS: BP 128/62; TEMP 98.5; O2SAT 98
[2022-11-30] MEDS: IPRATROPIUM NEB FS 0.5 MG/2.5 ML AMPUL.NEB NEB SCH ×4 (02:23→20:43)
[2022-11-30] MEDS: ALBUTEROL FS 2.5 MG/3 ML VIAL.NEB NEB SCH ×4 (02:23→20:43)
[2022-11-30] MEDS ORDERED: DEXTROSE 50%-WATER 50 ML DISP.SYRIN IV PRN (02:30)
[2022-11-30 04:11] VITALS: BP 130/64; TEMP 97.9; O2SAT 99
[2022-11-30] MEDS: BLOOD SUGAR DIAGNOSTIC 1 EACH STRIP IN SCH ×3 (05:37→18:05)
[2022-11-30] MEDS ORDERED: ACETAMINOPHEN LIQUID 325 MG/10.1 ML UDC GT PRN (07:00)
[2022-11-30 08:00] VITALS: BP 152/69; TEMP 99.1; O2SAT 100
[2022-11-30] MEDS: MEROPENEM 500 MG in IV NS 0.9% 50 ML IV SCH (08:56)
[2022-11-30] MEDS: CHLORHEXIDINE GLUCONATE 15 ML UDC MM SCH ×2 (08:57→16:57)
[2022-11-30] MEDS: LEVETIRACETAM SOL (5 ML) 100 MG/ML UDC GT SCH ×2 (08:58→21:25)
[2022-11-30] MEDS: MULTIVITAMINS,THERAGRAN 1 UDTAB TABLET GT SCH (08:58)
[2022-11-30] MEDS: MIDODRINE HCL (5MG) 5 MG TABLET PO SCH ×3 (08:58→16:58)
[2022-11-30] MEDS: ASCORBIC ACID 500 MG TABLET GT SCH (08:58)
[2022-11-30] MEDS: GEMFIBROZIL 600 MG TABLET GT SCH ×2 (08:58→16:57)
[2022-11-30] MEDS: PANTOPRAZOLE 40 MG/PACK PACK GT SCH (08:59)
[2022-11-30] MEDS ORDERED: Medication Not On Formulary EA (Omega-3/Dha/Epa/Fish Oil (Fish Oil 1,600 mg/5 ml Liquid) GT SCH (09:00)
[2022-11-30] MEDS: TIMOLOL MAL/DORZOLAM HCL OPHTH 10 ML BOTTLE EACHEYE SCH ×2 (09:03→16:57)
[2022-11-30 10:40] LABS: ALBUMIN 2.3 g/dL (3.4-5.0); BILIRUBIN,TOTAL 0.5 mg/dL (0.2-1.0); CREATININE 0.7 mg/dL (0.6-1.3); POTASSIUM 3.8 mmol/L (3.5-5.1); TOTAL PROTEIN, SERUM 5.7 g/dL (6.4-8.2)
[2022-11-30 11:25] LABS: BASOPHILS # (AUTO) 0.1 K/uL (0.0-0.2); BASOPHILS % (AUTO) 0.9 % (0.0-2.0); EOSINOPHILS # (AUTO) 0.4 K/uL (0.0-0.7); EOSINOPHILS % (AUTO) 4.3 % (0.0-6.0); HEMATOCRIT 25 % (33-45); HEMOGLOBIN 8.2 g/dL (11.5-14.8); LYMPHOCYTES # (AUTO) 1.4 K/uL (0.8-4.8); LYMPHOCYTES % (AUTO) 16.9 % (20.0-44.0); MEAN CORPUSCULAR HEMOGLOBIN 31 PG (26.0-33.0); MEAN CORPUSCULAR HGB CONC 33 g/dl (31.0-36.0); MEAN CORPUSCULAR VOLUME 94 fL (82-100); MONOCYTES # (AUTO) 0.8 K/uL (0.1-1.30); MONOCYTES % (AUTO) 10.2 % (2.0-12.0); NEUTROPHILS # (AUTO) 5.7 K/uL (1.8-8.9); NEUTROPHILS % (AUTO) 67.7 % (43.0-81.0); PLATELET COUNT (AUTO) 196 K/uL (150-450); RED BLOOD CELL COUNT(AUTO) 2.65 MIL/uL (4.0-5.2); RED CELL DISTRIBUTION WIDTH 16.8 % (11.5-15.0); WHITE BLOOD COUNT (AUTO) 8.3 K/uL (4.3-11.0)
[2022-11-30 12:00] VITALS: BP 110/63; TEMP 98; O2SAT 100
[2022-11-30] MEDS: GLUCERNA 1.2 1,000 ML BOTTLE GT SCH (15:36)
[2022-11-30 16:00] VITALS: BP 134/53; TEMP 99.2; O2SAT 99
[2022-11-30] MEDS: DOCUSATE SODIUM LIQ 100 MG/10 ML UDC GT SCH (16:57)
[2022-11-30 20:00] VITALS: BP 127/41; TEMP 99.2; O2SAT 99
[2022-11-30] MEDS: MEROPENEM 1 G in IV NS 0.9% 100 ML IV SCH (21:21)
[2022-12-01] MEDS: INSULIN REGULAR, HUMAN 100 UNIT/ML 3 ML VIAL SQ PRN ×2 (00:22→05:42)
[2022-12-01] MEDS: BLOOD SUGAR DIAGNOSTIC 1 EACH STRIP IN SCH ×4 (00:22→17:14)
[2022-12-01] MEDS: IPRATROPIUM NEB FS 0.5 MG/2.5 ML AMPUL.NEB NEB SCH ×4 (02:02→20:04)
[2022-12-01] MEDS: ALBUTEROL FS 2.5 MG/3 ML VIAL.NEB NEB SCH ×4 (02:02→20:04)
[2022-12-01 04:39] VITALS: BP 102/42; TEMP 98.2; O2SAT 99
[2022-12-01] MEDS: GLUCERNA 1.2 1,000 ML BOTTLE GT SCH (06:40)
[2022-12-01 06:56] LABS: BASOPHILS % (AUTO) 0.4 % (0.0-2.0); EOSINOPHILS # (AUTO) 0.3 K/uL (0.0-0.7); EOSINOPHILS % (AUTO) 3.7 % (0.0-6.0); HEMATOCRIT 27 % (33-45); HEMOGLOBIN 8.7 g/dL (11.5-14.8); LYMPHOCYTES # (AUTO) 1.7 K/uL (0.8-4.8); LYMPHOCYTES % (AUTO) 19.4 % (20.0-44.0); MEAN CORPUSCULAR HEMOGLOBIN 30 PG (26.0-33.0); MEAN CORPUSCULAR HGB CONC 33 g/dl (31.0-36.0); MEAN CORPUSCULAR VOLUME 93 fL (82-100); MONOCYTES # (AUTO) 0.9 K/uL (0.1-1.30); MONOCYTES % (AUTO) 10.4 % (2.0-12.0); NEUTROPHILS # (AUTO) 5.7 K/uL (1.8-8.9); NEUTROPHILS % (AUTO) 66.1 % (43.0-81.0); PLATELET COUNT (AUTO) 301 K/uL (150-450); RED BLOOD CELL COUNT(AUTO) 2.86 MIL/uL (4.0-5.2); RED CELL DISTRIBUTION WIDTH 16.7 % (11.5-15.0); WHITE BLOOD COUNT (AUTO) 8.6 K/uL (4.3-11.0)
[2022-12-01 07:17] LABS: CALCIUM, SERUM 8.1 mg/dL (8.5-10.1); CREATININE 0.6 mg/dL (0.6-1.3); PHOSPHORUS 2.4 mg/dL (2.5-4.9); POTASSIUM 4.3 mmol/L (3.5-5.1)
[2022-12-01 08:00] VITALS: BP 137/69; TEMP 98.9; O2SAT 100
[2022-12-01] MEDS: LEVETIRACETAM SOL (5 ML) 100 MG/ML UDC GT SCH ×2 (09:00→20:46)
[2022-12-01] MEDS: CHLORHEXIDINE GLUCONATE 15 ML UDC MM SCH ×2 (09:00→17:05)
[2022-12-01] MEDS: DOCUSATE SODIUM LIQ 100 MG/10 ML UDC GT SCH ×2 (09:00→17:00)
[2022-12-01] MEDS: PANTOPRAZOLE 40 MG/PACK PACK GT SCH (09:00)
[2022-12-01] MEDS: ASCORBIC ACID 500 MG TABLET GT SCH (09:01)
[2022-12-01] MEDS: MULTIVITAMINS,THERAGRAN 1 UDTAB TABLET GT SCH (09:01)
[2022-12-01] MEDS: GEMFIBROZIL 600 MG TABLET GT SCH ×2 (09:01→17:05)
[2022-12-01] MEDS: MEROPENEM 1 G in IV NS 0.9% 100 ML IV SCH ×2 (09:04→20:46)
[2022-12-01] MEDS: MIDODRINE HCL (5MG) 5 MG TABLET PO SCH ×3 (09:04→17:15)
[2022-12-01] MEDS: TIMOLOL MAL/DORZOLAM HCL OPHTH 10 ML BOTTLE EACHEYE SCH ×2 (09:05→17:14)
[2022-12-01] MEDS ORDERED: NEUTRA PHOS 1 POWD.PACKET PO ONE ×2 (11:00→12:00)
[2022-12-01 12:00] VITALS: BP 114/59; TEMP 99.1; O2SAT 100
[2022-12-01 16:00] VITALS: BP 131/65; TEMP 101; O2SAT 100
[2022-12-01] MEDS ORDERED: ACETAMINOPHEN 650 MG/20.3 ML UDC GT PRN (17:30)
[2022-12-01 20:00] VITALS: BP 103/53; TEMP 98.7; O2SAT 97
[2022-12-02] VITALS: BP 108/71; TEMP 98.4; O2SAT 98
[2022-12-02] MEDS: BLOOD SUGAR DIAGNOSTIC 1 EACH STRIP IN SCH ×4 (00:06→17:37)
[2022-12-02] MEDS: INSULIN REGULAR, HUMAN 100 UNIT/ML 3 ML VIAL SQ PRN ×2 (00:08→06:14)
[2022-12-02] MEDS: GLUCERNA 1.2 1,000 ML BOTTLE GT SCH (00:20)
[2022-12-02] MEDS: ALBUTEROL FS 2.5 MG/3 ML VIAL.NEB NEB SCH ×4 (00:59→20:13)
[2022-12-02] MEDS: IPRATROPIUM NEB FS 0.5 MG/2.5 ML AMPUL.NEB NEB SCH ×4 (00:59→20:13)
[2022-12-02 04:00] VITALS: BP 127/77; TEMP 99.7; O2SAT 100
[2022-12-02 07:21] LABS: BASOPHILS % (AUTO) 0.4 % (0.0-2.0); EOSINOPHILS # (AUTO) 0.3 K/uL (0.0-0.7); EOSINOPHILS % (AUTO) 2.6 % (0.0-6.0); HEMATOCRIT 32 % (33-45); HEMOGLOBIN 10.2 g/dL (11.5-14.8); LYMPHOCYTES # (AUTO) 1.6 K/uL (0.8-4.8); LYMPHOCYTES % (AUTO) 15.9 % (20.0-44.0); MEAN CORPUSCULAR HEMOGLOBIN 31 PG (26.0-33.0); MEAN CORPUSCULAR HGB CONC 32 g/dl (31.0-36.0); MEAN CORPUSCULAR VOLUME 97 fL (82-100); MONOCYTES # (AUTO) 1.1 K/uL (0.1-1.30); MONOCYTES % (AUTO) 11.1 % (2.0-12.0); PLATELET COUNT (AUTO) 335 K/uL (150-450); RED BLOOD CELL COUNT(AUTO) 3.29 MIL/uL (4.0-5.2); RED CELL DISTRIBUTION WIDTH 18.3 % (11.5-15.0); WHITE BLOOD COUNT (AUTO) 9.9 K/uL (4.3-11.0)
[2022-12-02 08:00] VITALS: BP 165/72; TEMP 98.7; O2SAT 100
[2022-12-02 08:14] LABS: CALCIUM, SERUM 8.9 mg/dL (8.5-10.1); CREATININE 0.7 mg/dL (0.6-1.3); MAGNESIUM 2.1 mg/dL (1.8-2.4); POTASSIUM 5.7 mmol/L (3.5-5.1)
[2022-12-02] MEDS: LEVETIRACETAM SOL (5 ML) 100 MG/ML UDC GT SCH ×2 (08:49→20:24)
[2022-12-02] MEDS: PANTOPRAZOLE 40 MG/PACK PACK GT SCH (08:49)
[2022-12-02] MEDS: DOCUSATE SODIUM LIQ 100 MG/10 ML UDC GT SCH ×2 (08:49→16:42)
[2022-12-02] MEDS: CHLORHEXIDINE GLUCONATE 15 ML UDC MM SCH ×2 (08:49→16:42)
[2022-12-02] MEDS: MULTIVITAMINS,THERAGRAN 1 UDTAB TABLET GT SCH (08:49)
[2022-12-02] MEDS: ASCORBIC ACID 500 MG TABLET GT SCH (08:50)
[2022-12-02] MEDS: GEMFIBROZIL 600 MG TABLET GT SCH ×2 (08:50→16:42)
[2022-12-02] MEDS: MIDODRINE HCL (5MG) 5 MG TABLET PO SCH ×3 (08:50→16:42)
[2022-12-02] MEDS: TIMOLOL MAL/DORZOLAM HCL OPHTH 10 ML BOTTLE EACHEYE SCH ×2 (08:51→16:43)
[2022-12-02] MEDS: MEROPENEM 1 G in IV NS 0.9% 100 ML IV SCH ×2 (08:51→20:24)
[2022-12-02 12:00] VITALS: BP 135/71; TEMP 98.5; O2SAT 95
[2022-12-02 16:00] VITALS: BP 121/61; TEMP 98.9; O2SAT 100
[2022-12-02] MEDS ORDERED: SODIUM POLYSTYRENE SULFONATE 15 G/60 ML BOTTLE PO ONE (17:30)
[2022-12-02 20:00] VITALS: BP 146/76; TEMP 98.9; O2SAT 100
[2022-12-03] VITALS: BP 144/71; TEMP 98.8; O2SAT 100
[2022-12-03] MEDS: BLOOD SUGAR DIAGNOSTIC 1 EACH STRIP IN SCH ×2 (00:35→11:14)
[2022-12-03] MEDS: ALBUTEROL FS 2.5 MG/3 ML VIAL.NEB NEB SCH ×3 (01:21→13:41)
[2022-12-03] MEDS: IPRATROPIUM NEB FS 0.5 MG/2.5 ML AMPUL.NEB NEB SCH ×3 (01:21→13:41)
[2022-12-03 04:00] VITALS: BP 146/75; TEMP 99; O2SAT 100
[2022-12-03] MEDS: GLUCERNA 1.2 1,000 ML BOTTLE GT SCH (05:34)
[2022-12-03 07:02] LABS: BASOPHILS % (AUTO) 0.3 % (0.0-2.0); EOSINOPHILS # (AUTO) 0.2 K/uL (0.0-0.7); EOSINOPHILS % (AUTO) 2.5 % (0.0-6.0); HEMATOCRIT 29 % (33-45); HEMOGLOBIN 9.3 g/dL (11.5-14.8); LYMPHOCYTES # (AUTO) 1.7 K/uL (0.8-4.8); LYMPHOCYTES % (AUTO) 25.5 % (20.0-44.0); MEAN CORPUSCULAR HEMOGLOBIN 30 PG (26.0-33.0); MEAN CORPUSCULAR HGB CONC 32 g/dl (31.0-36.0); MEAN CORPUSCULAR VOLUME 94 fL (82-100); MONOCYTES # (AUTO) 1.2 K/uL (0.1-1.30); MONOCYTES % (AUTO) 17.6 % (2.0-12.0); NEUTROPHILS # (AUTO) 3.6 K/uL (1.8-8.9); NEUTROPHILS % (AUTO) 54.1 % (43.0-81.0); PLATELET COUNT (AUTO) 329 K/uL (150-450); RED BLOOD CELL COUNT(AUTO) 3.08 MIL/uL (4.0-5.2); RED CELL DISTRIBUTION WIDTH 17.4 % (11.5-15.0); WHITE BLOOD COUNT (AUTO) 6.6 K/uL (4.3-11.0)
[2022-12-03 07:28] LABS: ALANINE AMINOTRANSFERASE 25 U/L (12-78); ALBUMIN 2.7 g/dL (3.4-5.0); ALKALINE PHOSPHATASE 176 U/L (46-116); ASPARTATE AMINOTRANSFERASE 36 U/L (15-37); BILIRUBIN,TOTAL 0.7 mg/dL (0.2-1.0); CALCIUM, SERUM 8.8 mg/dL (8.5-10.1); CARBON DIOXIDE 22 mmol/L (21-32); CHLORIDE 105 mmol/L (98-107); CREATININE 0.7 mg/dL (0.6-1.3); GLUCOSE 111 mg/dL (74-106); MAGNESIUM 2.1 mg/dL (1.8-2.4); PHOSPHORUS 2.7 mg/dL (2.5-4.9); POTASSIUM 5.1 mmol/L (3.5-5.1); SODIUM SERUM 138 mmol/L (136-145); UREA NITROGEN, BLOOD 11 mg/dL (7-18)
[2022-12-03 08:00] VITALS: BP 122/77; TEMP 98.7; O2SAT 100
[2022-12-03 08:47] LABS: BAND % (MANUAL) 3 % (0.0-5.0); EOSINOPHILS % (MANUAL) 1 % (0-4); LYMPHOCYTES % (MANUAL) 26 % (16-48); MONOCYTES % (MANUAL) 17 % (0-11.0); NEUTROPHILS % (MANUAL) 53 (42-76); PLATELET ESTIMATE ADEQUATE
[2022-12-03 08:48] LABS: ANISOCYTOSIS 1+
[2022-12-03] MEDS: TIMOLOL MAL/DORZOLAM HCL OPHTH 10 ML BOTTLE EACHEYE SCH (08:59)
[2022-12-03] MEDS: PANTOPRAZOLE 40 MG/PACK PACK GT SCH (08:59)
[2022-12-03] MEDS: DOCUSATE SODIUM LIQ 100 MG/10 ML UDC GT SCH (08:59)
[2022-12-03] MEDS: CHLORHEXIDINE GLUCONATE 15 ML UDC MM SCH (08:59)
[2022-12-03] MEDS: LEVETIRACETAM SOL (5 ML) 100 MG/ML UDC GT SCH (08:59)
[2022-12-03] MEDS: GEMFIBROZIL 600 MG TABLET GT SCH (08:59)
[2022-12-03] MEDS: MIDODRINE HCL (5MG) 5 MG TABLET PO SCH ×2 (09:00→13:00)
[2022-12-03] MEDS: ASCORBIC ACID 500 MG TABLET GT SCH (09:00)
[2022-12-03] MEDS: MULTIVITAMINS,THERAGRAN 1 UDTAB TABLET GT SCH (09:00)
[2022-12-03] MEDS: MEROPENEM 1 G in IV NS 0.9% 100 ML IV SCH (09:04)
[2022-12-03 12:00] VITALS: BP 128/72; TEMP 98.9; O2SAT 100
[2022-12-03 13:00] VITALS: BP 128/72
== END 2022-12-03 15:59 | DRG 870 ==
LOC: ICU 11-29 02:50 → TELE-TD 11-29 15:56 → TELE1 11-30 14:29
PROVIDERS: ADMIT Nurse Practitioner Acute Care
PROC: 05HF33Z Insertion of Infusion Device into Left Cephalic Vein, Percutaneous Approach (ICD-10-PCS; principal; 2022-11-29)
PROC: 5A1955Z Respiratory Ventilation, Greater than 96 Consecutive Hours (ICD-10-PCS; 2022-11-29)
DX: A41.9 Sepsis, unspecified organism (principal); G93.41 Metabolic encephalopathy; R53.2 Functional quadriplegia; N39.0 Urinary tract infection, site not specified; J96.10 Chronic respiratory failure, unspecified whether with hypoxia or hypercapnia; D68.9 Coagulation defect, unspecified; Z16.24 Resistance to multiple antibiotics; D68.59 Other primary thrombophilia; Z99.11 Dependence on respirator [ventilator] status; I69.351 Hemiplegia and hemiparesis following cerebral infarction affecting right dominant side; G40.909 Epilepsy, unspecified, not intractable, without status epilepticus; I10 Essential (primary) hypertension; R13.10 Dysphagia, unspecified; Z93.1 Gastrostomy status; Z93.0 Tracheostomy status; E78.5 Hyperlipidemia, unspecified; Z87.19 Personal history of other diseases of the digestive system; D64.9 Anemia, unspecified; E11.9 Type 2 diabetes mellitus without complications; B96.1 Klebsiella pneumoniae [K. pneumoniae] as the cause of diseases classified elsewhere; Z87.820 Personal history of traumatic brain injury; Z88.0 Allergy status to penicillin; Z88.1 Allergy status to other antibiotic agents; Z88.8 Allergy status to other drugs, medicaments and biological substances; T14.8XXA Other injury of unspecified body region, initial encounter; X58.XXXA Exposure to other specified factors, initial encounter; Y92.9 Unspecified place or not applicable; K21.9 Gastro-esophageal reflux disease without esophagitis; Z79.51 Long term (current) use of inhaled steroids; Z79.899 Other long term (current) drug therapy
CPT/HCPCS: 31720; 36410; 36415; 71045-TC; 80048-TC; 80053-TC; 82962-TC; 83735-TC; 84100-TC; 85025-TC; 85730-TC; 93971-TC; 94002-TC; 94003-TC; 94760-TC; 94799-TC; A4216; A4223; A6403; A7526; C9113; G0378; J0456; J1815; J1953; J2185; J3490; J7030; J7050; J7060

== ENCOUNTER 2022-12-21 23:36 | Inpatient (IN) | payer MEDICARE, OTHER ==
[~2022-12-21] VITALS: Ht 152.4 cm; Wt 69.0 kg
[~2022-12-21 23:36] MED LIST changes: +AZIT500T IV; +AZTR1VIA4 IV; +LINE600I2 IV; +METR500P4 IV; +MIDO10TA GT; +ONDA4TAB5 GT
[2022-12-21] MEDS ORDERED: ADENOSINE 6 MG/2 ML VIAL ONE (23:52)
[2022-12-22] MEDS ORDERED: ADENOSINE 6 MG/2 ML VIAL IVP ONE
[2022-12-22] MEDS ORDERED: IV NS 0.9% 1,000 ML BAG IV ONE
[2022-12-22] MEDS ORDERED: AZITHROMYCIN 500 MG in IV D5W 250 ML IV ONE ×2
[2022-12-22] MEDS ORDERED: CEFTRIAXONE 1GM BAG (ER ONLY) 50 ML IV ONE ×2 (00:10)
[2022-12-22 00:35] LABS: BASOPHILS % (AUTO) 0.6 % (0.0-2.0); EOSINOPHILS # (AUTO) 0.1 K/uL (0.0-0.7); EOSINOPHILS % (AUTO) 2.1 % (0.0-6.0); HEMATOCRIT 31 % (33-45); HEMOGLOBIN 10.1 g/dL (11.5-14.8); LYMPHOCYTES # (AUTO) 1.8 K/uL (0.8-4.8); LYMPHOCYTES % (AUTO) 33.3 % (20.0-44.0); MEAN CORPUSCULAR HEMOGLOBIN 29 PG (26.0-33.0); MEAN CORPUSCULAR HGB CONC 32 g/dl (31.0-36.0); MEAN CORPUSCULAR VOLUME 91 fL (82-100); MONOCYTES # (AUTO) 0.6 K/uL (0.1-1.30); MONOCYTES % (AUTO) 11.4 % (2.0-12.0); NEUTROPHILS # (AUTO) 2.9 K/uL (1.8-8.9); NEUTROPHILS % (AUTO) 52.6 % (43.0-81.0); PLATELET COUNT (AUTO) 313 K/uL (150-450); RED BLOOD CELL COUNT(AUTO) 3.46 MIL/uL (4.0-5.2); RED CELL DISTRIBUTION WIDTH 15.5 % (11.5-15.0); WHITE BLOOD COUNT (AUTO) 5.4 K/uL (4.3-11.0)
[2022-12-22] MEDS ORDERED: AZITHROMYCIN 500 MG VIAL ONE (00:54)
[2022-12-22 00:58] LABS: INR 1.55 (0.91-1.10); PARTIAL THROMBOPLASTIN TIME 36.2 SEC (24.3-34.3); PROTHROMBIN TIME 15.9 SECS (9.2-11.1)
[2022-12-22 01:12] LABS: ALANINE AMINOTRANSFERASE 21 U/L (12-78); ALBUMIN 3.1 g/dL (3.4-5.0); ALKALINE PHOSPHATASE 318 U/L (46-116); ASPARTATE AMINOTRANSFERASE 19 U/L (15-37); BILIRUBIN,DIRECT 0.2 mg/dL (0.0-0.2); BILIRUBIN,TOTAL 0.4 mg/dL (0.2-1.0); CALCIUM, SERUM 9.3 mg/dL (8.5-10.1); CARBON DIOXIDE 22 mmol/L (21-32); CHLORIDE 108 mmol/L (98-107); CREATININE 0.7 mg/dL (0.6-1.3); GLUCOSE 144 mg/dL (74-106); POTASSIUM 4.4 mmol/L (3.5-5.1); SODIUM SERUM 141 mmol/L (136-145); TOTAL PROTEIN, SERUM 8.1 g/dL (6.4-8.2); UREA NITROGEN, BLOOD 33 mg/dL (7-18)
[2022-12-22 01:16] LABS: LACTIC ACID 1.8 mmol/L (0.4-2.0)
[2022-12-22] MEDS ORDERED: MAGNESIUM HYDROXIDE 30 ML UDC PO PRN (01:30)
[2022-12-22] MEDS ORDERED: ZOLPIDEM TARTRATE 5 MG TABLET PO PRN (01:30)
[2022-12-22] MEDS ORDERED: MAG HYDROX/AL HYDROX/SIMETH 30 ML UDC PO PRN (01:30)
[2022-12-22] MEDS ORDERED: ACETAMINOPHEN 325 MG TABLET PO PRN (01:30)
[2022-12-22] MEDS ORDERED: ONDANSETRON HCL/PF 4 MG/2 ML VIAL IVP PRN (01:30)
[2022-12-22] MEDS ORDERED: Z GUARD REMEDY 4 OZ OINT TP PRN (01:30)
[2022-12-22 02:44] LABS: APPEARANCE,URINE TURBID (CLEAR); COLOR,URINE YELLOW (YELLOW); LEUKOCYTE ESTERASE ,URINE LARGE (NEGATIVE)
[2022-12-22 02:45] LABS: BILIRUBIN,URINE NEGATIVE (NEGATIVE); KETONES,URINE NEGATIVE (NEGATIVE); NITRITE, URINE NEGATIVE (NEGATIVE); PROTEIN,URINE 1+ mg/dl (NEGATIVE); UGLUCOSE NEGATIVE (NEGATIVE); UROBILINOGEN,URINE 0.2 EU/dL (0.2)
[2022-12-22 02:46] LABS: ADD URINE CULTURE YES; BACTERIA,URINE Few /HPF (None Seen); BLOOD, URINE 2+ Ery/uL (NEGATIVE); PH,URINE 6.5 (5.0-8.0); SQUAMOUS EPITHELIAL CELL,UR Rare /HPF (None Seen)
[2022-12-22] MEDS ORDERED: PANTOPRAZOLE 40 MG TABLET.DR PO SCH (07:30)
[2022-12-22 08:00] VITALS: BP 116/69; TEMP 97.4; O2SAT 100
[2022-12-22] MEDS ORDERED: MULT-213 GT (08:22)
[2022-12-22] MEDS ORDERED: INSU100V3 SQ (08:22)
[2022-12-22] MEDS ORDERED: ZINC50TA65 GT (08:22)
[2022-12-22] MEDS: ENOXAPARIN SODIUM 40 MG/0.4 ML DISP.SYRIN SQ SCH (10:16)
[2022-12-22] MEDS ORDERED: MEROPENEM 1 G in IV NS 0.9% 100 ML IV SCH ×2 (11:00→13:00)
[2022-12-22] MEDS: IV NS 0.9% 1,000 ML IV PRN (11:51)
[2022-12-22 12:00] VITALS: BP 110/63; TEMP 98.2; O2SAT 100
[2022-12-22] MEDS ORDERED: LEVALBUTEROL HCL NEB 1.25 MG/0.5 ML VIAL.NEB NEB PRN (12:00)
[2022-12-22] MEDS ORDERED: MAGNESIUM HYDROXIDE 30 ML UDC GT PRN (12:11)
[2022-12-22] MEDS ORDERED: MAG HYDROX/AL HYDROX/SIMETH 30 ML UDC GT PRN (12:11)
[2022-12-22] MEDS ORDERED: ACETAMINOPHEN 650 MG/20.3 ML UDC GT PRN (12:30)
[2022-12-22] MEDS: GLUCERNA 1.2 1,000 ML BOTTLE GT PRN (14:06)
[2022-12-22] MEDS: MEROPENEM 1 G in IV NS 0.9% 100 ML IV SCH (14:45)
[2022-12-22 16:00] VITALS: BP 127/71; TEMP 98.6; O2SAT 100
[2022-12-22] MEDS ORDERED: BISACODYL SUPP (10 MG) 10 MG/SUPP.RECT SUPP.RECT RC PRN (16:00)
[2022-12-22] MEDS ORDERED: NA PHOS,M-B/NA PHOS,DI-BA 1 EA ENEMA RC PRN (16:00)
[2022-12-22] MEDS: GEMFIBROZIL 600 MG TABLET GT SCH (16:37)
[2022-12-22] MEDS: DOCUSATE SODIUM LIQ 100 MG/10 ML UDC GT SCH (16:37)
[2022-12-22] MEDS: CHLORHEXIDINE GLUCONATE 15 ML UDC MM SCH (16:37)
[2022-12-22] MEDS: LEVETIRACETAM SOL (5 ML) 100 MG/ML UDC GT SCH ×2 (16:37→21:56)
[2022-12-22] MEDS: TIMOLOL MAL/DORZOLAM HCL OPHTH 10 ML BOTTLE EACHEYE SCH (16:39)
[2022-12-22] MEDS ORDERED: INSULIN REGULAR, HUMAN 100 UNIT/ML 3 ML VIAL SQ SCH (18:00)
[2022-12-22 20:00] VITALS: BP 142/67; TEMP 97.5; O2SAT 98
[2022-12-23] VITALS: BP 111/58; TEMP 97.9; O2SAT 99
[2022-12-23] MEDS ORDERED: DEXTROSE 50%-WATER 50 ML DISP.SYRIN IV PRN
[2022-12-23] MEDS ORDERED: CEFTRIAXONE 1 G in IV D5W 50 ML IV SCH ×2
[2022-12-23] MEDS ORDERED: BLOOD SUGAR DIAGNOSTIC 1 EACH STRIP IN SCH
[2022-12-23] MEDS: BLOOD SUGAR DIAGNOSTIC 1 EACH STRIP IN SCH ×4 (00:31→17:53)
[2022-12-23] MEDS: INSULIN REGULAR, HUMAN 100 UNIT/ML 3 ML VIAL SQ PRN ×4 (00:32→17:53)
[2022-12-23] MEDS ORDERED: AZITHROMYCIN 250 MG TABLET PO SCH (01:00)
[2022-12-23] MEDS ORDERED: AZITHROMYCIN 500 MG in IV D5W 250 ML IV SCH (01:00)
[2022-12-23] MEDS: MEROPENEM 1 G in IV NS 0.9% 100 ML IV SCH ×2 (01:56→14:11)
[2022-12-23 04:00] VITALS: BP 137/67; TEMP 98.6; O2SAT 100
[2022-12-23] MEDS: IV NS 0.9% 1,000 ML IV PRN (04:28)
[2022-12-23 06:45] LABS: BASOPHILS % (AUTO) 0.5 % (0.0-2.0); EOSINOPHILS # (AUTO) 0.2 K/uL (0.0-0.7); EOSINOPHILS % (AUTO) 4.5 % (0.0-6.0); HEMATOCRIT 31 % (33-45); LYMPHOCYTES # (AUTO) 1.1 K/uL (0.8-4.8); LYMPHOCYTES % (AUTO) 25.1 % (20.0-44.0); MEAN CORPUSCULAR HEMOGLOBIN 29 PG (26.0-33.0); MEAN CORPUSCULAR HGB CONC 32 g/dl (31.0-36.0); MEAN CORPUSCULAR VOLUME 91 fL (82-100); MONOCYTES # (AUTO) 0.5 K/uL (0.1-1.30); MONOCYTES % (AUTO) 11.1 % (2.0-12.0); NEUTROPHILS # (AUTO) 2.5 K/uL (1.8-8.9); NEUTROPHILS % (AUTO) 58.8 % (43.0-81.0); PLATELET COUNT (AUTO) 301 K/uL (150-450); RED BLOOD CELL COUNT(AUTO) 3.47 MIL/uL (4.0-5.2); RED CELL DISTRIBUTION WIDTH 15.5 % (11.5-15.0); WHITE BLOOD COUNT (AUTO) 4.3 K/uL (4.3-11.0)
[2022-12-23 07:17] LABS: CREATININE 0.7 mg/dL (0.6-1.3); MAGNESIUM 2.3 mg/dL (1.8-2.4); PHOSPHORUS 3.7 mg/dL (2.5-4.9); POTASSIUM 4.2 mmol/L (3.5-5.1)
[2022-12-23 07:20] LABS: THYROID STIMULATING HORMONE 1.419 uIU/mL (0.358-3.74)
[2022-12-23 08:00] VITALS: BP 130/70; TEMP 98.1; O2SAT 99
[2022-12-23] MEDS: CHLORHEXIDINE GLUCONATE 15 ML UDC MM SCH ×2 (08:16→16:21)
[2022-12-23] MEDS: PANTOPRAZOLE 40 MG/PACK PACK GT SCH (08:16)
[2022-12-23] MEDS: TIMOLOL MAL/DORZOLAM HCL OPHTH 10 ML BOTTLE EACHEYE SCH ×2 (08:16→16:21)
[2022-12-23] MEDS: DOCUSATE SODIUM LIQ 100 MG/10 ML UDC GT SCH ×2 (08:16→16:21)
[2022-12-23] MEDS: ASCORBIC ACID 500 MG TABLET GT SCH (08:16)
[2022-12-23] MEDS: LEVETIRACETAM SOL (5 ML) 100 MG/ML UDC GT SCH ×2 (08:16→20:29)
[2022-12-23] MEDS: MULTIVIT W/MINERALS 1 TAB TABLET GT SCH (08:16)
[2022-12-23] MEDS: ENOXAPARIN SODIUM 40 MG/0.4 ML DISP.SYRIN SQ SCH (08:18)
[2022-12-23] MEDS: GEMFIBROZIL 600 MG TABLET GT SCH ×2 (08:20→16:21)
[2022-12-23] MEDS: ZINC SULFATE 220 MG CAPSULE GT SCH (08:20)
[2022-12-23 12:00] VITALS: BP 162/82; TEMP 98.4; O2SAT 99
[2022-12-23] MEDS ORDERED: hydrALAZINE HCL IV 20 MG VIAL IV PRN (13:00)
[2022-12-23] MEDS: METOPROLOL TARTRATE 25 MG TABLET PO SCH ×2 (14:11→21:21)
[2022-12-23] MEDS: GLUCERNA 1.2 1,000 ML BOTTLE GT PRN (14:23)
[2022-12-23 16:00] VITALS: BP 140/68; TEMP 98.7; O2SAT 98
[2022-12-23] MEDS: MUPIROCIN OINT 2% 22 GM TUBE NS SCH (20:29)
[2022-12-24] VITALS: BP 136/67; TEMP 98.7; O2SAT 98
[2022-12-24] MEDS: BLOOD SUGAR DIAGNOSTIC 1 EACH STRIP IN SCH ×4 (01:18→17:56)
[2022-12-24] MEDS: INSULIN REGULAR, HUMAN 100 UNIT/ML 3 ML VIAL SQ PRN ×4 (01:20→17:56)
[2022-12-24] MEDS: MEROPENEM 1 G in IV NS 0.9% 100 ML IV SCH ×2 (01:47→14:04)
[2022-12-24] MEDS: IV NS 0.9% 1,000 ML IV PRN ×2 (02:00→19:04)
[2022-12-24 04:00] VITALS: BP 145/76; TEMP 98.5; O2SAT 98
[2022-12-24 08:00] VITALS: BP 162/70; TEMP 99.4; O2SAT 98
[2022-12-24] MEDS: MUPIROCIN OINT 2% 22 GM TUBE NS SCH ×2 (08:37→20:52)
[2022-12-24] MEDS: CHLORHEXIDINE GLUCONATE 15 ML UDC MM SCH ×2 (08:37→17:07)
[2022-12-24] MEDS: PANTOPRAZOLE 40 MG/PACK PACK GT SCH (08:37)
[2022-12-24] MEDS: DOCUSATE SODIUM LIQ 100 MG/10 ML UDC GT SCH ×2 (08:37→17:07)
[2022-12-24] MEDS: MULTIVIT W/MINERALS 1 TAB TABLET GT SCH (08:38)
[2022-12-24] MEDS: LEVETIRACETAM SOL (5 ML) 100 MG/ML UDC GT SCH ×2 (08:38→20:51)
[2022-12-24] MEDS: GEMFIBROZIL 600 MG TABLET GT SCH ×2 (08:38→17:07)
[2022-12-24] MEDS: TIMOLOL MAL/DORZOLAM HCL OPHTH 10 ML BOTTLE EACHEYE SCH ×2 (08:38→17:08)
[2022-12-24] MEDS: ZINC SULFATE 220 MG CAPSULE GT SCH (08:38)
[2022-12-24] MEDS: METOPROLOL TARTRATE 25 MG TABLET PO SCH ×2 (08:38→20:52)
[2022-12-24] MEDS: ASCORBIC ACID 500 MG TABLET GT SCH (08:38)
[2022-12-24] MEDS: ENOXAPARIN SODIUM 40 MG/0.4 ML DISP.SYRIN SQ SCH (08:40)
[2022-12-24 11:21] LABS: BASOPHILS % (AUTO) 0.4 % (0.0-2.0); EOSINOPHILS # (AUTO) 0.1 K/uL (0.0-0.7); EOSINOPHILS % (AUTO) 4.2 % (0.0-6.0); HEMATOCRIT 29 % (33-45); HEMOGLOBIN 9.3 g/dL (11.5-14.8); LYMPHOCYTES # (AUTO) 0.9 K/uL (0.8-4.8); LYMPHOCYTES % (AUTO) 28.5 % (20.0-44.0); MEAN CORPUSCULAR HEMOGLOBIN 30 PG (26.0-33.0); MEAN CORPUSCULAR HGB CONC 32 g/dl (31.0-36.0); MEAN CORPUSCULAR VOLUME 93 fL (82-100); MONOCYTES # (AUTO) 0.4 K/uL (0.1-1.30); MONOCYTES % (AUTO) 13.4 % (2.0-12.0); NEUTROPHILS # (AUTO) 1.6 K/uL (1.8-8.9); NEUTROPHILS % (AUTO) 53.5 % (43.0-81.0); PLATELET COUNT (AUTO) 235 K/uL (150-450); RED BLOOD CELL COUNT(AUTO) 3.12 MIL/uL (4.0-5.2); RED CELL DISTRIBUTION WIDTH 15.9 % (11.5-15.0)
[2022-12-24 11:27] LABS: CALCIUM, SERUM 8.8 mg/dL (8.5-10.1); CREATININE 0.7 mg/dL (0.6-1.3); POTASSIUM 4.3 mmol/L (3.5-5.1)
[2022-12-24 11:32] LABS: ALBUMIN 2.8 g/dL (3.4-5.0); BILIRUBIN,TOTAL 0.3 mg/dL (0.2-1.0); TOTAL PROTEIN, SERUM 7.2 g/dL (6.4-8.2)
[2022-12-24 12:00] VITALS: BP 119/69; TEMP 98.3; O2SAT 100
[2022-12-24 16:00] VITALS: BP 147/62; TEMP 98.1; O2SAT 97
[2022-12-24] MEDS: GLUCERNA 1.2 1,000 ML BOTTLE GT PRN (17:11)
[2022-12-24 20:00] VITALS: BP 138/84; TEMP 98.2; O2SAT 99
[2022-12-25] VITALS: BP 126/62; TEMP 98.2; O2SAT 99
[2022-12-25] MEDS: BLOOD SUGAR DIAGNOSTIC 1 EACH STRIP IN SCH ×5 (00:12→23:48)
[2022-12-25] MEDS: MEROPENEM 1 G in IV NS 0.9% 100 ML IV SCH ×2 (01:53→13:32)
[2022-12-25 04:00] VITALS: BP 128/62; TEMP 98.2; O2SAT 99
[2022-12-25 07:26] LABS: BASOPHILS % (AUTO) 0.3 % (0.0-2.0); EOSINOPHILS # (AUTO) 0.2 K/uL (0.0-0.7); EOSINOPHILS % (AUTO) 7.6 % (0.0-6.0); HEMATOCRIT 30 % (33-45); HEMOGLOBIN 9.3 g/dL (11.5-14.8); LYMPHOCYTES # (AUTO) 1.4 K/uL (0.8-4.8); LYMPHOCYTES % (AUTO) 43.3 % (20.0-44.0); MEAN CORPUSCULAR HEMOGLOBIN 29 PG (26.0-33.0); MEAN CORPUSCULAR HGB CONC 31 g/dl (31.0-36.0); MEAN CORPUSCULAR VOLUME 93 fL (82-100); MONOCYTES # (AUTO) 0.4 K/uL (0.1-1.30); MONOCYTES % (AUTO) 12.8 % (2.0-12.0); NEUTROPHILS # (AUTO) 1.2 K/uL (1.8-8.9); PLATELET COUNT (AUTO) 229 K/uL (150-450); RED CELL DISTRIBUTION WIDTH 16.5 % (11.5-15.0); WHITE BLOOD COUNT (AUTO) 3.3 K/uL (4.3-11.0)
[2022-12-25 08:00] VITALS: BP 118/86; TEMP 98.2; O2SAT 99
[2022-12-25 08:01] LABS: ALANINE AMINOTRANSFERASE 27 U/L (12-78); ALBUMIN 2.7 g/dL (3.4-5.0); ALKALINE PHOSPHATASE 227 U/L (46-116); ASPARTATE AMINOTRANSFERASE 36 U/L (15-37); BILIRUBIN,TOTAL 0.3 mg/dL (0.2-1.0); CALCIUM, SERUM 8.7 mg/dL (8.5-10.1); CARBON DIOXIDE 17 mmol/L (21-32); CHLORIDE 116 mmol/L (98-107); CREATININE 0.6 mg/dL (0.6-1.3); GLUCOSE 114 mg/dL (74-106); POTASSIUM 4.5 mmol/L (3.5-5.1); SODIUM SERUM 143 mmol/L (136-145); TOTAL PROTEIN, SERUM 7.1 g/dL (6.4-8.2); UREA NITROGEN, BLOOD 18 mg/dL (7-18)
[2022-12-25] MEDS: MULTIVIT W/MINERALS 1 TAB TABLET GT SCH (08:52)
[2022-12-25] MEDS: CHLORHEXIDINE GLUCONATE 15 ML UDC MM SCH ×2 (08:52→16:23)
[2022-12-25] MEDS: GEMFIBROZIL 600 MG TABLET GT SCH ×2 (08:52→16:23)
[2022-12-25] MEDS: LEVETIRACETAM SOL (5 ML) 100 MG/ML UDC GT SCH ×2 (08:53→21:24)
[2022-12-25] MEDS: ZINC SULFATE 220 MG CAPSULE GT SCH (08:53)
[2022-12-25] MEDS: ASCORBIC ACID 500 MG TABLET GT SCH (08:53)
[2022-12-25] MEDS: PROSOURCE / PROSTAT (PYXIS) 30 ML UDC GT SCH (08:53)
[2022-12-25] MEDS: DOCUSATE SODIUM LIQ 100 MG/10 ML UDC GT SCH ×2 (08:53→16:23)
[2022-12-25] MEDS: METOPROLOL TARTRATE 25 MG TABLET PO SCH ×2 (08:53→21:25)
[2022-12-25] MEDS: MUPIROCIN OINT 2% 22 GM TUBE NS SCH ×2 (08:56→21:28)
[2022-12-25] MEDS: PANTOPRAZOLE 40 MG/PACK PACK GT SCH (08:56)
[2022-12-25] MEDS: TIMOLOL MAL/DORZOLAM HCL OPHTH 10 ML BOTTLE EACHEYE SCH ×2 (09:01→16:24)
[2022-12-25] MEDS: ENOXAPARIN SODIUM 40 MG/0.4 ML DISP.SYRIN SQ SCH (09:07)
[2022-12-25 12:00] VITALS: BP 139/59; TEMP 98.4; O2SAT 99
[2022-12-25] MEDS: IV NS 0.9% 1,000 ML IV PRN (13:35)
[2022-12-25 16:00] VITALS: BP 144/71; TEMP 98.1; O2SAT 99
[2022-12-25 20:00] VITALS: BP 140/59; TEMP 99.4; O2SAT 99
[2022-12-25] MEDS: INSULIN REGULAR, HUMAN 100 UNIT/ML 3 ML VIAL SQ PRN (23:47)
[2022-12-26] VITALS: BP 115/60; TEMP 98.9; O2SAT 99
[2022-12-26 04:00] VITALS: BP 142/63; TEMP 98.2; O2SAT 99
[2022-12-26] MEDS: MEROPENEM 1 G in IV NS 0.9% 100 ML IV SCH ×2 (04:12→14:02)
[2022-12-26] MEDS: GLUCERNA 1.2 1,000 ML BOTTLE GT PRN (05:03)
[2022-12-26] MEDS: IV NS 0.9% 1,000 ML IV PRN ×2 (05:17→23:34)
[2022-12-26] MEDS: INSULIN REGULAR, HUMAN 100 UNIT/ML 3 ML VIAL SQ PRN (05:41)
[2022-12-26] MEDS: BLOOD SUGAR DIAGNOSTIC 1 EACH STRIP IN SCH ×3 (05:42→18:22)
[2022-12-26 06:43] LABS: BASOPHILS % (AUTO) 0.3 % (0.0-2.0); EOSINOPHILS # (AUTO) 0.2 K/uL (0.0-0.7); EOSINOPHILS % (AUTO) 6.5 % (0.0-6.0); HEMATOCRIT 31 % (33-45); HEMOGLOBIN 9.6 g/dL (11.5-14.8); LYMPHOCYTES # (AUTO) 0.9 K/uL (0.8-4.8); LYMPHOCYTES % (AUTO) 31.1 % (20.0-44.0); MEAN CORPUSCULAR HEMOGLOBIN 29 PG (26.0-33.0); MEAN CORPUSCULAR HGB CONC 31 g/dl (31.0-36.0); MEAN CORPUSCULAR VOLUME 93 fL (82-100); MONOCYTES # (AUTO) 0.4 K/uL (0.1-1.30); MONOCYTES % (AUTO) 12.3 % (2.0-12.0); NEUTROPHILS # (AUTO) 1.5 K/uL (1.8-8.9); NEUTROPHILS % (AUTO) 49.8 % (43.0-81.0); PLATELET COUNT (AUTO) 225 K/uL (150-450); RED CELL DISTRIBUTION WIDTH 15.9 % (11.5-15.0)
[2022-12-26] MEDS ORDERED: MERO1VIA23 IV (07:15)
[2022-12-26 07:22] LABS: ALANINE AMINOTRANSFERASE 28 U/L (12-78); ALBUMIN 2.9 g/dL (3.4-5.0); ALKALINE PHOSPHATASE 240 U/L (46-116); ASPARTATE AMINOTRANSFERASE 36 U/L (15-37); BILIRUBIN,TOTAL 0.4 mg/dL (0.2-1.0); CARBON DIOXIDE 19 mmol/L (21-32); CHLORIDE 115 mmol/L (98-107); CREATININE 0.6 mg/dL (0.6-1.3); GLUCOSE 114 mg/dL (74-106); POTASSIUM 4.5 mmol/L (3.5-5.1); SODIUM SERUM 144 mmol/L (136-145); TOTAL PROTEIN, SERUM 7.5 g/dL (6.4-8.2); UREA NITROGEN, BLOOD 17 mg/dL (7-18)
[2022-12-26 08:00] VITALS: BP 150/62; TEMP 97.9; O2SAT 100
[2022-12-26] MEDS ORDERED: ZOLPIDEM TARTRATE 5 MG TABLET GT PRN (08:10)
[2022-12-26] MEDS: DOCUSATE SODIUM LIQ 100 MG/10 ML UDC GT SCH ×2 (09:00→18:05)
[2022-12-26] MEDS: PANTOPRAZOLE 40 MG/PACK PACK GT SCH (09:13)
[2022-12-26] MEDS: LEVETIRACETAM SOL (5 ML) 100 MG/ML UDC GT SCH ×2 (09:14→21:57)
[2022-12-26] MEDS: ZINC SULFATE 220 MG CAPSULE GT SCH (09:14)
[2022-12-26] MEDS: PROSOURCE / PROSTAT (PYXIS) 30 ML UDC GT SCH (09:14)
[2022-12-26] MEDS: CHLORHEXIDINE GLUCONATE 15 ML UDC MM SCH ×2 (09:14→18:06)
[2022-12-26] MEDS: METOPROLOL TARTRATE 25 MG TABLET GT SCH ×2 (09:16→21:58)
[2022-12-26] MEDS: ENOXAPARIN SODIUM 40 MG/0.4 ML DISP.SYRIN SQ SCH (09:16)
[2022-12-26] MEDS: ASCORBIC ACID 500 MG TABLET GT SCH (09:18)
[2022-12-26] MEDS: MULTIVIT W/MINERALS 1 TAB TABLET GT SCH (09:18)
[2022-12-26] MEDS: TIMOLOL MAL/DORZOLAM HCL OPHTH 10 ML BOTTLE EACHEYE SCH ×2 (09:19→17:00)
[2022-12-26] MEDS: MUPIROCIN OINT 2% 22 GM TUBE NS SCH ×2 (09:23→21:57)
[2022-12-26] MEDS: GEMFIBROZIL 600 MG TABLET GT SCH ×2 (09:49→18:06)
[2022-12-26 12:00] VITALS: BP 126/112; TEMP 98.6; O2SAT 100
[2022-12-26 16:00] VITALS: BP 139/58; TEMP 98.7; O2SAT 99
[2022-12-26 20:00] VITALS: BP 148/75; TEMP 98.2; O2SAT 99
[2022-12-27] VITALS: BP 140/58; TEMP 98.2; O2SAT 99
[2022-12-27] MEDS: INSULIN REGULAR, HUMAN 100 UNIT/ML 3 ML VIAL SQ PRN ×2 (00:06→06:09)
[2022-12-27] MEDS: BLOOD SUGAR DIAGNOSTIC 1 EACH STRIP IN SCH ×4 (00:06→17:28)
[2022-12-27] MEDS: MEROPENEM 1 G in IV NS 0.9% 100 ML IV SCH ×2 (01:06→14:39)
[2022-12-27] MEDS: GLUCERNA 1.2 1,000 ML BOTTLE GT PRN ×2 (02:23→22:32)
[2022-12-27 04:20] VITALS: BP 150/82; TEMP 98.6; O2SAT 99
[2022-12-27 06:10] LABS: BASOPHILS % (AUTO) 0.3 % (0.0-2.0); EOSINOPHILS # (AUTO) 0.1 K/uL (0.0-0.7); EOSINOPHILS % (AUTO) 4.5 % (0.0-6.0); HEMATOCRIT 29 % (33-45); LYMPHOCYTES # (AUTO) 1.1 K/uL (0.8-4.8); LYMPHOCYTES % (AUTO) 35.6 % (20.0-44.0); MEAN CORPUSCULAR HEMOGLOBIN 29 PG (26.0-33.0); MEAN CORPUSCULAR HGB CONC 32 g/dl (31.0-36.0); MEAN CORPUSCULAR VOLUME 93 fL (82-100); MONOCYTES # (AUTO) 0.4 K/uL (0.1-1.30); MONOCYTES % (AUTO) 12.3 % (2.0-12.0); NEUTROPHILS # (AUTO) 1.4 K/uL (1.8-8.9); NEUTROPHILS % (AUTO) 47.3 % (43.0-81.0); PLATELET COUNT (AUTO) 209 K/uL (150-450); RED BLOOD CELL COUNT(AUTO) 3.06 MIL/uL (4.0-5.2); RED CELL DISTRIBUTION WIDTH 16.2 % (11.5-15.0)
[2022-12-27 06:19] LABS: CALCIUM, SERUM 8.8 mg/dL (8.5-10.1); CREATININE 0.6 mg/dL (0.6-1.3); POTASSIUM 4.5 mmol/L (3.5-5.1)
[2022-12-27 06:25] LABS: ALBUMIN 2.7 g/dL (3.4-5.0); BILIRUBIN,TOTAL 0.4 mg/dL (0.2-1.0); TOTAL PROTEIN, SERUM 7.1 g/dL (6.4-8.2)
[2022-12-27 08:00] VITALS: BP 128/67; TEMP 98.2; O2SAT 100
[2022-12-27] MEDS: DOCUSATE SODIUM LIQ 100 MG/10 ML UDC GT SCH ×2 (09:00→17:00)
[2022-12-27] MEDS: LEVETIRACETAM SOL (5 ML) 100 MG/ML UDC GT SCH ×2 (10:24→22:05)
[2022-12-27] MEDS: PANTOPRAZOLE 40 MG/PACK PACK GT SCH (10:25)
[2022-12-27] MEDS: ASCORBIC ACID 500 MG TABLET GT SCH (10:25)
[2022-12-27] MEDS: CHLORHEXIDINE GLUCONATE 15 ML UDC MM SCH ×2 (10:25→17:26)
[2022-12-27] MEDS: ZINC SULFATE 220 MG CAPSULE GT SCH (10:26)
[2022-12-27] MEDS: METOPROLOL TARTRATE 25 MG TABLET GT SCH ×2 (10:29→22:05)
[2022-12-27] MEDS: MULTIVIT W/MINERALS 1 TAB TABLET GT SCH (10:34)
[2022-12-27] MEDS: ENOXAPARIN SODIUM 40 MG/0.4 ML DISP.SYRIN SQ SCH (10:43)
[2022-12-27] MEDS: PROSOURCE / PROSTAT (PYXIS) 30 ML UDC GT SCH (10:43)
[2022-12-27] MEDS: GEMFIBROZIL 600 MG TABLET GT SCH ×2 (10:50→17:27)
[2022-12-27 12:00] VITALS: BP 116/92; TEMP 98; O2SAT 100
[2022-12-27] MEDS: TIMOLOL MAL/DORZOLAM HCL OPHTH 10 ML BOTTLE EACHEYE SCH ×2 (14:39→17:27)
[2022-12-27] MEDS: MUPIROCIN OINT 2% 22 GM TUBE NS SCH ×2 (14:40→22:05)
[2022-12-27 16:00] VITALS: BP 135/89; TEMP 97.9; O2SAT 100
[2022-12-27 20:00] VITALS: BP 132/76; TEMP 208.6; TEMP 98.1; O2SAT 99
[2022-12-27] MEDS: IV NS 0.9% 1,000 ML IV PRN (22:10)
[2022-12-28] VITALS: BP 128/75; TEMP 98; O2SAT 100
[2022-12-28] MEDS: MEROPENEM 1 G in IV NS 0.9% 100 ML IV SCH ×2 (02:18→13:16)
[2022-12-28 04:00] VITALS: BP 141/67; TEMP 98.2; O2SAT 100
[2022-12-28] MEDS: BLOOD SUGAR DIAGNOSTIC 1 EACH STRIP IN SCH ×4 (06:00→18:48)
[2022-12-28 07:27] LABS: BASOPHILS % (AUTO) 0.4 % (0.0-2.0); EOSINOPHILS # (AUTO) 0.2 K/uL (0.0-0.7); EOSINOPHILS % (AUTO) 5.4 % (0.0-6.0); HEMATOCRIT 29 % (33-45); HEMOGLOBIN 9.2 g/dL (11.5-14.8); LYMPHOCYTES # (AUTO) 1.5 K/uL (0.8-4.8); LYMPHOCYTES % (AUTO) 38.4 % (20.0-44.0); MEAN CORPUSCULAR HEMOGLOBIN 29 PG (26.0-33.0); MEAN CORPUSCULAR HGB CONC 32 g/dl (31.0-36.0); MEAN CORPUSCULAR VOLUME 91 fL (82-100); MONOCYTES # (AUTO) 0.4 K/uL (0.1-1.30); MONOCYTES % (AUTO) 11.2 % (2.0-12.0); NEUTROPHILS # (AUTO) 1.7 K/uL (1.8-8.9); NEUTROPHILS % (AUTO) 44.6 % (43.0-81.0); PLATELET COUNT (AUTO) 207 K/uL (150-450); RED BLOOD CELL COUNT(AUTO) 3.12 MIL/uL (4.0-5.2); RED CELL DISTRIBUTION WIDTH 15.9 % (11.5-15.0); WHITE BLOOD COUNT (AUTO) 3.9 K/uL (4.3-11.0)
[2022-12-28 07:43] LABS: CALCIUM, SERUM 8.6 mg/dL (8.5-10.1); CREATININE 0.6 mg/dL (0.6-1.3); POTASSIUM 4.8 mmol/L (3.5-5.1)
[2022-12-28] MEDS: PANTOPRAZOLE 40 MG/PACK PACK GT SCH (07:44)
[2022-12-28] MEDS: PROSOURCE / PROSTAT (PYXIS) 30 ML UDC GT SCH (07:44)
[2022-12-28 07:49] LABS: ALBUMIN 2.7 g/dL (3.4-5.0); BILIRUBIN,TOTAL 0.3 mg/dL (0.2-1.0); TOTAL PROTEIN, SERUM 7.1 g/dL (6.4-8.2)
[2022-12-28 08:00] VITALS: BP 129/72; TEMP 98.3; O2SAT 100
[2022-12-28] MEDS: MUPIROCIN OINT 2% 22 GM TUBE NS SCH ×2 (08:24→21:20)
[2022-12-28] MEDS: TIMOLOL MAL/DORZOLAM HCL OPHTH 10 ML BOTTLE EACHEYE SCH ×2 (08:38→17:13)
[2022-12-28] MEDS: DOCUSATE SODIUM LIQ 100 MG/10 ML UDC GT SCH ×2 (08:39→17:21)
[2022-12-28] MEDS: CHLORHEXIDINE GLUCONATE 15 ML UDC MM SCH ×2 (08:39→17:21)
[2022-12-28] MEDS: LEVETIRACETAM SOL (5 ML) 100 MG/ML UDC GT SCH ×2 (08:39→21:19)
[2022-12-28] MEDS: GEMFIBROZIL 600 MG TABLET GT SCH ×2 (08:39→17:22)
[2022-12-28] MEDS: MULTIVIT W/MINERALS 1 TAB TABLET GT SCH (08:39)
[2022-12-28] MEDS: ASCORBIC ACID 500 MG TABLET GT SCH (08:40)
[2022-12-28] MEDS: ZINC SULFATE 220 MG CAPSULE GT SCH (08:40)
[2022-12-28] MEDS: METOPROLOL TARTRATE 25 MG TABLET GT SCH ×2 (08:40→21:20)
[2022-12-28] MEDS: ENOXAPARIN SODIUM 40 MG/0.4 ML DISP.SYRIN SQ SCH (08:42)
[2022-12-28 12:00] VITALS: BP 119/66; TEMP 98.4; O2SAT 100
[2022-12-28 16:00] VITALS: BP 108/58; TEMP 98.4; O2SAT 100
[2022-12-28] MEDS: IV NS 0.9% 1,000 ML IV PRN (19:37)
[2022-12-28 20:00] VITALS: BP 141/71; TEMP 98.2; O2SAT 100
[2022-12-29] VITALS: BP 136/73; TEMP 97.6; O2SAT 100
[2022-12-29] MEDS: BLOOD SUGAR DIAGNOSTIC 1 EACH STRIP IN SCH ×4 (00:56→18:20)
[2022-12-29] MEDS: MEROPENEM 1 G in IV NS 0.9% 100 ML IV SCH ×2 (02:04→13:24)
[2022-12-29 04:00] VITALS: BP 131/71; TEMP 97.8; O2SAT 100
[2022-12-29] MEDS: GLUCERNA 1.2 1,000 ML BOTTLE GT PRN ×2 (04:24→21:47)
[2022-12-29 06:52] LABS: BASOPHILS % (AUTO) 0.9 % (0.0-2.0); EOSINOPHILS # (AUTO) 0.3 K/uL (0.0-0.7); EOSINOPHILS % (AUTO) 6.4 % (0.0-6.0); HEMATOCRIT 32 % (33-45); HEMOGLOBIN 10.1 g/dL (11.5-14.8); LYMPHOCYTES # (AUTO) 1.1 K/uL (0.8-4.8); LYMPHOCYTES % (AUTO) 25.8 % (20.0-44.0); MEAN CORPUSCULAR HEMOGLOBIN 30 PG (26.0-33.0); MEAN CORPUSCULAR HGB CONC 31 g/dl (31.0-36.0); MEAN CORPUSCULAR VOLUME 96 fL (82-100); MONOCYTES # (AUTO) 0.5 K/uL (0.1-1.30); MONOCYTES % (AUTO) 12.2 % (2.0-12.0); NEUTROPHILS # (AUTO) 2.3 K/uL (1.8-8.9); NEUTROPHILS % (AUTO) 54.7 % (43.0-81.0); PLATELET COUNT (AUTO) 239 K/uL (150-450); RED BLOOD CELL COUNT(AUTO) 3.38 MIL/uL (4.0-5.2); RED CELL DISTRIBUTION WIDTH 16.8 % (11.5-15.0); WHITE BLOOD COUNT (AUTO) 4.2 K/uL (4.3-11.0)
[2022-12-29 07:00] LABS: CALCIUM, SERUM 8.8 mg/dL (8.5-10.1); CARBON DIOXIDE 16 mmol/L (21-32); CHLORIDE 109 mmol/L (98-107); CREATININE 0.4 mg/dL (0.6-1.3); GLUCOSE 106 mg/dL (74-106); POTASSIUM 4.9 mmol/L (3.5-5.1); SODIUM SERUM 134 mmol/L (136-145); UREA NITROGEN, BLOOD 13 mg/dL (7-18)
[2022-12-29 07:06] LABS: ALANINE AMINOTRANSFERASE 27 U/L (12-78); ALBUMIN 2.6 g/dL (3.4-5.0); ALKALINE PHOSPHATASE 250 U/L (46-116); ASPARTATE AMINOTRANSFERASE 37 U/L (15-37); BILIRUBIN,TOTAL 0.4 mg/dL (0.2-1.0); TOTAL PROTEIN, SERUM 7.2 g/dL (6.4-8.2)
[2022-12-29 08:00] VITALS: BP 122/96; TEMP 98.1; O2SAT 100
[2022-12-29] MEDS: PANTOPRAZOLE 40 MG/PACK PACK GT SCH (08:46)
[2022-12-29] MEDS: PROSOURCE / PROSTAT (PYXIS) 30 ML UDC GT SCH (10:21)
[2022-12-29] MEDS: DOCUSATE SODIUM LIQ 100 MG/10 ML UDC GT SCH ×2 (10:22→17:00)
[2022-12-29] MEDS: LEVETIRACETAM SOL (5 ML) 100 MG/ML UDC GT SCH ×2 (10:22→22:18)
[2022-12-29] MEDS: GEMFIBROZIL 600 MG TABLET GT SCH ×2 (10:22→18:19)
[2022-12-29] MEDS: METOPROLOL TARTRATE 25 MG TABLET GT SCH ×2 (10:23→22:22)
[2022-12-29] MEDS: MULTIVIT W/MINERALS 1 TAB TABLET GT SCH (10:23)
[2022-12-29] MEDS: ZINC SULFATE 220 MG CAPSULE GT SCH (10:23)
[2022-12-29] MEDS: CHLORHEXIDINE GLUCONATE 15 ML UDC MM SCH ×2 (10:23→18:19)
[2022-12-29] MEDS: ASCORBIC ACID 500 MG TABLET GT SCH (10:23)
[2022-12-29] MEDS: ENOXAPARIN SODIUM 40 MG/0.4 ML DISP.SYRIN SQ SCH (10:24)
[2022-12-29] MEDS: MUPIROCIN OINT 2% 22 GM TUBE NS SCH ×2 (10:34→22:22)
[2022-12-29] MEDS: TIMOLOL MAL/DORZOLAM HCL OPHTH 10 ML BOTTLE EACHEYE SCH ×2 (10:35→18:21)
[2022-12-29 12:00] VITALS: BP 130/63; TEMP 98.2; O2SAT 100
[2022-12-29] MEDS: IV NS 0.9% 1,000 ML IV PRN (13:23)
[2022-12-29 16:00] VITALS: BP 147/65; TEMP 99.1; O2SAT 100
[2022-12-29 20:00] VITALS: BP 117/58; TEMP 99.1; O2SAT 100
[2022-12-30] VITALS: BP 139/81; TEMP 99; O2SAT 100
[2022-12-30] MEDS: BLOOD SUGAR DIAGNOSTIC 1 EACH STRIP IN SCH ×4 (00:24→17:23)
[2022-12-30] MEDS: IV NS 0.9% 1,000 ML IV PRN (02:36)
[2022-12-30] MEDS: MEROPENEM 1 G in IV NS 0.9% 100 ML IV SCH ×2 (02:41→13:36)
[2022-12-30 04:00] VITALS: BP 137/90; TEMP 98.1; O2SAT 100
[2022-12-30 06:37] LABS: ALBUMIN 2.7 g/dL (3.4-5.0); BILIRUBIN,TOTAL 0.4 mg/dL (0.2-1.0); CALCIUM, SERUM 8.7 mg/dL (8.5-10.1); CREATININE 0.6 mg/dL (0.6-1.3); POTASSIUM 4.7 mmol/L (3.5-5.1); TOTAL PROTEIN, SERUM 6.9 g/dL (6.4-8.2)
[2022-12-30 07:25] LABS: BASOPHILS % (AUTO) 0.2 % (0.0-2.0); EOSINOPHILS # (AUTO) 0.2 K/uL (0.0-0.7); EOSINOPHILS % (AUTO) 3.6 % (0.0-6.0); HEMATOCRIT 29 % (33-45); HEMOGLOBIN 9.1 g/dL (11.5-14.8); LYMPHOCYTES # (AUTO) 2.1 K/uL (0.8-4.8); LYMPHOCYTES % (AUTO) 44.2 % (20.0-44.0); MEAN CORPUSCULAR HEMOGLOBIN 30 PG (26.0-33.0); MEAN CORPUSCULAR HGB CONC 32 g/dl (31.0-36.0); MEAN CORPUSCULAR VOLUME 93 fL (82-100); MONOCYTES # (AUTO) 0.8 K/uL (0.1-1.30); MONOCYTES % (AUTO) 15.9 % (2.0-12.0); NEUTROPHILS # (AUTO) 1.7 K/uL (1.8-8.9); NEUTROPHILS % (AUTO) 36.1 % (43.0-81.0); PLATELET COUNT (AUTO) 220 K/uL (150-450); RED BLOOD CELL COUNT(AUTO) 3.08 MIL/uL (4.0-5.2); RED CELL DISTRIBUTION WIDTH 16.6 % (11.5-15.0); WHITE BLOOD COUNT (AUTO) 4.8 K/uL (4.3-11.0)
[2022-12-30 08:00] VITALS: BP 107/63; TEMP 98.4; O2SAT 100
[2022-12-30] MEDS: PANTOPRAZOLE 40 MG/PACK PACK GT SCH (09:41)
[2022-12-30] MEDS: ENOXAPARIN SODIUM 40 MG/0.4 ML DISP.SYRIN SQ SCH (09:43)
[2022-12-30] MEDS: GEMFIBROZIL 600 MG TABLET GT SCH ×2 (09:45→16:07)
[2022-12-30] MEDS: ASCORBIC ACID 500 MG TABLET GT SCH (09:45)
[2022-12-30] MEDS: DOCUSATE SODIUM LIQ 100 MG/10 ML UDC GT SCH ×2 (09:47→16:08)
[2022-12-30] MEDS: MULTIVIT W/MINERALS 1 TAB TABLET GT SCH (09:47)
[2022-12-30] MEDS: CHLORHEXIDINE GLUCONATE 15 ML UDC MM SCH ×2 (09:47→16:07)
[2022-12-30] MEDS: LEVETIRACETAM SOL (5 ML) 100 MG/ML UDC GT SCH ×2 (09:47→20:33)
[2022-12-30] MEDS: ZINC SULFATE 220 MG CAPSULE GT SCH (09:47)
[2022-12-30] MEDS: METOPROLOL TARTRATE 25 MG TABLET GT SCH ×2 (09:47→20:33)
[2022-12-30] MEDS: TIMOLOL MAL/DORZOLAM HCL OPHTH 10 ML BOTTLE EACHEYE SCH ×2 (09:49→16:08)
[2022-12-30] MEDS: MUPIROCIN OINT 2% 22 GM TUBE NS SCH (09:49)
[2022-12-30] MEDS: PROSOURCE / PROSTAT (PYXIS) 30 ML UDC GT SCH (09:51)
[2022-12-30 12:00] VITALS: BP 137/75; TEMP 99; O2SAT 100
[2022-12-30] MEDS: GLUCERNA 1.2 1,000 ML BOTTLE GT PRN (16:21)
[2022-12-30 17:27] VITALS: BP 139/73; TEMP 98.6; O2SAT 100
[2022-12-30 20:00] VITALS: BP 149/81; TEMP 98.6; O2SAT 100
[2022-12-31] VITALS: BP 141/81; TEMP 99.1; O2SAT 100
[2022-12-31] MEDS: BLOOD SUGAR DIAGNOSTIC 1 EACH STRIP IN SCH ×4 (00:21→17:13)
[2022-12-31] MEDS: INSULIN REGULAR, HUMAN 100 UNIT/ML 3 ML VIAL SQ PRN ×4 (00:21→17:14)
[2022-12-31] MEDS: IV NS 0.9% 1,000 ML IV PRN (01:04)
[2022-12-31] MEDS: MEROPENEM 1 G in IV NS 0.9% 100 ML IV SCH ×2 (01:53→14:37)
[2022-12-31 04:00] VITALS: BP 150/81; TEMP 99.4; O2SAT 100
[2022-12-31 06:17] LABS: BASOPHILS % (AUTO) 0.3 % (0.0-2.0); EOSINOPHILS # (AUTO) 0.1 K/uL (0.0-0.7); EOSINOPHILS % (AUTO) 3.4 % (0.0-6.0); HEMATOCRIT 30 % (33-45); HEMOGLOBIN 9.6 g/dL (11.5-14.8); LYMPHOCYTES # (AUTO) 1.4 K/uL (0.8-4.8); LYMPHOCYTES % (AUTO) 32.5 % (20.0-44.0); MEAN CORPUSCULAR HEMOGLOBIN 30 PG (26.0-33.0); MEAN CORPUSCULAR HGB CONC 32 g/dl (31.0-36.0); MEAN CORPUSCULAR VOLUME 92 fL (82-100); MONOCYTES # (AUTO) 0.5 K/uL (0.1-1.30); MONOCYTES % (AUTO) 11.9 % (2.0-12.0); NEUTROPHILS # (AUTO) 2.2 K/uL (1.8-8.9); NEUTROPHILS % (AUTO) 51.9 % (43.0-81.0); PLATELET COUNT (AUTO) 249 K/uL (150-450); RED BLOOD CELL COUNT(AUTO) 3.23 MIL/uL (4.0-5.2); RED CELL DISTRIBUTION WIDTH 16.8 % (11.5-15.0); WHITE BLOOD COUNT (AUTO) 4.3 K/uL (4.3-11.0)
[2022-12-31 06:42] LABS: ALANINE AMINOTRANSFERASE 26 U/L (12-78); ALBUMIN 2.7 g/dL (3.4-5.0); ALKALINE PHOSPHATASE 260 U/L (46-116); ASPARTATE AMINOTRANSFERASE 31 U/L (15-37); BILIRUBIN,TOTAL 0.4 mg/dL (0.2-1.0); CALCIUM, SERUM 8.7 mg/dL (8.5-10.1); CARBON DIOXIDE 18 mmol/L (21-32); CHLORIDE 108 mmol/L (98-107); CREATININE 0.6 mg/dL (0.6-1.3); GLUCOSE 106 mg/dL (74-106); MAGNESIUM 1.9 mg/dL (1.8-2.4); PHOSPHORUS 3.2 mg/dL (2.5-4.9); SODIUM SERUM 136 mmol/L (136-145); TOTAL PROTEIN, SERUM 7.2 g/dL (6.4-8.2); UREA NITROGEN, BLOOD 15 mg/dL (7-18)
[2022-12-31 08:00] VITALS: BP 135/72; TEMP 98.2; O2SAT 100
[2022-12-31] MEDS: LEVETIRACETAM SOL (5 ML) 100 MG/ML UDC GT SCH ×2 (08:23→20:38)
[2022-12-31] MEDS: ASCORBIC ACID 500 MG TABLET GT SCH (08:23)
[2022-12-31] MEDS: DOCUSATE SODIUM LIQ 100 MG/10 ML UDC GT SCH ×2 (08:23→17:25)
[2022-12-31] MEDS: GEMFIBROZIL 600 MG TABLET GT SCH ×2 (08:23→17:25)
[2022-12-31] MEDS: MULTIVIT W/MINERALS 1 TAB TABLET GT SCH (08:23)
[2022-12-31] MEDS: PANTOPRAZOLE 40 MG/PACK PACK GT SCH (08:23)
[2022-12-31] MEDS: METOPROLOL TARTRATE 25 MG TABLET GT SCH ×2 (08:24→20:38)
[2022-12-31] MEDS: ZINC SULFATE 220 MG CAPSULE GT SCH (08:24)
[2022-12-31] MEDS: ENOXAPARIN SODIUM 40 MG/0.4 ML DISP.SYRIN SQ SCH (08:25)
[2022-12-31] MEDS: CHLORHEXIDINE GLUCONATE 15 ML UDC MM SCH ×2 (08:26→17:25)
[2022-12-31] MEDS: PROSOURCE / PROSTAT (PYXIS) 30 ML UDC GT SCH (08:26)
[2022-12-31] MEDS: TIMOLOL MAL/DORZOLAM HCL OPHTH 10 ML BOTTLE EACHEYE SCH ×2 (09:34→17:25)
[2022-12-31 12:00] VITALS: BP 130/64; TEMP 97.5; O2SAT 100
[2022-12-31 16:00] VITALS: BP 139/68; TEMP 98.1; O2SAT 100
[2022-12-31] MEDS: GLUCERNA 1.2 1,000 ML BOTTLE GT PRN (17:43)
[2022-12-31 20:00] VITALS: BP 121/73; TEMP 98.1; O2SAT 100
[2023-01-01] VITALS: BP 107/70; TEMP 99; O2SAT 98
[2023-01-01] MEDS: BLOOD SUGAR DIAGNOSTIC 1 EACH STRIP IN SCH ×4 (00:39→17:34)
[2023-01-01] MEDS: MEROPENEM 1 G in IV NS 0.9% 100 ML IV SCH ×2 (02:22→14:45)
[2023-01-01] MEDS: IV NS 0.9% 1,000 ML IV PRN (02:34)
[2023-01-01 04:00] VITALS: BP 143/81; TEMP 98.4; O2SAT 100
[2023-01-01 07:05] LABS: BASOPHILS % (AUTO) 0.4 % (0.0-2.0); EOSINOPHILS # (AUTO) 0.2 K/uL (0.0-0.7); EOSINOPHILS % (AUTO) 5.7 % (0.0-6.0); HEMATOCRIT 30 % (33-45); HEMOGLOBIN 9.4 g/dL (11.5-14.8); LYMPHOCYTES # (AUTO) 1.1 K/uL (0.8-4.8); LYMPHOCYTES % (AUTO) 36.9 % (20.0-44.0); MEAN CORPUSCULAR HEMOGLOBIN 29 PG (26.0-33.0); MEAN CORPUSCULAR HGB CONC 32 g/dl (31.0-36.0); MEAN CORPUSCULAR VOLUME 91 fL (82-100); MONOCYTES # (AUTO) 0.4 K/uL (0.1-1.30); MONOCYTES % (AUTO) 15.2 % (2.0-12.0); NEUTROPHILS # (AUTO) 1.2 K/uL (1.8-8.9); NEUTROPHILS % (AUTO) 41.8 % (43.0-81.0); PLATELET COUNT (AUTO) 266 K/uL (150-450); RED BLOOD CELL COUNT(AUTO) 3.23 MIL/uL (4.0-5.2); RED CELL DISTRIBUTION WIDTH 16.2 % (11.5-15.0); WHITE BLOOD COUNT (AUTO) 2.9 K/uL (4.3-11.0)
[2023-01-01 07:42] LABS: ALANINE AMINOTRANSFERASE 25 U/L (12-78); ALBUMIN 2.7 g/dL (3.4-5.0); ALKALINE PHOSPHATASE 284 U/L (46-116); ASPARTATE AMINOTRANSFERASE 36 U/L (15-37); BILIRUBIN,TOTAL 0.4 mg/dL (0.2-1.0); CALCIUM, SERUM 8.9 mg/dL (8.5-10.1); CARBON DIOXIDE 19 mmol/L (21-32); CHLORIDE 110 mmol/L (98-107); CREATININE 0.5 mg/dL (0.6-1.3); GLUCOSE 106 mg/dL (74-106); PHOSPHORUS 3.4 mg/dL (2.5-4.9); POTASSIUM 4.9 mmol/L (3.5-5.1); SODIUM SERUM 138 mmol/L (136-145); TOTAL PROTEIN, SERUM 7.3 g/dL (6.4-8.2); UREA NITROGEN, BLOOD 14 mg/dL (7-18)
[2023-01-01 08:00] VITALS: BP 141/65; TEMP 97.7; O2SAT 100
[2023-01-01] MEDS: PROSOURCE / PROSTAT (PYXIS) 30 ML UDC GT SCH (08:10)
[2023-01-01] MEDS: PANTOPRAZOLE 40 MG/PACK PACK GT SCH (08:10)
[2023-01-01] MEDS: DOCUSATE SODIUM LIQ 100 MG/10 ML UDC GT SCH ×2 (08:11→17:26)
[2023-01-01] MEDS: TIMOLOL MAL/DORZOLAM HCL OPHTH 10 ML BOTTLE EACHEYE SCH ×2 (08:11→17:33)
[2023-01-01] MEDS: CHLORHEXIDINE GLUCONATE 15 ML UDC MM SCH ×2 (08:11→17:26)
[2023-01-01] MEDS: LEVETIRACETAM SOL (5 ML) 100 MG/ML UDC GT SCH ×2 (08:11→21:16)
[2023-01-01] MEDS: GEMFIBROZIL 600 MG TABLET GT SCH ×2 (08:12→17:26)
[2023-01-01] MEDS: MULTIVIT W/MINERALS 1 TAB TABLET GT SCH (08:12)
[2023-01-01] MEDS: ASCORBIC ACID 500 MG TABLET GT SCH (08:12)
[2023-01-01] MEDS: ZINC SULFATE 220 MG CAPSULE GT SCH (08:12)
[2023-01-01] MEDS: METOPROLOL TARTRATE 25 MG TABLET GT SCH ×2 (08:13→21:17)
[2023-01-01] MEDS: ENOXAPARIN SODIUM 40 MG/0.4 ML DISP.SYRIN SQ SCH (08:14)
[2023-01-01 12:00] VITALS: BP 136/65; TEMP 98.4; O2SAT 100
[2023-01-01 16:00] VITALS: BP 157/98; TEMP 97.5; O2SAT 96
[2023-01-01 20:00] VITALS: BP 134/84; TEMP 97.5; O2SAT 96
[2023-01-01] MEDS: GLUCERNA 1.2 1,000 ML BOTTLE GT PRN (21:25)
[2023-01-02] VITALS: BP 145/78; TEMP 98.1; O2SAT 100
[2023-01-02] MEDS: BLOOD SUGAR DIAGNOSTIC 1 EACH STRIP IN SCH ×4 (00:14→17:31)
[2023-01-02] MEDS: IV NS 0.9% 1,000 ML IV PRN (00:20)
[2023-01-02] MEDS ORDERED: MEROPENEM 1 G VIAL IV ONE (03:10)
[2023-01-02] MEDS: MEROPENEM 1 G in IV NS 0.9% 100 ML IV SCH ×2 (03:16→13:50)
[2023-01-02 04:00] VITALS: BP 150/74; TEMP 98.1; O2SAT 100
[2023-01-02 06:22] LABS: BASOPHILS % (AUTO) 0.4 % (0.0-2.0); EOSINOPHILS # (AUTO) 0.2 K/uL (0.0-0.7); EOSINOPHILS % (AUTO) 5.2 % (0.0-6.0); HEMATOCRIT 31 % (33-45); HEMOGLOBIN 9.6 g/dL (11.5-14.8); LYMPHOCYTES # (AUTO) 1.8 K/uL (0.8-4.8); LYMPHOCYTES % (AUTO) 46.5 % (20.0-44.0); MEAN CORPUSCULAR HEMOGLOBIN 30 PG (26.0-33.0); MEAN CORPUSCULAR HGB CONC 32 g/dl (31.0-36.0); MEAN CORPUSCULAR VOLUME 94 fL (82-100); MONOCYTES # (AUTO) 0.7 K/uL (0.1-1.30); MONOCYTES % (AUTO) 16.5 % (2.0-12.0); NEUTROPHILS # (AUTO) 1.2 K/uL (1.8-8.9); NEUTROPHILS % (AUTO) 31.4 % (43.0-81.0); PLATELET COUNT (AUTO) 261 K/uL (150-450); RED BLOOD CELL COUNT(AUTO) 3.25 MIL/uL (4.0-5.2); RED CELL DISTRIBUTION WIDTH 16.8 % (11.5-15.0); WHITE BLOOD COUNT (AUTO) 3.9 K/uL (4.3-11.0)
[2023-01-02 07:01] LABS: ALANINE AMINOTRANSFERASE 25 U/L (12-78); ALBUMIN 2.8 g/dL (3.4-5.0); ALKALINE PHOSPHATASE 293 U/L (46-116); ASPARTATE AMINOTRANSFERASE 37 U/L (15-37); BILIRUBIN,TOTAL 0.4 mg/dL (0.2-1.0); CALCIUM, SERUM 8.8 mg/dL (8.5-10.1); CARBON DIOXIDE 18 mmol/L (21-32); CHLORIDE 110 mmol/L (98-107); CREATININE 0.5 mg/dL (0.6-1.3); GLUCOSE 103 mg/dL (74-106); PHOSPHORUS 3.5 mg/dL (2.5-4.9); POTASSIUM 5.2 mmol/L (3.5-5.1); SODIUM SERUM 137 mmol/L (136-145); TOTAL PROTEIN, SERUM 7.5 g/dL (6.4-8.2); UREA NITROGEN, BLOOD 14 mg/dL (7-18)
[2023-01-02 08:00] VITALS: BP 119/83; TEMP 98.8; O2SAT 100
[2023-01-02] MEDS: PANTOPRAZOLE 40 MG/PACK PACK GT SCH (08:09)
[2023-01-02] MEDS: PROSOURCE / PROSTAT (PYXIS) 30 ML UDC GT SCH (08:10)
[2023-01-02] MEDS: TIMOLOL MAL/DORZOLAM HCL OPHTH 10 ML BOTTLE EACHEYE SCH ×2 (08:42→16:19)
[2023-01-02] MEDS: CHLORHEXIDINE GLUCONATE 15 ML UDC MM SCH ×2 (09:02→16:29)
[2023-01-02] MEDS: LEVETIRACETAM SOL (5 ML) 100 MG/ML UDC GT SCH ×2 (09:03→20:52)
[2023-01-02] MEDS: ASCORBIC ACID 500 MG TABLET GT SCH (09:03)
[2023-01-02] MEDS: METOPROLOL TARTRATE 25 MG TABLET GT SCH ×2 (09:03→20:54)
[2023-01-02] MEDS: DOCUSATE SODIUM LIQ 100 MG/10 ML UDC GT SCH ×2 (09:04→16:29)
[2023-01-02] MEDS: MULTIVIT W/MINERALS 1 TAB TABLET GT SCH (09:05)
[2023-01-02] MEDS: ZINC SULFATE 220 MG CAPSULE GT SCH (09:05)
[2023-01-02] MEDS: ENOXAPARIN SODIUM 40 MG/0.4 ML DISP.SYRIN SQ SCH (09:06)
[2023-01-02] MEDS: GEMFIBROZIL 600 MG TABLET GT SCH ×2 (09:06→16:30)
[2023-01-02 12:00] VITALS: BP 121/67; TEMP 99; O2SAT 100
[2023-01-02 16:00] VITALS: BP 138/50; TEMP 98.8; O2SAT 100
[2023-01-02] MEDS: GLUCERNA 1.2 1,000 ML BOTTLE GT PRN (18:35)
[2023-01-02 20:00] VITALS: BP 147/70; TEMP 98.4; O2SAT 100
[2023-01-03] VITALS (7 sets, daily range): BP systolic 113–146; BP diastolic 50–90; TEMP 97.9–98.9; O2SAT 100
[2023-01-03] MEDS: BLOOD SUGAR DIAGNOSTIC 1 EACH STRIP IN SCH ×5 (00:17→23:51)
[2023-01-03] MEDS: MEROPENEM 1 G in IV NS 0.9% 100 ML IV SCH ×2 (02:51→13:05)
[2023-01-03 07:15] LABS: BASOPHILS % (AUTO) 0.4 % (0.0-2.0); EOSINOPHILS # (AUTO) 0.2 K/uL (0.0-0.7); EOSINOPHILS % (AUTO) 5.6 % (0.0-6.0); HEMATOCRIT 30 % (33-45); HEMOGLOBIN 9.7 g/dL (11.5-14.8); LYMPHOCYTES # (AUTO) 1.3 K/uL (0.8-4.8); LYMPHOCYTES % (AUTO) 34.8 % (20.0-44.0); MEAN CORPUSCULAR HEMOGLOBIN 30 PG (26.0-33.0); MEAN CORPUSCULAR HGB CONC 32 g/dl (31.0-36.0); MEAN CORPUSCULAR VOLUME 91 fL (82-100); MONOCYTES # (AUTO) 0.5 K/uL (0.1-1.30); MONOCYTES % (AUTO) 13.3 % (2.0-12.0); NEUTROPHILS # (AUTO) 1.7 K/uL (1.8-8.9); NEUTROPHILS % (AUTO) 45.9 % (43.0-81.0); PLATELET COUNT (AUTO) 319 K/uL (150-450); RED BLOOD CELL COUNT(AUTO) 3.28 MIL/uL (4.0-5.2); RED CELL DISTRIBUTION WIDTH 16.1 % (11.5-15.0); WHITE BLOOD COUNT (AUTO) 3.6 K/uL (4.3-11.0)
[2023-01-03] MEDS: PANTOPRAZOLE 40 MG/PACK PACK GT SCH (07:21)
[2023-01-03 07:30] LABS: ALANINE AMINOTRANSFERASE 27 U/L (12-78); ALBUMIN 2.9 g/dL (3.4-5.0); ALKALINE PHOSPHATASE 318 U/L (46-116); ASPARTATE AMINOTRANSFERASE 35 U/L (15-37); BILIRUBIN,TOTAL 0.4 mg/dL (0.2-1.0); CARBON DIOXIDE 22 mmol/L (21-32); CHLORIDE 108 mmol/L (98-107); CREATININE 0.5 mg/dL (0.6-1.3); GLUCOSE 109 mg/dL (74-106); PHOSPHORUS 3.2 mg/dL (2.5-4.9); POTASSIUM 4.8 mmol/L (3.5-5.1); SODIUM SERUM 138 mmol/L (136-145); TOTAL PROTEIN, SERUM 7.5 g/dL (6.4-8.2); UREA NITROGEN, BLOOD 14 mg/dL (7-18)
[2023-01-03] MEDS: PROSOURCE / PROSTAT (PYXIS) 30 ML UDC GT SCH (08:09)
[2023-01-03] MEDS: TIMOLOL MAL/DORZOLAM HCL OPHTH 10 ML BOTTLE EACHEYE SCH ×2 (08:10→17:11)
[2023-01-03] MEDS: CHLORHEXIDINE GLUCONATE 15 ML UDC MM SCH ×2 (08:43→17:21)
[2023-01-03] MEDS: DOCUSATE SODIUM LIQ 100 MG/10 ML UDC GT SCH ×2 (08:43→17:21)
[2023-01-03] MEDS: ENOXAPARIN SODIUM 40 MG/0.4 ML DISP.SYRIN SQ SCH (08:45)
[2023-01-03] MEDS: MULTIVIT W/MINERALS 1 TAB TABLET GT SCH (08:46)
[2023-01-03] MEDS: ASCORBIC ACID 500 MG TABLET GT SCH (08:47)
[2023-01-03] MEDS: LEVETIRACETAM SOL (5 ML) 100 MG/ML UDC GT SCH ×2 (08:48→20:11)
[2023-01-03] MEDS: ZINC SULFATE 220 MG CAPSULE GT SCH (08:49)
[2023-01-03] MEDS: METOPROLOL TARTRATE 25 MG TABLET GT SCH ×2 (08:49→20:37)
[2023-01-03] MEDS: GEMFIBROZIL 600 MG TABLET GT SCH ×2 (08:49→17:21)
[2023-01-03] MEDS ORDERED: hydrALAZINE HCL IV 20 MG VIAL IV PRN (20:30)
[2023-01-03] MEDS: INSULIN REGULAR, HUMAN 100 UNIT/ML 3 ML VIAL SQ PRN (23:54)
[2023-01-04] VITALS: BP 140/58; TEMP 98.2; O2SAT 100
[2023-01-04] MEDS: GLUCERNA 1.2 1,000 ML BOTTLE GT PRN (00:05)
[2023-01-04] MEDS: MEROPENEM 1 G in IV NS 0.9% 100 ML IV SCH ×2 (02:21→13:24)
[2023-01-04 04:00] VITALS: BP 129/57; TEMP 97.7; O2SAT 100
[2023-01-04] MEDS: BLOOD SUGAR DIAGNOSTIC 1 EACH STRIP IN SCH ×2 (06:13→12:42)
[2023-01-04] MEDS: INSULIN REGULAR, HUMAN 100 UNIT/ML 3 ML VIAL SQ PRN (06:13)
[2023-01-04 07:15] LABS: BASOPHILS % (AUTO) 0.5 % (0.0-2.0); EOSINOPHILS # (AUTO) 0.2 K/uL (0.0-0.7); HEMATOCRIT 31 % (33-45); HEMOGLOBIN 9.8 g/dL (11.5-14.8); LYMPHOCYTES # (AUTO) 1.4 K/uL (0.8-4.8); LYMPHOCYTES % (AUTO) 39.7 % (20.0-44.0); MEAN CORPUSCULAR HEMOGLOBIN 29 PG (26.0-33.0); MEAN CORPUSCULAR HGB CONC 32 g/dl (31.0-36.0); MEAN CORPUSCULAR VOLUME 91 fL (82-100); MONOCYTES # (AUTO) 0.5 K/uL (0.1-1.30); MONOCYTES % (AUTO) 13.1 % (2.0-12.0); NEUTROPHILS # (AUTO) 1.4 K/uL (1.8-8.9); NEUTROPHILS % (AUTO) 39.7 % (43.0-81.0); PLATELET COUNT (AUTO) 343 K/uL (150-450); RED BLOOD CELL COUNT(AUTO) 3.37 MIL/uL (4.0-5.2); RED CELL DISTRIBUTION WIDTH 16.3 % (11.5-15.0); WHITE BLOOD COUNT (AUTO) 3.5 K/uL (4.3-11.0)
[2023-01-04] MEDS: PANTOPRAZOLE 40 MG/PACK PACK GT SCH (07:23)
[2023-01-04] MEDS: PROSOURCE / PROSTAT (PYXIS) 30 ML UDC GT SCH (07:25)
[2023-01-04 07:37] LABS: CALCIUM, SERUM 9.2 mg/dL (8.5-10.1); CARBON DIOXIDE 20 mmol/L (21-32); CHLORIDE 106 mmol/L (98-107); CREATININE 0.5 mg/dL (0.6-1.3); GLUCOSE 103 mg/dL (74-106); MAGNESIUM 2.2 mg/dL (1.8-2.4); PHOSPHORUS 3.7 mg/dL (2.5-4.9); POTASSIUM 4.7 mmol/L (3.5-5.1); SODIUM SERUM 137 mmol/L (136-145); UREA NITROGEN, BLOOD 17 mg/dL (7-18)
[2023-01-04 08:00] VITALS: BP 126/70; TEMP 98.6; O2SAT 100
[2023-01-04] MEDS: TIMOLOL MAL/DORZOLAM HCL OPHTH 10 ML BOTTLE EACHEYE SCH (08:42)
[2023-01-04] MEDS: DOCUSATE SODIUM LIQ 100 MG/10 ML UDC GT SCH (08:47)
[2023-01-04] MEDS: CHLORHEXIDINE GLUCONATE 15 ML UDC MM SCH (08:47)
[2023-01-04] MEDS: LEVETIRACETAM SOL (5 ML) 100 MG/ML UDC GT SCH (08:47)
[2023-01-04] MEDS: MULTIVIT W/MINERALS 1 TAB TABLET GT SCH (08:47)
[2023-01-04] MEDS: METOPROLOL TARTRATE 25 MG TABLET GT SCH (08:48)
[2023-01-04] MEDS: ASCORBIC ACID 500 MG TABLET GT SCH (08:48)
[2023-01-04] MEDS: GEMFIBROZIL 600 MG TABLET GT SCH (08:49)
[2023-01-04] MEDS: ZINC SULFATE 220 MG CAPSULE GT SCH (08:49)
[2023-01-04] MEDS: ENOXAPARIN SODIUM 40 MG/0.4 ML DISP.SYRIN SQ SCH (08:50)
[2023-01-04 12:00] VITALS: BP 130/68; TEMP 99; O2SAT 100
== END 2023-01-04 15:45 | DRG 870 ==
LOC: ER 23:37 → TELE1 12-22 04:29
PROVIDERS: ATTEND Student in an Organized Health Care Education/Training Program
PROC: 5A1955Z Respiratory Ventilation, Greater than 96 Consecutive Hours (ICD-10-PCS; principal; 2022-12-22)
PROC: 05HD33Z Insertion of Infusion Device into Right Cephalic Vein, Percutaneous Approach (ICD-10-PCS; 2022-12-24)
PROC: 05HC33Z Insertion of Infusion Device into Left Basilic Vein, Percutaneous Approach (ICD-10-PCS; 2022-12-27)
DX: A41.9 Sepsis, unspecified organism (principal); R53.2 Functional quadriplegia; I47.1 Supraventricular tachycardia; I69.351 Hemiplegia and hemiparesis following cerebral infarction affecting right dominant side; J96.10 Chronic respiratory failure, unspecified whether with hypoxia or hypercapnia; N39.0 Urinary tract infection, site not specified; Z99.11 Dependence on respirator [ventilator] status; G93.40 Encephalopathy, unspecified; D68.59 Other primary thrombophilia; D68.9 Coagulation defect, unspecified; G40.909 Epilepsy, unspecified, not intractable, without status epilepticus; E11.22 Type 2 diabetes mellitus with diabetic chronic kidney disease; I12.9 Hypertensive chronic kidney disease with stage 1 through stage 4 chronic kidney disease, or unspecified chronic kidney disease; N18.9 Chronic kidney disease, unspecified; Z93.1 Gastrostomy status; Z93.0 Tracheostomy status; E78.5 Hyperlipidemia, unspecified; R13.10 Dysphagia, unspecified; Z88.0 Allergy status to penicillin; Z88.1 Allergy status to other antibiotic agents; Z88.8 Allergy status to other drugs, medicaments and biological substances; Z87.440 Personal history of urinary (tract) infections; Z86.19 Personal history of other infectious and parasitic diseases; Z79.899 Other long term (current) drug therapy; Z79.51 Long term (current) use of inhaled steroids; D64.9 Anemia, unspecified; E87.5 Hyperkalemia; Z79.4 Long term (current) use of insulin; Z87.19 Personal history of other diseases of the digestive system; T14.8XXA Other injury of unspecified body region, initial encounter; X58.XXXA Exposure to other specified factors, initial encounter; Y92.9 Unspecified place or not applicable
CPT/HCPCS: 31720; 36410; 36415; 71045-TC; 80048-TC; 80053-TC; 80076-TC; 81001; 82962-TC; 83605-TC; 83735-TC; 84100-TC; 84443-TC; 84484-TC; 85025-TC; 85730-TC; 87040-TC; 87081-TC; 87086-TC; 93307-TC; 94002-TC; 94003-TC; 94760-TC; 94762-TC; 94799-TC; 99082-TC; A4217; A4223; A4623; A6253; A6403; A7526; G0378; J0153; J0360; J0456; J0696; J1650; J1815; J1953; J2185; J7030; J7050; J7060